=== PATIENT | female | born 1960 | race Caucasian/White ===

== ENCOUNTER → 2018-01-18 14:24 | Outpatient (REF) | payer MEDICARE, SELFPAY ==
[2018-01-18 20:30] LABS: Anion Gap 9.3 mmol/L (3-11); BUN 14 mg/dL (7-18); CO2 27.7 mmol/L (21.0-32.0); CREATININE 0.83 mg/dL (0.55-1.02); Chloride 100 mmol/L (98-107); Glucose 92 mg/dL (70-100); Magnesium 1.4 mg/dL (1.8-2.4); Potassium 3.2 mmol/L (3.5-5.1); Sodium 137 mmol/L (136-145)
== END ==
LOC: NCHCN 14:24
PROVIDERS: PCP Family Medicine; Visit Provider Physician Assistant Medical
DX: E83.42 Hypomagnesemia (principal); E87.6 Hypokalemia; I10 Essential (primary) hypertension
CPT/HCPCS: 80048; 83735

== ENCOUNTER 2018-04-02 00:23 | Outpatient (CLI) | payer MEDICARE, SELFPAY ==
[2018-04-02 10:53] LABS: ALT 29 U/L (12-78); AST 34 U/L (15-37); Albumin 3.4 g/dL (3.4-5.0); Alkaline Phosphatase 72 U/L (46-116); Anion Gap 12.4 mmol/L (3-11); BUN 9 mg/dL (7-18); Bilirubin, Total 0.5 mg/dL (0.2-1.0); CO2 22.6 mmol/L (21.0-32.0); CREATININE 0.63 mg/dL (0.55-1.02); Calcium 8.6 mg/dL (8.5-10.1); Chloride 98 mmol/L (98-107); Glucose 85 mg/dL (70-100); Potassium 3.9 mmol/L (3.5-5.1); Sodium 133 mmol/L (136-145); Total Protein 6.9 g/dL (6.4-8.2)
[2018-04-02 11:01] LABS: Magnesium 1.1 mg/dL (1.8-2.4)
[2018-04-02] MEDS: Omnipaque 350 MG/ML 100 ML BTL IJ (11:18)
--- NOTE | 2018-04-02 11:25 | DI.CT_ITS ---
SYMPTOMS/DIAGNOSIS: H/O NON SMALL CELL CANCER, PULMONARY NODULES OF UNCERTAIN SIGNIFICANCE, RESTAGING, C34.31 CT SCAN OF THE CHEST: CT scan of the chest was performed following the uneventful administration of intravenous contrast material. Comparison is 07/20/17. The thoracic aorta is of normal caliber. The heart size is within normal limits. No significant pericardial effusion is seen. No significant thoracic or mediastinal adenopathy. No hilar adenopathy is present. No pleural effusion or pneumothorax is identified. There has been no change in size of the pulmonary nodules in the right hemithorax. No new pulmonary nodules are seen. No new infiltrates are seen. The tracheobronchial tree is unremarkable. There is scarring seen in the right lung base which appears stable. The upper abdominal images show no acute abnormality. There are old healed right rib fractures. No suspicious lytic or sclerotic lesions are seen in the bones. IMPRESSION: Stable right pulmonary nodules. No significant change in appearance of the chest CT since 07/20/17.
== END 2018-04-02 00:43 ==
PROVIDERS: Physician Assistant Medical; PCP Family Medicine; Visit Provider Internal Medicine Hematology & Oncology
DX: E83.42 Hypomagnesemia (principal); E87.6 Hypokalemia; C34.31 Malignant neoplasm of lower lobe, right bronchus or lung; R91.1 Solitary pulmonary nodule
CPT/HCPCS: 36415; 80048; 80053; 71260; 82565; 83735; 85025; J3490

== ENCOUNTER 2018-04-05 11:15 | Outpatient (CLI) | payer MEDICARE, SELFPAY ==
[2018-04-05 11:34] LABS: Abs Immature Grans 0.01 k/cumm (0.0-0.09); Absolute Basophil Count 0.04 k/cumm (0.0-0.2); Absolute Eosinophil Count 0.16 k/cumm (0.0-0.7); Absolute Lymphocyte Count 1.84 k/cumm (1.2-3.4); Absolute Monocyte Count 0.41 k/cumm (0.11-0.7); Absolute Neutrophil Count 5.52 k/cumm (1.2-6.7); Basophils % 0.5; HCT 41.4 % (36.0-46.0); HGB 14.2 g/dL (12.0-15.5); Immature Grans % 0.1; Lymphocytes % 23.1; Mean Corp. HGB Concentration 34.3 g/dL (32.0-36.0); Mean Corpuscular Hemoglobin 31.2 pg (27.0-33.0); Mean Platelet Volume 10.2 fL (8.0-11.0); Monocytes % 5.1; Neutrophils % 69.2; Platelet Count 353 x1000/uL (130-400); RBC 4.55 m/cumm (4.00-5.20); RBC Distribution Width 13.4 % (11.7-14.6); White Blood Cell Count 7.98 k/cumm (4.4-10.8)
== END 2018-04-05 11:35 ==
PROVIDERS: PCP Family Medicine; Referring Provider Physician Assistant Medical; Visit Provider Internal Medicine Hematology & Oncology
DX: C34.31 Malignant neoplasm of lower lobe, right bronchus or lung (principal)
CPT/HCPCS: 36415; 85025

== ENCOUNTER 2018-07-06 13:39 | Outpatient (REF) | payer MEDICARE, SELFPAY ==
[2018-07-06 18:59] LABS: HCT 39.2 % (36.0-46.0); HGB 13.2 g/dL (12.0-15.5); Mean Corp. HGB Concentration 33.7 g/dL (32.0-36.0); Mean Corpuscular Hemoglobin 31.8 pg (27.0-33.0); Mean Corpuscular Volume 94.5 fL (80-95); Mean Platelet Volume 10.7 fL (8.0-11.0); Platelet Count 332 x1000/uL (130-400); RBC 4.15 m/cumm (4.00-5.20); RBC Distribution Width 13.2 % (11.7-14.6); White Blood Cell Count 8.68 k/cumm (4.4-10.8)
[2018-07-06 19:16] LABS: ALT 34 U/L (12-78); AST 27 U/L (15-37); Alkaline Phosphatase 83 U/L (46-116); Anion Gap 11.2 mmol/L (3-11); BUN 14 mg/dL (7-18); Bilirubin, Total 0.9 mg/dL (0.2-1.0); CO2 26.8 mmol/L (21.0-32.0); CREATININE 1.01 mg/dL (0.55-1.02); Calcium 10.2 mg/dL (8.5-10.1); Chloride 102 mmol/L (98-107); Glucose 91 mg/dL (70-100); Lipase 115 U/L (73-393); Potassium 3.8 mmol/L (3.5-5.1); Sodium 140 mmol/L (136-145); Total Protein 7.4 g/dL (6.4-8.2)
== END 2018-07-06 13:59 ==
LOC: NCHCN 13:39
PROVIDERS: PCP Family Medicine; Visit Provider Physician Assistant Medical
DX: R10.11 Right upper quadrant pain (principal)
CPT/HCPCS: 80053; 83690; 85027

== ENCOUNTER 2018-10-04 09:18 | Outpatient (CLI) | payer MEDICARE, OTHER, SELFPAY ==
[2018-10-04 12:49] LABS: Abs Immature Grans 0.01 k/cumm (0.0-0.09); Absolute Basophil Count 0.04 k/cumm (0.0-0.2); Absolute Eosinophil Count 0.17 k/cumm (0.0-0.7); Absolute Lymphocyte Count 1.41 k/cumm (1.2-3.4); Absolute Monocyte Count 0.29 k/cumm (0.11-0.7); Absolute Neutrophil Count 4.83 k/cumm (1.2-6.7); Basophils % 0.6; Eosinophils % 2.5; HCT 38.9 % (36.0-46.0); HGB 13.4 g/dL (12.0-15.5); Immature Grans % 0.1; Lymphocytes % 20.9; Mean Corp. HGB Concentration 34.4 g/dL (32.0-36.0); Mean Corpuscular Hemoglobin 32.1 pg (27.0-33.0); Mean Corpuscular Volume 93.3 fL (80-95); Monocytes % 4.3; Neutrophils % 71.6; Platelet Count 343 x1000/uL (130-400); RBC 4.17 m/cumm (4.00-5.20); RBC Distribution Width 12.8 % (11.7-14.6); White Blood Cell Count 6.75 k/cumm (4.4-10.8)
[2018-10-04 13:09] LABS: ALT 44 U/L (12-78); AST 38 U/L (15-37); Albumin 3.7 g/dL (3.4-5.0); Alkaline Phosphatase 72 U/L (46-116); Anion Gap 10.4 mmol/L (3-11); BUN 22 mg/dL (7-18); Bilirubin, Total 0.7 mg/dL (0.2-1.0); CO2 25.6 mmol/L (21.0-32.0); CREATININE 0.71 mg/dL (0.55-1.02); Calcium 9.1 mg/dL (8.5-10.1); Chloride 102 mmol/L (98-107); Glucose 98 mg/dL (70-100); Potassium 4.2 mmol/L (3.5-5.1); Sodium 138 mmol/L (136-145); Total Protein 7.1 g/dL (6.4-8.2)
--- NOTE | 2018-10-04 13:48 | DI.CT_ITS ---
SYMPTOMS/DIAGNOSIS: NON-SMALL CELL LUNG CANCER, C34.90, ? SIGNIFICANCE OF PULMONARY NODULES CHEST CT: CT examination of the chest was performed with a bolus infusion of 100 cc of Omnipaque 350. The patient reportedly has a history of non-small cell lung carcinoma with a right upper lobectomy. Images obtained through the upper abdomen show unremarkable appearance of visualized portions of the liver, spleen, adrenals, kidneys and pancreas. No significant mediastinal adenopathy seen. No supraclavicular or axillary adenopathy seen. Previously described multiple right intrapulmonary nodules are again noted and unchanged from the previous examination of 04/02/2018. No left- sided nodules seen. No pleural effusion seen. CONCLUSION: Stable appearance of multiple right intrapulmonary nodules, a right apical pleural-based nodule and right nodule associated with the interlobar fissure at a level just above the tony; each measure about 10 mm in diameter.
[2018-10-04] MEDS: Omnipaque 350 MG/ML 100 ML BTL IJ (14:02)
[2018-10-04] MEDS: Normal Saline Flush 10 ML SYR IVP (14:03)
== END 2018-10-04 09:38 ==
PROVIDERS: PCP Family Medicine; Visit Provider Nurse Practitioner Family
DX: C34.90 Malignant neoplasm of unspecified part of unspecified bronchus or lung (principal); R91.8 Other nonspecific abnormal finding of lung field
CPT/HCPCS: 80053; 71260; 85025; J3490

== ENCOUNTER 2018-10-18 02:12 | Outpatient (CLI) | payer MEDICARE, SELFPAY ==
--- NOTE | 2018-10-18 14:20 | DI.MAMMO_ITS ---
SYMPTOM/DIAGNOSIS: SCREENING MAMMOGRAMS: Mammograms were interpreted according to the usual protocol including computer analysis with CAD system, tomosynthesis and C view imaging. Comparison is made with exams from [id number]. The breasts are composed of scattered fibroglandular densities, breast density, Category B. No suspicious masses or suspicious microcalcifications are seen. There has been no significant change. IMPRESSION: Category 1, negative mammogram. Yearly screening mammography is recommended. [facility] ASSESSMENT OF FINDINGS: Negative. Category 1. Patient will receive a letter notifying them of these results. BI-RADS category B. There are scattered areas of fibroglandular density.
== END 2018-10-18 02:32 ==
PROVIDERS: PCP Family Medicine; Visit Provider Nurse Practitioner Adult Health
DX: Z12.31 Encounter for screening mammogram for malignant neoplasm of breast (principal)
CPT/HCPCS: 77063; 77067

== ENCOUNTER 2019-05-10 20:39 | Outpatient (REF) | payer MEDICARE, SELFPAY ==
[2019-05-10 19:41] LABS: HCT 44.4 % (36.0-46.0); HGB 14.6 g/dL (12.0-15.5); Mean Corp. HGB Concentration 32.9 g/dL (32.0-36.0); Mean Corpuscular Hemoglobin 31.9 pg (27.0-33.0); Mean Corpuscular Volume 96.9 fL (80-95); Mean Platelet Volume 10.4 fL (8.0-11.0); Platelet Count 398 x1000/uL (130-400); RBC 4.58 m/cumm (4.00-5.20); RBC Distribution Width 13.3 % (11.7-14.6); White Blood Cell Count 8.65 k/cumm (4.4-10.8)
[2019-05-10 19:42] LABS: Anion Gap 11.2 mmol/L (3-11); BUN 15 mg/dL (7-18); CO2 28.8 mmol/L (21.0-32.0); CREATININE 1.09 mg/dL (0.55-1.02); Chloride 104 mmol/L (98-107); Estimated GFR 51.38 (mL/min/1.73m2); Glucose 97 mg/dL (74-106); Potassium 4.4 mmol/L (3.5-5.1); Sodium 144 mmol/L (136-145)
== END 2019-05-10 20:59 ==
LOC: NCHCN 20:39
PROVIDERS: PCP Family Medicine; Visit Provider Nurse Practitioner Family
DX: I10 Essential (primary) hypertension (principal); J32.9 Chronic sinusitis, unspecified
CPT/HCPCS: 80048; 85027

== ENCOUNTER 2020-01-09 11:57 | Outpatient (REF) | payer MEDICARE, OTHER, SELFPAY ==
[2020-01-09 18:59] LABS: Abs Immature Grans 0.02 10^3/uL (0.0-0.06); Absolute Basophil Count 0.06 10^3/uL (0.0-0.2); Absolute Eosinophil Count 0.23 10^3/uL (0.0-0.7); Absolute Lymphocyte Count 1.63 10^3/uL (1.2-3.4); Absolute Monocyte Count 0.37 10^3/uL (0.1-0.8); Absolute Neutrophil Count 4.23 10^3/uL (1.2-6.7); Basophils % 0.9; Eosinophils % 3.5; HCT 41.6 % (36.0-46.0); Immature Grans % 0.3; Lymphocytes % 24.9; MCHC 33.7 % (32.0-36.0); MPV 10.1 fL (8.0-11.0); Monocytes % 5.7; Neutrophils % 64.7; Nucleated RBC 0 %; Platelet Count 350 10^3/uL (130-400); RBC 4.38 10^6/uL (3.93-5.22); RDW 12.4 % (11.7-14.6); RDW-SD 43.7 fL; WBC 6.54 10^3/uL (4.4-10.8)
[2020-01-09 19:23] LABS: ALT 41 U/L (14-59); AST 19 U/L (15-37); Albumin 3.8 g/dL (3.4-5.0); Alkaline Phosphatase 67 U/L (46-116); Anion Gap 9.8 mmol/L (3-11); BUN 12 mg/dL (7-18); Bilirubin, Total 0.7 mg/dL (0.2-1.0); CO2 27.2 mmol/L (21.0-32.0); CREATININE 0.89 mg/dL (0.55-1.02); Calcium 9.3 mg/dL (8.5-10.1); Calculated LDL 95 mg/dL (<100); Chloride 97 mmol/L (98-107); Cholesterol 203 mg/dL (<200); Glucose 95 mg/dL (74-106); HDL Cholesterol 83 mg/dL (40-60); Potassium 4.2 mmol/L (3.5-5.1); Sodium 134 mmol/L (136-145); TSH (W/Ref FT4) 1.18 uIU/mL (0.36-3.74); Total Protein 6.7 g/dL (6.4-8.2); Triglyceride 128 mg/dL (<150)
== END 2020-01-09 12:17 ==
LOC: NCHCN 11:57
PROVIDERS: PCP Family Medicine; Visit Provider Physician Assistant
DX: I10 Essential (primary) hypertension (principal); E78.5 Hyperlipidemia, unspecified; J44.9 Chronic obstructive pulmonary disease, unspecified; M16.12 Unilateral primary osteoarthritis, left hip; K21.9 Gastro-esophageal reflux disease without esophagitis; F17.200 Nicotine dependence, unspecified, uncomplicated
CPT/HCPCS: 80053; 80061; 84443; 85025

== ENCOUNTER 2020-01-19 00:53 | Outpatient (CLI) | payer MEDICARE, OTHER, SELFPAY ==
--- NOTE | 2020-01-19 | DI.CT_ITS ---
EXAM: CT CHEST W CLINICAL HISTORY: F/U RUL LUNG CA,C34.11,RESTAGING EXAM TECHNIQUE: Imaging Protocol: Axial computed tomography images with coronal and sagittal reformatted images were created and reviewed CONTRAST MATERIAL: Intravenous: Omnipaque 350 Contrast volume:100 cc COMPARISON: CT CT CHEST W from 10/04/2018 FINDINGS: The patient is again noted to be status post right upper lobectomy. There is some right sided volume loss with stable mediastinal shift toward the right. The heart size is normal. Surgical clips are noted near the right hilum. No adenopathy is seen. There are no pleural or pericardial effusions. There has been interval increase in size of previously noted right-sided pulmonary nodules. The larg est nodule is located at the level of the aortic arch near the fissure and now measures 1.6 cm in gre atest dimension. There is anteriorly right upper lobe lesion measuring 12.5 millimeters in greatest dimension. A part solid nodule at the right lung apex also appears to have increased in size. Areas of scarring are seen at the right lung base. Numerous small nodules are now visible in the left isacc g. The largest is in the upper lobe measuring 5 millimeters in diameter. The bones now show numerou s sclerotic lesions in the thoracic and visualized portions of the lumbar spine. There are old right rib fractures. Degenerative changes are again noted. The liver shows fatty infiltration. No masses are visible. The spleen, adrenals, pancreas, gallbladde r and kidneys are unremarkable. No ascites is seen in the upper abdomen. IMPRESSION: Interval increase in size of previously noted right-sided pulmonary nodules. Numerous tiny nodules a re now visible in the left lung. New sclerotic bony metastases. RADIATION DOSE DELIVERED: 1,025.07mGy.cm Total DLP DATA REPOSITORY: All CT scans at this facility are submitted to the National Radiology Data Registry (NRDR) Dose Index Registry (DIR) with the [employer] (ACR). RADIATION OPTIMIZATION: All CT scans at this facility use at least one of these dose optimization te chniques: automated exposure control; mA and/or kV adjustment per patient size (includes targeted exa ms where dose is matched to clinical indication); or iterative reconstruction.
[2020-01-19] MEDS: Omnipaque 350 MG/ML 100 ML BTL IJ (15:07)
[2020-01-19] MEDS: Normal Saline Flush 10 ML SYR IVP (15:56)
[2020-01-19] MEDS: Normal Saline - Diluent 50 ML VIAL IV (15:56)
== END 2020-01-19 01:13 ==
PROVIDERS: PCP Family Medicine; Visit Provider Internal Medicine Hematology & Oncology
DX: C34.11 Malignant neoplasm of upper lobe, right bronchus or lung (principal); R91.8 Other nonspecific abnormal finding of lung field; Z90.2 Acquired absence of lung [part of]
CPT/HCPCS: 71260; J3490

== ENCOUNTER 2020-02-13 03:31 | Outpatient (CLI) | payer MEDICARE, OTHER, SELFPAY ==
[2020-02-13 14:00] LABS: Abs Immature Grans 0.03 10^3/uL (0.0-0.06); Absolute Basophil Count 0.03 10^3/uL (0.0-0.2); Absolute Eosinophil Count 0.05 10^3/uL (0.0-0.7); Absolute Lymphocyte Count 1.04 10^3/uL (1.2-3.4); Absolute Monocyte Count 0.41 10^3/uL (0.1-0.8); Absolute Neutrophil Count 8.75 10^3/uL (1.2-6.7); Basophils % 0.3; Eosinophils % 0.5; HCT 38.5 % (36.0-46.0); HGB 13.8 g/dL (11.2-15.7); Immature Grans % 0.3; Lymphocytes % 10.1; MCH 33.1 pg (27.0-33.0); MCHC 35.8 % (32.0-36.0); MCV 92.3 fL (80-95); MPV 9.2 fL (8.0-11.0); Neutrophils % 84.8; Nucleated RBC 0 %; Platelet Count 341 10^3/uL (130-400); RBC 4.17 10^6/uL (3.93-5.22); RDW 12.6 % (11.7-14.6); RDW-SD 42.6 fL; WBC 10.31 10^3/uL (4.4-10.8)
[2020-02-13 14:45] LABS: ALT 37 U/L (14-59); AST 26 U/L (15-37); Albumin 4.1 g/dL (3.4-5.0); Alkaline Phosphatase 74 U/L (46-116); Anion Gap 12.4 mmol/L (3-11); BUN 12 mg/dL (7-18); Bilirubin, Total 1.1 mg/dL (0.2-1.0); CO2 24.6 mmol/L (21.0-32.0); CREATININE 0.93 mg/dL (0.55-1.02); Calcium 9.3 mg/dL (8.5-10.1); Chloride 96 mmol/L (98-107); Glucose 110 mg/dL (74-106); Potassium 3.3 mmol/L (3.5-5.1); Sodium 133 mmol/L (136-145); Total Protein 7.1 g/dL (6.4-8.2)
== END 2020-02-13 03:51 ==
PROVIDERS: PCP Physician Assistant; Visit Provider Internal Medicine Hematology & Oncology
DX: C34.11 Malignant neoplasm of upper lobe, right bronchus or lung (principal); R91.8 Other nonspecific abnormal finding of lung field
CPT/HCPCS: 36415; 80053; 85025

== ENCOUNTER 2020-03-30 02:56 | Outpatient (CLI) | payer MEDICARE, OTHER, SELFPAY ==
[2020-03-30 12:48] LABS: Abs Immature Grans 0.04 10^3/uL (0.0-0.06); Absolute Basophil Count 0.04 10^3/uL (0.0-0.2); Absolute Eosinophil Count 0.14 10^3/uL (0.0-0.7); Absolute Lymphocyte Count 1.15 10^3/uL (1.2-3.4); Absolute Monocyte Count 0.54 10^3/uL (0.1-0.8); Absolute Neutrophil Count 7.76 10^3/uL (1.2-6.7); Basophils % 0.4; Eosinophils % 1.4; HCT 41.8 % (36.0-46.0); HGB 14.4 g/dL (11.2-15.7); Immature Grans % 0.4; Lymphocytes % 11.9; MCH 33.2 pg (27.0-33.0); MCHC 34.4 % (32.0-36.0); MCV 96.3 fL (80-95); MPV 9.4 fL (8.0-11.0); Monocytes % 5.6; Neutrophils % 80.3; Nucleated RBC 0 %; Platelet Count 353 10^3/uL (130-400); RBC 4.34 10^6/uL (3.93-5.22); RDW 13.1 % (11.7-14.6); RDW-SD 47.1 fL; WBC 9.67 10^3/uL (4.4-10.8)
[2020-03-30 13:02] LABS: ALT 25 U/L (14-59); AST 20 U/L (15-37); Albumin 3.7 g/dL (3.4-5.0); Alkaline Phosphatase 79 U/L (46-116); Anion Gap 11.1 mmol/L (3-11); BUN 11 mg/dL (7-18); Bilirubin, Total 0.9 mg/dL (0.2-1.0); CO2 25.9 mmol/L (21.0-32.0); CREATININE 0.92 mg/dL (0.55-1.02); Calcium 9.3 mg/dL (8.5-10.1); Chloride 96 mmol/L (98-107); Glucose 96 mg/dL (74-106); Potassium 3.2 mmol/L (3.5-5.1); Sodium 133 mmol/L (136-145); Total Protein 7.3 g/dL (6.4-8.2)
== END 2020-03-30 03:16 ==
PROVIDERS: PCP Physician Assistant; Visit Provider Internal Medicine Hematology & Oncology
DX: C34.12 Malignant neoplasm of upper lobe, left bronchus or lung (principal); C34.31 Malignant neoplasm of lower lobe, right bronchus or lung
CPT/HCPCS: 36415; 80053; 85025

== ENCOUNTER 2020-04-12 16:44 | Outpatient (REF) | payer MEDICARE, OTHER, SELFPAY ==
[2020-04-12 19:18] LABS: Abs Immature Grans 0.06 10^3/uL (0.0-0.06); Absolute Basophil Count 0.07 10^3/uL (0.0-0.2); Absolute Eosinophil Count 0.07 10^3/uL (0.0-0.7); Absolute Lymphocyte Count 2.13 10^3/uL (1.2-3.4); Absolute Monocyte Count 0.67 10^3/uL (0.1-0.8); Basophils % 0.6; Eosinophils % 0.6; HCT 41.6 % (36.0-46.0); HGB 14.3 g/dL (11.2-15.7); Immature Grans % 0.5; Lymphocytes % 19.3; MCH 32.5 pg (27.0-33.0); MCHC 34.4 % (32.0-36.0); MCV 94.5 fL (80-95); MPV 9.5 fL (8.0-11.0); Monocytes % 6.1; Neutrophils % 72.9; Nucleated RBC 0 %; Platelet Count 404 10^3/uL (130-400); RDW 12.6 % (11.7-14.6); RDW-SD 44.2 fL; WBC 11.03 10^3/uL (4.4-10.8)
[2020-04-12 19:26] LABS: Absolute Neutrophil Count 8.04 10^3/uL (1.2-6.7)
[2020-04-12 19:37] LABS: ALT 35 U/L (14-59); AST 25 U/L (15-37); Albumin 4.4 g/dL (3.4-5.0); Alkaline Phosphatase 78 U/L (46-116); Anion Gap 13.7 mmol/L (3-11); BUN 11 mg/dL (7-18); Bilirubin, Total 0.9 mg/dL (0.2-1.0); CO2 22.3 mmol/L (21.0-32.0); CREATININE 0.89 mg/dL (0.55-1.02); Chloride 96 mmol/L (98-107); Glucose 88 mg/dL (74-106); Magnesium 1.4 mg/dL (1.8-2.4); Potassium 3.9 mmol/L (3.5-5.1); Sodium 132 mmol/L (136-145); Total Protein 7.6 g/dL (6.4-8.2)
== END 2020-04-12 17:04 ==
LOC: LBN 16:44
PROVIDERS: PCP Physician Assistant; Visit Provider Internal Medicine Hematology & Oncology
DX: C34.90 Malignant neoplasm of unspecified part of unspecified bronchus or lung (principal); C79.51 Secondary malignant neoplasm of bone
CPT/HCPCS: 80053; 83735; 85025

== ENCOUNTER 2020-04-20 13:12 | Outpatient (CLI) | payer MEDICARE, OTHER, SELFPAY ==
--- NOTE | 2020-04-20 15:45 | RT.EKG_ITS ---
APPROVED REPORT Exam: Resting ECG Patient Location: O HR:80 bpm ECG Measurements Heart Rate 80 AXIS MO 176 P 59 QRSd 102 QRS 41 QT 387 T 24 QTc 447 Conclusion Sinus rhythm...normal P axis, V-rate 60- [address]-T changes
== END 2020-04-20 13:32 ==
PROVIDERS: PCP Physician Assistant; Visit Provider Internal Medicine Hematology & Oncology
DX: C34.91 Malignant neoplasm of unspecified part of right bronchus or lung (principal); Z79.899 Other long term (current) drug therapy; Z13.6 Encounter for screening for cardiovascular disorders
CPT/HCPCS: 93005; 93010

== ENCOUNTER 2020-04-25 00:59 | Outpatient (CLI) | payer MEDICARE, OTHER, SELFPAY ==
--- NOTE | 2020-04-25 08:29 | DI.US_ITS ---
APPROVED REPORT EXAM: Comprehensive 2D, Doppler, and color-flow Echocardiogram Patient Location: Out-Patient Boot Lace Cutter Machine: Rosalba Prince RDCS (AE) Indications: Baseline prior to starting high risk medication, Lung Cancer Echo Enhancing Agent Comments: Patient refused use of Definity. Other Information Technically limited study due to lung disease, body habitus. Conclusion Technically limited study The left ventricle appears normal in size and wall thickness, grossly normal overall left ventricular systolic function. EF is 50 to 55%. Unable to assess segmental wall motion The right ventricle and right atrium are not well visualized Left atrial size appears normal Structurally normal mitral valve with trace regurgitation The aortic, tricuspid and pulmonic valves were not well visualized There is trace tricuspid regurgitation. Right ventricular systolic pressure could not be estimated Wall motion Left Ventricle The left ventricle is normal size. Overall left ventricular systolic function appears normal There is normal left ventricular wall thickness. Unable to assess segmental wall motion There is no ventricul ar septal defect visualized. LVEF is 50-55%. Right Ventricle Right ventricle is not well visualized. Right ventricular systolic function could not be assessed. Atria Left atrium size appears normal Right atrium is not well visualized. The interatrial septum is intact with no evidence for an atrial septal defect. Aortic Valve The aortic valve is not well visualized. Aortic valve is probably trileaflet. There is no aortic valv ular stenosis. No aortic regurgitation is present. Mitral Valve The mitral valve is normal in structure. No evidence of mitral valve stenosis. Trace mitral regurgita tion. Tricuspid Valve Tricuspid valve is not well visualized. There is no tricuspid valve stenosis. Trace tricuspid regurgi tation. Unable to assess PA pressure. Pulmonic Valve Pulmonic valve is not well visualized. There is no pulmonic valvular stenosis. There is no pulmonic v alvular regurgitation. Great Vessels The aortic root is normal in size. The ascending aorta is severely dilated. Aortic arch is normal in caliber. IVC is normal in size and collapses >50% with inspiration. Pericardium There is no pericardial effusion. 2D Dimensions IVSD d PLAX 0.88 cm F: 0.6-1.0 LV Vol A2C d MOD 111.4 mL LVPW d PLAX 0.91 cm F: 0.6 - 1.0 LV Vol A4C d MOD 97.0 mL LVID d PLAX 5.14 cm F: 3.8 - 5.2 LV EF A4C MOD 45.9 % LVDs 4.00 cm F: 2.2 - 3.5 LV EF A2C MOD 41.1 % Ao Root d 2.82 cm F: 2.7 - 3.3 LV EF Biplane MOD 41.0 % Ao Asc Diam d 4.00 cm F: 2.3 - 3.1 SV 44.62 mL LV EF Teichholz 44.0 % SV Index 21.22 mL/m2 LVEF (Reyes's) 41.03 % F: 54 - 74 LV Volume 80.22 mL F: 46 - 106 LV Volume Index 38.20 mL/m2 F: 29 - 61 LV Vol Biplane MOD 108.7 mL FS 21.90 % LV Diastology MV E' medial 0.059 (>0.07 m/s) E/A Ratio 0.8 LV E/e MED 10.30 (<14) MV E Vmax 0.61 (0.4-1.3 m/s) MV E' lateral 0.070 (>0.1 m/s) MV A Vmax 0.75 (0.4-1.3 m/s) LV E/e LAT 8.65 (<14) MV E/A Ratio 0.78 MV E/E' medial 10.33 MV E/E' lateral 8.65 Aortic Valve LVOT Area 2.78 cm2 AoV Area Vmax 2.21 cm2 LVOT Vmax 1.04 m/s AoV Area/ BSA (Vmax) 1.05 cm2/m2 LVOT Mean Ken. 0.64 m/s JOEL Mean Ken. 1.88 cm2 LVOT Peak Grad 4.3 mmHg JOEL Mean Ken. Index 0.89 cm2/m2 LVOT Mean Grad 2.0 mmHg LVOT VTI 0.190 m LVOT Diam s 1.85 cm AoV Vmax 1.31 m/s Velocity Ratio 0.79 AoV Mean Ken. 0.94 m/s AoV Peak Grad 6.8 mmHg LVOT SV 52.84 mL AoV Mean Grad 4.0 mmHg AoV VTI 0.242 m AoV Area VTI 2.18 cm2 AoV Area/ BSA (VTI) 1.04 cm/m2 Mitral Valve MV DT 235 (160-240 msec) MV PHT 68 msec MV Area PHT 3.23 cm2 MV VTI 0.261 m MV Area VTI 2.03 (4.0-6.0 cm2) Pulmonary Valve PV Vmax 0.89 (0.5-1.5 m/s) RVOT Peak Gr. 1.58 mmHg PV Peak Grad 3.2 mmHg RVOT Mean Gr. 0.80 mmHg PV Mean Grad 1.7 mmHg RVOT VTI 0.121 m PV VTI 0.200 m RVOT Vmax 0.63 m/s
== END 2020-04-25 01:19 ==
PROVIDERS: PCP Physician Assistant; Visit Provider Internal Medicine Hematology & Oncology
DX: Z79.899 Other long term (current) drug therapy (principal); C34.91 Malignant neoplasm of unspecified part of right bronchus or lung
CPT/HCPCS: 93306

== ENCOUNTER 2020-05-09 03:37 | Outpatient (CLI) | payer MEDICARE, OTHER, SELFPAY ==
[2020-05-09 13:12] LABS: Abs Immature Grans 0.02 10^3/uL (0.0-0.06); Absolute Basophil Count 0.05 10^3/uL (0.0-0.2); Absolute Eosinophil Count 0.23 10^3/uL (0.0-0.7); Absolute Lymphocyte Count 1.27 10^3/uL (1.2-3.4); Absolute Monocyte Count 0.34 10^3/uL (0.1-0.8); Absolute Neutrophil Count 6.16 10^3/uL (1.2-6.7); Basophils % 0.6; Eosinophils % 2.9; HCT 39.9 % (36.0-46.0); HGB 13.5 g/dL (11.2-15.7); Immature Grans % 0.2; Lymphocytes % 15.7; MCH 33.1 pg (27.0-33.0); MCHC 33.8 % (32.0-36.0); MCV 97.8 fL (80-95); MPV 9.5 fL (8.0-11.0); Monocytes % 4.2; Neutrophils % 76.4; Nucleated RBC 0 %; Platelet Count 297 10^3/uL (130-400); RBC 4.08 10^6/uL (3.93-5.22); RDW 12.1 % (11.7-14.6); RDW-SD 43.7 fL; WBC 8.07 10^3/uL (4.4-10.8)
[2020-05-09 13:29] LABS: ALT 32 U/L (14-59); AST 20 U/L (15-37); Albumin 3.9 g/dL (3.4-5.0); Alkaline Phosphatase 67 U/L (46-116); Anion Gap 8.7 mmol/L (3-11); BUN 16 mg/dL (7-18); Bilirubin, Total 0.5 mg/dL (0.2-1.0); CO2 25.3 mmol/L (21.0-32.0); Calcium 9.4 mg/dL (8.5-10.1); Chloride 100 mmol/L (98-107); Estimated GFR 50.67 (mL/min/1.73m2); Glucose 96 mg/dL (74-106); Magnesium 1.5 mg/dL (1.8-2.4); Potassium 3.7 mmol/L (3.5-5.1); Sodium 134 mmol/L (136-145); Total Protein 7.3 g/dL (6.4-8.2)
== END 2020-05-09 03:57 ==
PROVIDERS: PCP Physician Assistant; Visit Provider Internal Medicine Hematology & Oncology
DX: C34.11 Malignant neoplasm of upper lobe, right bronchus or lung (principal)
CPT/HCPCS: 36415; 80053; 83735; 85025

== ENCOUNTER 2020-06-06 04:26 | Outpatient (CLI) | payer MEDICARE, OTHER, SELFPAY ==
[2020-06-06 14:12] LABS: Abs Immature Grans 0.02 10^3/uL (0.0-0.06); Absolute Basophil Count 0.03 10^3/uL (0.0-0.2); Absolute Eosinophil Count 0.13 10^3/uL (0.0-0.7); Absolute Lymphocyte Count 1.54 10^3/uL (1.2-3.4); Absolute Monocyte Count 0.45 10^3/uL (0.1-0.8); Absolute Neutrophil Count 3.89 10^3/uL (1.2-6.7); Basophils % 0.5; Eosinophils % 2.1; HCT 36.8 % (36.0-46.0); HGB 12.3 g/dL (11.2-15.7); Immature Grans % 0.3; Lymphocytes % 25.4; MCH 32.3 pg (27.0-33.0); MCHC 33.4 % (32.0-36.0); MCV 96.6 fL (80-95); MPV 9.9 fL (8.0-11.0); Monocytes % 7.4; Neutrophils % 64.3; Nucleated RBC 0 %; Platelet Count 262 10^3/uL (130-400); RBC 3.81 10^6/uL (3.93-5.22); RDW 12.4 % (11.7-14.6); RDW-SD 44.4 fL; WBC 6.06 10^3/uL (4.4-10.8)
[2020-06-06 15:09] LABS: ALT 25 U/L (14-59); AST 19 U/L (15-37); Albumin 3.9 g/dL (3.4-5.0); Alkaline Phosphatase 60 U/L (46-116); Anion Gap 12.2 mmol/L (3-11); BUN 11 mg/dL (7-18); Bilirubin, Total 0.8 mg/dL (0.2-1.0); CO2 24.8 mmol/L (21.0-32.0); CREATININE 0.99 mg/dL (0.55-1.02); Calcium 8.9 mg/dL (8.5-10.1); Chloride 99 mmol/L (98-107); Estimated GFR 57.22 (mL/min/1.73m2); Glucose 89 mg/dL (74-106); Magnesium 1.3 mg/dL (1.8-2.4); Potassium 3.9 mmol/L (3.5-5.1); Sodium 136 mmol/L (136-145); Total Protein 6.6 g/dL (6.4-8.2)
== END 2020-06-06 04:46 ==
PROVIDERS: PCP Physician Assistant; Visit Provider Internal Medicine Hematology & Oncology
DX: C34.11 Malignant neoplasm of upper lobe, right bronchus or lung (principal); C34.31 Malignant neoplasm of lower lobe, right bronchus or lung; C79.51 Secondary malignant neoplasm of bone
CPT/HCPCS: 36415; 80053; 83735; 85025

== ENCOUNTER 2020-07-04 02:36 | Outpatient (CLI) | payer MEDICARE, OTHER, SELFPAY ==
--- NOTE | 2020-07-04 | DI.CT_ITS ---
EXAM: CT CHEST W CLINICAL HISTORY: LUNG CA METASTATIC TO BONE,C79.51,C34.90,ON ORAL THERAPY, RESTAGING EXAM TECHNIQUE: Imaging Protocol: Axial computed tomography images with coronal and sagittal reformatted images were created and reviewed CONTRAST MATERIAL: Intravenous: Omnipaque 350 Contrast volume:70 mL. COMPARISON: CT CT CHEST W from 01/19/2020 FINDINGS: Tracheobronchial tree: Patent where visualized. Mediastinum and Abida: No dominant adenopathy or fluid collection. Pulmonary parenchyma: Status post right upper lobectomy. The right upper lobe pulmonary nodule measu res 1.0 cm compared with 1.6 cm on the prior examination. The nodule associated with the major fissu re now measures 0.9 cm compared with 1.3 cm. The left upper lobe pulmonary nodule is no longer visua lized. There has been an interval decrease in size and number of the pulmonary nodules since 01/19/20. There is scarring seen in the right lung base. Pleura: No effusion or pneumothorax. Heart: The heart is not dilated. No coronary artery calcifications are seen. No significant pericardi al effusion. Aorta: Thoracic aorta non-dilated. Upper abdomen: Unremarkable. Lymph nodes: Within normal limits. Bones: There are old right rib fractures. There has been an interval increase in size and number of the sclerotic metastatic disease. Soft tissues: Unremarkable. IMPRESSION: 1. Interval decrease in size and number of the pulmonary metastatic disease. 2. Interval increase in size and number of the sclerotic osseous metastatic disease. RADIATION DOSE DELIVERED: 1,681.83mGy.cm Total DLP DATA REPOSITORY: All CT scans at this facility are submitted to the National Radiology Data Registry (NRDR) Dose Index Registry (DIR) with the [employer] (ACR). RADIATION OPTIMIZATION: All CT scans at this facility use at least one of these dose optimization te chniques: automated exposure control; mA and/or kV adjustment per patient size (includes targeted exa ms where dose is matched to clinical indication); or iterative reconstruction.
[2020-07-04] MEDS: Omnipaque 350 MG/ML 100 ML BTL 70 ML IJ (15:11)
== END 2020-07-04 02:37 | disposition home or self-care (01) ==
LOC: DI 02:37
PROVIDERS: PCP Physician Assistant; Visit Provider Internal Medicine Hematology & Oncology
DX: C79.51 Secondary malignant neoplasm of bone (principal); C34.91 Malignant neoplasm of unspecified part of right bronchus or lung
CPT/HCPCS: 71260; J3490

== ENCOUNTER 2020-07-10 02:40 | Outpatient (CLI) | payer MEDICARE, OTHER, SELFPAY ==
[2020-07-10 15:47] LABS: Abs Immature Grans 0.01 10^3/uL (0.0-0.06); Absolute Basophil Count 0.04 10^3/uL (0.0-0.2); Absolute Eosinophil Count 0.21 10^3/uL (0.0-0.7); Absolute Lymphocyte Count 1.57 10^3/uL (1.2-3.4); Absolute Monocyte Count 0.49 10^3/uL (0.1-0.8); Absolute Neutrophil Count 4.42 10^3/uL (1.2-6.7); Basophils % 0.6; Eosinophils % 3.1; HGB 13.3 g/dL (11.2-15.7); Immature Grans % 0.1; Lymphocytes % 23.3; MCH 32.7 pg (27.0-33.0); MCHC 34.1 % (32.0-36.0); MCV 95.8 fL (80-95); MPV 9.6 fL (8.0-11.0); Monocytes % 7.3; Neutrophils % 65.6; Nucleated RBC 0 %; Platelet Count 329 10^3/uL (130-400); RBC 4.07 10^6/uL (3.93-5.22); RDW 12.2 % (11.7-14.6); RDW-SD 42.8 fL; WBC 6.74 10^3/uL (4.4-10.8)
[2020-07-10 16:57] LABS: ALT 33 U/L (14-59); AST 22 U/L (15-37); Albumin 4.3 g/dL (3.4-5.0); Alkaline Phosphatase 70 U/L (46-116); Anion Gap 11.1 mmol/L (3-11); BUN 13 mg/dL (7-18); Bilirubin, Total 0.5 mg/dL (0.2-1.0); CO2 25.9 mmol/L (21.0-32.0); CREATININE 0.9 mg/dL (0.55-1.02); Calcium 9.3 mg/dL (8.5-10.1); Chloride 98 mmol/L (98-107); Glucose 89 mg/dL (74-106); Magnesium 1.6 mg/dL (1.8-2.4); Potassium 4.1 mmol/L (3.5-5.1); Sodium 135 mmol/L (136-145); Total Protein 7.4 g/dL (6.4-8.2)
== END 2020-07-10 02:41 | disposition home or self-care (01) ==
PROVIDERS: PCP Physician Assistant; Visit Provider Internal Medicine Hematology & Oncology
DX: C34.11 Malignant neoplasm of upper lobe, right bronchus or lung (principal); C34.31 Malignant neoplasm of lower lobe, right bronchus or lung; C79.51 Secondary malignant neoplasm of bone; E83.42 Hypomagnesemia
CPT/HCPCS: 36415; 80053; 83735; 85025

== ENCOUNTER 2020-10-15 02:22 | Outpatient (CLI) | payer MEDICARE, OTHER, SELFPAY ==
[2020-10-15 12:53] LABS: Abs Immature Grans 0.02 10^3/uL (0.0-0.06); Absolute Basophil Count 0.03 10^3/uL (0.0-0.2); Absolute Eosinophil Count 0.16 10^3/uL (0.0-0.7); Absolute Monocyte Count 0.38 10^3/uL (0.1-0.8); Absolute Neutrophil Count 5.19 10^3/uL (1.2-6.7); Basophils % 0.4; Eosinophils % 2.2; HCT 35.6 % (36.0-46.0); Immature Grans % 0.3; Lymphocytes % 19.5; MCH 31.5 pg (27.0-33.0); MCHC 33.7 % (32.0-36.0); MCV 93.4 fL (80-95); Monocytes % 5.3; Neutrophils % 72.3; Nucleated RBC 0 %; Platelet Count 249 10^3/uL (130-400); RBC 3.81 10^6/uL (3.93-5.22); RDW 12.3 % (11.7-14.6); RDW-SD 42.9 fL; WBC 7.18 10^3/uL (4.4-10.8)
[2020-10-15 13:05] LABS: ALT 19 U/L (14-59); AST 16 U/L (15-37); Albumin 4.1 g/dL (3.4-5.0); Alkaline Phosphatase 59 U/L (46-116); Anion Gap 11.3 mmol/L (3-11); BUN 9 mg/dL (7-18); Bilirubin, Total 0.7 mg/dL (0.2-1.0); CO2 24.7 mmol/L (21.0-32.0); CREATININE 1.1 mg/dL (0.55-1.02); Calcium 8.8 mg/dL (8.5-10.1); Chloride 94 mmol/L (98-107); Estimated GFR 50.67 (mL/min/1.73m2); Glucose 95 mg/dL (74-106); Magnesium 1.2 mg/dL (1.8-2.4); Potassium 3.3 mmol/L (3.5-5.1); Sodium 130 mmol/L (136-145); Total Protein 7.2 g/dL (6.4-8.2)
--- NOTE | 2020-10-15 14:05 | DI.CT_ITS ---
Exam(s) CT CHEST W EXAM: CT CHEST W CLINICAL HISTORY: LUNG CA METASTATIC TO BONE,C34.90,C79.51,ON ORAL THERAPY,RESTAGING EXAM. TECHNIQUE: Multi planar reconstructions were performed. CONTRAST MATERIAL: Omnipaque 350; 75 cc COMPARISON: CT CT CHEST W from 07/04/2020 FINDINGS: CHEST: LUNGS: Again noted is slightly decreased right hemithoracic volume related to prior lobectomy. Small nodular density in right upper lobe slightly further decreased in size. No other significant nodula r densities in the right lung field and no pleural effusion. Some scarring towards the right lung ba se is unchanged. In the opposite-left lung there are no significant new focal findings. No pleural effusion. No new findings in the trachea and mainstem bronchi. MEDIASTINUM: There is no hilar nor mediastinal adenopathy. Visualized thyroid unremarkable. CARDIAC: Heart size is normal. There is no pericardial effusion.Caliber of the thoracic aorta is wit hin normal limits. VISUALIZED UPPER ABDOMEN:There are no significant adrenal masses. OSSEOUS: Postsurgical changes right rib cage. Stable sclerotic metastatic lesions in the visualized spinal column again noted. Also in the lateral aspect of the right 4th rib, also unchanged. Also in the sternum, unchanged. IMPRESSION: 1. Single small nodular density in the right upper lung region appears of slightly further decreased in size. No additional nodules in either lung field. No pleural effusions. No new intrathoracic ad enopathy. 2. Multilevel sclerotic metastatic bone lesions are again noted in the thoracic vertebrae, unchanged. Also in the lateral aspect of right 4th rib, also unchanged. 3. RADIATION DOSE DELIVERED: 806.75mGy.cm Total DLP DATA REPOSITORY: All CT scans at this facility are submitted to the National Radiology Data Registry (NRDR) Dose Index Registry (DIR) with the [employer] (ACR). RADIATION OPTIMIZATION: All CT scans at this facility use at least one of these dose optimization te chniques: automated exposure control; mA and/or kV adjustment per patient size (includes targeted exa ms where dose is matched to clinical indication); or iterative reconstruction.
[2020-10-15] MEDS: Normal Saline - Diluent 50 ML VIAL IV (14:10)
[2020-10-15] MEDS: Omnipaque 350 MG/ML 100 ML BTL 70 ML IJ (14:13)
== END 2020-10-15 02:42 ==
PROVIDERS: PCP Physician Assistant; Visit Provider Internal Medicine Hematology & Oncology
DX: E83.42 Hypomagnesemia (principal); C34.31 Malignant neoplasm of lower lobe, right bronchus or lung; C79.51 Secondary malignant neoplasm of bone; R91.1 Solitary pulmonary nodule; Z90.2 Acquired absence of lung [part of]
CPT/HCPCS: 80053; 71260; 83735; 85025; J3490

== ENCOUNTER 2020-10-22 02:16 | Outpatient (CLI) | payer MEDICARE, OTHER, SELFPAY ==
[2020-10-22 12:44] LABS: Abs Immature Grans 0.01 10^3/uL (0.0-0.06); Absolute Basophil Count 0.03 10^3/uL (0.0-0.2); Absolute Eosinophil Count 0.21 10^3/uL (0.0-0.7); Absolute Monocyte Count 0.39 10^3/uL (0.1-0.8); Basophils % 0.6; Eosinophils % 4.1; HCT 34.3 % (36.0-46.0); HGB 11.8 g/dL (11.2-15.7); Immature Grans % 0.2; Lymphocytes % 27.2; MCH 31.8 pg (27.0-33.0); MCHC 34.4 % (32.0-36.0); MCV 92.5 fL (80-95); MPV 9.5 fL (8.0-11.0); Monocytes % 7.6; Neutrophils % 60.3; Nucleated RBC 0 %; Platelet Count 301 10^3/uL (130-400); RBC 3.71 10^6/uL (3.93-5.22); RDW 12.5 % (11.7-14.6); RDW-SD 42.8 fL; WBC 5.14 10^3/uL (4.4-10.8)
[2020-10-22 14:17] LABS: ALT 28 U/L (14-59); AST 26 U/L (15-37); Albumin 3.8 g/dL (3.4-5.0); Alkaline Phosphatase 55 U/L (46-116); Anion Gap 10.2 mmol/L (3-11); BUN 12 mg/dL (7-18); Bilirubin, Total 0.7 mg/dL (0.2-1.0); CO2 26.8 mmol/L (21.0-32.0); Calcium 9.1 mg/dL (8.5-10.1); Chloride 97 mmol/L (98-107); Estimated GFR 56.56 (mL/min/1.73m2); Glucose 89 mg/dL (74-106); Magnesium 1.4 mg/dL (1.8-2.4); Potassium 4.4 mmol/L (3.5-5.1); Sodium 134 mmol/L (136-145); Total Protein 6.5 g/dL (6.4-8.2)
== END 2020-10-22 02:17 | disposition home or self-care (01) ==
LOC: LBO 02:16
PROVIDERS: PCP Physician Assistant; Visit Provider Internal Medicine Hematology & Oncology
DX: E83.42 Hypomagnesemia (principal); C34.31 Malignant neoplasm of lower lobe, right bronchus or lung; C79.51 Secondary malignant neoplasm of bone
CPT/HCPCS: 36415; 80053; 83735; 85025

== ENCOUNTER 2020-12-05 02:47 | Outpatient (CLI) | payer MEDICARE, OTHER, SELFPAY ==
[2020-12-05 14:07] LABS: Abs Immature Grans 0.01 10^3/uL (0.0-0.06); Absolute Basophil Count 0.03 10^3/uL (0.0-0.2); Absolute Eosinophil Count 0.22 10^3/uL (0.0-0.7); Absolute Lymphocyte Count 1.42 10^3/uL (1.2-3.4); Absolute Monocyte Count 0.37 10^3/uL (0.1-0.8); Absolute Neutrophil Count 4.03 10^3/uL (1.2-6.7); Basophils % 0.5; Eosinophils % 3.6; HCT 34.5 % (36.0-46.0); HGB 11.9 g/dL (11.2-15.7); Immature Grans % 0.2; Lymphocytes % 23.4; MCH 31.6 pg (27.0-33.0); MCHC 34.5 % (32.0-36.0); MCV 91.5 fL (80-95); MPV 9.5 fL (8.0-11.0); Monocytes % 6.1; Neutrophils % 66.2; Nucleated RBC 0 %; Platelet Count 267 10^3/uL (130-400); RBC 3.77 10^6/uL (3.93-5.22); RDW 12.9 % (11.7-14.6); WBC 6.08 10^3/uL (4.4-10.8)
[2020-12-05 14:30] LABS: ALT 27 U/L (14-59); AST 18 U/L (15-37); Albumin 3.8 g/dL (3.4-5.0); Alkaline Phosphatase 58 U/L (46-116); Anion Gap 12.1 mmol/L (3-11); BUN 15 mg/dL (7-18); Bilirubin, Total 0.8 mg/dL (0.2-1.0); CO2 23.9 mmol/L (21.0-32.0); CREATININE 1.1 mg/dL (0.55-1.02); Calcium 8.9 mg/dL (8.5-10.1); Chloride 100 mmol/L (98-107); Estimated GFR 50.67 (mL/min/1.73m2); Glucose 89 mg/dL (74-106); Magnesium 1.5 mg/dL (1.8-2.4); Potassium 3.7 mmol/L (3.5-5.1); Sodium 136 mmol/L (136-145); Total Protein 6.8 g/dL (6.4-8.2)
== END 2020-12-05 02:48 | disposition home or self-care (01) ==
LOC: LBO 02:47
PROVIDERS: PCP Physician Assistant; Visit Provider Internal Medicine Hematology & Oncology
DX: C34.31 Malignant neoplasm of lower lobe, right bronchus or lung (principal); E83.42 Hypomagnesemia; C79.51 Secondary malignant neoplasm of bone
CPT/HCPCS: 36415; 80053; 83735; 85025

== ENCOUNTER 2021-01-29 01:44 | Outpatient (CLI) | payer MEDICARE, OTHER, SELFPAY ==
--- NOTE | 2021-01-29 | DI.CT_ITS ---
Exam(s) CT CHEST W EXAM: CT CHEST W CLINICAL HISTORY: METASTATIC LUNG CA,C34.90,C79.51,ON THERAPY, RESTAGING EXAM TECHNIQUE: Imaging Protocol: Axial computed tomography images with coronal and sagittal reformatted images were created and reviewed CONTRAST MATERIAL: Intravenous: Omnipaque 350 Contrast volume:70 mL. COMPARISON: CT CT CHEST W from 10/15/[address] CHEST W from 10/15/2020 FINDINGS: Tracheobronchial tree: Patent where visualized. Mediastinum and Abida: No dominant adenopathy or fluid collection. Pulmonary parenchyma: The right upper lobe nodule appears stable compared to 10/15/2020. No new pulmo nary nodules are present. No consolidations are present. No architectural distortion. Pleura: No effusion or pneumothorax. Heart: The heart is not dilated. No coronary artery calcifications are seen. No pericardial effusion. Aorta: Thoracic aorta non-dilated. Upper abdomen: Unremarkable. Lymph nodes: Within normal limits. Bones: There are old right rib fractures. Multifocal metastatic disease is present Soft tissues: Unremarkable. IMPRESSION: 1. Stable right upper lobe pulmonary nodule. No new pulmonary nodules. 2. Multifocal osseous metastatic disease. RADIATION DOSE DELIVERED: 833.29mGy.cm Total DLP DATA REPOSITORY: All CT scans at this facility are submitted to the National Radiology Data Registry (NRDR) Dose Index Registry (DIR) with the [employer] (ACR). RADIATION OPTIMIZATION: All CT scans at this facility use at least one of these dose optimization te chniques: automated exposure control; mA and/or kV adjustment per patient size (includes targeted exa ms where dose is matched to clinical indication); or iterative reconstruction.
[2021-01-29 14:12] LABS: Magnesium 1.3 mg/dL (1.8-2.4)
[2021-01-29 14:16] LABS: ALT 26 U/L (14-59); AST 19 U/L (15-37); Albumin 3.9 g/dL (3.4-5.0); Alkaline Phosphatase 63 U/L (46-116); BUN 8 mg/dL (7-18); Bilirubin, Total 0.5 mg/dL (0.2-1.0); CREATININE 1.1 mg/dL (0.55-1.02); Calcium 8.7 mg/dL (8.5-10.1); Chloride 93 mmol/L (98-107); Estimated GFR 50.67 (mL/min/1.73m2); Glucose 94 mg/dL (74-106); Sodium 128 mmol/L (136-145); Total Protein 6.8 g/dL (6.4-8.2)
[2021-01-29 14:46] LABS: Abs Immature Grans 0.02 10^3/uL (0.0-0.06); Absolute Basophil Count 0.04 10^3/uL (0.0-0.2); Absolute Eosinophil Count 0.19 10^3/uL (0.0-0.7); Absolute Lymphocyte Count 1.45 10^3/uL (1.2-3.4); Absolute Monocyte Count 0.39 10^3/uL (0.1-0.8); Absolute Neutrophil Count 4.27 10^3/uL (1.2-6.7); Basophils % 0.6; HCT 34.5 % (36.0-46.0); HGB 11.5 g/dL (11.2-15.7); Immature Grans % 0.3; Lymphocytes % 22.8; MCH 31.1 pg (27.0-33.0); MCHC 33.3 % (32.0-36.0); MCV 93.2 fL (80-95); MPV 9.9 fL (8.0-11.0); Monocytes % 6.1; Neutrophils % 67.2; Nucleated RBC 0 %; Platelet Count 312 10^3/uL (130-400); RDW-SD 44.6 fL; WBC 6.36 10^3/uL (4.4-10.8)
[2021-01-29] MEDS: Omnipaque 350 MG/ML 100 ML BTL 70 ML IJ (15:20)
== END 2021-01-29 02:04 ==
PROVIDERS: PCP Physician Assistant; Visit Provider Internal Medicine Hematology & Oncology
DX: C34.90 Malignant neoplasm of unspecified part of unspecified bronchus or lung (principal); C79.51 Secondary malignant neoplasm of bone; R91.1 Solitary pulmonary nodule
CPT/HCPCS: 80053; 71260; 83735; 85025; J3490

== ENCOUNTER 2021-04-22 03:43 | Outpatient (CLI) | payer MEDICARE, OTHER, SELFPAY ==
[2021-04-22 12:32] LABS: Abs Immature Grans 0.02 10^3/uL (0.0-0.06); Absolute Basophil Count 0.05 10^3/uL (0.0-0.2); Absolute Eosinophil Count 0.18 10^3/uL (0.0-0.7); Absolute Lymphocyte Count 1.69 10^3/uL (1.2-3.4); Absolute Monocyte Count 0.36 10^3/uL (0.1-0.8); Absolute Neutrophil Count 5.48 10^3/uL (1.2-6.7); Basophils % 0.6; Eosinophils % 2.3; HCT 40.7 % (36.0-46.0); HGB 13.3 g/dL (11.2-15.7); Immature Grans % 0.3; Lymphocytes % 21.7; MCH 31.3 pg (27.0-33.0); MCHC 32.7 % (32.0-36.0); MCV 95.8 fL (80-95); MPV 9.6 fL (8.0-11.0); Monocytes % 4.6; Neutrophils % 70.5; Nucleated RBC 0 %; Platelet Count 313 10^3/uL (130-400); RBC 4.25 10^6/uL (3.93-5.22); RDW 12.9 % (11.7-14.6); RDW-SD 45.4 fL; WBC 7.78 10^3/uL (4.4-10.8)
[2021-04-22 12:53] LABS: ALT 46 U/L (14-59); AST 32 U/L (15-37); Albumin 4.2 g/dL (3.4-5.0); Alkaline Phosphatase 65 U/L (46-116); BUN 16 mg/dL (7-18); Bilirubin, Total 0.8 mg/dL (0.2-1.0); CREATININE 1.1 mg/dL (0.55-1.02); Calcium 9.6 mg/dL (8.5-10.1); Chloride 103 mmol/L (98-107); Glucose 93 mg/dL (74-106); Potassium 3.5 mmol/L (3.5-5.1); Sodium 140 mmol/L (136-145); Total Protein 7.6 g/dL (6.4-8.2)
== END 2021-04-22 03:44 | disposition home or self-care (01) ==
LOC: LBO 03:43
PROVIDERS: PCP Physician Assistant; Visit Provider Internal Medicine Hematology & Oncology
DX: C34.90 Malignant neoplasm of unspecified part of unspecified bronchus or lung (principal); C79.51 Secondary malignant neoplasm of bone
CPT/HCPCS: 36415; 80053; 85025

== ENCOUNTER 2021-06-03 16:59 | Outpatient (REF) | payer OTHER, SELFPAY ==
[2021-06-05 09:02] LABS: COVID-19 RT-PCR UVMMC Result Negative (Negative)
== END 2021-06-03 17:00 | disposition home or self-care (01) ==
LOC: NCHCN 16:59
PROVIDERS: PCP Physician Assistant; Visit Provider Nurse Practitioner Family
DX: Z20.822 Contact with and (suspected) exposure to COVID-19 (principal)
CPT/HCPCS: U0003

== ENCOUNTER 2021-06-10 01:53 | Outpatient (CLI) | payer OTHER, SELFPAY ==
[2021-06-10 12:25] LABS: ALT 34 U/L (14-59); AST 26 U/L (15-37); Albumin 4.2 g/dL (3.4-5.0); Alkaline Phosphatase 70 U/L (46-116); Anion Gap 10.9 mmol/L (3-11); BUN 12 mg/dL (7-18); Bilirubin, Total 0.6 mg/dL (0.2-1.0); CO2 27.1 mmol/L (21.0-32.0); CREATININE 1.1 mg/dL (0.55-1.02); Calcium 9.3 mg/dL (8.5-10.1); Chloride 98 mmol/L (98-107); Glucose 100 mg/dL (74-106); Potassium 3.7 mmol/L (3.5-5.1); Sodium 136 mmol/L (136-145); Total Protein 7.6 g/dL (6.4-8.2)
[2021-06-10] MEDS: Omnipaque 350 MG/ML 100 ML BTL IV (12:41)
--- NOTE | 2021-06-10 13:00 | DI.CT_ITS ---
Exam(s) CT CHEST W EXAM: CT CHEST W CLINICAL HISTORY: LUNG CA, C34.90, METS TO BONE, C79.51, DRUG-INDUCED N/V, R11.2, T50.905A TECHNIQUE: Imaging Protocol: Axial computed tomography images with coronal and sagittal reformatted images were created and reviewed CONTRAST MATERIAL: Intravenous: Omnipaque 350 Contrast volume:70 ml. COMPARISON: CT CT CHEST W from 01/29/2021 FINDINGS: Tracheobronchial tree: No bronchiectasis or mucous plugging. Mediastinum and Abida: Surgical clips on the right. No dominant adenopathy or fluid collection. Pulmonary parenchyma: There are right-sided chest surgery with right-sided volume loss and mediastina l shift. Stable nodular area along the major fissure. Stable right upper lobe nodule versus scarrin g.. Stable mild scarring at the right costophrenic angle. Suture material right lower lobe posterio rly. No new nodules. No infiltrates. Pleura: No effusion or pneumothorax. Heart: The heart is not dilated. No coronary artery calcifications are seen. Aorta: Ascending aorta diameter 3.9 cm, stable.. Upper abdomen: Unremarkable. Lymph nodes: Within normal limits. Bones: Multiple old right rib fractures. Grossly stable scattered sclerotic foci in the spine consis tent with metastatic disease. Soft tissues: Unremarkable. IMPRESSION: Stable areas of right upper lobe scarring versus nodules. Postsurgical changes of the right chest. Stable sclerotic foci in the spine. No new abnormalities. RADIATION DOSE DELIVERED: 846.54mGy.cm Total DLP DATA REPOSITORY: All CT scans at this facility are submitted to the National Radiology Data Registry (NRDR) Dose Index Registry (DIR) with the [employer] ([employer]). RADIATION OPTIMIZATION: All CT scans at this facility use at least one of these dose optimization te chniques: automated exposure control; mA and/or kV adjustment per patient size (includes targeted exa ms where dose is matched to clinical indication); or iterative reconstruction.
[2021-06-11 09:43] LABS: Abs Immature Grans 0.03 10^3/uL (0.0-0.06); Absolute Basophil Count 0.05 10^3/uL (0.0-0.2); Absolute Eosinophil Count 0.19 10^3/uL (0.0-0.7); Absolute Lymphocyte Count 1.67 10^3/uL (1.2-3.4); Absolute Monocyte Count 0.49 10^3/uL (0.1-0.8); Absolute Neutrophil Count 5.85 10^3/uL (1.2-6.7); Basophils % 0.6; Eosinophils % 2.3; HCT 40.5 % (36.0-46.0); HGB 12.8 g/dL (11.2-15.7); Immature Grans % 0.4; Lymphocytes % 20.2; MCH 31.4 pg (27.0-33.0); MCHC 31.6 % (32.0-36.0); MCV 99.3 fL (80-95); MPV 10.7 fL (8.0-11.0); Monocytes % 5.9; Neutrophils % 70.6; Nucleated RBC 0 %; Platelet Count 317 10^3/uL (130-400); RBC 4.08 10^6/uL (3.93-5.22); RDW 13.6 % (11.7-14.6); RDW-SD 49.6 fL; WBC 8.28 10^3/uL (4.4-10.8)
== END 2021-06-10 02:13 ==
PROVIDERS: Internal Medicine Hematology & Oncology; PCP Physician Assistant; Visit Provider Nurse Practitioner Family
DX: C34.90 Malignant neoplasm of unspecified part of unspecified bronchus or lung (principal); C79.51 Secondary malignant neoplasm of bone; R11.2 Nausea with vomiting, unspecified
CPT/HCPCS: 80053; 71260; 85025; J3490

== ENCOUNTER 2021-07-15 14:21 | Emergency (ER) | payer OTHER, SELFPAY ==
[2021-07-15 14:24] VITALS: BP 147/91; PULSE 91; RESP 20; TEMP 36.6; O2SAT 98
--- NOTE | 2021-07-15 14:38 | ED.GENADUL_ITS ---
Discharge Plan Disposition Patient Disposition: HOME Condition: Improving Discharge Details Clinical Impression: Intercostal pain, Lung nodule Primary Care Provider: Juliana Cline ED Provider: Armond Griffin Home Meds and New Rx's Prescriptions: Continued sennosides [Senna Laxative] 8.6 mg tablet 8.6 mg PO BID PRN (Reason: constipation) Qty: 60 3RF loperamide [Imodium A-D] 2 mg capsule 2 mg PO QID PRN (Reason: loose stool) Qty: 60 3RF Rx Instructions: For chemo related diarrhea. gabapentin 400 mg capsule 400 mg PO BID 0RF hydrochlorothiazide 25 mg tablet 25 mg PO DAILY Qty: 1 0RF oxycodone 5 mg tablet 5 mg PO TID MDD 15 mg PRN (Reason: pain) Qty: 15 0RF Rx Instructions: for cancer related pain osimertinib 80 mg tablet 80 mg PO DAILY 0RF montelukast 10 mg tablet 10 mg PO DAILY 0RF magnesium L-lactate [Magtab] 84 mg tablet extended release 84 mg PO TID 0RF budesonide-formoterol [Symbicort] 160-4.5 mcg/actuation HFA aerosol inhaler 2 puff inhalation BID 0RF albuterol sulfate 2.5 mg /3 mL (0.083 %) solution for nebulization 2.5 mg inhalation Q6H 0RF potassium chloride [Klor-Con 10] 10 mEq tablet extended release 40 meq PO DAILY 0RF simvastatin 40 MG tablet 40 mg PO DAILY 0RF nitroglycerin [Nitrostat] 0.4 MG tablet, sublingual 0.4 mg Sublingual DIRECTED PRN0RF Label Comments: never uses albuterol sulfate 8.5 GM HFA aerosol inhaler 2 puff Inhalation Q4H PRN PRNQty: 1 0RF losartan-hydrochlorothiazide 1 EACH tablet 1 tab PO DAILY 0RF Label Comments: TAKE ONE TABLET BY MOUTH EVERY DAY dexlansoprazole [Dexilant] 60 MG capsule,biphase delayed releas 60 mg PO DAILY 0RF Label Comments: multivitamin [Multiple Vitamins] 1 TAB tablet 1 tab PO DAILY Qty: 180 0RF lorazepam 1 MG tablet 1 mg PO TID PRN0RF Discharge Instructions Instructions: Chest Wall Pain (ED) Additional Instructions: Please follow-up with your oncologist as scheduled, return to the emergency department for any worsening symptomatology Medical Decision Making 61-year-old female history of primary lung cancer with disease burden involving thoracic cage presents with left chest wall/rib discomfort in the setting of a large sneeze, patient felt a pop, point tenderness upon palpation under mammary fold left anterior lateral chest wall, no crepitus no deformity no ecchymosis, clear lung sounds speaking in full sentences no hypoxia no tachypnea no tachycardia, no peripheral edema. Patient is afebrile nontoxic. Concern for pathologic rib fractures in the setting of lung cancer versus less likely pneumothorax versus less likely hemothorax versus unlikely pneumonia versus unlikely PE or ACS. Screening x-ray, analgesia close reassessment, again patient is adamant that she takes oxycodone at home and has had Dilaudid multiple times during admissions without allergic reaction. Will control patient's pain likely will discharge home pending x-ray results. At this time/low suspicion exists for primary cardiac etiology but an EKG will not be ordered 17: 14 patient resting comfortably no acute distress feeling much better, no evidence of rib fracture or pneumothorax. Patient has known right lung nodule she is following with her oncologist on a monthly basis. Home care instructions and return HPI General Date/Time Provider Initiated Documentation: 07/15/21 14:35 . HPI Narrative: 61-year-old female history of primary lung cancer with metastatic disease to the thoracic cage presents with atraumatic left chest wall discomfort in the setting of a large sneeze. Denies trouble breathing denies nausea or vomiting denies history of thromboembolic phenomenon, despite her multiple allergies patient endorsesthat she does take oxycodone at home and has had Dilaudid without issues in the past Related Data Home Medications Medication Instructions Recorded Confirmed nitroglycerin 0.4 mg sublingual 0.4 mg SUBLINGUAL DIRECTED PRN 10/05/12 07/15/21 tablet (Nitrostat) simvastatin 40 mg tablet 40 mg PO DAILY 10/05/12 07/15/21 albuterol sulfate 90 mcg/actuation 2 puff INHALATION Q4H PRN PRN #1 09/21/14 07/15/21 aerosol inhaler hfa.aer.ad dexlansoprazole 60 mg 60 mg PO DAILY 03/07/16 07/15/21 capsule,biphase delayed release (Dexilant) losartan 100 1 tab PO DAILY 03/07/16 07/15/21 mg-hydrochlorothiazide 25 mg tablet multivitamin (Multiple Vitamins) 1 tab PO DAILY #180 tab 03/08/16 07/15/21 lorazepam 1 mg tablet 1 mg PO TID PRN 04/03/17 07/15/21 albuterol sulfate 2.5 mg INHALATION Q6H 04/19/20 07/15/21 budesonide-formoterol HFA 160 2 puff INHALATION BID 04/19/20 07/15/21 mcg-4.5 mcg/actuation aerosol inhaler (Symbicort) magnesium L-lactate 84 mg 84 mg PO TID 04/19/20 07/15/21 tablet,extended release (Magtab) montelukast 10 mg tablet 10 mg PO DAILY 04/19/20 07/15/21 osimertinib 80 mg tablet 80 mg PO DAILY 04/19/20 07/15/21 sennosides 8.6 mg tablet (Senna 8.6 mg PO BID PRN #60 tab 05/11/20 07/15/21 Laxative) loperamide 2 mg capsule (Imodium 2 mg PO QID PRN #60 cap 09/28/20 07/15/21 A-D) gabapentin 400 mg capsule 400 mg PO BID cap 11/09/20 07/15/21 hydrochlorothiazide 25 mg tablet 25 mg PO DAILY #1 tab 11/09/20 07/15/21 oxycodone 5 mg tablet 5 mg PO TID PRN #15 tab MDD 15 mg 01/11/21 07/15/21 potassium chloride 10 mEq 40 meq PO DAILY tab 01/11/21 07/15/21 tablet,extended release (Klor-Con) Previous Rx's Medication Instructions Recorded albuterol sulfate 90 mcg/actuation 2 puff INHALATION Q4H PRN PRN #1 09/21/14 aerosol inhaler hfa.aer.ad multivitamin (Multiple Vitamins) 1 tab PO DAILY #180 tab 03/08/16 sennosides 8.6 mg tablet (Senna 8.6 mg PO BID PRN #60 tab 05/11/20 Laxative) loperamide 2 mg capsule (Imodium 2 mg PO QID PRN #60 cap 09/28/20 A-D) hydrochlorothiazide 25 mg tablet 25 mg PO DAILY #1 tab 06/11/21 oxycodone 5 mg tablet 5 mg PO TID PRN #15 tab MDD 15 mg 01/11/21 Allergies Allergy/AdvReac Type Severity Reaction Status Date / Time hydromorphone Allergy Intermediate Verified 07/15/21 14:35 Sulfa (Sulfonamide Allergy Mild rash, Verified 07/15/21 14:35 Antibiotics) itching, nausea codeine Allergy Verified 07/15/21 14:35 hydrocodone Allergy Verified 07/15/21 14:35 oxycodone Allergy Itching Verified 07/15/21 14:35 fentanyl AdvReac Intermediate Verified 07/15/21 14:35 morphine AdvReac Intermediate Verified 07/15/21 14:35 diphenhydramine HCl AdvReac Mild palpitation Verified 07/15/21 14:35 [From Benadryl] s Penicillins AdvReac Mild palpitation Verified 07/15/21 14:35 s tramadol AdvReac Mild SOB/vomitin Verified 07/15/21 14:35 g dander Allergy Intermediate Uncoded 07/15/21 14:35 General Stated Complaint: Chest/Rib LISS: 3 Review of Systems Narrative: Review of Systems Constitutional: negative Eyes: negative ENT: negative Cardiovascular: negative Respiratory: negative Gastrointestinal: negative : negative Musculoskeletal: Chest wall pain Skin: negative Neurologic: negative Psych: negative PFSH All Active Problems (Updated 07/15/21 @ 17:16 by Armond Griffin MD) Intercostal pain (Acute) Lung nodule (Acute) Palliative care patient (Acute) DNI (do not intubate) (Acute) DNR (do not resuscitate) (Acute) POLST (Physician Orders for Life-Sustaining Treatment) (Acute) COLST completed 04/20/2020, DNR/DNI. 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 Surgical History History of appendectomy Social History Smoking/Tobacco Use Status: Former Tobacco Use Smoking risk assessment performed?: Yes Alcohol Intake: current Alcohol Intake frequency: a few times a week Drug use: Never Substance use type: does not use Do you feel safe at home: Yes Do you feel safe in your relationship?: Yes Exam Narrative Exam Narrative: Physical Examination General: alert, awake, cooperative, resting comfortably, no acute distress HEENT: normocephalic, atraumatic; PERRL, EOM intact, conjunctiva normal; no nasal discharge; moist mucous membranes, oral and pharyngeal mucosa normal, tolerating secretions Neck: supple, trachea midline; full ROM Chest: normal to inspection, no palpable deformity or crepitus, no ecchymosis, tender to palpation under left mammary fold along anterior lateral rib Respiratory: normal respiratory effort, speaking in full sentences, clear to auscultation, no wheezing, rales or rhonchi Cardiac: regular rate, regular rhythm, S1S2 intact, no murmurs rubs or gallops GI: abdomen soft, non-tender, non-distended; no palpable mass or hepatosplenomegaly Skin: no lesions, rashes or trauma appreciated Neuro: AAOx3, normal speech, moving all extremities Extremities: No peripheral edema warm well perfused Psych: Appropriate mood and affect Course Vital Signs Vital signs: Vital Signs Temperature 36.6 C 07/15/21 14:24 Pulse 91 H 07/15/21 14:24 Respiratory Rate 20 07/15/21 14:24 Blood Pressure 147/91 H 07/15/21 14:24 Pulse Oximetry 98 07/15/21 14:24 Temperature 36.6 C 07/15/21 14:24 Temperature Source Temporal Artery Scan 07/15/21 14:24 Pulse 91 H 07/15/21 14:24 Respiratory Rate 20 07/15/21 14:24 Respiratory Effort Non-Labored 07/15/21 14:29 Respiratory Depth Normal 07/15/21 14:28 Respiratory Pattern Normal 07/15/21 14:28 Blood Pressure 147/91 H 07/15/21 14:24 Blood Pressure Position Sitting 07/15/21 14:24 Pulse Oximetry 98 07/15/21 14:24 Oxygen Delivery Method Room Air 07/15/21 14:24 Oxygen Flow Rate 0 07/15/21 14:24 Pain Level 5 07/15/21 14:28 PAWSS Have you Been Recently Intoxicated or Drunk Within the Last 30 days?: Yes Have you Ever Experienced Previous Episodes of Alcohol Withdrawal?: No Have you ever Experienced Withdrawal Seizures?: No Have you ever Experienced Delirium Tremens(DT)s?: No Have you ever undergone Alcohol Rehabilitation Treatment (i.e, inpt ot outpatient treatment programs)?: No Have you ever Experienced Blackouts?: No Have you ever Combined Alcohol with other Downers within the last 90 days?: No Have you ever Combined Alcohol with any other Substance of Abuse during the last 90 days?: No Positive Blood Alcohol level on Presentation? [PCS.BAL]: No Evidence of Increased Autonomic Activity (i.e. HR>120, tremor, sweating, agitation, nausea)?: No Result: 1
[2021-07-15] MEDS: Ondansetron O.D.T. 4 MG TABEF PO (14:53)
[2021-07-15] MEDS: HYDROmorphone 2 MG/ML VIAL 0.5 MG SC (14:54)
--- NOTE | 2021-07-15 16:28 | DI.RAD_ITS ---
Exam(s) XR RIBS LT PA CHEST 3V EXAM: XR RIBS LT PA CHEST 3V CLINICAL HISTORY: lung and thoracic cage cancer, pain to left chest. TECHNIQUE: 2D digital imaging was performed. COMPARISON: CR CHEST 2 VIEWS PA,LAT from 03/28/2016 CR CHEST 2 VIEWS PA,LAT from 04/02/2017 CR CHEST 2 VIEWS PA,LAT from 11/27/[address] CHEST W from 01/29/2021 FINDINGS: There is decreased right hemithoracic volume related to prior right chest surgery and there is pleura l thickening in the right lung base again noted. Fifth right rib interspace is again noted be promin ent, related to prior surgery. Left lung is clear. Small nodular density in the right upper lobe is noted measuring 4-5 millimeters. More evident than on prior chest x-ray of April 2017. Left rib cage: No evidence of acute fracture. No lytic nor blastic osseous lesions evident in the le ft rib cage. No pleural effusion. No pneumothorax. IMPRESSION: No left rib fractures nor rib lesions. No left lung findings on plain film. 4-5 millimeter right lung nodule is more evident than on prior chest x-ray of 04/02/2017 DATA REPOSITORY: RADIATION DOSE DELIVERED:
== END 2021-07-15 17:39 | disposition home or self-care (01) ==
PROVIDERS: Emergency Provider Emergency Medicine; PCP Physician Assistant
DX: R07.82 Intercostal pain (principal); R91.1 Solitary pulmonary nodule; C34.91 Malignant neoplasm of unspecified part of right bronchus or lung; C41.3 Malignant neoplasm of ribs, sternum and clavicle
CPT/HCPCS: 71101; 96372; 99284; 99283

== ENCOUNTER 2021-08-01 04:30 | Outpatient (CLI) | payer OTHER, SELFPAY | END 2021-08-01 04:31 | disposition home or self-care (01) | LOC: LBO 04:30 | PROVIDERS: PCP Physician Assistant; Visit Provider Internal Medicine Hematology & Oncology ==

== ENCOUNTER 2021-08-02 16:30 | Outpatient (CLI) | payer OTHER, SELFPAY ==
[2021-08-02 13:50] LABS: Abs Immature Grans 0.02 10^3/uL (0.0-0.06); Absolute Basophil Count 0.03 10^3/uL (0.0-0.2); Absolute Eosinophil Count 0.13 10^3/uL (0.0-0.7); Absolute Lymphocyte Count 1.62 10^3/uL (1.2-3.4); Absolute Monocyte Count 0.42 10^3/uL (0.1-0.8); Absolute Neutrophil Count 5.33 10^3/uL (1.2-6.7); Basophils % 0.4; Eosinophils % 1.7; HCT 41.2 % (36.0-46.0); HGB 13.4 g/dL (11.2-15.7); Immature Grans % 0.3; Lymphocytes % 21.5; MCH 31.2 pg (27.0-33.0); MCHC 32.5 % (32.0-36.0); MCV 95.8 fL (80-95); MPV 10.5 fL (8.0-11.0); Monocytes % 5.6; Neutrophils % 70.5; Nucleated RBC 0 %; Platelet Count 297 10^3/uL (130-400); RDW-SD 46.2 fL; WBC 7.55 10^3/uL (4.4-10.8)
[2021-08-02 14:04] LABS: ALT 17 U/L (14-59); AST 16 U/L (15-37); Albumin 4.4 g/dL (3.4-5.0); Alkaline Phosphatase 72 U/L (46-116); Anion Gap 14.2 mmol/L (3-11); BUN 16 mg/dL (7-18); Bilirubin, Total 0.6 mg/dL (0.2-1.0); CO2 22.8 mmol/L (21.0-32.0); CREATININE 1.5 mg/dL (0.55-1.02); Calcium 9.9 mg/dL (8.5-10.1); Chloride 101 mmol/L (98-107); Glucose 106 mg/dL (74-106); Potassium 3.6 mmol/L (3.5-5.1); Sodium 138 mmol/L (136-145); Total Protein 8.1 g/dL (6.4-8.2)
== END 2021-08-02 16:31 | disposition home or self-care (01) ==
LOC: LBO 16:31
PROVIDERS: PCP Physician Assistant; Visit Provider Internal Medicine Hematology & Oncology
DX: C34.90 Malignant neoplasm of unspecified part of unspecified bronchus or lung (principal); C79.51 Secondary malignant neoplasm of bone
CPT/HCPCS: 36415; 80053; 85025

== ENCOUNTER → 2021-09-04 01:36 | Outpatient (CLI) | payer OTHER, SELFPAY ==
--- NOTE | 2021-09-04 | DI.CT_ITS ---
Exam(s) CT CHEST W EXAM: CT CHEST W CLINICAL HISTORY: NEW NODULE ON CXR, ? FX RIB PATHOLOGICAL, LUNG CA METS TO BONE. TECHNIQUE: Multi planar reconstructions were performed. CONTRAST MATERIAL: Omnipaque 350; 75 cc COMPARISON: CT CT CHEST W from 07/04/[address] CHEST W from 10/15/[address] CHEST W from 01/29/[address] CHEST W from 06/10/2021 CR XR RIBS LT PA CHEST 3V from 07/15/2021 FINDINGS: CHEST: LUNGS: Again noted is decreased right hemithoracic volume, related to prior thoracotomy. Small nodul ar density in the right upper lobe is unchanged from CT scans dating back to 07/04/2020 the same is t rue of the other previously described findings in the right lung. There are no new significant right focal findings and no pleural effusion. There are no new significant findings mainstem bronchus. In the opposite-left lung there is an unchanged 3 millimeter nodular density in the superior segment of the left lower lobe, unchanged from 07/04/2020. No new left lung findings. There are no pleural effusions on either side. No new findings in the trachea and mainstem bronchi. MEDIASTINUM: There is no hilar nor mediastinal adenopathy. CARDIAC: Heart size is normal. There is no pericardial effusion.Caliber of the thoracic aorta is wit hin normal limits. VISUALIZED UPPER ABDOMEN:There are no significant adrenal masses. Left adrenal gland is only partial ly included in the field of view. OSSEOUS: Post right thoracotomy rib changes.. There is a subacute non lytic appearing healing fractu re what appears to be the left 9th rib. This was not evident on the July 2020 scan. It is also new when compared to the CT scan of 06/10/2021.. IMPRESSION: 1. Again noted is evidence of previous right thoracotomy. Previously described right lung findings r emain stable. No new ominous right lung findings. Stable small 3 millimeter nodule in left lung als o noted. There are no pleural effusions on either side and there is no intrathoracic adenopathy 2. There is a subacute appearing healing fracture of what appears to be the left 9th rib lateral aspe ct, not previously present. 3. RADIATION DOSE DELIVERED: 794.4 mGy.cm Total DLP DATA REPOSITORY: All CT scans at this facility are submitted to the National Radiology Data Registry (NRDR) Dose Index Registry (DIR) with the [employer] (ACR). RADIATION OPTIMIZATION: All CT scans at this facility use at least one of these dose optimization te chniques: automated exposure control; mA and/or kV adjustment per patient size (includes targeted exa ms where dose is matched to clinical indication); or iterative reconstruction.
--- NOTE | 2021-09-04 | DI.MRI_ITS ---
Exam(s) MR BRAIN WO/W EXAM: MR BRAIN WO/W CLINICAL HISTORY: NEW ONSET MORALES/DIZZINESS, NSCLC PT, LUNG NODULE, METS TO BONE TECHNIQUE: Multiplanar multisequence MRI of the brain was performed. Both noninfused and contrast i nfused sequences were performed. IV Contrast injected was 20 cc Dotarem. COMPARISON: CT CT NECK W from 09/04/2021 FINDINGS: CEREBRAL PARENCHYMA: No evidence of intracranial hemorrhage, mass effect nor shift of midline structu re. No extraaxial fluid collections. Ventricles are not enlarged nor shifted. There is no significant focal signal abnormality in the cerebellar hemispheres nor within the sandee, m idbrain, and thalami. There is no abnormal signal abnormality in the periventricular white matter. There are no ring enhancing lesions in the brain. There is no abnormal meningeal enhancement. DWI: No areas of restricted diffusion to suggest acute ischemic event. SWI: No evidence of microhemorrhages. PITUITARY GLAND: No mass nor parasellar abnormality. No obvious abnormality in the cavernous sinuses. FLOW VOIDS: The expected flow void are noted. No evidence of obvious aneurysm nor obvious vascular ma lformation. PARANASAL SINUSES: The visualized paranasal sinuses appear unremarkable. ORBITS: No obvious abnormal findings. IMPRESSION: 1. No significant intracranial findings on this MRI scan of the brain. No evidence of metastatic les ions in the brain. No ring enhancing lesions. DATA REPOSITORY:
--- NOTE | 2021-09-04 | DI.CT_ITS ---
Exam(s) CT NECK W EXAM: CT NECK W CLINICAL HISTORY: LUNG CA METS TO BONE, C34.90, C79.51, VOICE HOARSENESS, R49.0. TECHNIQUE: Imaging Protocol: Axial CT angiography was performed with multi-slice acquisition and mu lti-planar and/or 3D reconstructions. CONTRAST MATERIAL: Intravenous: Omnipaque 350 Contrast volume:structured data in ml COMPARISON: CT CT CHEST W from 09/04/2021 FINDINGS: Nasopharynx: Unremarkable Oropharynx: Unremarkable. Retropharyngeal space: Unremarkable. Hypopharynx: Somewhat limited evaluation because the patient held breath during image acquisition. Vallecular lie and free edge of the epiglottis appear unremarkable and there is no obvious asymmetry at the level of the aryepiglottic folds. Vocal cords: Mild asymmetry, probably within normal limits. Subglottic airway unremarkable. Thyroid gland: Normal size. No obvious nodules. Salivary glands: No significant findings in the parotid and submandibular glands. Lymph nodes: No obvious lymphadenopathy either side of the neck nor in the supraclavicular regions. Vascular: Some calcified plaque is noted at the left carotid bifurcation proximal left ICA. Right ca rotid bifurcation and proximal right ICA unremarkable. Both vertebral arteries are patent in the for amen transversarium. Both vertebral arteries contribute to the formation of the basilar artery at th e skull base. Osseous: No significant findings IMPRESSION: 1. No evidence of abnormal mass or lymphadenopathy neck. 2. There is some calcified and noncalcified plaque at the left carotid bifurcation proximal left ICA. If clinically indicated this could be further study with Doppler imaging to determine if there is a hemodynamically significant stenosis at this level. RADIATION DOSE DELIVERED: Total DLP DATA REPOSITORY: All CT scans at this facility are submitted to the National Radiology Data Registry (NRDR) Dose Index Registry (DIR) with the [employer] (ACR). RADIATION OPTIMIZATION: All CT scans at this facility use at least one of these dose optimization te chniques: automated exposure control; mA and/or kV adjustment per patient size (includes targeted exa ms where dose is matched to clinical indication); or iterative reconstruction.
[2021-09-04 13:45] LABS: Abs Immature Grans 0.01 10^3/uL (0.0-0.06); Absolute Basophil Count 0.04 10^3/uL (0.0-0.2); Absolute Eosinophil Count 0.18 10^3/uL (0.0-0.7); Absolute Lymphocyte Count 1.92 10^3/uL (1.2-3.4); Absolute Monocyte Count 0.41 10^3/uL (0.1-0.8); Absolute Neutrophil Count 4.52 10^3/uL (1.2-6.7); Basophils % 0.6; Eosinophils % 2.5; HGB 12.2 g/dL (11.2-15.7); Immature Grans % 0.1; Lymphocytes % 27.1; MCH 30.7 pg (27.0-33.0); MPV 10.5 fL (8.0-11.0); Monocytes % 5.8; Neutrophils % 63.9; Nucleated RBC 0 %; Platelet Count 279 10^3/uL (130-400); RBC 3.98 10^6/uL (3.93-5.22); RDW-SD 44.2 fL; WBC 7.08 10^3/uL (4.4-10.8)
[2021-09-04 14:01] LABS: ALT 27 U/L (14-59); AST 21 U/L (15-37); Albumin 4.3 g/dL (3.4-5.0); Alkaline Phosphatase 66 U/L (46-116); Anion Gap 11.6 mmol/L (3-11); BUN 18 mg/dL (7-18); Bilirubin, Total 0.6 mg/dL (0.2-1.0); CO2 26.4 mmol/L (21.0-32.0); CREATININE 1.1 mg/dL (0.55-1.02); Calcium 9.7 mg/dL (8.5-10.1); Chloride 101 mmol/L (98-107); Glucose 99 mg/dL (74-106); Magnesium 1.6 mg/dL (1.8-2.4); Potassium 3.9 mmol/L (3.5-5.1); Sodium 139 mmol/L (136-145); Total Protein 7.7 g/dL (6.4-8.2)
[2021-09-04] MEDS: Gadoterate meglumine 20 ML VIAL IVP (14:17)
[2021-09-04] MEDS: Normal Saline Flush 10 ML SYR IVP (14:17)
[2021-09-04] MEDS: Omnipaque 350 MG/ML 100 ML BTL IV (15:06)
== END ==
PROVIDERS: Internal Medicine Hematology & Oncology; PCP Physician Assistant; Visit Provider Ophthalmology
DX: C34.11 Malignant neoplasm of upper lobe, right bronchus or lung (principal); C79.51 Secondary malignant neoplasm of bone; R49.0 Dysphonia; I65.22 Occlusion and stenosis of left carotid artery; R91.1 Solitary pulmonary nodule; S22.32XD Fracture of one rib, left side, subsequent encounter for fracture with routine healing; R51.9 Headache, unspecified; R42 Dizziness and giddiness; R11.2 Nausea with vomiting, unspecified; T50.905A Adverse effect of unspecified drugs, medicaments and biological substances, initial encounter; R91.8 Other nonspecific abnormal finding of lung field
CPT/HCPCS: 70491; 70553; 80053; 71260; 83735; 85025; J3490

== ENCOUNTER 2021-12-04 02:15 | Outpatient (CLI) | payer OTHER, SELFPAY ==
--- NOTE | 2021-12-04 12:15 | DI.US_ITS ---
Exam(s) US CAROTID EXAM: US CAROTID CLINICAL HISTORY: CAROTID STENOSIS, I66.29; CAROTID ATHEROSCLEROSIS, I70.8; MORALES, R51.9. TECHNIQUE: Ultrasound carotids performed using grayscale, color-flow, and spectral Doppler imaging. COMPARISON: No exams were available for comparison FINDINGS: CAROTID ARTERIES: Plaque: Mixed calcified and noncalcified plaque at the left common carotid bulb mild mainly noncalcif ied plaque at the right common carotid bulb. Velocity elevation: Systolic and diastolic velocity elevations in the distal left common carotid avery ry. No significant velocity elevation either internal carotid arteries. VERTEBRAL ARTERIES: Antegrade flow. Measurements: R Bulb: 56.4 cm/s PS / 19.2 cm/s ED R CCA: 64.6 cm/s PS / 17 cm/s ED R ECA: 84.3 cm/s PS / 18.6 cm/s ED R ICA Prox: 58 cm/s PS /21.9 cm/s ED R ICA Mid: 67.3 cm/s PS / 27.9 cm/s ED R ICA Distal: PS / ED R Vert: PS / ED R SVR: 0.65 R DVR: 1.27 L Bulb: 36.4 cm/s PS /8.5 cm/s ED L CCA: 130.2 cm/s PS / 41.2 cm/s ED L ECA: 82 cm/s PS /26.2 cm/s ED L ICA Prox:64.8 cm/s PS / 10.4 cm/s ED L ICA Mid: 118.2 cm/sPS / 21.2 cm/s ED L ICA Distal: 101.9 cm/s PS / 41.2 cm/s ED L Vert: PS / ED L SVR: 0.91 L DVR: 0.51 IMPRESSION: Next calcific and noncalcific plaque in the common carotid bulbs, left greater than right. No eviden ce for hemodynamically significant carotid stenosis. Criteria for Carotid Stenosis: Normal: ICA PSV <125 cm/s no plaque or intimal thickening is visible. <50% stenosis: ICA PSV <125 cm/s and plaque or intimal thickening is visible. 50-69% stenosis: ICA PSV is 125-250 cm/s and plaque is visible. >70% stenosis to near occlusion: ICA PSV >250 cm/s with visible plaque and luminal narrowing. DATA REPOSITORY:
== END 2021-12-04 02:35 ==
LOC: DI 02:15
PROVIDERS: PCP Physician Assistant; Visit Provider Physician Assistant
DX: I65.23 Occlusion and stenosis of bilateral carotid arteries (principal); R51.9 Headache, unspecified; I70.8 Atherosclerosis of other arteries
CPT/HCPCS: 93880

== ENCOUNTER → 2022-01-13 01:30 | Outpatient (CLI) | payer OTHER, SELFPAY ==
--- NOTE | 2022-01-13 14:15 | DI.CT_ITS ---
Exam(s) CT CHEST W EXAM: CT CHEST W CLINICAL HISTORY: STAGE IV LUNG CA, TARGETED THERAPY, RESTAGING, C34.90, C79.51. TECHNIQUE: Multi planar reconstructions were performed. CONTRAST MATERIAL: Omnipaque 350; 75 cc COMPARISON: CT CT CHEST W from 01/19/[address] NECK W from 09/04/[address] CHEST W from 09/04/2021 FINDINGS: CHEST: LUNGS: Again noted is decreased right hemithoracic volume related prior thoracotomy. Small nodular density in right upper lobe unchanged prior CT scan. No new right lung findings. The previously described 3 millimeter nodular density in the opposite-left lung (superior segment left lo wer lobe) is unchanged. No new left lung findings. No pleural effusions on either side. No new sig nificant findings in trachea and mainstem bronchi. MEDIASTINUM: There is no hilar nor mediastinal adenopathy. Visualized thyroid unremarkable. CARDIAC: Heart size is normal. There is no pericardial effusion.Caliber of the thoracic aorta is wit hin normal limits. VISUALIZED UPPER ABDOMEN:There are no significant adrenal masses. No focal hepatic lesions evident. No splenomegaly. OSSEOUS: Healed fracture of the right 6th rib, right 7th rib and right 8th rib are again noted.On the left side there is a healing-healed fracture of the lateral aspect of the 9th rib again noted. No n ew lytic osseous lesions. No new fractures identified. Sclerotic density in the posterior aspect of a midthoracic vertebral body is unchanged from December 2019 CT scan.. IMPRESSION: 1. Again noted is evidence of previous right thoracotomy. No pulmonary findings with stable appearan ce of the previously described findings. No pleural effusions. No intrathoracic adenopathy. 2. Healed left 9th rib fracture noted. 3. Also healed right rib fractures. No new lytic osseous lesions. RADIATION DOSE DELIVERED: 802.28mGy.cm Total DLP DATA REPOSITORY: All CT scans at this facility are submitted to the National Radiology Data Registry (NRDR) Dose Index Registry (DIR) with the [employer] (ACR). RADIATION OPTIMIZATION: All CT scans at this facility use at least one of these dose optimization te chniques: automated exposure control; mA and/or kV adjustment per patient size (includes targeted exa ms where dose is matched to clinical indication); or iterative reconstruction.
[2022-01-13 14:51] LABS: Abs Immature Grans 0.02 10^3/uL (0.0-0.06); Absolute Basophil Count 0.03 10^3/uL (0.0-0.2); Absolute Eosinophil Count 0.05 10^3/uL (0.0-0.7); Absolute Lymphocyte Count 1.06 10^3/uL (1.2-3.4); Absolute Monocyte Count 0.46 10^3/uL (0.1-0.8); Absolute Neutrophil Count 4.29 10^3/uL (1.2-6.7); Basophils % 0.5; Eosinophils % 0.8; HCT 35.1 % (36.0-46.0); HGB 12.8 g/dL (11.2-15.7); Immature Grans % 0.3; Lymphocytes % 17.9; MCH 31.7 pg (27.0-33.0); MCHC 36.5 % (32.0-36.0); MCV 87 fL (80-95); MPV 9.6 fL (8.0-11.0); Monocytes % 7.8; Neutrophils % 72.7; Platelet Count 333 10^3/uL (130-400); RBC 4.04 10^6/uL (3.93-5.22); RDW 12.9 % (11.7-14.6); RDW-SD 40.8 fL; WBC 5.91 10^3/uL (4.4-10.8)
[2022-01-13 16:28] LABS: ALT 27 U/L (14-59); AST 29 U/L (15-37); Albumin 3.9 g/dL (3.4-5.0); Alkaline Phosphatase 68 U/L (46-116); Anion Gap 12.1 mmol/L (3-11); BUN 10 mg/dL (7-18); Bilirubin, Total 0.8 mg/dL (0.2-1.0); CO2 23.9 mmol/L (21.0-32.0); CREATININE 0.9 mg/dL (0.55-1.02); Calcium 9.1 mg/dL (8.5-10.1); Chloride 87 mmol/L (98-107); Glucose 95 mg/dL (74-106); Potassium 3.4 mmol/L (3.5-5.1); Total Protein 7.3 g/dL (6.4-8.2)
[2022-01-13 16:38] LABS: Sodium 123 mmol/L (136-145)
[2022-01-13] MEDS: Omnipaque 350 MG/ML 100 ML BTL 70 ML IJ (16:49)
[2022-01-13] MEDS: Normal Saline Flush 10 ML SYR IVP (16:51)
== END ==
PROVIDERS: PCP Physician Assistant; Visit Provider Internal Medicine Hematology & Oncology
DX: C34.11 Malignant neoplasm of upper lobe, right bronchus or lung (principal); Z87.81 Personal history of (healed) traumatic fracture
CPT/HCPCS: 80053; 71260; 85025; J3490

== ENCOUNTER 2022-01-13 20:39 | Emergency (ER) | payer OTHER, SELFPAY ==
[2022-01-13] VITALS (22 sets, daily range): BP systolic 142–163; BP diastolic 82–96; PULSE 70–95; RESP 12–19; TEMP 36.7; O2SAT 97–100
[2022-01-13 21:55] LABS: Abs Immature Grans 0.03 10^3/uL (0.0-0.06); Absolute Basophil Count 0.03 10^3/uL (0.0-0.2); Absolute Eosinophil Count 0.11 10^3/uL (0.0-0.7); Absolute Lymphocyte Count 1.41 10^3/uL (1.2-3.4); Absolute Monocyte Count 0.64 10^3/uL (0.1-0.8); Absolute Neutrophil Count 3.53 10^3/uL (1.2-6.7); Basophils % 0.5; Eosinophils % 1.9; HCT 35.3 % (36.0-46.0); HGB 13.1 g/dL (11.2-15.7); Immature Grans % 0.5; Lymphocytes % 24.5; MCHC 37.1 % (32.0-36.0); MCV 86 fL (80-95); MPV 9.7 fL (8.0-11.0); Monocytes % 11.1; Neutrophils % 61.5; Platelet Count 323 10^3/uL (130-400); RDW-SD 40.8 fL; WBC 5.75 10^3/uL (4.4-10.8)
[2022-01-13] MEDS: Normal Saline 500 ML IV (22:03)
[2022-01-13 22:05] LABS: Bilirubin Negative (Negative); Blood Negative (Negative); Clarity Clear (Clear); Glucose Negative (Negative); Ketones Negative (Negative); Leukocyte Esterase Negative (Negative); Nitrite Negative (Negative); Urobilinogen 0.2 EU/dL (Up TO 0.2)
[2022-01-13 22:13] LABS: ALT 24 U/L (14-59); AST 25 U/L (15-37); Albumin 3.8 g/dL (3.4-5.0); Alkaline Phosphatase 67 U/L (46-116); Anion Gap 9.8 mmol/L (3-11); BUN 10 mg/dL (7-18); Bilirubin, Total 0.9 mg/dL (0.2-1.0); CO2 27.2 mmol/L (21.0-32.0); CREATININE 0.9 mg/dL (0.55-1.02); Chloride 88 mmol/L (98-107); Glucose 95 mg/dL (74-106); Magnesium 1.4 mg/dL (1.8-2.4); Potassium 3.3 mmol/L (3.5-5.1); Sodium 125 mmol/L (136-145)
--- NOTE | 2022-01-13 22:39 | ED.GENADUL_ITS ---
Discharge Plan Disposition Patient Disposition: HOME Condition: Improving Discharge Details Clinical Impression: Hyponatremia, Hypokalemia, Hypomagnesemia Primary Care Provider: Juliana Cline ED Provider: Roger Soliz Home Meds and New Rx's Prescriptions: Continued loperamide [Imodium A-D] 2 mg capsule 2 mg PO QID PRN (Reason: loose stool) Qty: 60 3RF Rx Instructions: For chemo related diarrhea. gabapentin 400 mg capsule 400 mg PO BID oxycodone 5 mg tablet 5 mg PO TID MDD 15 mg PRN (Reason: pain) Qty: 15 0RF Rx Instructions: for cancer related pain osimertinib 80 mg tablet 80 mg PO DAILY magnesium L-lactate [Magtab] 84 mg tablet extended release 84 mg PO TID budesonide-formoterol [Symbicort] 160-4.5 mcg/actuation HFA aerosol inhaler 2 puff inhalation BID albuterol sulfate 2.5 mg /3 mL (0.083 %) solution for nebulization 2.5 mg inhalation Q6H potassium chloride [Klor-Con 10] 10 mEq tablet extended release 40 meq PO DAILY sennosides [Senna Laxative] 8.6 mg tablet 8.6 mg PO BID PRN (Reason: constipation) Qty: 60 3RF simvastatin 40 MG tablet 40 mg PO DAILY nitroglycerin [Nitrostat] 0.4 MG tablet, sublingual 0.4 mg Sublingual DIRECTED PRN Label Comments: never uses albuterol sulfate 8.5 GM HFA aerosol inhaler 2 puff Inhalation Q4H PRN PRNQty: 1 0RF losartan-hydrochlorothiazide 1 EACH tablet 1 tab PO DAILY Label Comments: TAKE ONE TABLET BY MOUTH EVERY DAY dexlansoprazole [Dexilant] 60 MG capsule,biphase delayed releas 60 mg PO DAILY Label Comments: multivitamin [Multiple Vitamins] 1 TAB tablet 1 tab PO DAILY Qty: 180 0RF lorazepam 1 MG tablet 1 mg PO TID PRN Discontinued hydrochlorothiazide 25 mg tablet 25 mg PO DAILY Qty: 1 0RF Discharge Instructions Instructions: Hyponatremia (ED), Hypokalemia (ED), Hypomagnesemia (ED) Additional Instructions: At this time I do feel that your low electrolytes including sodium, magnesium, and potassium are secondary to the thiazide diuretic you were placed on 1 month ago. At this time I am recommending that you stop this medication for the next couple days, increase your sodium intake slightly, and eat proper nutrition. Follow-up with your primary care provider for reassessment of your labs and to discuss further blood pressure control that may be better for you. If you develop any new or significant worsening of symptoms return immediately to the emergency department as discussed Referrals: Juliana Cline [Primary Care Provider] - 2 days Discharge Data Discharge Date/Time-TO BE ENTERED AT DEPARTURE: 01/13/22 23:21 Medical Decision Making Patient presenting to the emergency department for chief complaint of abnormal labs. Patient was sent to the emergency department by her cancer center provider due to a low sodium. Patient states that she has had urinary frequency for the past month after her primary care provider placed her on hydrochlorothi azide to help with her blood pressure. Patient denies any symptoms and states that she feels normal with no other complaints. Physical exam is unremarkable for any worrisome complaints. We will plan on reassessing labs. Given the potential low sodium we will give patient a 500 mL bolus of normal saline pending result On repeat labs patient did show sodium of 125, potassium of 3.3, chloride of 88 and magnesium of 1.4. Labs are otherwise unremarkable, urine is also unremarkable. We will plan on repleting patient's potassium and magnesium with oral supplementation. Patient reassessed and continues to deny any symptoms. Given that patient sodium is 125 and has increased with her dietary intake this evening of pizza before coming to the emergency department and again is asymptomatic I do feel that she can be safely discharged with recommendation to hold thiazide diuretic for the next couple days, slightly increased sodium intake with normal balanced diet, and to follow-up with primary care provider in the next 2 days for lab recheck and discussion of different antihypertensive medication. Patient and significant other are in agreement with this plan and given that she has no other symptoms we will plan on discharge. After discussion of diagnosis and plan of care patient has no further needs, questions, or concerns and states clear understanding to return to the emergency department for any worsening symptoms. This documentation was generated using Simparelation system, please disregard any oddities of phrase or misspellings. HPI General Mode of arrival: ambulatory . Date/Time Provider Initiated Documentation: 01/13/22 20:42 . Limitations to Documentation: no limitations . Information obtained by: patient, RN/MD and RN notes reviewed . History of Present Illness 61 year old F presents to the emergency department with the chief complaint of Abdominal labs-low sodium , Quality is described as other (Denies all other symptoms), Patient started experiencing this unknown Patient notes no other symptoms.. Patient did receive the following treatments prior to arrival, none Related Data Home Medications Medication Instructions Recorded Confirmed nitroglycerin 0.4 mg sublingual 0.4 mg sublingual DIRECTED PRN 10/05/12 01/13/22 tablet (Nitrostat) simvastatin 40 mg tablet 40 mg PO DAILY 10/05/12 01/13/22 albuterol sulfate 90 mcg/actuation 2 puff inhalation Q4H PRN PRN ##1 09/21/14 01/13/22 aerosol inhaler dexlansoprazole 60 mg 60 mg PO DAILY 03/07/16 01/13/22 capsule,biphase delayed release (Dexilant) losartan 100 1 tab PO DAILY 03/07/16 01/13/22 mg-hydrochlorothiazide 25 mg tablet multivitamin (Multiple Vitamins 1 tab PO DAILY #180 tabs 03/08/16 01/13/22 tablet) lorazepam 1 mg tablet 1 mg PO TID PRN 04/03/17 01/13/22 albuterol sulfate 2.5 mg/3 mL 2.5 mg inhalation Q6H 04/19/20 01/13/22 (0.083 %) solution for nebulization budesonide-formoterol HFA 160 2 puff inhalation BID 04/19/20 01/13/22 mcg-4.5 mcg/actuation aerosol inhaler (Symbicort) magnesium L-lactate 84 mg 84 mg PO TID 04/19/20 01/13/22 tablet,extended release (Magtab) osimertinib 80 mg tablet 80 mg PO DAILY 04/19/20 01/13/22 loperamide 2 mg capsule (Imodium 2 mg PO QID PRN loose stool #60 09/28/20 01/13/22 A-D) caps gabapentin 400 mg capsule 400 mg PO BID 11/09/20 01/13/22 oxycodone 5 mg tablet 5 mg PO TID PRN pain #15 tabs 01/11/21 01/13/22 potassium chloride 10 mEq 40 meq PO DAILY 01/11/21 01/13/22 tablet,extended release (Klor-Con) sennosides 8.6 mg tablet (Senna 8.6 mg PO BID PRN constipation #60 09/02/21 01/13/22 Laxative) tabs Previous Rx's Medication Instructions Recorded albuterol sulfate 90 mcg/actuation 2 puff inhalation Q4H PRN PRN ##1 09/21/14 aerosol inhaler multivitamin (Multiple Vitamins 1 tab PO DAILY #180 tabs 03/08/16 tablet) loperamide 2 mg capsule (Imodium 2 mg PO QID PRN loose stool #60 09/28/20 A-D) caps oxycodone 5 mg tablet 5 mg PO TID PRN pain #15 tabs 01/11/21 sennosides 8.6 mg tablet (Senna 8.6 mg PO BID PRN constipation #60 09/02/21 Laxative) tabs Allergies Allergy/AdvReac Type Severity Reaction Status Date / Time hydromorphone Allergy Intermediate Verified 01/13/22 21:08 Sulfa (Sulfonamide Allergy Mild rash, Verified 01/13/22 21:08 Antibiotics) itching, nausea codeine Allergy Verified 01/13/22 21:08 hydrocodone Allergy Verified 01/13/22 21:08 oxycodone Allergy Itching Verified 01/13/22 21:08 fentanyl AdvReac Intermediate Verified 01/13/22 21:08 morphine AdvReac Intermediate Verified 01/13/22 21:08 diphenhydramine HCl AdvReac Mild palpitation Verified 01/13/22 21:08 [From Benadryl] s Penicillins AdvReac Mild palpitation Verified 01/13/22 21:08 s tramadol AdvReac Mild SOB/vomitin Verified 01/13/22 21:08 g dander Allergy Intermediate Uncoded 01/13/22 21:08 General Stated Complaint: GenMedical LISS: 3 Review of Systems Constitutional Constitutional: Denies fatigue, Denies frequent falls, Denies headache(s) and Denies malaise Eyes Eyes: Denies change in vision ENT Ears, Nose, Mouth, and Throat: Denies headache(s) Cardiovascular Cardiovascular: Denies chest pain, Denies syncope, Denies rapid heart rate and Denies irregular heart rhythm Respiratory Respiratory: Reports system reviewed and no additional complaints, except as documented Gastrointestinal Gastrointestinal: Denies abdominal pain, Denies diarrhea, Denies nausea and Denies vomiting Genitourinary Genitourinary: Reports other (Increased urination after starting thiazide diuretic) Musculoskeletal Musculoskeletal: Denies abnormal gait and Denies muscle cramps Neurologic Neurologic: Denies abnormal gait, Denies behavioral changes, Denies confusion, Denies syncope, Denies frequent falls, Denies headache(s) and Denies convulsions Psychiatric Psychiatric: Denies behavioral changes and Denies confusion Endocrine Endocrine: Denies fatigue PFSH All Active Problems (Updated 01/13/22 @ 23:10 by Roger Soliz NP) Hyponatremia (Acute) Hypokalemia (Acute) Hypomagnesemia (Acute) Palliative care patient (Acute) DNI (do not intubate) (Acute) DNR (do not resuscitate) (Acute) POLST (Physician Orders for Life-Sustaining Treatment) (Acute) COLST completed 04/20/2020, DNR/DNI. 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 History of depression Non-small cell cancer of right lung Surgical History History of appendectomy Social History Smoking/Tobacco Use Status: Current-Occasional Tobacco Type: cigarettes Smoking risk assessment performed?: Yes Alcohol Intake: current Alcohol Intake frequency: a few times a week Alcohol type: beer Drug use: Never Substance use type: does not use Do you feel safe at home: Yes Do you feel safe in your relationship?: Yes Exam Const General: cooperative, no acute distress and not ill appearing Orientation: alert, awake and oriented x3 Resp Effort & Inspection: normal respiratory effort, able to speak in complete sentences and no respiratory distress Auscultation: clear to auscultation bilaterally and diminished lung sounds bilaterally in the lower lung schmidt Cardio Rate: regular rate Rhythm: regular rhythm Skin General skin exam: no rashes or lesions noted Neuro General: patient alert, patient awake, patient oriented x3, moves all extremities and no focal motor deficits Sensory Exam: no sensory deficits noted Course Vital Signs Vital signs: Vital Signs Temperature 36.7 C 01/13/22 21:04 Pulse 71 01/13/22 21:04 Respiratory Rate 16 01/13/22 21:04 Blood Pressure 163/96 H 01/13/22 21:04 Pulse Oximetry 99 01/13/22 21:04 Temperature 36.7 C 01/13/22 21:04 Temperature Source Temporal Artery Scan 01/13/22 21:04 Pulse 70 01/13/22 22:01 Pulse 71 01/13/22 22:01 Respiratory Rate 16 01/13/22 22:01 Respiratory Effort 01/13/22 21:22 Respiratory Depth Normal 01/13/22 21:22 Blood Pressure 147/84 H 01/13/22 22:01 Blood Pressure Mean 99 01/13/22 22:01 Blood Pressure Position Sitting 01/13/22 21:04 Pulse Oximetry 98 01/13/22 22:01 Oxygen Delivery Method Room Air 01/13/22 21:04 Oxygen Flow Rate 0 01/13/22 21:04 Pain Level 7 01/13/22 21:04 Comment 01/13/22 21:04 Lab/Test Results Lab/Test Results: Laboratory Tests Range/Units 01/13/22 01/13/22 01/13/22 21:45 21:45 22:00 WBC (4.4-10.8) 10^3/uL 5.75 RBC (3.93-5.22) 10^6/uL 4.10 Hgb (11.2-15.7) g/dL 13.1 Hct (36.0-46.0) % 35.3 L MCV (80-95) fL 86 MCH (27.0-33.0) pg 32.0 MCHC (32.0-36.0) % 37.1 H RDW (11.7-14.6) % 13.0 Plt Count (130-400) 10^3/uL 323 MPV (8.0-11.0) fL 9.7 Immature Gran % 0.5 Neutrophils % 61.5 Lymphocytes % 24.5 Monocytes % 11.1 Eosinophils % 1.9 Basophils % 0.5 Nucleated RBC % (0.0-0.3) % 0.0 Absolute Neutrophils (1.2-6.7) 10^3/uL 3.53 Absolute Lymphocytes (1.2-3.4) 10^3/uL 1.41 Absolute Monocytes (0.1-0.8) 10^3/uL 0.64 Absolute Eosinophils (0.0-0.7) 10^3/uL 0.11 Absolute Basophils (0.0-0.2) 10^3/uL 0.03 Sodium (136-145) mmol/L 125 L Potassium (3.5-5.1) mmol/L 3.3 L Chloride (98-107) mmol/L 88 L Carbon Dioxide (21.0-32.0) mmol/L 27.2 Anion Gap (3-11) mmol/L 9.8 BUN (7-18) mg/dL 10 Creatinine (0.55-1.02) mg/dL 0.9 Estimated GFR/1.73 m2 (mL/min/1.73m2) >= 60.00 Glucose (74-106) mg/dL 95 Calcium (8.5-10.1) mg/dL 9.0 Magnesium (1.8-2.4) mg/dL 1.4 L Total Bilirubin (0.2-1.0) mg/dL 0.9 AST (15-37) U/L 25 ALT (14-59) U/L 24 Alkaline Phosphatase (46-116) U/L 67 Total Protein (6.4-8.2) g/dL 7.0 Albumin (3.4-5.0) g/dL 3.8 Urine Color (Yellow) Yellow Urine Clarity (Clear) Clear Urine pH (5-8) 7.0 Ur Specific [place] (1.005-1.025) 1.010 Urine Protein (Negative) mg/dL Negative Urine Ketones (Negative) mg/dL Negative Urine Blood (Negative) Negative Urine Nitrite (Negative) Negative Urine Bilirubin (Negative) Negative Urine Urobilinogen (Up TO 0.2) EU/dL 0.2 Ur Leukocyte Esterase (Negative) Negative Urine Glucose (Negative) mg/dL Negative
[2022-01-13] MEDS: Magnesium Oxide 400 MG TAB PO (22:52)
[2022-01-13] MEDS: POTASSIUM CHLORIDE 20 MEQ, POTASSIUM CHLORIDE 10 MEQ 30 MEQ PO (22:52)
== END 2022-01-13 23:21 | disposition home or self-care (01) ==
PROVIDERS: Emergency Provider Nurse Practitioner Family; PCP Physician Assistant
DX: E87.1 Hypo-osmolality and hyponatremia (principal); E87.6 Hypokalemia; E83.42 Hypomagnesemia; J44.9 Chronic obstructive pulmonary disease, unspecified; F17.210 Nicotine dependence, cigarettes, uncomplicated
CPT/HCPCS: 80053; 96360; 99284; 81003; 83735; 85025

== ENCOUNTER 2022-01-15 15:01 | Outpatient (REF) | payer OTHER, SELFPAY ==
[2022-01-15 21:16] LABS: Anion Gap 12.9 mmol/L (3-11); BUN 8 mg/dL (7-18); CO2 23.1 mmol/L (21.0-32.0); CREATININE 1.1 mg/dL (0.55-1.02); Calcium 9.3 mg/dL (8.5-10.1); Chloride 96 mmol/L (98-107); Glucose 101 mg/dL (74-106); Magnesium 1.4 mg/dL (1.8-2.4); Potassium 4.1 mmol/L (3.5-5.1); Sodium 132 mmol/L (136-145)
== END 2022-01-15 15:02 | disposition home or self-care (01) ==
LOC: NCHCN 15:01
PROVIDERS: PCP Physician Assistant; Visit Provider Physician Assistant
DX: E87.6 Hypokalemia (principal); E83.42 Hypomagnesemia
CPT/HCPCS: 80048; 83735

== ENCOUNTER 2022-01-21 17:12 | Outpatient (REF) | payer OTHER, SELFPAY ==
[2022-01-21 19:19] LABS: Anion Gap 7.2 mmol/L (3-11); BUN 10 mg/dL (7-18); CO2 26.8 mmol/L (21.0-32.0); CREATININE 1.1 mg/dL (0.55-1.02); Calcium 8.7 mg/dL (8.5-10.1); Chloride 97 mmol/L (98-107); Glucose 106 mg/dL (74-106); Sodium 131 mmol/L (136-145)
== END 2022-01-21 17:13 | disposition home or self-care (01) ==
LOC: LBN 17:12
PROVIDERS: PCP Physician Assistant; Visit Provider Internal Medicine Hematology & Oncology
DX: C34.11 Malignant neoplasm of upper lobe, right bronchus or lung (principal); C79.51 Secondary malignant neoplasm of bone; E87.1 Hypo-osmolality and hyponatremia
CPT/HCPCS: 80048

== ENCOUNTER 2022-02-17 15:33 | Outpatient (CLI) | payer OTHER, SELFPAY ==
[2022-02-17 16:34] LABS: ALT 26 U/L (14-59); AST 27 U/L (15-37); Albumin 4.1 g/dL (3.4-5.0); Alkaline Phosphatase 65 U/L (46-116); BUN 18 mg/dL (7-18); Bilirubin, Total 0.7 mg/dL (0.2-1.0); CREATININE 1.3 mg/dL (0.55-1.02); Calcium 9.6 mg/dL (8.5-10.1); Chloride 96 mmol/L (98-107); Estimated GFR 46.78 (mL/min/1.73m2); Glucose 89 mg/dL (74-106); Magnesium 1.3 mg/dL (1.8-2.4); Potassium 4.5 mmol/L (3.5-5.1); Sodium 133 mmol/L (136-145); Total Protein 7.7 g/dL (6.4-8.2)
== END 2022-02-17 15:34 | disposition home or self-care (01) ==
PROVIDERS: PCP Physician Assistant; Visit Provider Internal Medicine Hematology & Oncology
DX: C34.91 Malignant neoplasm of unspecified part of right bronchus or lung (principal); E87.1 Hypo-osmolality and hyponatremia
CPT/HCPCS: 36415; 80053; 83735

== ENCOUNTER 2022-05-30 00:30 | Outpatient (CLI) | payer OTHER, SELFPAY ==
--- NOTE | 2022-05-30 | DI.CT_ITS ---
Exam(s) CT CHEST W EXAM: CT CHEST W CLINICAL HISTORY: LUNG CA METASTATIC TO BONE,C34.90,C79.51,ON ORAL TKI, RESTAGING EXAM TECHNIQUE: Imaging Protocol: Axial computed tomography images with coronal and sagittal reformatted images were created and reviewed CONTRAST MATERIAL: Intravenous: Omnipaque 350 Contrast volume:structured data ml. COMPARISON: CR XR RIBS LT PA CHEST 3V from 07/15/[address] CHEST W from 01/13/2022 FINDINGS: There are postsurgical changes of the right chest with volume loss. There are surgical clips in the right paratracheal region. Stable area of scarring in the right lung apex. Suture material right amy ng base. There is no evidence of adenopathy. No evidence of infiltrate, pleural or pericardial eff usion. Old right rib fractures. Degenerative changes are noted in the spine. Visualized portions o f the upper abdomen unremarkable. IMPRESSION: Postsurgical changes in the right chest. Stable areas of scarring. No suspicious nodules or adenopa thy. RADIATION DOSE DELIVERED: 694.61mGy.cm Total DLP DATA REPOSITORY: All CT scans at this facility are submitted to the National Radiology Data Registry (NRDR) Dose Index Registry (DIR) with the [employer] ([employer]). RADIATION OPTIMIZATION: All CT scans at this facility use at least one of these dose optimization te chniques: automated exposure control; mA and/or kV adjustment per patient size (includes targeted exa ms where dose is matched to clinical indication); or iterative reconstruction.
[2022-05-30 12:24] LABS: Abs Immature Grans 0.01 10^3/uL (0.0-0.06); Absolute Basophil Count 0.05 10^3/uL (0.0-0.2); Absolute Eosinophil Count 0.41 10^3/uL (0.0-0.7); Absolute Monocyte Count 0.46 10^3/uL (0.1-0.8); Absolute Neutrophil Count 3.65 10^3/uL (1.2-6.7); Basophils % 0.8; Eosinophils % 6.7; HCT 34.8 % (36.0-46.0); HGB 11.7 g/dL (11.2-15.7); Immature Grans % 0.2; Lymphocytes % 24.7; MCH 31.9 pg (27.0-33.0); MCHC 33.6 % (32.0-36.0); MCV 95 fL (80-95); MPV 9.7 fL (8.0-11.0); Monocytes % 7.6; Platelet Count 285 10^3/uL (130-400); RBC 3.67 10^6/uL (3.93-5.22); RDW 13.1 % (11.7-14.6); RDW-SD 45.8 fL; WBC 6.08 10^3/uL (4.4-10.8)
[2022-05-30 12:43] LABS: ALT 27 U/L (14-59); AST 26 U/L (15-37); Albumin 4.1 g/dL (3.4-5.0); Alkaline Phosphatase 67 U/L (46-116); Anion Gap 8.3 mmol/L (3-11); BUN 27 mg/dL (7-18); Bilirubin, Total 0.5 mg/dL (0.2-1.0); CO2 26.7 mmol/L (21.0-32.0); CREATININE 1.6 mg/dL (0.55-1.02); Calcium 9.4 mg/dL (8.5-10.1); Chloride 101 mmol/L (98-107); Estimated GFR 36.24 (mL/min/1.73m2); Glucose 98 mg/dL (74-106); Magnesium 1.6 mg/dL (1.8-2.4); Sodium 136 mmol/L (136-145); Total Protein 7.5 g/dL (6.4-8.2)
[2022-05-30] MEDS: Omnipaque 350 MG/ML 100 ML BTL IJ (13:16)
[2022-05-30] MEDS: Normal Saline - Diluent 50 ML VIAL IJ (13:17)
== END 2022-05-30 00:50 ==
PROVIDERS: PCP Physician Assistant; Visit Provider Internal Medicine Hematology & Oncology
DX: C34.11 Malignant neoplasm of upper lobe, right bronchus or lung (principal); C79.51 Secondary malignant neoplasm of bone; Z98.890 Other specified postprocedural states; Z79.899 Other long term (current) drug therapy; E83.42 Hypomagnesemia
CPT/HCPCS: 80053; 71260; 83735; 85025; J3490

== ENCOUNTER 2022-06-09 09:53 | Emergency (ER) | payer OTHER, SELFPAY ==
[2022-06-09] VITALS (12 sets, daily range): BP systolic 139–152; BP diastolic 89–101; PULSE 71–89; RESP 18; TEMP 36.7; O2SAT 97–100
--- NOTE | 2022-06-09 10:23 | W.ED.GENAD ---
Discharge Plan Disposition Patient Disposition: Home Condition: Stable Discharge Details Clinical Impression: Diarrhea, Abdominal pain Primary Care Provider: Juliana Cline ED Provider: Jasmin Jennings Home Meds and New Rx's Prescriptions: Continued gabapentin 400 mg capsule 400 mg PO BID sennosides [Senna Laxative] 8.6 mg tablet 8.6 mg PO BID PRN (Reason: constipation) Qty: 60 3RF osimertinib 80 mg tablet 80 mg PO DAILY magnesium L-lactate [Magtab] 84 mg tablet extended release 84 mg PO TID budesonide-formoterol [Symbicort] 160-4.5 mcg/actuation HFA aerosol inhaler 2 puff inhalation BID albuterol sulfate 2.5 mg /3 mL (0.083 %) solution for nebulization 2.5 mg inhalation Q6H potassium chloride [Klor-Con 10] 10 mEq tablet extended release 40 meq PO DAILY simvastatin 40 MG tablet 40 mg PO DAILY nitroglycerin [Nitrostat] 0.4 MG tablet, sublingual 0.4 mg Sublingual DIRECTED PRN Label Comments: never uses albuterol sulfate 8.5 GM HFA aerosol inhaler 2 puff Inhalation Q4H PRN PRNQty: 1 0RF losartan-hydrochlorothiazide 1 EACH tablet 1 tab PO DAILY Label Comments: TAKE ONE TABLET BY MOUTH EVERY DAY multivitamin [Multiple Vitamins] 1 TAB tablet 1 tab PO DAILY Qty: 180 0RF lorazepam 1 MG tablet 1 mg PO TID PRN No Action loperamide [Imodium A-D] 2 mg capsule 2 mg PO QID PRN (Reason: loose stool) Qty: 60 3RF Rx Instructions: For chemo related diarrhea. ondansetron 4 mg tablet,disintegrating 4 mg PO Q6H PRN (Reason: nausea and vomiting) Qty: 60 3RF oxycodone 5 mg tablet 2.5 - 5 mg PO QHS MDD 10 mg PRN (Reason: pain) Qty: 30 0RF Rx Instructions: for cancer related pain Discharge Instructions Instructions: Acute Diarrhea (ED), Abdominal Pain (ED) Additional Instructions: Your labs and imaging are reassuring here today. Please encourage hydration. You may continue with your previously prescribed pain management regimen. I would like for you to bring in a stool sample as soon as possible for further testing. Please return this to the lab at your earliest convenience. If you develop fever/chills, inability stay hydrated or the new/worsening symptom please seek care urgently once again. Please also reach out to your primary care as well as palliative care to discuss the continued diarrhea. Please schedule follow-up appointment within the next week for reevaluation. Referrals: Juliana Cline [Primary Care Provider] - Discharge Data Discharge Date/Time-TO BE ENTERED AT DEPARTURE: 06/09/22 15:45 Medical Decision Making Patient is a pleasant 62-year-old female, accompanied by her , with past medical history pertinent for lung cancer with metastasis to the spine and sternum, anxiety, COPD, depression, presenting today with chief complaint of abdominal pain, nausea and diarrhea. She reports that she initially became ill about 3 and half weeks ago but describes it initially as a flulike illness with cough, congestion and chills. The symptoms have all subsided towards the tail end of that she began having some diarrhea. States that she is been having watery diarrhea every hour since that time. States that she has had some nausea and diminished appetite but no vomiting. Past surgical history is pertinent for adenoidectomy. She is currently taking oral chemotherapy. States that she has had intermittent pain but that she feels like this is more gas pain. States that the pain in her abdomen is firm and fairly diffuse but maximal in the right upper quadrant. She does not correlate this with intake of food. Last ate yesterday. Has not had any fevers. Has not had any recent antibiotics. No known sick contacts. Has not had similar episodes in the past. Denies any change in urinary habits. Patient is baseline wheelchair-bound which she associates with severe hip pain limiting her mobility. On exam, patient appears nontoxic. She is hemodynamically stable. Lungs are clear, normal cardiac exam. Abdomen is soft with no rebound or guarding. However, she does have pain elicited with palpation of the right upper quadrant with a positive Tomlin's. The posterior oropharynx does appear slightly jaundiced to me although I do not note scleral icterus. Patient does state that she has a long history of alcohol abuse although she has not had any alcohol in a few days, did cut back in recent years. Differential quite broad at this time. While she does have pain with palpation of the RUQ, sh eis not having classical sxs of gallbladder pathology with her history today. Paritciaulrly given her cancer history, plan to obtain imaing, labs. Will hydrate the patient. While ronnie ehas not had any recent abx, concerned c.diff and will obtain stool sample. Labs reviewed. No leukocytosis. Stable H&H. Createine slightly bumped at 1.2, she has been elevated in the past. FINDINGS: Exam somewhat limited by patient body habitus. LIVER: Mildly enlarged.? Mild fatty infiltration.? No focal liver lesions are seen.. GALLBLADDER: No evidence of cholelithiasis. No evidence of wall thickening. No pericholecystic fluid identified. TOMLIN'S SIGN: Negative. BILIARY SYSTEM: No intrahepatic or extrahepatic biliary ductal dilation. KIDNEYS: Kidneys are symmetric in size. No evidence of renal calculi. No evidence of hydronephrosis. No renal mass or cyst identified. PANCREAS: Normal where visualized. SPLEEN: Not enlarged. ABDOMINAL AORTA AND IVC: Visualized portions normal caliber. ASCITES: None seen. IMPRESSION: No evidence of gallstones or acute cholecystitis.? Mild the enlarged liver with mild fatty infiltration Discussed CT scan with radiologist. Aside from significantly degenerated hip, no acute pathology in the abdomen. It is this hip degeneration that prompted the patient to be in a wheelchair at baseline. Discussed with patient and . After fluids, ronnie eis feeling signficantly better. She has not had any bowel movements since being here. Would like to go home with . Will bring stool sample in as soon as possible. Will continue to hydrate orally. Able to do so here. She is a palliative care patient and will call to discuss with them further as well. Strict return precautions given. All of her questions and concerns were addressed, she is in agreement with this plan. HPI General Date/Time Provider Initiated Documentation: 06/09/22 10:22. Limitations to Documentation: no limitations. Information obtained by: patient, RN notes reviewed and old records reviewed. History of Present Illness 62 year old F presents to the emergency department with the chief complaint of abdominal pain, diarrhea, general malaise, described as severe, with intensity rated at 8. Quality is described as aching, and is localized to the abdomen. Patient reports no radiation. Patient started experiencing this week(s) (began as flu like symptoms, diarrhea began more recently) and it has been constant (loose BM Q1hr). No relieving factors improve symptom(s), No exacerbating factors reported . Patient notes loss of appetite, malaise and nausea/vomiting; denies chest pain, cough, diaphoresis, fever/chills, rash and shortness of breath. Patient did receive the following treatments prior to arrival, none Related Data Home Medications Medication Instructions Recorded Confirmed nitroglycerin 0.4 mg sublingual 0.4 mg sublingual DIRECTED PRN 10/05/12 06/09/22 tablet (Nitrostat) simvastatin 40 mg tablet 40 mg PO DAILY 10/05/12 06/09/22 albuterol sulfate 90 mcg/actuation 2 puff inhalation Q4H PRN PRN ##1 09/21/14 06/09/22 aerosol inhaler losartan 100 1 tab PO DAILY 03/07/16 06/09/22 mg-hydrochlorothiazide 25 mg tablet multivitamin (Multiple Vitamins 1 tab PO DAILY #180 tabs 03/08/16 06/09/22 tablet) lorazepam 1 mg tablet 1 mg PO TID PRN 04/03/17 06/09/22 albuterol sulfate 2.5 mg/3 mL 2.5 mg inhalation Q6H 04/19/20 06/09/22 (0.083 %) solution for nebulization budesonide-formoterol HFA 160 2 puff inhalation BID 04/19/20 06/09/22 mcg-4.5 mcg/actuation aerosol inhaler (Symbicort) magnesium L-lactate 84 mg 84 mg PO TID 04/19/20 06/09/22 tablet,extended release (Magtab) osimertinib 80 mg tablet 80 mg PO DAILY 04/19/20 06/09/22 gabapentin 400 mg capsule 400 mg PO BID 11/09/20 06/09/22 potassium chloride 10 mEq 40 meq PO DAILY 01/11/21 06/09/22 tablet,extended release (Klor-Con) sennosides 8.6 mg tablet (Senna 8.6 mg PO BID PRN constipation #60 05/09/22 06/09/22 Laxative) tabs loperamide 2 mg capsule (Imodium 2 mg PO QID PRN loose stool #60 06/12/22 A-D) caps ondansetron 4 mg disintegrating 4 mg PO Q6H PRN nausea and 06/12/22 tablet vomiting #60 tabs oxycodone 5 mg tablet 2.5 - 5 mg PO QHS PRN pain #30 tabs 06/12/22 Previous Rx's Medication Instructions Recorded albuterol sulfate 90 mcg/actuation 2 puff inhalation Q4H PRN PRN ##1 09/21/14 aerosol inhaler multivitamin (Multiple Vitamins 1 tab PO DAILY #180 tabs 03/08/16 tablet) sennosides 8.6 mg tablet (Senna 8.6 mg PO BID PRN constipation #60 05/09/22 Laxative) tabs loperamide 2 mg capsule (Imodium 2 mg PO QID PRN loose stool #60 06/12/22 A-D) caps ondansetron 4 mg disintegrating 4 mg PO Q6H PRN nausea and 06/12/22 tablet vomiting #60 tabs oxycodone 5 mg tablet 2.5 - 5 mg PO QHS PRN pain #30 tabs 06/12/22 Allergies Allergy/AdvReac Type Severity Reaction Status Date / Time fentanyl Allergy Intermediate SOB Verified 06/09/22 11:16 hydromorphone Allergy Intermediate Verified 06/09/22 11:10 Sulfa (Sulfonamide Allergy Mild rash, Verified 06/09/22 10:08 Antibiotics) itching, nausea codeine Allergy Verified 06/09/22 10:08 hydrocodone Allergy Verified 06/09/22 10:08 morphine AdvReac Intermediate Body Verified 06/09/22 11:16 burning diphenhydramine HCl AdvReac Mild palpitation Verified 06/09/22 10:08 [From Benadryl] s Penicillins AdvReac Mild palpitation Verified 06/09/22 10:08 s tramadol AdvReac Mild SOB/vomitin Verified 06/09/22 10:08 g dander Allergy Intermediate Uncoded 06/09/22 10:08 General Stated Complaint: Nausea/Vomit/Diar LISS: 3 Review of Systems Constitutional Constitutional: Reports as per HPI, Denies chills, Denies fever(s) and Denies headache(s) ENT Ears, Nose, Mouth, and Throat: Denies headache(s) Cardiovascular Cardiovascular: Reports as per HPI, Denies chest pain and Denies dyspnea Respiratory Respiratory: Reports as per HPI, Denies cough and Denies dyspnea Gastrointestinal Gastrointestinal: Reports as per HPI Integumentary/Breasts Skin/Breast: Reports as per HPI and Denies rash Neurologic Neurologic: Reports as per HPI and Denies headache(s) PFSH All Active Problems (Updated 06/09/22 @ 15:19 by KENISHA Lake) Diarrhea (Acute) Abdominal pain (Acute) Palliative care patient (Acute) DNI (do not intubate) (Acute) DNR (do not resuscitate) (Acute) POLST (Physician Orders for Life-Sustaining Treatment) (Acute) COLST completed 04/20/2020, DNR/DNI. 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 History of depression Non-small cell cancer of right lung Surgical History History of appendectomy Social History Smoking/Tobacco Use Status: Former Tobacco Use Smoking risk assessment performed?: Yes Alcohol Intake: current Alcohol Intake frequency: a few times a week Alcohol type: beer Drug use: Never Substance use type: does not use Do you feel safe at home: Yes Do you feel safe in your relationship?: Yes Exam Const General: cooperative, healthy appearing, comfortable, no acute distress and well developed Nutritional Appearance: average body habitus and well nourished Orientation: alert and awake [facility] Head: normal to inspection Mouth: moist mucous membranes Resp Effort & Inspection: normal respiratory effort, able to speak in complete sentences and no respiratory distress Auscultation: clear to auscultation bilaterally, no rales, no rhonchi and no wheezes Cardio Rate: regular rate Rhythm: regular rhythm Heart Sounds: S1 normal and S2 normal GI Inspection: normal to inspection Palpation: soft, no hepatosplenomegaly, no guarding, no hepatomegaly, no masses, no pulsatile masses, tender in the RUQ and Tomlin's sign positive; not at McBurney's point and with no rebound tenderness and No ascites Percussion: normal to percussion Auscultation: normal bowel sounds Back/Spine/Pelvis Back: no CVA tenderness Skin General skin exam: no rashes or lesions noted Trauma: no lacerations or abrasions Neuro General: patient alert and patient awake Cognition: normal cognition Speech: speech normal Gait: normal gait Psych Appearance: grossly normal and well kempt Mental Status: mental status grossly normal Speech and Movement: speech and movement normal Course Vital Signs Vital signs: Vital Signs Temperature 36.7 C 06/09/22 10:04 Pulse 89 06/09/22 10:04 Respiratory Rate 18 06/09/22 10:04 Blood Pressure 152/101 H 06/09/22 10:04 Pulse Oximetry 100 06/09/22 10:04 Temperature 36.7 C 06/09/22 10:04 Temperature Source Temporal Artery Scan 06/09/22 10:04 Pulse 89 06/09/22 10:04 Respiratory Rate 18 06/09/22 10:04 Respiratory Effort 06/09/22 10:06 Blood Pressure 152/101 H 06/09/22 10:04 Blood Pressure Position Sitting 06/09/22 10:04 Pulse Oximetry 100 06/09/22 10:04 Oxygen Delivery Method Room Air 06/09/22 10:04 Oxygen Flow Rate 0 06/09/22 10:04 Pain Level 8 06/09/22 10:04 PAWSS Have you Been Recently Intoxicated or Drunk Within the Last 30 days?: No Have you Ever Experienced Previous Episodes of Alcohol Withdrawal?: No Have you ever Experienced Withdrawal Seizures?: No Have you ever Experienced Delirium Tremens(DT)s?: No Have you ever undergone Alcohol Rehabilitation Treatment (i.e, inpt ot outpatient treatment programs)?: No Have you ever Experienced Blackouts?: No Have you ever Combined Alcohol with other Downers within the last 90 days?: No Have you ever Combined Alcohol with any other Substance of Abuse during the last 90 days?: No Result: 0
--- NOTE | 2022-06-09 10:30 | RT.EKG_ITS ---
APPROVED REPORT Exam: Resting ECG Reason for Exam: CP Patient Location: E HR:67 bpm ECG Measurements Heart Rate 67 AXIS IN [id number] P [id number] QRSd 108 QRS 42 QT 404 T 60 QTc 427 Conclusion Junctional rhythm...absent P waves, slow V-rate Anteroseptal infarct, age indeterminate...Q >35mS, T neg, V1-V2. Junctional. Normal axis. No STEMI. I have reviewed and interpreted ECG and agree with software generated interpretation.
--- NOTE | 2022-06-09 10:30 | DI.US_ITS ---
Exam(s) US ABDOMEN EXAM: US ABDOMEN CLINICAL HISTORY: diffuse pain, maximal RUQ, +Tomlin TECHNIQUE: Ultrasound abdomen performed using standard protocol. COMPARISON: CT CT CHEST W from 01/13/[address] CHEST W from 05/30/2022 FINDINGS: Exam somewhat limited by patient body habitus. LIVER: Mildly enlarged. Mild fatty infiltration. No focal liver lesions are seen.. GALLBLADDER: No evidence of cholelithiasis. No evidence of wall thickening. No pericholecystic fluid identified. TOMLIN'S SIGN: Negative. BILIARY SYSTEM: No intrahepatic or extrahepatic biliary ductal dilation. KIDNEYS: Kidneys are symmetric in size. No evidence of renal calculi. No evidence of hydronephrosis. No renal mass or cyst identified. PANCREAS: Normal where visualized. SPLEEN: Not enlarged. ABDOMINAL AORTA AND IVC: Visualized portions normal caliber. ASCITES: None seen. IMPRESSION: No evidence of gallstones or acute cholecystitis. Mild the enlarged liver with mild fatty infiltrati on. DATA REPOSITORY:
[2022-06-09] MEDS: Lactated Ringers 1,000 ML 1000 ML IV (10:55)
[2022-06-09] MEDS: HYDROmorphone 2 MG/ML SYR 1 MG IVP (11:01)
[2022-06-09 11:03] LABS: Abs Immature Grans 0.01 10^3/uL (0.0-0.06); Absolute Basophil Count 0.04 10^3/uL (0.0-0.2); Absolute Eosinophil Count 0.36 10^3/uL (0.0-0.7); Absolute Monocyte Count 0.38 10^3/uL (0.1-0.8); Absolute Neutrophil Count 4.01 10^3/uL (1.2-6.7); Basophils % 0.6; Eosinophils % 5.6; HCT 38.2 % (36.0-46.0); HGB 12.3 g/dL (11.2-15.7); Immature Grans % 0.2; MCH 30.8 pg (27.0-33.0); MCHC 32.2 % (32.0-36.0); MCV 96 fL (80-95); MPV 10.2 fL (8.0-11.0); Monocytes % 5.9; Neutrophils % 62.7; Platelet Count 290 10^3/uL (130-400); RDW 12.9 % (11.7-14.6); RDW-SD 45.6 fL
[2022-06-09 11:23] LABS: ALT 21 U/L (14-59); AST 20 U/L (15-37); Albumin 4.3 g/dL (3.4-5.0); Alkaline Phosphatase 65 U/L (46-116); BUN 13 mg/dL (7-18); Bilirubin, Total 0.6 mg/dL (0.2-1.0); CREATININE 1.2 mg/dL (0.55-1.02); Calcium 9.7 mg/dL (8.5-10.1); Chloride 101 mmol/L (98-107); Estimated GFR 51.18 (mL/min/1.73m2); Glucose 96 mg/dL (74-106); Magnesium 1.8 mg/dL (1.8-2.4); Potassium 3.6 mmol/L (3.5-5.1); Sodium 138 mmol/L (136-145); Total Protein 7.7 g/dL (6.4-8.2); Troponin I < 50 ng/L (<or=60)
[2022-06-09 12:28] LABS: Bilirubin Negative (Negative); Blood Negative (Negative); Clarity Clear (Clear); Glucose Negative (Negative); Ketones 15 mg/dL (Negative); Leukocyte Esterase Negative (Negative); Nitrite Negative (Negative); Specific Gravity 1.025 (1.005-1.025); Urobilinogen 0.2 EU/dL (Up TO 0.2); pH 6.5 (5-8)
[2022-06-09] MEDS: LORazepam 2 MG/ML VIAL 1 MG IVP (13:55)
[2022-06-09] MEDS: Normal Saline - Diluent 50 ML VIAL IV (14:06)
[2022-06-09] MEDS: Omnipaque 350 MG/ML 500 ML BTL-Imaging package 100 ML IJ (14:08)
--- NOTE | 2022-06-09 14:23 | DI.CT_ITS ---
Exam(s) CT ABDOMEN PELVIS W EXAM: CT ABDOMEN PELVIS W CLINICAL HISTORY: diffuse pain, max RUQ, hx lung ca with mets. TECHNIQUE: Imaging Protocol: Axial computed tomography images with coronal and sagittal reformatted images were created and reviewed CONTRAST MATERIAL: Intravenous: Omnipaque 350 Contrast volume:100 ml Oral: no COMPARISON: CT CH/UPPER ABD WITH CONTRAST from 01/06/2017 FINDINGS: ABDOMEN: Lung Bases: Normal where visualized. Liver: Normal density. No measurable mass. Gallbladder and biliary tract: No radiodense calculus or dilation. Pancreas: Normal density, no abnormal calcifications or inflammatory process. Spleen: Normal. Kidneys: Normal size, contour and axis. No radiodense stones or obstructive uropathy. No masses seen. Adrenal glands: No masses seen. Abdominal Aorta: Abdominal portion non-dilated. Stomach and small bowel: Stomach unremarkable. Diverticulum of the transverse duodenum. No small leonela wel dilatation or wall thickening. PELVIS: Bladder: Nearly empty.. No calculi.No focal mass. Bowel: Normal quantity of stool. No wall thickening. No inflammatory changes. Appendix normal. Peritoneal cavity: No ascites, collection or mesenteric inflammatory response. Bones: Severe degenerative changes of the left hip with severe joint space narrowing, prominent spur periarticular spurring and subchondral cyst formation. The surrounding joint effusion as well as loo se bodies seen at the inferior aspect of the joint. Degenerative changes are present in the lumbar s pine. There are also a few scattered small sclerotic lesions in the lumbar vertebral bodies. This c ould represent metastatic disease. No destructive lesions seen. Reproductive organs: Within normal limits. Lymph nodes: Unremarkable. Impression: No acute abnormality. Findings discussed with Jasmin Jennings, emergency department provider. RADIATION DOSE DELIVERED: 1,347.68mGy.cm Total DLP DATA REPOSITORY: All CT scans at this facility are submitted to the National Radiology Data Registry (NRDR) Dose Index Registry (DIR) with the [employer] ([employer]). RADIATION OPTIMIZATION: All CT scans at this facility use at least one of these dose optimization te chniques: automated exposure control; mA and/or kV adjustment per patient size (includes targeted exa ms where dose is matched to clinical indication); or iterative reconstruction.
--- NOTE | 2022-06-12 13:36 | NUR.NOTE ---
Nursing Note: Accessed pt chart for results of stool tests. Printed tests results for provider to call patient. [phone]
== END 2022-06-09 15:45 | disposition home or self-care (01) ==
PROVIDERS: Emergency Provider Physician Assistant; PCP Physician Assistant
DX: R19.7 Diarrhea, unspecified (principal); R10.11 Right upper quadrant pain; R11.0 Nausea; J44.9 Chronic obstructive pulmonary disease, unspecified; C79.51 Secondary malignant neoplasm of bone; C34.90 Malignant neoplasm of unspecified part of unspecified bronchus or lung; R17 Unspecified jaundice; Z79.51 Long term (current) use of inhaled steroids; Z92.21 Personal history of antineoplastic chemotherapy
CPT/HCPCS: 36415; 36416; 80053; 82962; 87493; 87505; 93005; 96361; 96374; 96375; 99285; 74177; 76700; 81003; 83630; 83735; 84484; 85025; 93010; 99284; J1170; J2060

== ENCOUNTER 2022-06-10 15:34 | Outpatient (REF) | payer OTHER, SELFPAY ==
[2022-06-10 11:37] LABS: C Diff PCR Negative (Negative)
== END 2022-06-10 15:35 | disposition home or self-care (01) ==
LOC: LBN 15:34
PROVIDERS: PCP Physician Assistant; Visit Provider Physician Assistant
DX: R19.7 Diarrhea, unspecified (principal)
CPT/HCPCS: 87493; 87505; 83630

== ENCOUNTER 2022-06-11 09:26 | Outpatient (REF) | payer OTHER, SELFPAY ==
[2022-06-11 22:31] LABS: Campylobacter PCR Negative (Negative); Salmonella PCR Negative (Negative); Shiga Toxin PCR Negative (Negative); Shigella/Enteroinvasive Ecoli Negative (Negative)
== END 2022-06-11 09:27 | disposition home or self-care (01) ==
LOC: LBN 09:26
PROVIDERS: PCP Physician Assistant; Visit Provider Physician Assistant
DX: R19.7 Diarrhea, unspecified (principal)
CPT/HCPCS: 87505

== ENCOUNTER 2022-06-18 10:13 | Outpatient (REF) | payer OTHER, SELFPAY ==
[2022-06-19 11:40] LABS: Campylobacter PCR Negative (Negative); Salmonella PCR Negative (Negative); Shiga Toxin PCR Negative (Negative); Shigella/Enteroinvasive Ecoli Negative (Negative)
== END 2022-06-18 10:14 | disposition home or self-care (01) ==
LOC: NCHCN 10:13
PROVIDERS: PCP Physician Assistant; Visit Provider Physician Assistant
DX: R19.7 Diarrhea, unspecified (principal)
CPT/HCPCS: 87505; 87177

== ENCOUNTER 2022-07-02 11:45 | Outpatient (REF) | payer OTHER, SELFPAY ==
--- NOTE | 2022-07-02 10:45 | PAPFT_PTH ---
PATIENT: Melodie Aguillon LOC: [facility]#:[id number] AGE/SX: 62/F ROOM: RE07/02/[address]: Juliana Cline : 1960 BED: DIS: 07/02/2022 SPEC #: [id number] RECD: 07/03/22 13:09 STATUS: RAMON DE ANDA #: [id number] LESLY: 07/02/22 10:[address]: Juliana Cline DEPT: [facility] Cytology RECD BY: Floridalma Finney Tissues: 1 - CX/ENDOCX FOR PAP SMEARS Procedures: PAP THIN PREP/UVM Screening HPV DNA PROBE Comments: [id number] (CHLAMYDIA/GC)
[2022-07-02 21:50] LABS: Anion Gap 9.3 mmol/L (3-11); BUN 12 mg/dL (7-18); CO2 26.7 mmol/L (21.0-32.0); CREATININE 1.6 mg/dL (0.55-1.02); Calcium 9.9 mg/dL (8.5-10.1); Chloride 102 mmol/L (98-107); Estimated GFR 36.24 (mL/min/1.73m2); Glucose 94 mg/dL (74-106); Magnesium 1.8 mg/dL (1.8-2.4); Potassium 3.8 mmol/L (3.5-5.1); Sodium 138 mmol/L (136-145)
[2022-07-04 14:33] LABS: Chlamydia Result Negative (Negative); GC Result Negative (Negative)
== END 2022-07-02 11:46 | disposition home or self-care (01) ==
LOC: NCHCN 11:45
PROVIDERS: PCP Physician Assistant; Visit Provider Physician Assistant
DX: Z12.4 Encounter for screening for malignant neoplasm of cervix (principal); Z11.51 Encounter for screening for human papillomavirus (HPV); R19.7 Diarrhea, unspecified; E87.1 Hypo-osmolality and hyponatremia; E83.42 Hypomagnesemia; N89.8 Other specified noninflammatory disorders of vagina
CPT/HCPCS: 80048; 87491; 87591; 88142; 83735; 87480; 87510; 87624; 87660

== ENCOUNTER 2022-08-01 17:32 | Outpatient (REF) | payer OTHER, SELFPAY ==
[2022-08-01 19:05] LABS: Anion Gap 7.6 mmol/L (3-11); BUN 14 mg/dL (7-18); CO2 27.4 mmol/L (21.0-32.0); CREATININE 1.2 mg/dL (0.55-1.02); Calcium 8.9 mg/dL (8.5-10.1); Chloride 99 mmol/L (98-107); Estimated GFR 51.18 (mL/min/1.73m2); Glucose 85 mg/dL (74-106); Magnesium 1.5 mg/dL (1.8-2.4); Potassium 4.3 mmol/L (3.5-5.1); Sodium 134 mmol/L (136-145)
== END 2022-08-01 17:33 | disposition home or self-care (01) ==
LOC: NCHCN 17:32
PROVIDERS: PCP Physician Assistant; Visit Provider Physician Assistant
DX: I10 Essential (primary) hypertension (principal); E83.42 Hypomagnesemia
CPT/HCPCS: 80048; 83735

== ENCOUNTER 2022-08-27 01:56 | Outpatient (CLI) | payer OTHER, SELFPAY ==
[2022-08-27 12:32] LABS: Abs Immature Grans 0.02 10^3/uL (0.0-0.06); Absolute Basophil Count 0.04 10^3/uL (0.0-0.2); Absolute Eosinophil Count 0.49 10^3/uL (0.0-0.7); Absolute Lymphocyte Count 1.72 10^3/uL (1.2-3.4); Absolute Monocyte Count 0.49 10^3/uL (0.1-0.8); Absolute Neutrophil Count 3.81 10^3/uL (1.2-6.7); Basophils % 0.6; Eosinophils % 7.5; HCT 37.2 % (36.0-46.0); HGB 12.3 g/dL (11.2-15.7); Immature Grans % 0.3; Lymphocytes % 26.2; MCH 30.6 pg (27.0-33.0); MCHC 33.1 % (32.0-36.0); MCV 93 fL (80-95); Monocytes % 7.5; Neutrophils % 57.9; Platelet Count 285 10^3/uL (130-400); RBC 4.02 10^6/uL (3.93-5.22); RDW 13.8 % (11.7-14.6); RDW-SD 46.7 fL; WBC 6.57 10^3/uL (4.4-10.8)
[2022-08-27 12:47] LABS: ALT 25 U/L (14-59); AST 21 U/L (15-37); Albumin 4.2 g/dL (3.4-5.0); Alkaline Phosphatase 67 U/L (46-116); Anion Gap 8.4 mmol/L (3-11); BUN 16 mg/dL (7-18); Bilirubin, Total 0.5 mg/dL (0.2-1.0); CO2 30.6 mmol/L (21.0-32.0); CREATININE 1.2 mg/dL (0.55-1.02); Calcium 9.6 mg/dL (8.5-10.1); Chloride 98 mmol/L (98-107); Estimated GFR 51.18 (mL/min/1.73m2); Glucose 98 mg/dL (74-106); Magnesium 1.6 mg/dL (1.8-2.4); Potassium 3.7 mmol/L (3.5-5.1); Sodium 137 mmol/L (136-145); Total Protein 7.7 g/dL (6.4-8.2)
== END 2022-08-27 01:57 | disposition home or self-care (01) ==
PROVIDERS: Internal Medicine; PCP Physician Assistant; Visit Provider Internal Medicine Hematology & Oncology
DX: C34.90 Malignant neoplasm of unspecified part of unspecified bronchus or lung (principal); C79.51 Secondary malignant neoplasm of bone
CPT/HCPCS: 36415; 80053; 83735; 85025

== ENCOUNTER 2022-09-19 12:34 | Emergency (ER) | payer OTHER, SELFPAY ==
--- NOTE | 2022-09-19 12:30 | RT.EKG_ITS ---
APPROVED REPORT Exam: Resting ECG Reason for Exam: Dyspnea Patient Location: E HR:76 bpm ECG Measurements Heart Rate 76 AXIS VT [id number] P [id number] QRSd 108 QRS 16 QT 392 T 37 QTc 440 Conclusion Accelerated junctional rhythm...absent P waves, accele'd V-rate
[2022-09-19 12:38] VITALS: BP 147/107; PULSE 78; RESP 18; TEMP 36.8; O2SAT 99
--- NOTE | 2022-09-19 13:00 | DI.CT_ITS ---
Exam(s) CT HEAD WO EXAM: CT HEAD WO CLINICAL HISTORY: RECENT HEAD PRESSURE, LUNG CA WITH METS. TECHNIQUE: Imaging Protocol: Axial computed tomography images with coronal and sagittal reformatted images were created and reviewed COMPARISON: CT HEAD WITHOUT CONTRAST from 03/28/2016 FINDINGS: There are no skull fractures. There is no fluid in the visualized paranasal sinuses. There is no evidence of intracranial hemorrhage, mass effect, or shift of midline structures. There are no extra-axial fluid collections. The ventricles are not enlarged or shifted and there is no blo od within the ventricular system nor within the basal cisterns. IMPRESSION: No acute intracranial findings on this noninfused CT scan of the brain. No significant change compar ed to prior CT scan of March 2016. Given the past medical history here if clinically indicated follow-up contrast infused MRI can be per formed. RADIATION DOSE DELIVERED: 791.03mGy.cm Total DLP DATA REPOSITORY: All CT scans at this facility are submitted to the National Radiology Data Registry (NRDR) Dose Index Registry (DIR) with the [employer] (ACR). RADIATION OPTIMIZATION: All CT scans at this facility use at least one of these dose optimization te chniques: automated exposure control; mA and/or kV adjustment per patient size (includes targeted exa ms where dose is matched to clinical indication); or iterative reconstruction.
[2022-09-19 13:15] LABS: Abs Immature Grans 0.02 10^3/uL (0.0-0.06); Absolute Basophil Count 0.04 10^3/uL (0.0-0.2); Absolute Lymphocyte Count 2.09 10^3/uL (1.2-3.4); Basophils % 0.7; Eosinophils % 4.9; HCT 35.1 % (36.0-46.0); HGB 11.7 g/dL (11.2-15.7); Immature Grans % 0.3; MCH 30.5 pg (27.0-33.0); MCHC 33.3 % (32.0-36.0); MCV 92 fL (80-95); MPV 10.2 fL (8.0-11.0); Monocytes % 8.1; Platelet Count 293 10^3/uL (130-400); RBC 3.83 10^6/uL (3.93-5.22); RDW 13.5 % (11.7-14.6); RDW-SD 45.7 fL; WBC 6.15 10^3/uL (4.4-10.8)
[2022-09-19 13:40] LABS: ALT 26 U/L (14-59); AST 18 U/L (15-37); Albumin 3.9 g/dL (3.4-5.0); Alkaline Phosphatase 65 U/L (46-116); Anion Gap 5.9 mmol/L (3-11); BUN 22 mg/dL (7-18); Bilirubin, Total 0.4 mg/dL (0.2-1.0); CO2 30.1 mmol/L (21.0-32.0); CREATININE 1.2 mg/dL (0.55-1.02); Calcium 9.4 mg/dL (8.5-10.1); Chloride 101 mmol/L (98-107); Estimated GFR 51.18 (mL/min/1.73m2); Glucose 90 mg/dL (74-106); Potassium 3.6 mmol/L (3.5-5.1); Sodium 137 mmol/L (136-145); TSH (W/Ref FT4) 1.44 uIU/mL (0.36-3.74); Total Protein 7.3 g/dL (6.4-8.2)
--- NOTE | 2022-09-19 13:53 | ED.GENADUL_ITS ---
Discharge Plan Disposition Patient Disposition: Home Condition: Stable Discharge Details Clinical Impression: Shortness of breath, Medication adverse effect, Accelerated junctional rhythm Primary Care Provider: Juliana Cline ED Provider: Hai Mason Home Meds and New Rx's Prescriptions: Continued lidocain-me.gnlrnba-airo-xorjy [1st Medx-Patch With Lidocaine] topical Rx Instructions: for hip and or spine aspirin [Adult Aspirin Regimen] 81 mg tablet,delayed release (DR/EC) 81 mg PO DAILY ondansetron 4 mg tablet,disintegrating 4 mg PO Q6H PRN (Reason: nausea and vomiting) Qty: 60 3RF dexlansoprazole 60 mg capsule,biphase delayed releas 60 mg PO DAILY gabapentin 400 mg capsule 400 mg PO BID sennosides [Senna Laxative] 8.6 mg tablet 8.6 mg PO BID PRN (Reason: constipation) Qty: 60 3RF osimertinib 80 mg tablet 80 mg PO DAILY magnesium L-lactate [Magtab] 84 mg tablet extended release 84 mg PO TID budesonide-formoterol [Symbicort] 160-4.5 mcg/actuation HFA aerosol inhaler 2 puff inhalation BID albuterol sulfate 2.5 mg /3 mL (0.083 %) solution for nebulization 2.5 mg inhalation Q6H potassium chloride [Klor-Con 10] 10 mEq tablet extended release 40 meq PO DAILY loperamide [Imodium A-D] 2 mg capsule 2 mg PO QID PRN (Reason: loose stool) Qty: 60 3RF Rx Instructions: For chemo related diarrhea. simvastatin 40 MG tablet 40 mg PO DAILY nitroglycerin [Nitrostat] 0.4 MG tablet, sublingual 0.4 mg Sublingual DIRECTED PRN Patient Comments: never uses albuterol sulfate 8.5 GM HFA aerosol inhaler 2 puff Inhalation Q4H PRN PRNQty: 1 0RF losartan-hydrochlorothiazide 1 EACH tablet 1 tab PO DAILY Patient Comments: TAKE ONE TABLET BY MOUTH EVERY DAY multivitamin [Multiple Vitamins] 1 TAB tablet 1 tab PO DAILY Qty: 180 0RF lorazepam 1 MG tablet 1 mg PO TID PRN Discontinued bupropion HCl [Wellbutrin SR] 100 mg tablet sustained-release 12 hr 100 mg PO DAILY Qty: 30 3RF Patient Comments: not taking Rx Instructions: palliative care patient prochlorperazine maleate 5 mg tablet 5 mg PO QID PRN (Reason: nausea and vomiting) Qty: 30 3RF Patient Comments: not taking Rx Instructions: palliative care patient No Action hydromorphone 2 mg tablet 2 mg PO TID MDD 3 tabs PRN (Reason: pain) Qty: 20 0RF Rx Instructions: For cancer related pain palliative care patient. Discharge Instructions Instructions: Hydromorphone (By mouth) Additional Instructions: I suspect your symptoms today were related to your Dilaudid dose. I recommend decreasing her Dilaudid dose to 0.5 mg 3 times a day as needed for severe pain. Please contact your primary care physician to arrange follow-up. Return to the ER immediately for any worsening or new concerning symptoms. 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 This is a new prescription for the patient and she is worried that this was a side effect. Patient took lorazepam and symptoms dramatically improved. I suspect this was a medication reaction with component of anxiety. Patient feeling much better now. She is hemodynamically stable. Patient has complained of recent head pressure although she has no pressure or pain at this time. I obtained CT of the head to assess for large mass given metastatic disease. CT of the head was interpreted by radiology as negative. Labs reviewed and no significant electrolyte abnormalities. Screening EKG was performed and reviewed and interpreted by me: Accelerated junctional rhythm of 76 bpm. Patient was in junctional rhythm 4 months ago on review of prior EKG. I will have her follow-up with PCP. Patient was reassessed and continues remained stable with no symptoms. I instructed her to reduce Dilaudid dose to 0.5 mg and monitor closely. I in structed her she should not be taking opioids and benzodiazepines at the same time. Usual customary discharge instructions were reviewed with the patient. HPI General Mode of arrival: EMS . Date/Time Provider Initiated Documentation: 09/19/22 12:48 . Limitations to Documentation: no limitations . Information obtained by: patient . HPI Narrative: 62-year-old female with past medical history of lung cancer with metastasis to the spine and sternum, anxiety, COPD, depression, here with chief complaint of medication reaction. Patient notes shortly after taking her Dilaudid 2 mg oral dose today she felt flushed, hot and had shortness of breath. She became quite anxious and symptoms worsened. Patient notes she then took lorazepam and symptoms significantly improved. Patient denies chest pain at this time. No shortness of breath. She does note recent pressure in her head but has no headache at this time. She does have sore throat today. No difficulty swallowing. Related Data Home Medications Medication Instructions Recorded Confirmed nitroglycerin 0.4 mg sublingual 0.4 mg sublingual DIRECTED PRN 10/05/12 09/19/22 tablet (Nitrostat) simvastatin 40 mg tablet 40 mg PO DAILY 10/05/12 09/19/22 albuterol sulfate 90 mcg/actuation 2 puff inhalation Q4H PRN PRN ##1 09/21/14 09/19/22 aerosol inhaler losartan 100 1 tab PO DAILY 03/07/16 09/19/22 mg-hydrochlorothiazide 25 mg tablet multivitamin (Multiple Vitamins 1 tab PO DAILY #180 tabs 03/08/16 09/19/22 tablet) lorazepam 1 mg tablet 1 mg PO TID PRN 04/03/17 09/19/22 albuterol sulfate 2.5 mg/3 mL 2.5 mg inhalation Q6H 04/19/20 09/19/22 (0.083 %) solution for nebulization budesonide-formoterol HFA 160 2 puff inhalation BID 04/19/20 09/19/22 mcg-4.5 mcg/actuation aerosol inhaler (Symbicort) magnesium L-lactate 84 mg 84 mg PO TID 04/19/20 09/19/22 tablet,extended release (Magtab) osimertinib 80 mg tablet 80 mg PO DAILY 04/19/20 09/19/22 gabapentin 400 mg capsule 400 mg PO BID 11/09/20 09/19/22 potassium chloride 10 mEq 40 meq PO DAILY 01/11/21 09/19/22 tablet,extended release (Klor-Con) sennosides 8.6 mg tablet (Senna 8.6 mg PO BID PRN constipation #60 05/09/22 09/19/22 Laxative) tabs loperamide 2 mg capsule (Imodium 2 mg PO QID PRN loose stool #60 06/12/22 09/19/22 A-D) caps aspirin 81 mg tablet,delayed 81 mg PO DAILY 07/11/22 09/19/22 release (Adult Aspirin Regimen) lidocain-me.oibtkxs-dhex-bxmzx topical 07/11/22 09/12/22 [1st Medx-Patch With Lidocaine] ondansetron 4 mg disintegrating 4 mg PO Q6H PRN nausea and 07/11/22 09/19/22 tablet vomiting #60 tabs dexlansoprazole 60 mg 60 mg PO DAILY 09/12/22 09/19/22 capsule,biphase delayed release hydromorphone 2 mg tablet 2 mg PO TID PRN pain #20 tabs 09/12/22 09/19/22 Previous Rx's Medication Instructions Recorded albuterol sulfate 90 mcg/actuation 2 puff inhalation Q4H PRN PRN ##1 09/21/14 aerosol inhaler multivitamin (Multiple Vitamins 1 tab PO DAILY #180 tabs 03/08/16 tablet) sennosides 8.6 mg tablet (Senna 8.6 mg PO BID PRN constipation #60 05/09/22 Laxative) tabs loperamide 2 mg capsule (Imodium 2 mg PO QID PRN loose stool #60 06/12/22 A-D) caps ondansetron 4 mg disintegrating 4 mg PO Q6H PRN nausea and 07/11/22 tablet vomiting #60 tabs hydromorphone 2 mg tablet 2 mg PO TID PRN pain #20 tabs 09/12/22 Allergies Allergy/AdvReac Type Severity Reaction Status Date / Time fentanyl Allergy Intermediate SOB Verified 09/19/22 13:55 Sulfa (Sulfonamide Allergy Mild rash, Verified 09/19/22 13:55 Antibiotics) itching, nausea codeine Allergy Verified 09/19/22 13:55 hydrocodone Allergy Verified 09/19/22 13:55 morphine AdvReac Intermediate Body Verified 09/19/22 13:55 burning diphenhydramine HCl AdvReac Mild palpitation Verified 09/19/22 13:55 [From Benadryl] s Penicillins AdvReac Mild palpitation Verified 09/19/22 13:55 s tramadol AdvReac Mild SOB/vomitin Verified 09/19/22 13:55 g dander Allergy Intermediate Uncoded 09/19/22 13:55 General Stated Complaint: RespSymp LISS: 3 Review of Systems All systems reviewed & are unremarkable except as noted in HPI and below Constitutional Constitutional: Reports as per HPI and Denies fever(s) Cardiovascular Cardiovascular: Denies chest pain Musculoskeletal Musculoskeletal: Reports arthralgias (left) PFSH All Active Problems (Updated 09/19/22 @ 14:14 by Hai Mason MD) Shortness of breath (Acute) Medication adverse effect (Acute) Accelerated junctional rhythm (Acute) DJD (degenerative joint disease) (Chronic) Palliative care patient (Acute) DNI (do not intubate) (Acute) DNR (do not resuscitate) (Acute) POLST (Physician Orders for Life-Sustaining Treatment) (Acute) COLST completed 04/20/2020, DNR/DNI. 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 History of depression Non-small cell cancer of right lung Surgical History History of appendectomy Social History Smoking/Tobacco Use Status: Former Tobacco Use Smoking risk assessment performed?: Yes Alcohol Intake: current Alcohol Intake frequency: a few times a week Alcohol type: beer Drug use: Never Substance use type: does not use Do you feel safe at home: Yes Do you feel safe in your relationship?: Yes Exam Const General: cooperative and no acute distress HENMT Mouth: moist mucous membranes Eyes Conjunctivae: normal conjunctivae Sclera: normal sclerae Pupils: pupils not ERRL (rt 3mm, lt 4mm) Neck Neck: trachea midline and supple Resp Effort & Inspection: not labored Auscultation: clear to auscultation bilaterally, no rales, no rhonchi and no wheezes Cardio Rate: regular rate and not tachycardic Rhythm: regular rhythm Heart Sounds: no gallops, no murmurs and no rubs GI Palpation: soft, not firm, no guarding, no masses, not rigid and nontender Skin General skin exam: no rashes or lesions noted Neuro General: patient alert, patient awake and tone normal Cranial Nerves: accommodation normal and EOM intact bilaterally Speech: speech normal Motor: strength 5/5 throughout Sensory Exam: no sensory deficits noted Extrem General: no calf tenderness and no edema Psych Appearance: grossly normal Mental Status: mental status grossly normal Course Vital Signs Vital signs: Vital Signs Temperature 36.8 C 09/19/22 12:38 Pulse 78 09/19/22 12:38 Respiratory Rate 18 09/19/22 12:38 Blood Pressure 147/107 H 09/19/22 12:38 Pulse Oximetry 99 09/19/22 12:38 Temperature 36.8 C 09/19/22 12:38 Pulse 78 09/19/22 12:38 Respiratory Rate 18 09/19/22 12:38 Respiratory Effort Normal, Non-Labored 09/19/22 12:37 Blood Pressure 147/107 H 09/19/22 12:38 Pulse Oximetry 99 09/19/22 12:38 Oxygen Delivery Method Room Air 09/19/22 12:38 Oxygen Flow Rate 0 09/19/22 12:38 Lab/Test Results Lab/Test Results: Laboratory Tests Range/Units 09/19/22 09/19/22 12:50 12:50 WBC (4.4-10.8) 10^3/uL 6.15 RBC (3.93-5.22) 10^6/uL 3.83 L Hgb (11.2-15.7) g/dL 11.7 Hct (36.0-46.0) % 35.1 L MCV (80-95) fL 92 MCH (27.0-33.0) pg 30.5 MCHC (32.0-36.0) % 33.3 RDW (11.7-14.6) % 13.5 Plt Count (130-400) 10^3/uL 293 MPV (8.0-11.0) fL 10.2 Immature Gran % 0.3 Neutrophils % 52.0 Lymphocytes % 34.0 Monocytes % 8.1 Eosinophils % 4.9 Basophils % 0.7 Nucleated RBC % (0.0-0.3) % 0.0 Absolute Neutrophils (1.2-6.7) 10^3/uL 3.20 Absolute Lymphocytes (1.2-3.4) 10^3/uL 2.09 Absolute Monocytes (0.1-0.8) 10^3/uL 0.50 Absolute Eosinophils (0.0-0.7) 10^3/uL 0.30 Absolute Basophils (0.0-0.2) 10^3/uL 0.04 Sodium (136-145) mmol/L 137 Potassium (3.5-5.1) mmol/L 3.6 Chloride (98-107) mmol/L 101 Carbon Dioxide (21.0-32.0) mmol/L 30.1 Anion Gap (3-11) mmol/L 5.9 BUN (7-18) mg/dL 22 H Creatinine (0.55-1.02) mg/dL 1.2 H Est GFR (CKD-EPI 2020) (mL/min/1.73m2) 51.18 Glucose (74-106) mg/dL 90 Calcium (8.5-10.1) mg/dL 9.4 Total Bilirubin (0.2-1.0) mg/dL 0.4 AST (15-37) U/L 18 ALT (14-59) U/L 26 Alkaline Phosphatase (46-116) U/L 65 Total Protein (6.4-8.2) g/dL 7.3 Albumin (3.4-5.0) g/dL 3.9 TSH (0.36-3.74) uIU/mL 1.44
[2022-09-19 14:14] VITALS: BP 124/87; PULSE 76; RESP 20; O2SAT 98
== END 2022-09-19 16:43 | disposition home or self-care (01) ==
LOC: ER 16:43
PROVIDERS: Emergency Provider Student in an Organized Health Care Education/Training Program; PCP Physician Assistant
DX: R06.02 Shortness of breath (principal); T40.2X5A Adverse effect of other opioids, initial encounter; I49.2 Junctional premature depolarization; J44.9 Chronic obstructive pulmonary disease, unspecified; Z79.51 Long term (current) use of inhaled steroids; Z79.82 Long term (current) use of aspirin
CPT/HCPCS: 36415; 80053; 93005; 99284; 70450; 84443; 85025; 93010; 99283

== ENCOUNTER 2022-10-01 01:55 | Outpatient (CLI) | payer OTHER, SELFPAY ==
--- NOTE | 2022-10-01 | DI.CT_ITS ---
Exam(s) CT CHEST W EXAM: CT CHEST W CLINICAL HISTORY: METASTATIC RT LUNG CA, C34.91,ASSESS TREATMENT RESPONSE TECHNIQUE: Imaging Protocol: Axial computed tomography images with coronal and sagittal reformatted images were created and reviewed CONTRAST MATERIAL: Intravenous: Omnipaque 350Contrast volume:70 mL. COMPARISON: CT CT CHEST W from 05/30/[address] ABDOMEN PELVIS W from 06/09/2022 FINDINGS: Tracheobronchial tree: Patent where visualized. Pulmonary parenchyma: The patient is status post right lobectomy. There is scarring seen in the righ t lung apex. This is unchanged. No focal consolidating infiltrates are pulmonary masses are seen. Mediastinum and Abida: No dominant adenopathy or fluid collection. The esophagus is unremarkable. Thyroid gland: Unremarkable. Pleura: No effusion or pneumothorax. Heart: The heart is not dilated. No coronary artery calcifications are seen. No pericardial effusion. Aorta: Thoracic aorta non-dilated. Pulmonary arteries: The peripheral pulmonary arteries are not appropriately up pacified for evaluatio n of embolic disease. No large central pulmonary embolism is seen. Upper abdomen: Unremarkable. Lymph nodes: Within normal limits. Bones: Within normal limits for the patient's age. Old right rib fractures are present. The sclerot ic foci seen in the lower thoracic and upper lumbar spine is unchanged. Tubes, Catheters, and Lines: Soft tissues: Unremarkable. IMPRESSION: Stable appearance of the chest since 05/30/2022. RADIATION DOSE DELIVERED: 815.35mGy.cm Total DLP DATA REPOSITORY: All CT scans at this facility are submitted to the National Radiology Data Registry (NRDR) Dose Index Registry (DIR) with the [employer] ([employer]). RADIATION OPTIMIZATION: All CT scans at this facility use at least one of these dose optimization te chniques: automated exposure control; mA and/or kV adjustment per patient size (includes targeted exa ms where dose is matched to clinical indication); or iterative reconstruction.
[2022-10-01 14:27] LABS: Abs Immature Grans 0.01 10^3/uL (0.0-0.06); Absolute Basophil Count 0.04 10^3/uL (0.0-0.2); Absolute Eosinophil Count 0.26 10^3/uL (0.0-0.7); Absolute Lymphocyte Count 2.13 10^3/uL (1.2-3.4); Absolute Monocyte Count 0.57 10^3/uL (0.1-0.8); Absolute Neutrophil Count 4.54 10^3/uL (1.2-6.7); Basophils % 0.5; Eosinophils % 3.4; HCT 34.8 % (36.0-46.0); HGB 11.6 g/dL (11.2-15.7); Immature Grans % 0.1; Lymphocytes % 28.2; MCH 30.4 pg (27.0-33.0); MCHC 33.3 % (32.0-36.0); MCV 91 fL (80-95); MPV 9.9 fL (8.0-11.0); Monocytes % 7.5; Neutrophils % 60.3; Platelet Count 274 10^3/uL (130-400); RBC 3.82 10^6/uL (3.93-5.22); RDW 13.2 % (11.7-14.6); RDW-SD 44.2 fL; WBC 7.55 10^3/uL (4.4-10.8)
[2022-10-01 14:50] LABS: ALT 22 U/L (14-59); AST 17 U/L (15-37); Albumin 4.1 g/dL (3.4-5.0); Alkaline Phosphatase 74 U/L (46-116); Anion Gap 6.6 mmol/L (3-11); BUN 23 mg/dL (7-18); Bilirubin, Total 0.5 mg/dL (0.2-1.0); CO2 30.4 mmol/L (21.0-32.0); CREATININE 1.6 mg/dL (0.55-1.02); Calcium 9.4 mg/dL (8.5-10.1); Chloride 99 mmol/L (98-107); Estimated GFR 36.24 (mL/min/1.73m2); Glucose 99 mg/dL (74-106); Magnesium 1.7 mg/dL (1.8-2.4); Potassium 3.8 mmol/L (3.5-5.1); Sodium 136 mmol/L (136-145); Total Protein 7.5 g/dL (6.4-8.2)
[2022-10-01] MEDS: Omnipaque 350 MG/ML 100 ML BTL IJ (15:20)
[2022-10-01] MEDS: Normal Saline Flush 10 ML SYR IVP (15:20)
[2022-10-01] MEDS: Normal Saline - Diluent 50 ML VIAL IJ (15:22)
== END 2022-10-01 02:15 ==
PROVIDERS: PCP Physician Assistant; Visit Provider Nurse Practitioner Family
DX: C34.91 Malignant neoplasm of unspecified part of right bronchus or lung (principal)
CPT/HCPCS: 36415; 80053; 71260; 83735; 85025; J3490

== ENCOUNTER 2022-10-02 14:55 | Outpatient (REF) | payer OTHER, SELFPAY | END 2022-10-02 14:56 | disposition home or self-care (01) | LOC: NCHCN 14:55 | PROVIDERS: PCP Physician Assistant; Visit Provider Nurse Practitioner Family | DX: J02.9 Acute pharyngitis, unspecified (principal) | CPT/HCPCS: 87070 ==

== ENCOUNTER 2022-10-17 14:45 | Outpatient (CLI) | payer OTHER, SELFPAY ==
[2022-10-17 12:32] LABS: Anion Gap 11.2 mmol/L (3-11); BUN 11 mg/dL (7-18); CO2 25.8 mmol/L (21.0-32.0); Calcium 9.3 mg/dL (8.5-10.1); Chloride 98 mmol/L (98-107); Glucose 100 mg/dL (74-106); Potassium 3.4 mmol/L (3.5-5.1); Sodium 135 mmol/L (136-145)
== END 2022-10-17 14:46 | disposition home or self-care (01) ==
LOC: LBO 14:45
PROVIDERS: PCP Physician Assistant; Visit Provider Internal Medicine Hematology & Oncology
DX: C34.91 Malignant neoplasm of unspecified part of right bronchus or lung (principal); R79.89 Other specified abnormal findings of blood chemistry
CPT/HCPCS: 36415; 80048

== ENCOUNTER 2022-10-30 15:25 | Outpatient (REF) | payer OTHER, SELFPAY ==
[2022-10-30 19:24] LABS: Anion Gap 11.2 mmol/L (3-11); BUN 8 mg/dL (7-18); CO2 26.8 mmol/L (21.0-32.0); CREATININE 1.1 mg/dL (0.55-1.02); Calcium 9.7 mg/dL (8.5-10.1); Chloride 86 mmol/L (98-107); Estimated GFR 56.81 (mL/min/1.73m2); Glucose 97 mg/dL (74-106); NT-proBNP 225 pg/mL (<300); Potassium 3.6 mmol/L (3.5-5.1); Troponin I < 50 ng/L (<or=60)
[2022-10-30 19:47] LABS: Sodium 124 mmol/L (136-145)
== END 2022-10-30 15:26 | disposition home or self-care (01) ==
LOC: NCHCN 15:25
PROVIDERS: PCP Physician Assistant; Visit Provider Physician Assistant
DX: R06.02 Shortness of breath (principal)
CPT/HCPCS: 80048; 83880; 84484

== ENCOUNTER 2022-10-31 09:25 | Inpatient (IN) | payer OTHER, SELFPAY ==
[2022-10-31] VITALS (38 sets, daily range): BP systolic 108–148; BP diastolic 69–95; PULSE 64–93; RESP 11–25; TEMP 36.3–36.7; O2SAT 96–99
--- NOTE | 2022-10-31 09:15 | RT.EKG_ITS ---
APPROVED REPORT Exam: Resting ECG Reason for Exam: chest pain Patient Location: E HR:79 bpm ECG Measurements Heart Rate 79 AXIS OR 158 P 48 QRSd 112 QRS 16 QT 403 T 37 QTc 462 Conclusion Sinus rhythm...normal P axis, V-rate 60- 99 Nonspecific T abnormalities, anterior leads...T <-0.10mV, V2-V4
[2022-10-31 10:34] LABS: Abs Immature Grans 0.01 10^3/uL (0.0-0.06); Absolute Basophil Count 0.04 10^3/uL (0.0-0.2); Absolute Eosinophil Count 0.15 10^3/uL (0.0-0.7); Absolute Lymphocyte Count 1.46 10^3/uL (1.2-3.4); Absolute Monocyte Count 0.47 10^3/uL (0.1-0.8); Basophils % 0.6; Eosinophils % 2.3; HCT 32.2 % (36.0-46.0); HGB 11.7 g/dL (11.2-15.7); Immature Grans % 0.2; MCH 30.5 pg (27.0-33.0); MCHC 36.3 % (32.0-36.0); MCV 84 fL (80-95); MPV 9.3 fL (8.0-11.0); Monocytes % 7.1; Neutrophils % 67.8; Platelet Count 305 10^3/uL (130-400); RBC 3.83 10^6/uL (3.93-5.22); RDW-SD 36.6 fL; WBC 6.63 10^3/uL (4.4-10.8)
[2022-10-31 11:15] LABS: D-Dimer 426 ng/mlFEU (<500)
[2022-10-31 11:29] LABS: ALT 20 U/L (14-59); AST 24 U/L (15-37); Albumin 3.9 g/dL (3.4-5.0); Alkaline Phosphatase 62 U/L (46-116); Anion Gap 8.9 mmol/L (3-11); BUN 5 mg/dL (7-18); Bilirubin, Total 0.8 mg/dL (0.2-1.0); CO2 25.1 mmol/L (21.0-32.0); CREATININE 0.9 mg/dL (0.55-1.02); Chloride 86 mmol/L (98-107); Estimated GFR 72.28 (mL/min/1.73m2); Glucose 94 mg/dL (74-106); NT-proBNP 169 pg/mL (<300); Potassium 3.5 mmol/L (3.5-5.1); Total Protein 6.9 g/dL (6.4-8.2); Troponin I < 50 ng/L (<or=60)
[2022-10-31 11:31] LABS: Calcium 8.9 mg/dL (8.5-10.1); Sodium 120 mmol/L (136-145)
--- NOTE | 2022-10-31 11:40 | W.ED.GENAD ---
Discharge Plan Disposition Patient Disposition: Admit to [facility] Condition: Serious Discharge Details Clinical Impression: Acute hyponatremia, Hypomagnesemia Primary Care Provider: Juliana Cline ED Provider: Hai Mason Home Meds and New Rx's Prescriptions: No Action lidocain-me.uioqbvt-wzco-wpxmx [1st Medx-Patch With Lidocaine] topical Rx Instructions: for hip and or spine aspirin [Adult Aspirin Regimen] 81 mg tablet,delayed release (DR/EC) 81 mg PO 2XD ondansetron 4 mg tablet,disintegrating 4 mg PO Q6H PRN (Reason: nausea and vomiting) Qty: 60 3RF dexlansoprazole 60 mg capsule,biphase delayed releas 60 mg PO DAILY oxycodone 5 mg capsule 5 mg PO BID PRN (Reason: pain) gabapentin 400 mg capsule 400 mg PO BID sennosides [Senna Laxative] 8.6 mg tablet 8.6 mg PO BID PRN (Reason: constipation) Qty: 60 3RF osimertinib 80 mg tablet 80 mg PO DAILY magnesium L-lactate [Magtab] 84 mg tablet extended release 84 mg PO TID budesonide-formoterol [Symbicort] 160-4.5 mcg/actuation HFA aerosol inhaler 2 puff inhalation BID albuterol sulfate 2.5 mg /3 mL (0.083 %) solution for nebulization 2.5 mg inhalation Q6H potassium chloride [Klor-Con 10] 10 mEq tablet extended release 40 meq PO DAILY loperamide [Imodium A-D] 2 mg capsule 2 mg PO QID PRN (Reason: loose stool) Qty: 60 3RF Rx Instructions: For chemo related diarrhea. simvastatin 40 MG tablet 40 mg PO DAILY nitroglycerin [Nitrostat] 0.4 MG tablet, sublingual 0.4 mg Sublingual DIRECTED PRN Patient Comments: never uses albuterol sulfate 8.5 GM HFA aerosol inhaler 2 puff Inhalation Q4H PRN PRNQty: 1 0RF losartan-hydrochlorothiazide 1 EACH tablet 1 tab PO DAILY Patient Comments: TAKE ONE TABLET BY MOUTH EVERY DAY multivitamin [Multiple Vitamins] 1 TAB tablet 1 tab PO DAILY Qty: 180 0RF lorazepam 1 MG tablet 1 mg PO TID PRN Medical Decision Making 1145 -- 62-year-old female with history of COPD, non-small cell lung cancer with recurrence and dulce maria mets and hypertension, hypercholesterolemia, anxiety, presents today with chest pain and shortness of breath over the past 1 month, persistent this morning with associated nausea and dizziness. EKG was reviewed and interpreted by me: Please see report, sinus rhythm 79 bpm, normal axis, nondiagnostic. Considered ACS. Initial troponin negative. Labs reviewed and significant hyponatremia as well as hypomagnesemia noted. I will give magnesium 2 g IV. 1452 --CT of the chest PE protocol was interpreted by radiology: No PE, no acute findings. Additional labs reviewed: delta troponin negative. Plan to admit for significant electrolyte abnormalities. -- I spoke with Dr. Santos, discussed ED presentation course, she request MRI of the brain be ordered. She requests normal saline 500mL bolus. She will admit the patient. HPI General Mode of arrival: ambulatory. Date/Time Provider Initiated Documentation: 10/31/22 09:26. Limitations to Documentation: no limitations. Information obtained by: patient. HPI Narrative: 62-year-old female with multiple medical problems including history of non-small cell lung cancer right lung with metastasis no, anxiety, COPD, here with chief complaint of chest discomfort. Patient reports chest pressure that has been intermittent over the past month. She has associated shortness of breath. Today she has had persistent chest discomfort regardless pressure in her left chest. Patient with dizziness and nausea today. Patient was recently told by PCP that she has pulmonary edema. Related Data Home Medications Medication Instructions Recorded Confirmed nitroglycerin 0.4 mg sublingual 0.4 mg sublingual DIRECTED PRN 10/05/12 10/31/22 tablet (Nitrostat) simvastatin 40 mg tablet 40 mg PO DAILY 10/05/12 10/31/22 albuterol sulfate 90 mcg/actuation 2 puff inhalation Q4H PRN PRN ##1 09/21/14 10/24/22 aerosol inhaler losartan 100 1 tab PO DAILY 03/07/16 10/24/22 mg-hydrochlorothiazide 25 mg tablet multivitamin (Multiple Vitamins 1 tab PO DAILY #180 tabs 03/08/16 10/31/22 tablet) lorazepam 1 mg tablet 1 mg PO TID PRN 04/03/17 10/31/22 albuterol sulfate 2.5 mg/3 mL 2.5 mg inhalation Q6H 04/19/20 10/24/22 (0.083 %) solution for nebulization budesonide-formoterol HFA 160 2 puff inhalation BID 04/19/20 10/31/22 mcg-4.5 mcg/actuation aerosol inhaler (Symbicort) magnesium L-lactate 84 mg 84 mg PO TID 04/19/20 10/31/22 tablet,extended release (Magtab) osimertinib 80 mg tablet 80 mg PO DAILY 04/19/20 10/31/22 gabapentin 400 mg capsule 400 mg PO BID 11/09/20 10/31/22 potassium chloride 10 mEq 40 meq PO DAILY 01/11/21 10/31/22 tablet,extended release (Klor-Con) sennosides 8.6 mg tablet (Senna 8.6 mg PO BID PRN constipation #60 05/09/22 10/31/22 Laxative) tabs loperamide 2 mg capsule (Imodium 2 mg PO QID PRN loose stool #60 06/12/22 10/31/22 A-D) caps aspirin 81 mg tablet,delayed 81 mg PO 2XD 07/11/22 10/31/22 release (Adult Aspirin Regimen) lidocain-me.oxdzgep-aypq-oeqip topical 07/11/22 10/24/22 [1st Medx-Patch With Lidocaine] ondansetron 4 mg disintegrating 4 mg PO Q6H PRN nausea and 07/11/22 10/24/22 tablet vomiting #60 tabs dexlansoprazole 60 mg 60 mg PO DAILY 09/12/22 10/31/22 capsule,biphase delayed release oxycodone 5 mg capsule 5 mg PO BID PRN pain 10/24/22 10/31/22 Previous Rx's Medication Instructions Recorded albuterol sulfate 90 mcg/actuation 2 puff inhalation Q4H PRN PRN ##1 09/21/14 aerosol inhaler multivitamin (Multiple Vitamins 1 tab PO DAILY #180 tabs 03/08/16 tablet) sennosides 8.6 mg tablet (Senna 8.6 mg PO BID PRN constipation #60 05/09/22 Laxative) tabs loperamide 2 mg capsule (Imodium 2 mg PO QID PRN loose stool #60 06/12/22 A-D) caps ondansetron 4 mg disintegrating 4 mg PO Q6H PRN nausea and 07/11/22 tablet vomiting #60 tabs Allergies Allergy/AdvReac Type Severity Reaction Status Date / Time fentanyl Allergy Intermediate SOB Verified 10/31/22 09:39 Sulfa (Sulfonamide Allergy Mild rash, Verified 10/31/22 09:39 Antibiotics) itching, nausea codeine Allergy Verified 10/31/22 09:39 hydrocodone Allergy Verified 10/31/22 09:39 morphine AdvReac Intermediate Body Verified 10/31/22 09:39 burning diphenhydramine HCl AdvReac Mild palpitation Verified 10/31/22 09:39 [From Benadryl] s Penicillins AdvReac Mild palpitation Verified 10/31/22 09:39 s tramadol AdvReac Mild SOB/vomitin Verified 10/31/22 09:39 g dander Allergy Intermediate Uncoded 10/31/22 09:39 General Stated Complaint: Chest Pain LISS: 3 Review of Systems All systems reviewed & are unremarkable except as noted in HPI and below Constitutional Constitutional: Denies fever(s) Cardiovascular Cardiovascular: Reports as per HPI Respiratory Respiratory: Reports as per HPI PFSH All Active Problems (Updated 10/31/22 @ 14:56 by Hai Mason MD) Acute hyponatremia (Acute) Hypomagnesemia (Acute) DJD (degenerative joint disease) (Chronic) Palliative care patient (Acute) DNI (do not intubate) (Acute) DNR (do not resuscitate) (Acute) POLST (Physician Orders for Life-Sustaining Treatment) (Acute) COLST completed 04/20/2020, DNR/DNI. 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 History of depression Non-small cell cancer of right lung Surgical History History of appendectomy Social History Smoking/Tobacco Use Status: Former Tobacco Use Smoking risk assessment performed?: Yes Alcohol Intake: current Alcohol Intake frequency: a few times a week Alcohol type: beer Drug use: Never Substance use type: does not use Do you feel safe at home: Yes Do you feel safe in your relationship?: Yes Exam Const General: cooperative and no acute distress HENMT Mouth: moist mucous membranes Eyes Conjunctivae: normal conjunctivae Sclera: normal sclerae Neck Neck: trachea midline and supple Resp Auscultation: clear to auscultation bilaterally, no rales, no rhonchi and no wheezes Cardio Rate: regular rate and not tachycardic Rhythm: regular rhythm GI Palpation: soft, not firm, no guarding, no masses, not rigid and nontender Skin General skin exam: no rashes or lesions noted Neuro General: patient alert, patient awake and tone normal Extrem General: no calf tenderness and no edema Psych Appearance: grossly normal Mental Status: mental status grossly normal Speech and Movement: speech and movement normal Course Vital Signs Vital signs: Vital Signs Temperature 36.3 C L 10/31/22 09:28 Pulse 87 10/31/22 09:28 Respiratory Rate 18 10/31/22 09:28 Blood Pressure 148/95 H 10/31/22 09:28 Pulse Oximetry 98 10/31/22 09:28 Temperature 36.3 C L 10/31/22 09:28 Temperature Source Temporal Artery Scan 10/31/22 09:28 Pulse 87 10/31/22 09:28 Respiratory Rate 18 10/31/22 09:28 Respiratory Effort Normal, Non-Labored 10/31/22 09:29 Blood Pressure 148/95 H 10/31/22 09:28 Pulse Oximetry 98 10/31/22 09:28 Oxygen Delivery Method Room Air 10/31/22 09:28 Oxygen Flow Rate 0 10/31/22 09:28 Lab/Test Results Lab/Test Results: Laboratory Tests Range/Units 10/31/22 10/31/22 10/31/22 10:25 10:25 10:25 WBC (4.4-10.8) 10^3/uL 6.63 RBC (3.93-5.22) 10^6/uL 3.83 L Hgb (11.2-15.7) g/dL 11.7 Hct (36.0-46.0) % 32.2 L MCV (80-95) fL 84 MCH (27.0-33.0) pg 30.5 MCHC (32.0-36.0) % 36.3 H RDW (11.7-14.6) % 12.0 Plt Count (130-400) 10^3/uL 305 MPV (8.0-11.0) fL 9.3 Immature Gran % 0.2 Neutrophils % 67.8 Lymphocytes % 22.0 Monocytes % 7.1 Eosinophils % 2.3 Basophils % 0.6 Nucleated RBC % (0.0-0.3) % 0.0 Absolute Neutrophils (1.2-6.7) 10^3/uL 4.50 Absolute Lymphocytes (1.2-3.4) 10^3/uL 1.46 Absolute Monocytes (0.1-0.8) 10^3/uL 0.47 Absolute Eosinophils (0.0-0.7) 10^3/uL 0.15 Absolute Basophils (0.0-0.2) 10^3/uL 0.04 D-Dimer (<500) ng/mlFEU Sodium Cancelled Potassium Cancelled Chloride Cancelled Carbon Dioxide Cancelled Anion Gap Cancelled BUN Cancelled Creatinine Cancelled Est GFR (CKD-EPI 2020) Cancelled Glucose Cancelled Calcium Cancelled Magnesium Cancelled Total Bilirubin Cancelled AST Cancelled ALT Cancelled Alkaline Phosphatase Cancelled Troponin I Cancelled NT-Pro-B Natriuret Pep Cancelled Total Protein Cancelled Albumin Cancelled Range/Units 10/31/22 10/31/22 10:25 11:00 WBC (4.4-10.8) 10^3/uL RBC (3.93-5.22) 10^6/uL Hgb (11.2-15.7) g/dL Hct (36.0-46.0) % MCV (80-95) fL MCH (27.0-33.0) pg MCHC (32.0-36.0) % RDW (11.7-14.6) % Plt Count (130-400) 10^3/uL MPV (8.0-11.0) fL Immature Gran % Neutrophils % Lymphocytes % Monocytes % Eosinophils % Basophils % Nucleated RBC % (0.0-0.3) % Absolute Neutrophils (1.2-6.7) 10^3/uL Absolute Lymphocytes (1.2-3.4) 10^3/uL Absolute Monocytes (0.1-0.8) 10^3/uL Absolute Eosinophils (0.0-0.7) 10^3/uL Absolute Basophils (0.0-0.2) 10^3/uL D-Dimer (<500) ng/mlFEU 426 Sodium 120 L* Potassium 3.5 Chloride 86 L Carbon Dioxide 25.1 Anion Gap 8.9 BUN 5 L Creatinine 0.9 Est GFR (CKD-EPI 2020) 72.28 Glucose 94 Calcium 8.9 Magnesium 1.0 L Total Bilirubin 0.8 AST 24 ALT 20 Alkaline Phosphatase 62 Troponin I < 50 NT-Pro-B Natriuret Pep 169 Total Protein 6.9 Albumin 3.9 PAWSS Have you Been Recently Intoxicated or Drunk Within the Last 30 days?: Yes Have you Ever Experienced Previous Episodes of Alcohol Withdrawal?: No Have you ever Experienced Withdrawal Seizures?: No Have you ever Experienced Delirium Tremens(DT)s?: No Have you ever undergone Alcohol Rehabilitation Treatment (i.e, inpt ot outpatient treatment programs)?: No Have you ever Experienced Blackouts?: No Have you ever Combined Alcohol with other Downers within the last 90 days?: No Have you ever Combined Alcohol with any other Substance of Abuse during the last 90 days?: No Positive Blood Alcohol level on Presentation? [PCS.BAL]: No Evidence of Increased Autonomic Activity (i.e. HR>120, tremor, sweating, agitation, nausea)?: No Result: 1
--- NOTE | 2022-10-31 12:42 | NUR.NOTE ---
Nursing Note: Pt was in DI and preparing to have a CTA. RN had to hold traction on the IV so that it would flush. Succesfully flushed 4 (10mL) saline flushes with no infiltration present or discomfort stated by the patient. As contrast was going in patient started crying out in pain and her hand cramped up. Pt became claustrophobic. RN immediately alerted the extractions technologist and the contrast was stopped. RN brought pt back to room for another line placement and to [facility] RN RB is placing another line with the ultrasound.
[2022-10-31] MEDS: Normal Saline Flush 10 ML SYR IVP ×3 (13:50→15:26)
[2022-10-31] MEDS: Normal Saline - Diluent 50 ML VIAL IJ ×2 (13:51→14:13)
[2022-10-31] MEDS: Omnipaque 350 MG/ML 100 ML BTL IJ ×2 (13:51→14:13)
[2022-10-31 13:52] LABS: Troponin I < 50 ng/L (<or=60)
--- NOTE | 2022-10-31 14:16 | DI.CT_ITS ---
Exam(s) CT CHEST PE CTA EXAM: CT CHEST PE CTA CLINICAL HISTORY: chest pain left, lung cancer. TECHNIQUE: Imaging Protocol: Axial CT angiography was performed with multi-slice acquisition and mu lti-planar reconstructions as well as axial, coronal and sagittal MIP reconstructions. CONTRAST MATERIAL: Intravenous: Omnipaque 350 Contrast volume:80 mL COMPARISON: 01 Oct 2022 FINDINGS: Pulmonary Arteries: No evidence of filling defect to suggest pulmonary emboli. Tracheobronchial tree: Patent where visualized. Mediastinum and Abida: No dominant adenopathy or fluid collection. Pulmonary parenchyma: Status post right lobectomy. Right apical scarring. No consolidation or domin ant measurable mass. Pleura: No effusion or pneumothorax. Heart: The heart is not dilated. No coronary artery calcifications are seen. Aorta: Thoracic aorta non-dilated. No aneurysm. No dissection. Upper abdomen: Unremarkable. Bones: Old right rib fractures. Stable sclerotic foci in the lower thoracic spine. Tubes, Catheters, and Lines: None IMPRESSION: No evidence of pulmonary embolism. Stable postsurgical changes of the right chest. Findings called to Dr. Hai Mason of the emergency department. RADIATION DOSE DELIVERED: 360.24 mGy.cm Total DLP DATA REPOSITORY: All CT scans at this facility are submitted to the National Radiology Data Registry (NRDR) Dose Index Registry (DIR) with the [employer] ([employer]). RADIATION OPTIMIZATION: All CT scans at this facility use at least one of these dose optimization te chniques: automated exposure control; mA and/or kV adjustment per patient size (includes targeted exa ms where dose is matched to clinical indication); or iterative reconstruction.
[2022-10-31] MEDS: MAGNESIUM SULFATE 2 GM/50 ML BAG IVPB ×2 (14:44→17:50)
--- NOTE | 2022-10-31 15:01 | DI.MRI_ITS ---
Exam(s) MR BRAIN WO/W EXAM: MR BRAIN WO/W CLINICAL HISTORY: dizzy, lung ca with mets. TECHNIQUE: Multiplanar multisequence MRI of the brain was performed. CONTRAST MATERIAL: IV Contrast: 20 ML of Dotarem contrast administered. COMPARISON: MR MR BRAIN WO/W from 09/04/[address] HEAD WO from 09/19/2022 FINDINGS: VENTRICLES AND EXTRA AXIAL SPACES: Normal in size and morphology for the patient's age. HEMORRHAGE: None. CEREBRAL PARENCHYMA: Mild atrophy. There are a few scattered tiny high signal foci in the white nicki er likely reflecting mild microvascular changes. No focus of restricted diffusion to suggest acute i nfarct. No space-occupying lesion identified. MIDLINE SHIFT: None. BRAINSTEM/CEREBELLUM: Normal. CALVARIUM: Normal. ENHANCEMENT: No suspicious enhancement identified. VISUALIZED PARANASAL SINUSES/MASTOIDS: Clear. OTHER FINDINGS: None. IMPRESSION: Unremarkable MRI of the brain. DATA REPOSITORY:
[2022-10-31] MEDS: Gadoterate meglumine 20 ML SYRINGE IVP (15:27)
[2022-10-31 16:53] LABS: Lab Add On Test DONE
[2022-10-31] MEDS: Acetaminophen 325 MG TAB 650 MG PO (17:19)
[2022-10-31 17:29] LABS: TSH (W/Ref FT4) 0.99 uIU/mL (0.36-3.74)
[2022-10-31 17:58] LABS: BUN 5 mg/dL (7-18); CREATININE 0.9 mg/dL (0.55-1.02); Calcium 9.1 mg/dL (8.5-10.1); Chloride 88 mmol/L (98-107); Estimated GFR 72.28 (mL/min/1.73m2); Glucose 94 mg/dL (74-106); Potassium 3.5 mmol/L (3.5-5.1)
[2022-10-31 18:01] LABS: Sodium 123 mmol/L (136-145)
[2022-10-31] MEDS: Normal Saline 1,000 ML 150 ML IV ×2 (18:41→20:37)
--- NOTE | 2022-10-31 22:06 | W.PM.HP.N ---
Date of service: 10/31/22 Time of Service: 22:06 Assessment and Plan Assessment and plan (1) Acute hyponatremia: Start date: 10/31/22 Status: Acute Assessment and plan: Patient appears to have symptomatic hyponatremia with sodium down to 120 respond to IV normal saline and up to 123 with ongoing normal saline at 150 cc an hour. Patient appears to be tolerating fluids well. Follow-up lab every 6 hours and adjust infusion as needed. Patient is a DNR/DNI. (2) Hypomagnesemia: Start date: 10/31/22 Status: Acute Assessment and plan: Severe with IV repletion and patient chronically on oral magnesium. Follow-up lab every 6 months and replete IV as needed. Patient already has oral potassium as well and potassium level was about 3.5. She was chronically on hydrochlorothiazide and coverage with losartan for hypertension. (3) Non-small cell cancer of right lung: Assessment and plan: Status post right lobectomy with patient stated that she has had metastases. With her symptoms of seeing spots and dizziness MRI was performed which was negative. Chest imaging also revealed no large tumors but status post right lobectomy. She is on chemotherapy with dialysis some nausea and diarrhea. She is on symptomatic treatment. (4) COPD with asthma: Assessment and plan: Continue inhaler therapy. (5) Atypical chest pain: Start date: 10/31/22 Status: Acute Assessment and plan: Patient is a vague historian and troponins were negative x2 with no further trending and less symptomatic. She is a DNR/DNI. She does carry nitroglycerin sublingual use and she stated that she does have a bundle branch block by history with recent EKG in the office because of her shortness of breath. She does see Dr. Arceo. (6) Hypertension: Status: Chronic Assessment and plan: Patient will be placed on losartan twice daily 25 mg and hold hydrochlorothiazide with her electrolyte abnormality. History of Present Illness History of Present Illness Chief Complaint: Resting chest pain with dizziness and seeing yellow spots Narrative: This is a 62-year-old female patient with a history of right lung cancer status post lobectomy on chemotherapy chronically for the past 2-1/2 years with daily pill causing some diarrhea at times and patient always having some shortness of breath. She awakened with chest pain and was seeing yellow spots as well as feeling slightly dizzy with her usual shortness of breath. She also has had problems with peripheral edema in the past and is obese being on hydrochlorothiazide for what she thinks is a high sodium but does have a history of being on losartan and coverage with hydrochlorothiazide for increased blood pressure. Because her symptoms she was seen in the ED and labs revealed severe hypomagnesemia with patient chronically on magnesium as well as hyponatremia which respond to IV fluids. The patient is on normal saline at 150 cc an hour and tolerating this well. Her last echocardiogram did show preserved left ventricular ejection fraction. She claims that she does have problems with heart failure and edema. She is a vague historian. Other symptoms with this morning's onset of chest discomfort included some nausea with vomiting which she seems to have a chronic problem with on Zofran as well as loose stools which also is a problem chronically on her chemotherapy. The patient was admitted for IV fluids and monitoring with labs. Her troponin was negative x2 in the ED and her magnesium was 1.0 with magnesium given IV and follow-up magnesium ordered. Her BNP was essentially normal. She is a DNR/DNI. Review of Systems Narrative: 13 point review of systems otherwise unrevealing or stable. PFSH All Active Problems (Updated 10/31/22 @ 22:13 by Ramy Grullon) Hypertension (Chronic) Atypical chest pain (Acute) Acute hyponatremia (Acute) Hypomagnesemia (Acute) DJD (degenerative joint disease) (Chronic) Palliative care patient (Acute) DNI (do not intubate) (Acute) DNR (do not resuscitate) (Acute) POLST (Physician Orders for Life-Sustaining Treatment) (Acute) COLST completed 04/20/2020, DNR/DNI. 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 History of depression Non-small cell cancer of right lung Surgical History History of appendectomy Social History Smoking/Tobacco Use Status: Former Tobacco Use Smoking risk assessment performed?: Yes Alcohol Intake: current Alcohol Intake frequency: a few times a week Alcohol type: beer Drug use: Never Substance use type: does not use Do you feel safe at home: Yes Do you feel safe in your relationship?: Yes Meds Allergies and Home Medications Allergies Allergy/AdvReac Type Severity Reaction Status Date / Time fentanyl Allergy Intermediate SOB Verified 10/31/22 09:39 Sulfa (Sulfonamide Allergy Mild rash, Verified 10/31/22 09:39 Antibiotics) itching, nausea codeine Allergy Verified 10/31/22 09:39 hydrocodone Allergy Verified 10/31/22 09:39 morphine AdvReac Intermediate Body Verified 10/31/22 09:39 burning diphenhydramine HCl AdvReac Mild palpitation Verified 10/31/22 09:39 [From Benadryl] s Penicillins AdvReac Mild palpitation Verified 10/31/22 09:39 s tramadol AdvReac Mild SOB/vomitin Verified 10/31/22 09:39 g dander Allergy Intermediate Uncoded 10/31/22 09:39 Home Medications Medication Instructions Recorded Confirmed Type nitroglycerin 0.4 mg sublingual 0.4 mg sublingual DIRECTED PRN 10/05/12 10/31/22 History tablet (Nitrostat) simvastatin 40 mg tablet 40 mg PO DAILY 10/05/12 10/31/22 History albuterol sulfate 90 mcg/actuation 2 puff inhalation Q4H PRN PRN ##1 09/21/14 10/24/22 Rx aerosol inhaler losartan 100 1 tab PO DAILY 03/07/16 10/24/22 History mg-hydrochlorothiazide 25 mg tablet multivitamin (Multiple Vitamins 1 tab PO DAILY #180 tabs 03/08/16 10/31/22 Rx tablet) lorazepam 1 mg tablet 1 mg PO TID PRN 04/03/17 10/31/22 History albuterol sulfate 2.5 mg/3 mL 2.5 mg inhalation Q6H 04/19/20 10/24/22 History (0.083 %) solution for nebulization budesonide-formoterol HFA 160 2 puff inhalation BID 04/19/20 10/31/22 History mcg-4.5 mcg/actuation aerosol inhaler (Symbicort) magnesium L-lactate 84 mg 84 mg PO TID 04/19/20 10/31/22 History tablet,extended release (Magtab) osimertinib 80 mg tablet 80 mg PO DAILY 04/19/20 10/31/22 History gabapentin 400 mg capsule 400 mg PO BID 11/09/20 10/31/22 History potassium chloride 10 mEq 40 meq PO DAILY 01/11/21 10/31/22 History tablet,extended release (Klor-Con) sennosides 8.6 mg tablet (Senna 8.6 mg PO BID PRN constipation #60 05/09/22 10/31/22 Rx Laxative) tabs loperamide 2 mg capsule (Imodium 2 mg PO QID PRN loose stool #60 06/12/22 10/31/22 Rx A-D) caps aspirin 81 mg tablet,delayed 81 mg PO 2XD 07/11/22 10/31/22 History release (Adult Aspirin Regimen) lidocain-me.zgioito-lnzw-cjcor topical 07/11/22 10/24/22 History [1st Medx-Patch With Lidocaine] ondansetron 4 mg disintegrating 4 mg PO Q6H PRN nausea and 07/11/22 10/24/22 Rx tablet vomiting #60 tabs dexlansoprazole 60 mg 60 mg PO DAILY 09/12/22 10/31/22 History capsule,biphase delayed release oxycodone 5 mg capsule 5 mg PO BID PRN pain 10/24/22 10/31/22 History Exam Narrative Exam Narrative: General: Patient appears older than stated age, flattened affect with rumination over somatic complaints and has stated a vague historian. She is alert and oriented at least to person and place. She is in no acute distress. HEENT: Normocephalic, eyes with pupils equal and react to light symmetrically, extraocular movement tact and sclera anicteric. Oropharynx with dry mucosa. Neck: Supple without JVD. Back: Stooped posture without CVA tenderness. Lungs: Decreased aeration over the right with no focalizing rales or rhonchi and fair aeration over the rest lung schmidt. No increased expiratory phase or expiratory wheeze. Bronchovesicular breath sounds diffusely. Breast: Exam deferred. Heart: Regular rate and rhythm with no appreciable murmur or gallop. Distant heart sounds. Abdomen: Obese contour, soft and nontender to palpation with no palpable hepatosplenomegaly. Bowel sounds positive in all quadrants. Genitalia/rectal: Exam deferred. Extremities: Nonpitting edema both lower extremities without clubbing or cyanosis. Fair capillary refill. Skin: Pale, warm and dry. Neuro: Cranial nerves II through XII gross intact, no focalized motor deficits. No tremor. Psych: Flat affect with depressed mood and slightly pressured speech with patient repeating herself and having many somatic complaints. No abnormal thought processes. Remote and recent memory appear to be grossly intact. Results Imaging Imaging Studies: CT CHEST PE CTA EXAM: ? CT CHEST PE CTA CLINICAL HISTORY: ? chest pain left, lung cancer. TECHNIQUE:? Imaging Protocol:? Axial CT angiography was performed with multi-slice acquisition and multi-planar reconstructions as well as axial, coronal and sagittal MIP reconstructions. CONTRAST MATERIAL:? Intravenous: Omnipaque 350 Contrast volume:80 mL COMPARISON:? 01 Oct 2022 FINDINGS: Pulmonary Arteries: No evidence of filling defect to suggest pulmonary emboli. Tracheobronchial tree: Patent where visualized. Mediastinum and Abida: No dominant adenopathy or fluid collection. Pulmonary parenchyma: Status post right lobectomy.? Right apical scarring.? No consolidation or dominant measurable mass. Pleura: No effusion or pneumothorax. Heart: The heart is not dilated. No coronary artery calcifications are seen. Aorta: Thoracic aorta non-dilated.? No aneurysm.? No dissection.? Upper abdomen:? Unremarkable. Bones: Old right rib fractures.? Stable sclerotic foci in the lower thoracic? spine. Tubes, Catheters, and Lines: None IMPRESSION: No evidence of pulmonary embolism. ? Stable postsurgical changes of the right chest. EXAM: ? MR BRAIN WO/W CLINICAL HISTORY: ? dizzy, lung ca with mets.? TECHNIQUE:? Multiplanar multisequence MRI of the brain was performed. CONTRAST MATERIAL:? IV Contrast: 20 ML of Dotarem contrast administered. COMPARISON:? MR MR BRAIN WO/W from 09/04/[address] HEAD WO from 09/19/2022 FINDINGS: VENTRICLES AND EXTRA AXIAL SPACES: Normal in size and morphology for the patient's age. HEMORRHAGE: None. CEREBRAL PARENCHYMA: Mild atrophy.? There are a few scattered tiny high signal foci in the white matter likely reflecting mild microvascular changes.? No focus of restricted diffusion to suggest acute infarct. No space-occupying lesion identified. MIDLINE SHIFT: None. BRAINSTEM/CEREBELLUM: Normal. CALVARIUM: Normal. ENHANCEMENT: No suspicious enhancement identified. VISUALIZED PARANASAL SINUSES/MASTOIDS: Clear. OTHER FINDINGS: None. IMPRESSION: Unremarkable MRI of the brai Labs 10/31/22 10:25 10/31/22 17:44 Labs: Laboratory Results - last 24 hr 10/31/22 10/31/22 10/31/22 10:25 10:25 10:25 WBC 6.63 RBC 3.83 L Hgb 11.7 Hct 32.2 L MCV 84 MCH 30.5 MCHC 36.3 H RDW 12.0 Plt Count 305 MPV 9.3 Immature Gran % 0.2 Neutrophils % 67.8 Lymphocytes % 22.0 Monocytes % 7.1 Eosinophils % 2.3 Basophils % 0.6 Nucleated RBC % 0.0 Absolute Neutrophils 4.50 Absolute Lymphocytes 1.46 Absolute Monocytes 0.47 Absolute Eosinophils 0.15 Absolute Basophils 0.04 D-Dimer Sodium Cancelled Potassium Cancelled Chloride Cancelled Carbon Dioxide Cancelled Anion Gap Cancelled BUN Cancelled Creatinine Cancelled Est GFR (CKD-EPI 2020) Cancelled Glucose Cancelled Calcium Cancelled Magnesium Cancelled Total Bilirubin Cancelled AST Cancelled ALT Cancelled Alkaline Phosphatase Cancelled Troponin I Cancelled NT-Pro-B Natriuret Pep Cancelled Total Protein Cancelled Albumin Cancelled TSH Add-On Test Request 10/31/22 10/31/22 10/31/22 10:25 11:00 11:00 WBC RBC Hgb Hct MCV MCH MCHC RDW Plt Count MPV Immature Gran % Neutrophils % Lymphocytes % Monocytes % Eosinophils % Basophils % Nucleated RBC % Absolute Neutrophils Absolute Lymphocytes Absolute Monocytes Absolute Eosinophils Absolute Basophils D-Dimer 426 Sodium 120 L* Potassium 3.5 Chloride 86 L Carbon Dioxide 25.1 Anion Gap 8.9 BUN 5 L Creatinine 0.9 Est GFR (CKD-EPI 2020) 72.28 Glucose 94 Calcium 8.9 Magnesium 1.0 L Total Bilirubin 0.8 AST 24 ALT 20 Alkaline Phosphatase 62 Troponin I < 50 NT-Pro-B Natriuret Pep 169 Total Protein 6.9 Albumin 3.9 TSH Add-On Test Request DONE 10/31/22 10/31/22 10/31/22 11:00 13:29 17:44 WBC RBC Hgb Hct MCV MCH MCHC RDW Plt Count MPV Immature Gran % Neutrophils % Lymphocytes % Monocytes % Eosinophils % Basophils % Nucleated RBC % Absolute Neutrophils Absolute Lymphocytes Absolute Monocytes Absolute Eosinophils Absolute Basophils D-Dimer Sodium 123 L* Potassium 3.5 Chloride 88 L Carbon Dioxide 26.0 Anion Gap 9.0 BUN 5 L Creatinine 0.9 Est GFR (CKD-EPI 2020) 72.28 Glucose 94 Calcium 9.1 Magnesium Total Bilirubin AST ALT Alkaline Phosphatase Troponin I < 50 NT-Pro-B Natriuret Pep Total Protein Albumin TSH 0.99 Add-On Test Request Last Vital Signs Temp 36.7 C 10/31/22 20:46 Pulse 93 H 10/31/22 20:46 Resp 18 10/31/22 20:46 BP 131/90 10/31/22 20:46 Pulse Ox 98 10/31/22 20:46 PAWSS Have you Been Recently Intoxicated or Drunk Within the Last 30 days?: Yes Have you Ever Experienced Previous Episodes of Alcohol Withdrawal?: No Have you ever Experienced Withdrawal Seizures?: No Have you ever Experienced Delirium Tremens(DT)s?: No Have you ever undergone Alcohol Rehabilitation Treatment (i.e, inpt ot outpatient treatment programs)?: No Have you ever Experienced Blackouts?: No Have you ever Combined Alcohol with other Downers within the last 90 days?: No Have you ever Combined Alcohol with any other Substance of Abuse during the last 90 days?: No Positive Blood Alcohol level on Presentation? [PCS.BAL]: No Evidence of Increased Autonomic Activity (i.e. HR>120, tremor, sweating, agitation, nausea)?: No Result: 1 Time Spent Time spent with Patient: >75 minutes Time was spent: preparing to see the patient(eg.review tests), obtaining and/or reviewing separately otained hiistory, ordering medications,tests, procedures, referring, communicating with other health career and technology education teacher, indepentently interpreting results and care coordination
[2022-10-31] MEDS: Aspirin E.C. 81 MG TABEC PO (23:10)
[2022-10-31] MEDS: oxyCODONE 5 MG TAB PO (23:10)
[2022-10-31] MEDS: Losartan 25 MG TAB PO (23:11)
[2022-10-31] MEDS: LORazepam 1 MG TAB PO (23:30)
[2022-10-31] MEDS: Albuterol 2.5 MG/3 ML INH SOLN VIAL IH (23:30)
[2022-10-31 23:40] LABS: Anion Gap 7.8 mmol/L (3-11); BUN 6 mg/dL (7-18); CO2 24.2 mmol/L (21.0-32.0); CREATININE 0.9 mg/dL (0.55-1.02); Chloride 93 mmol/L (98-107); Estimated GFR 72.28 (mL/min/1.73m2); Glucose 98 mg/dL (74-106); Potassium 3.3 mmol/L (3.5-5.1); Sodium 125 mmol/L (136-145)
[2022-11-01] VITALS: RESP 1
[2022-11-01 03:05] VITALS: BP 93/59; PULSE 64; RESP 18; TEMP 36.9; O2SAT 97
[2022-11-01 05:45] VITALS: BP 126/82; PULSE 86; RESP 18; TEMP 36.5; O2SAT 98
[2022-11-01 05:56] VITALS: BP 109/75; PULSE 80; RESP 18
[2022-11-01] MEDS: LORazepam 1 MG TAB PO (06:11)
[2022-11-01 07:04] VITALS: PULSE 74
[2022-11-01 07:46] LABS: Abs Immature Grans 0.01 10^3/uL (0.0-0.06); Absolute Basophil Count 0.04 10^3/uL (0.0-0.2); Absolute Lymphocyte Count 1.19 10^3/uL (1.2-3.4); Absolute Neutrophil Count 3.78 10^3/uL (1.2-6.7); Basophils % 0.7; Eosinophils % 1.8; HGB 10.7 g/dL (11.2-15.7); Immature Grans % 0.2; Lymphocytes % 21.2; MCH 30.3 pg (27.0-33.0); MCHC 34.5 % (32.0-36.0); MCV 88 fL (80-95); MPV 9.9 fL (8.0-11.0); Monocytes % 8.9; Neutrophils % 67.2; Platelet Count 283 10^3/uL (130-400); RBC 3.53 10^6/uL (3.93-5.22); RDW 12.8 % (11.7-14.6); RDW-SD 41.1 fL; WBC 5.62 10^3/uL (4.4-10.8)
[2022-11-01 08:00] LABS: Anion Gap 7.8 mmol/L (3-11); BUN 6 mg/dL (7-18); CO2 26.2 mmol/L (21.0-32.0); Calcium 8.8 mg/dL (8.5-10.1); Chloride 96 mmol/L (98-107); Glucose 92 mg/dL (74-106); Magnesium 1.8 mg/dL (1.8-2.4); Potassium 3.3 mmol/L (3.5-5.1); Sodium 130 mmol/L (136-145)
[2022-11-01] MEDS: Budesonide/Formoterol 160/4.5 6 GM 60 PUFF INH IH (08:53)
[2022-11-01] MEDS: Aspirin E.C. 81 MG TABEC PO (09:02)
[2022-11-01] MEDS: Dexlansoprazole 30 MG CAP 60 MG PO (09:02)
[2022-11-01] MEDS: Potassium Chloride 10 MEQ TABCR 20 MEQ PO (09:02)
[2022-11-01] MEDS: Multivitamin TAB 1 TAB PO (09:02)
[2022-11-01] MEDS: Acetaminophen 325 MG TAB PO (09:09)
[2022-11-01] MEDS: oxyCODONE 5 MG TAB PO (09:09)
--- NOTE | 2022-11-01 10:20 | PHACLINREV_ITS ---
Pharmacy Admission Review - Admission Clinical Review (Last Reviewed 10/31/22 @ 22:06 by Ramy Grullon) Atypical chest pain (Acute) Acute hyponatremia (Acute) Hypomagnesemia (Acute) fentanyl Allergy (Intermediate, Verified 10/31/22 09:39) SOB Sulfa (Sulfonamide Antibiotics) Allergy (Mild, Verified 10/31/22 09:39) rash, itching, nausea codeine Allergy (Verified 10/31/22 09:39) hydrocodone Allergy (Verified 10/31/22 09:39) morphine Adverse Reaction (Intermediate, Verified 10/31/22 09:39) Body burning diphenhydramine HCl [From Benadryl] Adverse Reaction (Mild, Verified 10/31/22 09:39) palpitations Penicillins Adverse Reaction (Mild, Verified 10/31/22 09:39) palpitations tramadol Adverse Reaction (Mild, Verified 10/31/22 09:39) SOB/vomiting dander Allergy (Intermediate, Uncoded 10/31/22 09:39) Resuscitation Status DNR/DNI Height 5 ft 5 in Weight 107.411 kg - Renal Dosing Renal Dosing: BUN 6 mg/dL (7-18) L 11/01/22 07:37 Creatinine 1.0 mg/dL (0.55-1.02) 11/01/22 07:37 Medications needing adjustments: Reviewed (CrCl~71ml/min) - Anticoagulation Anticoagulation: Hgb 10.7 g/dL (11.2-15.7) L 11/01/22 07:37 Hct 31.0 % (36.0-46.0) L 11/01/22 07:37 Plt Count 283 10^3/uL (130-400) 11/01/22 07:37 Creatinine 1.0 mg/dL (0.55-1.02) 11/01/22 07:37 No DVT Prophylaxis ordered, will ask MD DVT Prophylaxis: Reviewed (Will inquire w/, none ordered at this time, ambulates independently) - Opiate Usage Evaluate Pain Scale/Pains Meds: Reviewed (Oxy IR for pain 7/10) Scheduled Bowel Reg ordered if on Opiates?: No (prn only) - Relevant Labs Sodium 130 mmol/L (136-145) L 11/01/22 07:37 Potassium 3.3 mmol/L (3.5-5.1) L 11/01/22 07:37 Chloride 96 mmol/L (98-107) L 11/01/22 07:37 Magnesium 1.8 mg/dL (1.8-2.4) 11/01/22 07:37 Electrolytes, C-Reactive P, ESR: Reviewed (Symptomatic Hyponatremia, rec'd 4gram IV Magnesium, NS @150ml/hr, oral Potassium ordered) - DM Control DM Control: Glucose 92 mg/dL (74-106) 11/01/22 07:37 DM Control: N/A - Cardiac Review Cardiac Review: Troponin I < 50 ng/L (<or=60) 10/31/22 13:29 NT-Pro-B Natriuret Pep 169 pg/mL (<300) 10/31/22 11:00 BP, HR, EF%: Reviewed (BP soft 109/75) - Qtc Review QTc: Reviewed (QTC 462) - IV to PO Switch IV Medications: N/A - Home Meds Home Med List reviewed: Intervened (Patient's own oral Chemo med Tagrisso 80mg daily, M/S coordinator aware, will ask patient/family) Relevent Home Meds Not ordered & why?: Losartan/HCTZ not ordered....miriam HCTZ w ith electrolyte imbalance, soft BP. Adjusted statin to most recent external med history (Atorvastatin instead of Simvastatin)
[2022-11-01] MEDS: Magnesium Chloride 64 MG TABCR 128 MG PO (10:24)
--- NOTE | 2022-11-01 10:33 | INITIAL_ITS ---
Date of service: 11/01/22 Time of Service: 10:33 Care Management Initial Assmt Initial Assessment REASON FOR HOSPITALIZATION:: symptomatic hyponatremia, hypomagnesemia PREVIOUS FUNCTIONAL STATUS/SOCIAL/FAMILY SUPPORTS:: Melodie lives in [place] with her , Rigo, who is very supportive. She has two adult daughters, one who lives locally and one who lives in [place]. She also has two cats, which she loves. She is wheel chair dependent, stands and pivots to her commode/chair/bed. She is mostly independent, and receives support from her when needed. CURRENT FUNCTIONAL STATUS:: Melodie was lying in bed when CM met with her. She stated that she is feeling much better today, and is looking forward to returning home. She stated that she would like to attend her daughter's birthday constitution party tomorrow, which is very important to her. CM discussed this with the provider, who stated that her labs look much better today, and she may be able to discharge later this afternoon after her infusions. CM will continue to follow. ADVANCE DIRECTIVES:: [facility] on file. , Rigo listed as [facility]. Has patient been provided with info about the portal/API?: Yes Did the patient sign up for the portal?: No CODE STATUS:: DNR/DNI INSURANCE COVERAGE / FINANCIAL ISSUES:: [employer] CURRENT HOME/COMMUNITY SERVICES/EQUIPMENT:: wheelchair, commode PRIMARY CARE PHYSICIAN:: Juliana Cline POTENTIAL DISCHARGE NEEDS:: Follow up appointments PATIENT/FAMILY EDUCATION NEEDS:: Review discharge instructions and limitations, discussion of self care needs including ask me three. ANTICIPATED BARRIERS TO DISCHARGE:: None TRANSPORTATION:: Via private vehicle by spouse. PLAN:: Anticipate Melodie will return home once medically cleared. Her will drive her home via private vehicle when ready. She will follow up with her PCP and discharge plan of care. CM will continue to follow. PFSH All Active Problems (Updated 10/31/22 @ 22:13 by Ramy Grullon) Hypertension (Chronic) Atypical chest pain (Acute) Acute hyponatremia (Acute) Hypomagnesemia (Acute) DJD (degenerative joint disease) (Chronic) Palliative care patient (Acute) DNI (do not intubate) (Acute) DNR (do not resuscitate) (Acute) POLST (Physician Orders for Life-Sustaining Treatment) (Acute) COLST completed 04/20/2020, DNR/DNI. 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
--- NOTE | 2022-11-01 11:19 | DSE_ITS ---
Date of service: 11/01/22 Time of Service: 11:20 DS: Diagnosis Discharge Diagnosis (1) Acute hyponatremia: Status: Acute (2) Hypomagnesemia: Status: Acute (3) Non-small cell cancer of right lung: (4) COPD with asthma: (5) Atypical chest pain: Status: Acute (6) Hypertension: Status: Chronic Discharge Plan Disposition Patient Disposition: Home Condition: Stable Discharge Details Reason For Visit: Symptomatic Hyponatremia, Hypomagnesemia Admit Date/Time: 10/31/22 15:03 Admit Provider: Yumiko Santos Attending Provider: Yumiko Santos Primary Care Provider: Juliana Cline Hospital Course Hospital Course: This is a 62-year-old female patient with a history of right lung cancer status post lobectomy on chemotherapy chronically for the past 2-1/2 years with daily pill causing some diarrhea at times and patient always having some shortness of breath.? She awakened with chest pain and was seeing yellow spots as well as feeling slightly dizzy with her usual shortness of breath.? She also has had problems with peripheral edema in the past and is obese being on hydrochlorothiazide for what she thinks is a high sodium but does have a history of being on losartan and coverage with hydrochlorothiazide for increased blood pressure.? Because her symptoms she was seen in the ED and labs revealed severe hypomagnesemia with patient chronically on magnesium as well as hyponatremia which respond to IV fluids.? Her last echocardiogram did show preserved left ventricular ejection fraction.? The patient was admitted for IV fluids and monitoring with labs. Her troponin was negative x2 in the ED and her magnesium was 1.0 with magnesium given IV and follow-up magnesium ordered.? Her BNP was essentially normal. She reponded to repleting of electrolytes and feels much improved. She is to be discharge to home with medication adjustments including changing Magnesium and holding hctz. she will follow up outpatient with pcp for further monitoring and medication adjustment. discussed with Praneeth Home Meds and New Rx's Prescriptions: New Mag 64 64 mg tablet,delayed release (DR/EC) 128 mg PO BID Qty: 120 0RF Continued lidocain-me.unnatyc-jbym-fgwdj [1st Medx-Patch With Lidocaine] topical Rx Instructions: for hip and or spine aspirin [Adult Aspirin Regimen] 81 mg tablet,delayed release (DR/EC) 81 mg PO 2XD ondansetron 4 mg tablet,disintegrating 4 mg PO Q6H PRN (Reason: nausea and vomiting) Qty: 60 3RF dexlansoprazole 60 mg capsule,biphase delayed releas 60 mg PO DAILY oxycodone 5 mg capsule 5 mg PO BID PRN (Reason: pain) gabapentin 400 mg capsule 400 mg PO BID sennosides [Senna Laxative] 8.6 mg tablet 8.6 mg PO BID PRN (Reason: constipation) Qty: 60 3RF osimertinib 80 mg tablet 80 mg PO DAILY budesonide-formoterol [Symbicort] 160-4.5 mcg/actuation HFA aerosol inhaler 2 puff inhalation BID albuterol sulfate 2.5 mg /3 mL (0.083 %) solution for nebulization 2.5 mg inhalation Q6H potassium chloride [Klor-Con 10] 10 mEq tablet extended release 20 meq PO BID loperamide [Imodium A-D] 2 mg capsule 2 mg PO QID PRN (Reason: loose stool) Qty: 60 3RF Rx Instructions: For chemo related diarrhea. nitroglycerin [Nitrostat] 0.4 MG tablet, sublingual 0.4 mg Sublingual DIRECTED PRN Patient Comments: never uses albuterol sulfate 8.5 GM HFA aerosol inhaler 2 puff Inhalation Q4H PRN PRNQty: 1 0RF multivitamin [Multiple Vitamins] 1 TAB tablet 1 tab PO DAILY Qty: 180 0RF atorvastatin 40 mg Tablet 40 mg PO QPM lorazepam 1 MG tablet 1 mg PO TID PRN Held losartan-hydrochlorothiazide 1 EACH tablet 1 tab PO DAILY Hold Instructions: defer to outpatient Patient Comments: TAKE ONE TABLET BY MOUTH EVERY DAY Discontinued magnesium L-lactate [Magtab] 84 mg tablet extended release 84 mg PO TID Discharge Instructions Instructions: Hyponatremia (DC), Hypomagnesemia (DC) Stand Alone Forms: Nursing Discharge Form Referrals: Juliana Cline [Primary Care Provider] - (Call Thursday to make an Appointent for Hospital Discharge) Richy Walsh MD [ [facility] STAFF PHYSICIAN] - (Call Thursday to make an Appointent for Hospital Discharge) Activity:: Activity as Tolerated Equipment/Supplies:: No Equipment Needed Diet:: As Tolerated Discharge Orders Discharge Orders: Discharge Order (Routine); Ordered 11/01/22 Ordered By: Page Smith Discharge Data Discharge Date/Time-TO BE ENTERED AT DEPARTURE: 11/01/22 14:26 DS: Summary Time Spent with Patient providing and/or coordinating discharge services: Less than 30 minutes Status at Discharge Functional status at discharge: independent ambulation Overall status at discharge: patient is back to baseline Mental Status: mental status grossly normal Speech and Movement: speech and movement normal Mood: congruent mood Affect: normal affect Exam Const General: cooperative and no acute distress HENMT Mouth: moist mucous membranes Eyes Conjunctivae: normal conjunctivae Sclera: normal sclerae Neck Neck: trachea midline and supple Resp Effort & Inspection: not labored Auscultation: clear to auscultation bilaterally, no rales, no rhonchi and no wheezes Cardio Rate: regular rate Rhythm: regular rhythm Heart Sounds: no murmurs GI Palpation: soft and nontender Skin General skin exam: no rashes or lesions noted Neuro General: patient alert and patient awake Cranial Nerves: EOM intact bilaterally Speech: speech normal Motor: strength 5/5 throughout Extrem General: no calf tenderness and no edema Psych Appearance: grossly normal Mental Status: mental status grossly normal Speech and Movement: speech and movement normal Mood: congruent mood Affect: normal affect DS: Data Vitals/I&O Vitals and I&O: Vital Signs Temperature 36.5 C 11/01/22 05:45 Temperature Source Oral 11/01/22 05:45 Pulse 80 11/01/22 05:56 Pulse 80 10/31/22 15:00 Respiratory Rate 18 11/01/22 05:56 Respiratory Effort Normal 10/31/22 20:46 Respiratory Depth Normal 10/31/22 20:46 Respiratory Pattern Normal 10/31/22 20:46 Blood Pressure 109/75 11/01/22 05:56 Blood Pressure Mean 94 10/31/22 14:01 Pulse Oximetry 98 11/01/22 05:45 Oxygen Delivery Method Room Air 11/01/22 05:56 Oxygen Flow Rate 0 11/01/22 05:56 Pain Level 7 11/01/22 09:09 Comment sitting on side of bed 11/01/22 05:56 Intake & Output 10/31/22 10/31/22 11/01/22 11:59 23:59 11:59 Intake Total 10 400 390 / 400 Output Total 400 / 400 Balance 10 400 390 / 400 -400 / -400 Weight 107.955 kg 105.233 kg 107.411 kg Intake: IV 390 / 400 Output: Urine 400 / 400 Other: Urine Color Yellow Urine Appearance Clear Urine Odor Normal Data Completed and Pending Labs on day of discharge: Labs from last 24 hours 11/01/22 11/01/22 10/31/22 07:37 07:37 23:30 WBC 5.62 RBC 3.53 L Hgb 10.7 L Hct 31.0 L MCV 88 D MCH 30.3 MCHC 34.5 RDW 12.8 Plt Count 283 MPV 9.9 Immature Gran % 0.2 Neutrophils % 67.2 Lymphocytes % 21.2 Monocytes % 8.9 Eosinophils % 1.8 Basophils % 0.7 Nucleated RBC % 0.0 Absolute Neutrophils 3.78 Absolute Lymphocytes 1.19 L Absolute Monocytes 0.50 Absolute Eosinophils 0.10 Absolute Basophils 0.04 Sodium 130 L 125 L Potassium 3.3 L 3.3 L Chloride 96 L 93 L Carbon Dioxide 26.2 24.2 Anion Gap 7.8 7.8 BUN 6 L 6 L Creatinine 1.0 0.9 Est GFR (CKD-EPI 2020) 63.70 72.28 Glucose 92 98 Calcium 8.8 9.0 Magnesium 1.8 2.0 Total Bilirubin AST ALT Alkaline Phosphatase Troponin I NT-Pro-B Natriuret Pep Total Protein Albumin TSH Add-On Test Request 10/31/22 10/31/22 10/31/22 17:44 13:29 11:00 WBC RBC Hgb Hct MCV MCH MCHC RDW Plt Count MPV Immature Gran % Neutrophils % Lymphocytes % Monocytes % Eosinophils % Basophils % Nucleated RBC % Absolute Neutrophils Absolute Lymphocytes Absolute Monocytes Absolute Eosinophils Absolute Basophils Sodium 123 L* Potassium 3.5 Chloride 88 L Carbon Dioxide 26.0 Anion Gap 9.0 BUN 5 L Creatinine 0.9 Est GFR (CKD-EPI 2020) 72.28 Glucose 94 Calcium 9.1 Magnesium Total Bilirubin AST ALT Alkaline Phosphatase Troponin I < 50 NT-Pro-B Natriuret Pep Total Protein Albumin TSH 0.99 Add-On Test Request 10/31/22 10/31/22 11:00 11:00 WBC RBC Hgb Hct MCV MCH MCHC RDW Plt Count MPV Immature Gran % Neutrophils % Lymphocytes % Monocytes % Eosinophils % Basophils % Nucleated RBC % Absolute Neutrophils Absolute Lymphocytes Absolute Monocytes Absolute Eosinophils Absolute Basophils Sodium 120 L* Potassium 3.5 Chloride 86 L Carbon Dioxide 25.1 Anion Gap 8.9 BUN 5 L Creatinine 0.9 Est GFR (CKD-EPI 2020) 72.28 Glucose 94 Calcium 8.9 Magnesium 1.0 L Total Bilirubin 0.8 AST 24 ALT 20 Alkaline Phosphatase 62 Troponin I < 50 NT-Pro-B Natriuret Pep 169 Total Protein 6.9 Albumin 3.9 TSH Add-On Test Request DONE PFSH All Active Problems (Updated 10/31/22 @ 22:13 by Ramy Grullon) Hypertension (Chronic) Atypical chest pain (Acute) Acute hyponatremia (Acute) Hypomagnesemia (Acute) DJD (degenerative joint disease) (Chronic) Palliative care patient (Acute) DNI (do not intubate) (Acute) DNR (do not resuscitate) (Acute) POLST (Physician Orders for Life-Sustaining Treatment) (Acute) COLST completed 04/20/2020, DNR/DNI. 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 History of depression Non-small cell cancer of right lung Surgical History History of appendectomy Social History Smoking/Tobacco Use Status: Former Tobacco Use Smoking risk assessment performed?: Yes Alcohol Intake: current Alcohol Intake frequency: a few times a week Alcohol type: beer Drug use: Never Substance use type: does not use Do you feel safe at home: Yes Do you feel safe in your relationship?: Yes Time Spent with Patient Time Spent with Patient: <45 minutes Time was spent: preparing to see the patient(eg.review tests), obtaining and/or reviewing separately otained hiistory, ordering medications,tests, procedures, indepentently interpreting results and counseling the patient
[2022-11-01] MEDS: MAGNESIUM SULFATE 2 GM/50 ML BAG IVPB (11:51)
[2022-11-01 14:05] VITALS: PULSE 73
--- NOTE | 2022-11-01 15:28 | PDOC.CMDIS ---
Date of service: 11/01/22 Time of Service: 15:28 LACE Index Scoring Tool Questions: Length of Stay (in days): 1 Was the patient admitted via the E.D.?: Yes Comorbidities: Chronic Pulmonary Disease and Any Tumor E.D. Visits: 2 Answers: Total Score: 11 Risk of Readmission: High Risk Care Management Discharge Plan Reason for Hospitalization: symptomatic hyponatremia, hypomagnesemia Discharge Plan: Melodie returned home today with no new services. Her drove her home via private vehicle. She will follow up with her PCP and discharge plan of care. She is happy to be able to return home in time for her daughter's birthday. Patient/Family Education Needs: Review discharge instructions and limitations, discussion of self care needs including ask me three
== END 2022-11-01 14:26 | disposition home or self-care (01) | DRG 641 ==
LOC: ER 16:13 → MS 20:13
PROVIDERS: Family Medicine; Admitting Provider Internal Medicine; Emergency Provider Student in an Organized Health Care Education/Training Program; PCP Physician Assistant; Visit Provider Internal Medicine
DX: E87.1 Hypo-osmolality and hyponatremia (principal); C34.91 Malignant neoplasm of unspecified part of right bronchus or lung; E83.42 Hypomagnesemia; J44.9 Chronic obstructive pulmonary disease, unspecified; I10 Essential (primary) hypertension; R07.89 Other chest pain; Z66 Do not resuscitate; Z90.2 Acquired absence of lung [part of]; Z79.899 Other long term (current) drug therapy; R06.02 Shortness of breath; E66.9 Obesity, unspecified; Z68.39 Body mass index [BMI] 39.0-39.9, adult; R42 Dizziness and giddiness; Z87.891 Personal history of nicotine dependence
CPT/HCPCS: 36415; 70553; 71275; 80048; 80053; 93005; 94640; 96365; 99285; 83735; 83880; 84443; 84484; 85025; 85379; 93010; 94664; 99223; 99238; J3490; J7613

== ENCOUNTER 2022-11-06 01:15 | Outpatient (CLI) | payer OTHER, SELFPAY ==
--- NOTE | 2022-11-06 | DI.NM_ITS ---
APPROVED REPORT Exam: Pharmacologic Patient Location: Out-Patient Room/Bed: Stress Nurse: Josee Maradiaga RN Ordering Provider:GERSON PARKER, Contact Number: [phone] BMI: 39.60 Baseline Rhythm: Sinus Rhythm Comment: Flat P waves Indications: Chest pressure, SOB, LBBB Medical History Medical History: HTN, atypical chest pain, hyponatremia, hypomagnesemia, DJD, anxiety, COPD, depressi on, SOB, R lung CA, s/p lobectomy, on chemotherapy, pulmonary edema Cardiac Medications: Albuterol sulfate, ASA, atorvastatin, budesonide, dexlansoprazole, gabaoentin, l orazepam, losartan-HCTZ, magnesium, nitro, osimertinib, oxycodone, potassium chloride, sennosides Allergies: Fentanyl, sulfa, codeine, hydrocodone, morphine, diphenhydramine, penicillins, tramadol, d taj Cardiac Risk Factors: Family Hx, HTN, HLD, COPDm Former smoker, obesity Previous Cardiac Procedures: None Pretest Chest Pain Characteristics: None Exercise History: Sedentary Physical Disabilities: Wheelchair bound Lung Sounds: Clear to auscultation Heart Sounds: Regular Stress Test Details Test: Pharmacologic stress testing performed using 0.4 mg of regadenoson per 5 mL given IV over 10 s econds. Reason for pharmacologic stress test: physical limitation. Nuclear Acquisition: Rest Tc-99m/Stress Tc-99m 1 day Rest Isotope: Tc-99m Sestamibi. Dose: 10.5 Date: 11/06/2022 Injection Time: 1215 Stress Isotope: Tc-99m Sestamibi. Dose: 31.6 Date: 11/06/2022 Injection Time: 1350 HR Resting HR Supine: 78 bpm Max Heart Rate (APMHR): 158.839585 bpm Target HR (85% APMHR): 134.016348 bpm Max HR Achieved: 110 bpm % of APMHR: 69.62 Recovery HR: 90 bpm BP Resting BP Supine: 148/96 mmHg Max BP: 158/100 mmHg Recovery BP: 158/96 mmHg ECG Resting ECG: Sinus Rhythm Ectopy: None Comment: Flat P wave Stress ECG: Sinus Tachycardia ST Change: Nondiagnostic low heart rate Arrhythmia: None Recovery ECG: Sinus Rhythm Recovery ST Change: Nondiagnostic low heart rate Recovery Arrhythmia: None Clinical Stress Symptoms: None Rate Pressure Product: [id number] Stress ECG Conclusion 1. The resting electrocardiogram was within normal limits, very low amplitude P waves 2. Patient underwent testing using pharmacologic stress with regadenoson 3. Peak heart rate achieved was 70% of predicted for age 4. The electrocardiographic portion of the test was nondiagnostic 5. See MPI report Stress Test Summary STAGE HR BP SpO2 Symptoms NOTES Supine 78 148/96 98 1 min post Lexiscan injection 82 130/98 98 3 min post Lexiscan injection 93 150/100 98 6 min post Lexiscan injection 90 158/96 No symptoms reported by patient. MPI Conclusion Myocardial perfusion suggests mild anteroapical ischemia. There is no infarction EF is 49%. Wall motion looks normal Radiologist Interpretation Radiologist Interpretation by: Jose Elias Walsh MD Interpretation Date/Time: 11/06/2022 16:36:51
[2022-11-06 12:36] LABS: Anion Gap 8.9 mmol/L (3-11); BUN 17 mg/dL (7-18); CO2 30.1 mmol/L (21.0-32.0); CREATININE 1.3 mg/dL (0.55-1.02); Calcium 9.3 mg/dL (8.5-10.1); Chloride 99 mmol/L (98-107); Estimated GFR 46.49 (mL/min/1.73m2); Glucose 111 mg/dL (74-106); Potassium 3.6 mmol/L (3.5-5.1); Sodium 138 mmol/L (136-145)
[2022-11-06] MEDS: Regadenoson 0.4 MG/5 ML SYR IVP (14:08)
== END 2022-11-06 01:35 ==
LOC: DI 01:16
PROVIDERS: PCP Physician Assistant; Visit Provider Physician Assistant
DX: R07.89 Other chest pain (principal)
CPT/HCPCS: 78452; 80048; 93016; 93018; 93017; J2785

== ENCOUNTER 2022-12-01 08:34 | Outpatient (CLI) | payer OTHER, SELFPAY ==
--- NOTE | 2022-12-01 08:30 | RT.EKG_ITS ---
APPROVED REPORT Exam: Resting ECG Reason for Exam: chest pain Patient Location: O HR:87 bpm ECG Measurements Heart Rate 87 AXIS WA 158 P 45 QRSd 105 QRS 5 QT 375 T 37 QTc 451 Conclusion Sinus rhythm...normal P axis, V-rate 50- 99 Baseline wander in lead(s) V1 Normal Electrocardiogram
== END 2022-12-01 08:35 | disposition home or self-care (01) ==
LOC: DI.CARD 08:35
PROVIDERS: PCP Physician Assistant; Visit Provider Internal Medicine Cardiovascular Disease
DX: R07.89 Other chest pain (principal)
CPT/HCPCS: 93010

== ENCOUNTER → 2022-12-01 13:17 | Outpatient (BNVA) | payer OTHER, SELFPAY | PROVIDERS: PCP Physician Assistant; Referring Provider Physician Assistant; Visit Provider Internal Medicine Cardiovascular Disease | DX: R94.39 Abnormal result of other cardiovascular function study (principal); I10 Essential (primary) hypertension; R07.89 Other chest pain | CPT/HCPCS: 93005; 99203; 99214 ==

== ENCOUNTER 2022-12-03 02:41 | Outpatient (CLI) | payer OTHER, SELFPAY ==
[2022-12-03 12:50] LABS: Abs Immature Grans 0.01 10^3/uL (0.0-0.06); Absolute Basophil Count 0.05 10^3/uL (0.0-0.2); Absolute Eosinophil Count 0.17 10^3/uL (0.0-0.7); Absolute Lymphocyte Count 2.24 10^3/uL (1.2-3.4); Absolute Monocyte Count 0.63 10^3/uL (0.1-0.8); Absolute Neutrophil Count 5.01 10^3/uL (1.2-6.7); Basophils % 0.6; Eosinophils % 2.1; HCT 33.7 % (36.0-46.0); HGB 11.7 g/dL (11.2-15.7); Immature Grans % 0.1; Lymphocytes % 27.6; MCHC 34.7 % (32.0-36.0); MCV 89 fL (80-95); MPV 9.9 fL (8.0-11.0); Monocytes % 7.8; Neutrophils % 61.8; Platelet Count 280 10^3/uL (130-400); RBC 3.77 10^6/uL (3.93-5.22); RDW 14.1 % (11.7-14.6); RDW-SD 46.3 fL; WBC 8.11 10^3/uL (4.4-10.8)
[2022-12-03 13:12] LABS: ALT 23 U/L (14-59); AST 22 U/L (15-37); Albumin 4.2 g/dL (3.4-5.0); Alkaline Phosphatase 67 U/L (46-116); Anion Gap 13.7 mmol/L (3-11); BUN 21 mg/dL (7-18); Bilirubin, Total 0.8 mg/dL (0.2-1.0); CO2 23.3 mmol/L (21.0-32.0); CREATININE 1.9 mg/dL (0.55-1.02); Calcium 9.3 mg/dL (8.5-10.1); Chloride 102 mmol/L (98-107); Estimated GFR 29.49 (mL/min/1.73m2); Glucose 108 mg/dL (74-106); Potassium 3.5 mmol/L (3.5-5.1); Sodium 139 mmol/L (136-145); Total Protein 7.7 g/dL (6.4-8.2)
== END 2022-12-03 02:42 | disposition home or self-care (01) ==
LOC: LBO 02:41
PROVIDERS: PCP Physician Assistant; Visit Provider Internal Medicine Hematology & Oncology
DX: C34.91 Malignant neoplasm of unspecified part of right bronchus or lung (principal)
CPT/HCPCS: 36415; 80053; 85025

== ENCOUNTER 2022-12-11 19:44 | Outpatient (REF) | payer OTHER, SELFPAY ==
[2022-12-11 19:54] LABS: Abs Immature Grans 0.01 10^3/uL (0.0-0.06); Absolute Basophil Count 0.04 10^3/uL (0.0-0.2); Absolute Eosinophil Count 0.28 10^3/uL (0.0-0.7); Absolute Lymphocyte Count 1.19 10^3/uL (1.2-3.4); Absolute Monocyte Count 0.52 10^3/uL (0.1-0.8); Absolute Neutrophil Count 4.66 10^3/uL (1.2-6.7); Basophils % 0.6; Eosinophils % 4.2; HCT 32.2 % (36.0-46.0); HGB 11.1 g/dL (11.2-15.7); Immature Grans % 0.1; Lymphocytes % 17.8; MCH 30.9 pg (27.0-33.0); MCHC 34.5 % (32.0-36.0); MCV 90 fL (80-95); MPV 11.3 fL (8.0-11.0); Monocytes % 7.8; Neutrophils % 69.5; Platelet Count 272 10^3/uL (130-400); RBC 3.59 10^6/uL (3.93-5.22); RDW 13.7 % (11.7-14.6); RDW-SD 45.5 fL
[2022-12-11 20:05] LABS: ALT 20 U/L (14-59); AST 27 U/L (15-37); Albumin 3.8 g/dL (3.4-5.0); Alkaline Phosphatase 73 U/L (46-116); Anion Gap 10.5 mmol/L (3-11); BUN 13 mg/dL (7-18); Bilirubin, Total 1.2 mg/dL (0.2-1.0); CO2 26.5 mmol/L (21.0-32.0); Calcium 9.3 mg/dL (8.5-10.1); Chloride 95 mmol/L (98-107); Glucose 90 mg/dL (74-106); Sodium 132 mmol/L (136-145); Total Protein 7.1 g/dL (6.4-8.2)
== END 2022-12-11 19:45 | disposition home or self-care (01) ==
LOC: NCHCN 19:44
PROVIDERS: PCP Physician Assistant; Visit Provider Physician Assistant
DX: I10 Essential (primary) hypertension (principal); E87.1 Hypo-osmolality and hyponatremia
CPT/HCPCS: 80053; 85025

== ENCOUNTER → 2023-01-07 02:01 | Outpatient (CLI) | payer OTHER, SELFPAY ==
--- NOTE | 2023-01-07 13:50 | DI.US_ITS ---
Exam(s) US RENAL EXAM: US RENAL CLINICAL HISTORY: RT FLANK PAIN, R10.9. TECHNIQUE: Gonzalez scale, color and spectral Doppler were used. COMPARISON: CT CT ABDOMEN PELVIS W from 06/09/2022 FINDINGS: Renal size in cm: Right: 9.8 x 4.9 x 4.7 left: 10.4 x 3.9 x 4.5 Echogenicity: Normal Hydronephrosis: Mild right hydronephrosis. Cyst or mass: No Nephrolithiasis: No convincing stones No perinephric collection. Bladder:Normal Prevoid vol: 162 cc Postvoid vol: 6 cc IMPRESSION: Mild right hydronephrosis. No convincing renal calculi. CT could be performed for further evaluatio n. DATA REPOSITORY:
== END ==
PROVIDERS: PCP Physician Assistant; Visit Provider Physician Assistant
DX: N13.30 Unspecified hydronephrosis
CPT/HCPCS: 76770

== ENCOUNTER → 2023-01-13 01:34 | Outpatient (CLI) | payer OTHER, SELFPAY ==
[2023-01-13 09:57] LABS: Abs Immature Grans 0.02 10^3/uL (0.0-0.06); Absolute Basophil Count 0.05 10^3/uL (0.0-0.2); Absolute Eosinophil Count 0.25 10^3/uL (0.0-0.7); Absolute Lymphocyte Count 1.97 10^3/uL (1.2-3.4); Absolute Monocyte Count 0.49 10^3/uL (0.1-0.8); Absolute Neutrophil Count 3.93 10^3/uL (1.2-6.7); Basophils % 0.7; Eosinophils % 3.7; HCT 34.5 % (36.0-46.0); HGB 11.7 g/dL (11.2-15.7); Immature Grans % 0.3; Lymphocytes % 29.4; MCH 30.5 pg (27.0-33.0); MCHC 33.9 % (32.0-36.0); MCV 90 fL (80-95); MPV 9.9 fL (8.0-11.0); Monocytes % 7.3; Neutrophils % 58.6; Platelet Count 271 10^3/uL (130-400); RBC 3.83 10^6/uL (3.93-5.22); RDW 14.4 % (11.7-14.6); RDW-SD 47.3 fL; WBC 6.71 10^3/uL (4.4-10.8)
[2023-01-13 10:11] LABS: ALT 20 U/L (14-59); AST 19 U/L (15-37); Albumin 3.9 g/dL (3.4-5.0); Alkaline Phosphatase 74 U/L (46-116); Anion Gap 9.9 mmol/L (3-11); BUN 11 mg/dL (7-18); Bilirubin, Total 0.7 mg/dL (0.2-1.0); CO2 29.1 mmol/L (21.0-32.0); CREATININE 1.4 mg/dL (0.55-1.02); Calcium 9.2 mg/dL (8.5-10.1); Chloride 101 mmol/L (98-107); Estimated GFR 42.54 (mL/min/1.73m2); Glucose 100 mg/dL (74-106); Potassium 3.7 mmol/L (3.5-5.1); Sodium 140 mmol/L (136-145); Total Protein 7.2 g/dL (6.4-8.2)
[2023-01-13] MEDS: Normal Saline - Diluent 50 ML VIAL IJ (10:59)
[2023-01-13] MEDS: Omnipaque 350 MG/ML 500 ML BTL-Imaging package 70 ML IJ (10:59)
--- NOTE | 2023-01-13 11:15 | DI.CT_ITS ---
Exam(s) CT CHEST W EXAM: CT CHEST W CLINICAL HISTORY: PRIMARY LUNG CA, METS FROM LUNG TO OTHER SITE, RT, C34.91 TECHNIQUE: Imaging Protocol: Axial computed tomography images with coronal and sagittal reformatted images were created and reviewed CONTRAST MATERIAL: Intravenous: Omnipaque 350 Contrast volume:70 ml. COMPARISON: CT CT CHEST W from 10/01/[address] CHEST PE CTA from 10/31/2022 FINDINGS: Pulmonary parenchyma: Status post right lobectomy. Right apical scarring. Tracheobronchial tree: No bronchiectasis or mucous plugging. Mediastinum and Abida: No dominant adenopathy or fluid collection. Pleura: No effusion or pneumothorax. Heart: The heart is not dilated. Mild coronary artery calcifications are seen. No pericardial effus ion. Aorta: Thoracic aorta non-dilated. No visible atherosclerotic changes. Pulmonary arteries: No central pulmonary emboli. Upper abdomen: Unremarkable. Bones: Degenerative changes in the spine. Old right rib fractures. A few small sclerotic foci a re again noted in the lower thoracic, upper lumbar spine. Soft tissues: Unremarkable. IMPRESSION: Postsurgical changes the right chest. Stable scattered sclerotic foci in the thoracic and upper lumb ar spine. No acute abnormality. RADIATION DOSE DELIVERED: 810.33mGy.cm Total DLP DATA REPOSITORY: All CT scans at this facility are submitted to the National Radiology Data Registry (NRDR) Dose Index Registry (DIR) with the [employer] (ACR). RADIATION OPTIMIZATION: All CT scans at this facility use at least one of these dose optimization te chniques: automated exposure control; mA and/or kV adjustment per patient size (includes targeted exa ms where dose is matched to clinical indication); or iterative reconstruction.
== END ==
PROVIDERS: PCP Physician Assistant; Visit Provider Nurse Practitioner Family
DX: Z90.2 Acquired absence of lung [part of]; C34.91 Malignant neoplasm of unspecified part of right bronchus or lung; M89.8X8 Other specified disorders of bone, other site; Z98.890 Other specified postprocedural states
CPT/HCPCS: 80053; 71260; 85025

== ENCOUNTER → 2023-03-06 00:23 | Outpatient (CLI) | payer OTHER, SELFPAY ==
--- NOTE | 2023-03-06 13:25 | DI.CT_ITS ---
Exam(s) CT RENAL COLIC WO EXAM: CT RENAL COLIC WO CLINICAL HISTORY: RT HYDRONEPHROSIS N13.30 RT FLANK PAIN R10.9. TECHNIQUE: Imaging Protocol: Axial computed tomography images with coronal and sagittal reformatted images were created and reviewed. CONTRAST MATERIAL: Noncontrast COMPARISON: CT CH/UPPER ABD WITH CONTRAST from 01/06/2017 CT,NM,TMT NM MPI REST STRESS GRP from 11/06/2022 FINDINGS: ABDOMEN: Lung Bases: Normal where visualized. Liver: Normal attenuation. No measurable mass. Gallbladder and biliary tract: No radiodense calculus or dilation. Pancreas: Normal density, no calcifications or inflammatory process. Spleen: Normal. Kidneys: Normal size, contour and axis. No radiodense stones or obstructive uropathy. No masses seen. Adrenal glands: No masses seen. Abdominal Aorta: Abdominal portion non-dilated. Soft tissues: Fatty containing umbilical hernia. PELVIS: Bladder: Empty. Not well evaluated. Bowel: No obstruction or bowel wall thickening. Diverticulum of the transverse duodenum. Normal qu antity of stool. appendix not visualized. Stomach and small bowel unremarkable. Reproductive: Unremarkable. Peritoneal cavity: No ascites, collection or mesenteric inflammatory response. Bones: Severe degenerative changes lower lumbar spine. Degenerative scoliosis. Left hip shows sever e degenerative changes with obliteration of the joint space superiorly with a [id number] appearance . Prominent periarticular spurring with some deformity of the acetabulum and femoral head. Large viry int space loose bodies as well as large joint effusion. IMPRESSION: No evidence of hydronephrosis or renal calculi. Severe degenerative changes of the left hip with large left hip joint effusion. RADIATION DOSE DELIVERED: 1,221.16mGy.cm Total DLP DATA REPOSITORY: All CT scans at this facility are submitted to the National Radiology Data Registry (NRDR) Dose Index Registry (DIR) with the [employer] (ACR). RADIATION OPTIMIZATION: All CT scans at this facility use at least one of these dose optimization te chniques: automated exposure control; mA and/or kV adjustment per patient size (includes targeted exa ms where dose is matched to clinical indication); or iterative reconstruction.
== END ==
PROVIDERS: PCP Physician Assistant; Visit Provider Physician Assistant
DX: M16.12 Unilateral primary osteoarthritis, left hip (principal); M25.452 Effusion, left hip; N13.30 Unspecified hydronephrosis
CPT/HCPCS: 74176

== ENCOUNTER 2023-03-11 02:11 | Outpatient (CLI) | payer OTHER, SELFPAY ==
[2023-03-11 13:02] LABS: Abs Immature Grans 0.01 10^3/uL (0.0-0.06); Absolute Basophil Count 0.06 10^3/uL (0.0-0.2); Absolute Eosinophil Count 0.21 10^3/uL (0.0-0.7); Absolute Lymphocyte Count 1.65 10^3/uL (1.2-3.4); Absolute Monocyte Count 0.36 10^3/uL (0.1-0.8); Absolute Neutrophil Count 4.17 10^3/uL (1.2-6.7); Basophils % 0.9; Eosinophils % 3.3; HCT 37.7 % (36.0-46.0); HGB 12.4 g/dL (11.2-15.7); Immature Grans % 0.2; Lymphocytes % 25.5; MCH 30.6 pg (27.0-33.0); MCHC 32.9 % (32.0-36.0); MCV 93 fL (80-95); MPV 10.2 fL (8.0-11.0); Monocytes % 5.6; Neutrophils % 64.5; Platelet Count 275 10^3/uL (130-400); RBC 4.05 10^6/uL (3.93-5.22); RDW 13.9 % (11.7-14.6); RDW-SD 47.3 fL; WBC 6.46 10^3/uL (4.4-10.8)
[2023-03-11 13:28] LABS: ALT 23 U/L (14-59); AST 21 U/L (15-37); Albumin 4.2 g/dL (3.4-5.0); Alkaline Phosphatase 72 U/L (46-116); Anion Gap 9.7 mmol/L (3-11); BUN 19 mg/dL (7-18); Bilirubin, Total 0.5 mg/dL (0.2-1.0); CO2 27.3 mmol/L (21.0-32.0); CREATININE 1.4 mg/dL (0.55-1.02); Chloride 104 mmol/L (98-107); Estimated GFR 42.27 (mL/min/1.73m2); Glucose 104 mg/dL (74-106); Potassium 3.6 mmol/L (3.5-5.1); Sodium 141 mmol/L (136-145); Total Protein 7.9 g/dL (6.4-8.2)
== END 2023-03-11 02:12 | disposition home or self-care (01) ==
LOC: LBO 02:12
PROVIDERS: PCP Physician Assistant; Visit Provider Internal Medicine Hematology & Oncology
DX: C34.91 Malignant neoplasm of unspecified part of right bronchus or lung (principal); R79.89 Other specified abnormal findings of blood chemistry
CPT/HCPCS: 36415; 80053; 85025

== ENCOUNTER → 2023-04-06 00:25 | Outpatient (CLI) | payer OTHER, SELFPAY ==
--- NOTE | 2023-04-06 | DI.MAMMO_ITS ---
Exam(s) MAMMO DIAGNOSTIC BI EXAM: MAMMO DIAGNOSTIC BI CLINICAL HISTORY: DIAGNOSTIC, BREAST PAIN, N64.4, H/O LUNG CA, C34.90, C79.51. TECHNIQUE: Craniocaudal and mediolateral oblique Full Field Digital Mammography views of the bilater al breast with Computer Aided Diagnosis followed by Tomosynthesis. COMPARISON: Comparison is made with prior examinations. FINDINGS: Mammography/Tomosynthesis: Masses/Architectural Distortion: None seen. Microcalcifictions: No suspicious pleomorphic-type are seen. Skin Thickening/Nipple Retraction: None. IMPRESSION: 1. No evidence of malignancy is noted. 2. Unless there is more urgent need, follow-up screening mammography is recommended, as per [place] [employer] guidelines. 3. The findings were discussed with the patient on the date of the examination. BI-RADS Category 1 - Negative Breast Density - Category B - Scattered areas of fibroglandular density Breast density Category C or D implies that the patient has dense breast tissue. Dense breast tissue can make it harder to find cancer on a mammogram. Dense breast tissue is also associated with an incr eased risk of breast cancer. This information about the result of the mammogram report was provided to the patient to raise their awareness. Use this report when you speak with the patient about their risks for breast cancer, which includes their family history. At that time, you may recommend additional screening tests (Ultrasoun d or MRI) as these tests may add significant information. A negative radiographic report should not delay biopsy if a dominant or clinically suspicious mass is present. Up to ten percent of cancers are not identified on mammography. A negative report may reinforce clinical impression. Adenosis and dense breasts may obscure an underlying neoplasm. False positive reports average 6 to 10%. Patient will receive a letter notifying them of these results.
[2023-04-06] MEDS: Omnipaque 350 MG/ML 100 ML BTL 70 ML IJ (14:13)
[2023-04-06] MEDS: Normal Saline - Diluent 50 ML VIAL IJ (14:13)
[2023-04-06] MEDS: Normal Saline Flush 10 ML SYR IVP (14:14)
--- NOTE | 2023-04-06 14:35 | DI.CT_ITS ---
Exam(s) CT CHEST W EXAM: CT CHEST W CLINICAL HISTORY: LUNG CA METS TO BONE, C34.90, C79.51, ASSESS TREATMENT RESPONSE TECHNIQUE: Imaging Protocol: Axial computed tomography images with coronal and sagittal reformatted images were created and reviewed CONTRAST MATERIAL: Intravenous: Omnipaque 350Contrast volume:70 mL. COMPARISON: CT CT CHEST W from 01/13/2023 FINDINGS: Tracheobronchial tree: Patent where visualized. Pulmonary parenchyma: No consolidation or dominant measurable mass. Stable parenchymal scarring. Mediastinum and Abida: Unchanged rightward shift of the mediastinum secondary to right lobectomy. The esophagus is unremarkable. Thyroid gland: Unremarkable. Pleura: No effusion or pneumothorax. Heart: The heart is not dilated. No coronary artery calcifications are seen. No pericardial effusion. Aorta: Thoracic aorta non-dilated. Mild atherosclerosis. Pulmonary arteries: The contrast was not timed for maximum pulmonary artery enhancement. No large ce ntral pulmonary embolus is seen. Upper abdomen: Unremarkable. Lymph nodes: Within normal limits. Bones: Within normal limits for the patient's age. Old healed rib fracture deformities. Stable scle rotic foci in the bones. Soft tissues: Unremarkable. IMPRESSION: No change in appearance of the CT scan of the chest since 01/13/2023. RADIATION DOSE DELIVERED: Total DLP DATA REPOSITORY: All CT scans at this facility are submitted to the National Radiology Data Registry (NRDR) Dose Index Registry (DIR) with the [employer] (ACR). RADIATION OPTIMIZATION: All CT scans at this facility use at least one of these dose optimization te chniques: automated exposure control; mA and/or kV adjustment per patient size (includes targeted exa ms where dose is matched to clinical indication); or iterative reconstruction.
== END ==
PROVIDERS: PCP Physician Assistant; Visit Provider Nurse Practitioner Family
DX: N64.4 Mastodynia (principal); C34.90 Malignant neoplasm of unspecified part of unspecified bronchus or lung; C79.51 Secondary malignant neoplasm of bone
CPT/HCPCS: 77062; 77066; 71260; G0279; J3490

== ENCOUNTER 2023-05-06 02:58 | Outpatient (CLI) | payer OTHER, SELFPAY ==
[2023-05-06 12:05] LABS: Abs Immature Grans 0.01 10^3/uL (0.0-0.06); Absolute Basophil Count 0.05 10^3/uL (0.0-0.2); Absolute Monocyte Count 0.52 10^3/uL (0.1-0.8); Absolute Neutrophil Count 5.25 10^3/uL (1.2-6.7); Basophils % 0.6; Eosinophils % 3.6; HCT 36.3 % (36.0-46.0); HGB 12.1 g/dL (11.2-15.7); Immature Grans % 0.1; Lymphocytes % 25.5; MCH 30.4 pg (27.0-33.0); MCHC 33.3 % (32.0-36.0); MCV 91 fL (80-95); MPV 10.3 fL (8.0-11.0); Monocytes % 6.3; Neutrophils % 63.9; Platelet Count 267 10^3/uL (130-400); RBC 3.98 10^6/uL (3.93-5.22); RDW 14.2 % (11.7-14.6); RDW-SD 47.8 fL; WBC 8.23 10^3/uL (4.4-10.8)
[2023-05-06 12:20] LABS: ALT 30 U/L (14-59); AST 26 U/L (15-37); Albumin 4.3 g/dL (3.4-5.0); Alkaline Phosphatase 72 U/L (46-116); Anion Gap 9.5 mmol/L (3-11); BUN 23 mg/dL (7-18); CO2 28.5 mmol/L (21.0-32.0); CREATININE 1.6 mg/dL (0.55-1.02); Chloride 100 mmol/L (98-107); Estimated GFR 36.01 (mL/min/1.73m2); Glucose 105 mg/dL (74-106); Potassium 3.5 mmol/L (3.5-5.1); Sodium 138 mmol/L (136-145)
== END 2023-05-06 02:59 | disposition home or self-care (01) ==
PROVIDERS: PCP Physician Assistant; Visit Provider Nurse Practitioner Family
DX: C34.91 Malignant neoplasm of unspecified part of right bronchus or lung (principal); C79.51 Secondary malignant neoplasm of bone
CPT/HCPCS: 36415; 80053; 85025

== ENCOUNTER 2023-06-19 11:09 | Outpatient (CLI) | payer OTHER, SELFPAY ==
[2023-06-19 10:08] LABS: Abs Immature Grans 0.02 10^3/uL (0.0-0.06); Absolute Basophil Count 0.08 10^3/uL (0.0-0.2); Absolute Eosinophil Count 0.32 10^3/uL (0.0-0.7); Absolute Monocyte Count 0.57 10^3/uL (0.1-0.8); Absolute Neutrophil Count 6.62 10^3/uL (1.2-6.7); Basophils % 0.9; Eosinophils % 3.4; HCT 34.8 % (36.0-46.0); HGB 11.3 g/dL (11.2-15.7); Immature Grans % 0.2; Lymphocytes % 18.3; MCH 30.5 pg (27.0-33.0); MCHC 32.5 % (32.0-36.0); MCV 94 fL (80-95); MPV 10.4 fL (8.0-11.0); Monocytes % 6.1; Neutrophils % 71.1; Platelet Count 306 10^3/uL (130-400); RBC 3.71 10^6/uL (3.93-5.22); RDW 14.1 % (11.7-14.6); RDW-SD 48.5 fL; WBC 9.31 10^3/uL (4.4-10.8)
[2023-06-19 10:25] LABS: ALT 21 U/L (14-59); AST 17 U/L (15-37); Albumin 3.8 g/dL (3.4-5.0); Alkaline Phosphatase 65 U/L (46-116); Anion Gap 7.6 mmol/L (3-11); BUN 24 mg/dL (7-18); Bilirubin, Total 0.6 mg/dL (0.2-1.0); CO2 30.4 mmol/L (21.0-32.0); CREATININE 1.5 mg/dL (0.55-1.02); Calcium 9.5 mg/dL (8.5-10.1); Chloride 100 mmol/L (98-107); Estimated GFR 38.91 (mL/min/1.73m2); Glucose 96 mg/dL (74-106); Potassium 3.8 mmol/L (3.5-5.1); Sodium 138 mmol/L (136-145); Total Protein 7.3 g/dL (6.4-8.2)
== END 2023-06-19 11:10 | disposition home or self-care (01) ==
LOC: LBO 11:10
PROVIDERS: PCP Physician Assistant; Visit Provider Nurse Practitioner Family
DX: C34.91 Malignant neoplasm of unspecified part of right bronchus or lung (principal)
CPT/HCPCS: 36415; 80053; 85025

== ENCOUNTER → 2023-07-21 04:07 | Outpatient (CLI) | payer OTHER, SELFPAY ==
--- NOTE | 2023-07-21 | DI.CT_ITS ---
Exam(s) CT CHEST W EXAM: CT CHEST W CLINICAL HISTORY: METASTATIC LUNG CA,ON THERAPY,RESTAGING EXAM,C34.90. TECHNIQUE: Multi planar reconstructions were performed. CONTRAST MATERIAL: Omnipaque 350; 75 cc COMPARISON: CT CT CHEST W from 10/01/[address] CHEST W from 01/13/[address] CHEST W from 04/06/2023 FINDINGS: CHEST: LUNGS: Decreased right hemithoracic volume related to prior surgery again noted with compensatory ove r inflation of the opposite-left lung extending across the midline again noted, unchanged. There are no new right lung findings. A small nodular density in the right upper lobe remains unchang ed from at least September [address]22 CT scan and is presumed to be scarring. Some mild scarring in the right isacc g base is also unchanged. No pleural effusions on either side. There are no new focal findings in the opposite-left lung. No new findings in the trachea and mainstem bronchi. MEDIASTINUM: There is no hilar nor mediastinal adenopathy. Partially visualized thyroid unremarkable. CARDIAC: Heart size is normal. There is no pericardial effusion.Caliber of the thoracic aorta is wit hin normal limits. VISUALIZED UPPER ABDOMEN:There are no significant adrenal masses. OSSEOUS: No significant osseous lesions.Healed right postsurgical rib fractures again noted. No new f ractures evident.. IMPRESSION: 1. Continued stable appearance of the postsurgical right hemithorax without significant change compar ed to the prior CT scans dating back to September 2022. 2. No new findings in either lung field and no pleural effusions nor intrathoracic adenopathy. RADIATION DOSE DELIVERED: 825.56mGy.cm Total DLP DATA REPOSITORY: All CT scans at this facility are submitted to the National Radiology Data Registry (NRDR) Dose Index Registry (DIR) with the [employer] ([employer]). RADIATION OPTIMIZATION: All CT scans at this facility use at least one of these dose optimization te chniques: automated exposure control; mA and/or kV adjustment per patient size (includes targeted exa ms where dose is matched to clinical indication); or iterative reconstruction.
[2023-07-21 13:16] LABS: Abs Immature Grans 0.02 10^3/uL (0.0-0.06); Absolute Basophil Count 0.04 10^3/uL (0.0-0.2); Absolute Eosinophil Count 0.19 10^3/uL (0.0-0.7); Absolute Lymphocyte Count 1.23 10^3/uL (1.2-3.4); Absolute Neutrophil Count 5.05 10^3/uL (1.2-6.7); Basophils % 0.6; Eosinophils % 2.7; HCT 33.7 % (36.0-46.0); HGB 11.4 g/dL (11.2-15.7); Immature Grans % 0.3; Lymphocytes % 17.5; MCH 30.7 pg (27.0-33.0); MCHC 33.8 % (32.0-36.0); MCV 91 fL (80-95); MPV 9.5 fL (8.0-11.0); Monocytes % 7.1; Neutrophils % 71.8; Platelet Count 272 10^3/uL (130-400); RBC 3.71 10^6/uL (3.93-5.22); RDW 13.2 % (11.7-14.6); RDW-SD 43.7 fL; WBC 7.03 10^3/uL (4.4-10.8)
[2023-07-21 13:35] LABS: ALT 28 U/L (14-59); AST 18 U/L (15-37); Albumin 3.9 g/dL (3.4-5.0); Alkaline Phosphatase 67 U/L (46-116); Anion Gap 9.7 mmol/L (3-11); BUN 18 mg/dL (7-18); Bilirubin, Total 0.6 mg/dL (0.2-1.0); CO2 28.3 mmol/L (21.0-32.0); CREATININE 1.4 mg/dL (0.55-1.02); Calcium 9.8 mg/dL (8.5-10.1); Chloride 101 mmol/L (98-107); Estimated GFR 42.27 (mL/min/1.73m2); Glucose 99 mg/dL (74-106); Potassium 3.8 mmol/L (3.5-5.1); Sodium 139 mmol/L (136-145); Total Protein 7.5 g/dL (6.4-8.2)
[2023-07-21] MEDS: Normal Saline - Diluent 50 ML VIAL IJ (13:51)
[2023-07-21] MEDS: Omnipaque 350 MG/ML 100 ML BTL IJ (13:52)
== END ==
PROVIDERS: PCP Physician Assistant; Visit Provider Internal Medicine Hematology & Oncology
DX: C34.91 Malignant neoplasm of unspecified part of right bronchus or lung (principal)
CPT/HCPCS: 80053; 71260; 85025; J3490

== ENCOUNTER 2023-09-08 14:58 | Emergency (ER) | payer OTHER, SELFPAY ==
[2023-09-08 15:03] VITALS: BP 99/66; PULSE 86; RESP 16; TEMP 36.9; O2SAT 93
--- NOTE | 2023-09-08 15:15 | DI.RAD_ITS ---
Exam(s) XR CHEST 2V PA LATERAL EXAM: XR CHEST 2V PA LATERAL CLINICAL HISTORY: flu, copd, cough. TECHNIQUE: 2D digital imaging was performed. COMPARISON: CT CT RENAL COLIC WO from 03/06/[address] CHEST W from 04/06/[address] CHEST W from 07/21/2023 FINDINGS: 2 views: Heart size is upper normal, unchanged. Mediastinum unchanged. Decreased right hemithoracic volume from prior lobectomy unchanged. Pleural thickening in the right lung base is unchanged. Right rib postop changes again noted. No new infiltrates nor new pleural effusions. Opposite-left lung is clear. IMPRESSION: Right hemithoracic postsurgical findings as above which are chronic and unchanged from prior CT scans listed above. No new pulmonary findings. DATA REPOSITORY: RADIATION DOSE DELIVERED:
--- NOTE | 2023-09-08 15:24 | ED.GENADUL_ITS ---
Discharge Plan Disposition Patient Disposition: Home Condition: Improving Discharge Details Chief Complaint: GenMedical Clinical Impression: Viral illness Primary Care Provider: Mikal Hollins ED Provider: Armond Griffin Home Meds and New Rx's Prescriptions: No Action lidocain-me.nknqrpm-vegf-pmzxg [1st Medx-Patch With Lidocaine] topical Rx Instructions: for hip and or spine aspirin [Adult Aspirin Regimen] 81 mg tablet,delayed release (DR/EC) 81 mg PO 2XD dexlansoprazole 60 mg capsule,biphase delayed releas 60 mg PO DAILY oxycodone 5 mg tablet 2.5 - 5 mg PO BID MDD 2 tabs PRN (Reason: pain) Qty: 60 0RF Rx Instructions: for cancer related pain palliative care patient gabapentin 400 mg capsule 400 mg PO BID sennosides [Senna Laxative] 8.6 mg tablet 8.6 mg PO BID PRN (Reason: constipation) Qty: 60 3RF torsemide 20 mg tablet 20 mg PO DAILY losartan 100 mg tablet 100 mg PO DAILY osimertinib 80 mg tablet 80 mg PO DAILY budesonide-formoterol [Symbicort] 160-4.5 mcg/actuation HFA aerosol inhaler 2 puff inhalation BID albuterol sulfate 2.5 mg /3 mL (0.083 %) solution for nebulization 2.5 mg inhalation Q6H potassium chloride [Klor-Con 10] 10 mEq tablet extended release 20 meq PO BID loperamide [Imodium A-D] 2 mg capsule 2 mg PO QID PRN (Reason: loose stool) Qty: 60 3RF Rx Instructions: For chemo related diarrhea. simvastatin 40 mg tablet 40 mg PO DAILY Tagrisso 80 mg tablet 80 mg PO DAILY nitroglycerin [Nitrostat] 0.4 MG tablet, sublingual 0.4 mg Sublingual DIRECTED PRN Patient Comments: never uses albuterol sulfate 8.5 GM HFA aerosol inhaler 2 puff Inhalation Q4H PRN PRNQty: 1 0RF multivitamin [Multiple Vitamins] 1 TAB tablet 1 tab PO DAILY Qty: 180 0RF Mag 64 64 mg tablet,delayed release (DR/EC) 128 mg PO BID Qty: 120 0RF lorazepam 1 MG tablet 1 mg PO TID PRN Discharge Instructions Instructions: Viral Syndrome (ED) HPI General Date/Time Provider Initiated Documentation: 09/08/23 15:00 . HPI Narrative: 63-year-old female history of COPD, recently tested positive for flu a presents with cough nausea headache diarrhea lightheadedness and fever at home. also with influenza. Noted low oxygen at nighttime as low as the high 80s on pulse ox. No history of supplemental oxygen use. Related Data Home Medications Medication Instructions Recorded Confirmed nitroglycerin 0.4 mg sublingual 0.4 mg sublingual DIRECTED PRN 10/05/12 08/14/23 tablet (Nitrostat) albuterol sulfate 90 mcg/actuation 2 puff inhalation Q4H PRN PRN ##1 09/21/14 08/14/23 aerosol inhaler multivitamin (Multiple Vitamins 1 tab PO DAILY #180 tabs 03/08/16 08/14/23 tablet) lorazepam 1 mg tablet 1 mg PO TID PRN 04/03/17 08/14/23 albuterol sulfate 2.5 mg/3 mL 2.5 mg inhalation Q6H 04/19/20 08/14/23 (0.083 %) solution for nebulization budesonide-formoterol HFA 160 2 puff inhalation BID 04/19/20 08/14/23 mcg-4.5 mcg/actuation aerosol inhaler (Symbicort) osimertinib 80 mg tablet 80 mg PO DAILY 04/19/20 08/14/23 gabapentin 400 mg capsule 400 mg PO BID 11/09/20 08/14/23 potassium chloride 10 mEq 20 meq PO BID 01/11/21 08/14/23 tablet,extended release (Klor-Con) sennosides 8.6 mg tablet (Senna 8.6 mg PO BID PRN constipation #60 05/09/22 08/14/23 Laxative) tabs loperamide 2 mg capsule (Imodium 2 mg PO QID PRN loose stool #60 06/12/22 08/14/23 A-D) caps aspirin 81 mg tablet,delayed 81 mg PO 2XD 07/11/22 08/14/23 release (Adult Aspirin Regimen) lidocain-me.bvipufu-kjjr-mfvdt topical 07/11/22 08/14/23 [1st Medx-Patch With Lidocaine] dexlansoprazole 60 mg 60 mg PO DAILY 04/14/23 03/15/24 capsule,biphase delayed release magnesium chloride 64 mg 128 mg (2 x 64 mg) PO BID #120 tabs 11/01/22 08/14/23 (magnesium chloride) tablet,delayed release (Mag 64) losartan 100 mg tablet 100 mg PO DAILY 12/01/22 08/14/23 torsemide 20 mg tablet 20 mg PO DAILY 12/01/22 08/14/23 oxycodone 5 mg tablet 2.5 - 5 mg (0.5 - 1 x 5 mg) PO BID 05/15/23 08/14/23 PRN pain #60 tabs osimertinib 80 mg tablet (Tagrisso) 80 mg PO DAILY 07/01/23 08/14/23 simvastatin 40 mg tablet 40 mg PO DAILY 07/01/23 08/14/23 Previous Rx's Medication Instructions Recorded albuterol sulfate 90 mcg/actuation 2 puff inhalation Q4H PRN PRN ##1 09/21/14 aerosol inhaler multivitamin (Multiple Vitamins 1 tab PO DAILY #180 tabs 03/08/16 tablet) sennosides 8.6 mg tablet (Senna 8.6 mg PO BID PRN constipation #60 05/09/22 Laxative) tabs loperamide 2 mg capsule (Imodium 2 mg PO QID PRN loose stool #60 06/12/22 A-D) caps magnesium chloride 64 mg 128 mg (2 x 64 mg) PO BID #120 tabs 11/01/22 (magnesium chloride) tablet,delayed release (Mag 64) oxycodone 5 mg tablet 2.5 - 5 mg (0.5 - 1 x 5 mg) PO BID 05/15/23 PRN pain #60 tabs Allergies Allergy/AdvReac Type Severity Reaction Status Date / Time fentanyl Allergy Intermediate SOB Verified 05/15/23 11:20 Sulfa (Sulfonamide Allergy Mild rash, Verified 05/15/23 11:20 Antibiotics) itching, nausea atorvastatin Allergy Verified 05/15/23 11:20 codeine Allergy Verified 05/15/23 11:20 hydrocodone Allergy Verified 05/15/23 11:20 morphine AdvReac Intermediate Body Verified 05/15/23 11:20 burning diphenhydramine HCl AdvReac Mild palpitation Verified 05/15/23 11:20 [From Benadryl] s Penicillins AdvReac Mild palpitation Verified 05/15/23 11:20 s tramadol AdvReac Mild SOB/vomitin Verified 05/15/23 11:20 g ondansetron AdvReac Verified 05/15/23 11:20 dander Allergy Intermediate Uncoded 05/15/23 11:20 General Stated Complaint: GenMedical LISS: 3 Review of Systems Narrative: Review of Systems Constitutional: Fatigue, fever Eyes: negative ENT: negative Cardiovascular: negative Respiratory: Cough Gastrointestinal: Nausea diarrhea : negative Musculoskeletal: negative Skin: negative Neurologic: negative Psych: negative Exam Narrative Exam Narrative: Physical Examination General: alert, awake, cooperative, resting comfortably, no acute distress HEENT: normocephalic, atraumatic; PERRL, EOM intact, conjunctiva normal; no nasal discharge; moist mucous membranes, oral and pharyngeal mucosa normal, tolerating secretions Neck: supple, trachea midline; full ROM Chest: normal to inspection Respiratory: normal respiratory effort, speaking in full sentences, clear to auscultation, no wheezing, rales or rhonchi Cardiac: regular rate, regular rhythm, S1S2 intact, no murmurs rubs or gallops GI: abdomen soft, non-tender, non-distended; no palpable mass or hepatosplenomegaly Skin: no lesions, rashes or trauma appreciated Neuro: AAOx3, normal speech, moving all extremities Psych: Appropriate mood and affect Course Vital Signs Vital signs: Vital Signs Temperature 36.9 C 09/08/23 15:03 Pulse 86 09/08/23 15:03 Respiratory Rate 16 09/08/23 15:03 Blood Pressure 99/66 L 09/08/23 15:03 Pulse Oximetry 93 09/08/23 15:03 Temperature 36.9 C 09/08/23 15:03 Temperature Source Oral 09/08/23 15:03 Pulse 86 09/08/23 15:03 Respiratory Rate 16 09/08/23 15:03 Blood Pressure 99/66 L 09/08/23 15:03 Blood Pressure Position Sitting 09/08/23 15:03 Pulse Oximetry 93 09/08/23 15:03 Oxygen Delivery Method Room Air 09/08/23 15:03 Oxygen Flow Rate 0 09/08/23 15:03 Medical Decision Making 63-year-old female history of COPD, recently diagnosed with influenza A, presents with fatigue cough nausea diarrhea noted hypoxia to the high 80s on room air at home last night. Normoxic here speaking full sentences lungs clear, no tachycardia nontoxic, alert and interactive. Likely symptomatic influenza most also consider superimposed pneumonia. Trial of dexamethasone. Will continue with p.o. hydration at home. 17: 01 x-ray clear negative for flu on obruy-lo-fqzw swab, symptomatically improved after steroid. Home care instructions and return precautions given. Quality:SDOH Health Related Social Needs: No Data to Display PFSH All Active Problems (Updated 09/08/23 @ 17:02 by Armond Griffin MD) Viral illness (Acute) Hypertension (Chronic) Atypical chest pain (Acute) Acute hyponatremia (Acute) Hypomagnesemia (Acute) DJD (degenerative joint disease) (Chronic) Palliative care patient (Acute) DNI (do not intubate) (Acute) DNR (do not resuscitate) (Acute) POLST (Physician Orders for Life-Sustaining Treatment) (Acute) COLST completed 04/20/2020, DNR/DNI. Cancer related pain (Acute) Medical History Alcoholism HLD (hyperlipidemia) Suicide attempt Renal insufficiency GERD (gastroesophageal reflux disease) Tobacco abuse Carotid atherosclerosis Chest pressure LBBB (left bundle branch block) Pedal edema Abnormal nuclear stress test Anxiety Ankle fracture COPD with asthma History of depression Degenerative joint disease (DJD) of lumbar spine Non-small cell cancer of right lung Surgical History History of appendectomy Social History Smoking/Tobacco Use Status: Former Tobacco Use Smoking risk assessment performed?: Yes Alcohol Intake: current Alcohol Intake frequency: a few times a week Alcohol type: beer Drug use: Never Substance use type: does not use Do you feel safe at home: Yes Do you feel safe in your relationship?: Yes
[2023-09-08] MEDS: Dexamethasone 10 MG/ML VIAL PO (15:30)
[2023-09-08 15:31] VITALS: RESP 16
== END 2023-09-08 17:07 | disposition home or self-care (01) ==
PROVIDERS: Emergency Provider Emergency Medicine; PCP Physician Assistant
DX: B34.9 Viral infection, unspecified (principal); I10 Essential (primary) hypertension; E78.5 Hyperlipidemia, unspecified; J44.9 Chronic obstructive pulmonary disease, unspecified; Z79.82 Long term (current) use of aspirin; Z87.891 Personal history of nicotine dependence
CPT/HCPCS: 87426; 99284; 71046; J1100

== ENCOUNTER 2023-09-12 13:25 | Inpatient (IN) | payer OTHER, SELFPAY ==
[2023-09-12] VITALS (83 sets, daily range): BP systolic 129–183; BP diastolic 75–124; PULSE 74–133; RESP 5–27; TEMP 36.3–36.7; O2SAT 88–100
--- NOTE | 2023-09-12 13:30 | DI.RAD_ITS ---
Exam(s) XR PORTABLE CHEST AP EXAM: XR PORTABLE CHEST AP CLINICAL HISTORY: SOB, Productive cough TECHNIQUE: 2D digital imaging was performed of the chest. One image was obtained. An AP view was ob tained. COMPARISON: CR XR CHEST 2V PA LATERAL from 09/08/2023 FINDINGS: MEDIASTINUM: There is stable shift of the mediastinum to the right secondary to the patient's right l obectomy. HEART: Upper limits of normal to mildly enlarged. PULMONARY VASCULATURE: Normal. LUNGS: No focal infiltrates. There is again seen scarring in the right lung base. Postsurgical mendes ges are seen in the right hilum. PLEURAL SPACE: No pleural effusion or pneumothorax. BONE:Within normal limits for the patient's age. Old healed right rib fractures. OTHER FINDINGS:Normal. IMPRESSION: No acute pulmonary findings. DATA REPOSITORY: RADIATION DOSE DELIVERED:
--- NOTE | 2023-09-12 13:43 | W.ED.GENAD ---
Discharge Plan Discharge Details Chief Complaint: RespSymp Primary Care Provider: Mikal Hollins ED Provider: Yuliya Anderson Home Meds and New Rx's Prescriptions: No Action lidocain-me.nasmjvn-wjmc-ebtrc [1st Medx-Patch With Lidocaine] 1 applic topical DAILY Rx Instructions: for hip and or spine aspirin [Adult Aspirin Regimen] 81 mg tablet,delayed release (DR/EC) 81 mg PO 2XD dexlansoprazole 60 mg capsule,biphase delayed releas 60 mg PO DAILY oxycodone 5 mg tablet 2.5 - 5 mg PO BID MDD 2 tabs PRN (Reason: pain) Qty: 60 0RF Rx Instructions: for cancer related pain palliative care patient gabapentin 400 mg capsule 400 mg PO BID sennosides [Senna Laxative] 8.6 mg tablet 8.6 mg PO BID PRN (Reason: constipation) Qty: 60 3RF torsemide 20 mg tablet 20 mg PO DAILY losartan 100 mg tablet 100 mg PO DAILY osimertinib 80 mg tablet 80 mg PO DAILY budesonide-formoterol [Symbicort] 160-4.5 mcg/actuation HFA aerosol inhaler 2 puff inhalation BID albuterol sulfate 2.5 mg /3 mL (0.083 %) solution for nebulization 2.5 mg inhalation Q6H potassium chloride [Klor-Con 10] 10 mEq tablet extended release 20 meq PO BID loperamide [Imodium A-D] 2 mg capsule 2 mg PO QID PRN (Reason: loose stool) Qty: 60 3RF Rx Instructions: For chemo related diarrhea. simvastatin 40 mg tablet 40 mg PO DAILY Tagrisso 80 mg tablet 80 mg PO DAILY nitroglycerin [Nitrostat] 0.4 MG tablet, sublingual 0.4 mg Sublingual DIRECTED PRN Patient Comments: never uses albuterol sulfate 8.5 GM HFA aerosol inhaler 2 puff Inhalation Q4H PRN PRNQty: 1 0RF multivitamin [Multiple Vitamins] 1 TAB tablet 1 tab PO DAILY Qty: 180 0RF Mag 64 64 mg tablet,delayed release (DR/EC) 128 mg PO BID Qty: 120 0RF lorazepam 1 MG tablet 1 mg PO TID PRN HPI General Mode of arrival: EMS. Date/Time Provider Initiated Documentation: 09/12/23 13:32. Limitations to Documentation: no limitations. Information obtained by: patient, EMS, RN notes reviewed and old records reviewed. HPI Narrative: 63 year old female presents to the ED with cc of SOB, productive cough which began last Thursday, seen here 4 days ago and dx with Flu. Past medical history includes stage IV cancer, had chemo treatment yesterday, did use her albuterol inhaler prior to arrival. Other history includes alcoholism hyperlipidemia renal insufficiency, GERD, tobacco abuse, COPD with asthma, non-small cell cancer of the right lung. Surgical history includes appendectomy. Patient is satting 97% on room air on arrival does have some expiratory wheezes noted. Related Data Home Medications Medication Instructions Recorded Confirmed nitroglycerin 0.4 mg sublingual 0.4 mg sublingual DIRECTED PRN 10/05/12 09/12/23 tablet (Nitrostat) albuterol sulfate 90 mcg/actuation 2 puff inhalation Q4H PRN PRN ##1 09/21/14 09/12/23 aerosol inhaler multivitamin (Multiple Vitamins 1 tab PO DAILY #180 tabs 03/08/16 09/12/23 tablet) lorazepam 1 mg tablet 1 mg PO TID PRN 04/03/17 09/12/23 albuterol sulfate 2.5 mg/3 mL 2.5 mg inhalation Q6H 04/19/20 09/12/23 (0.083 %) solution for nebulization budesonide-formoterol HFA 160 2 puff inhalation BID 04/19/20 09/12/23 mcg-4.5 mcg/actuation aerosol inhaler (Symbicort) osimertinib 80 mg tablet 80 mg PO DAILY 04/19/20 09/12/23 gabapentin 400 mg capsule 400 mg PO BID 11/09/20 09/12/23 potassium chloride 10 mEq 20 meq PO BID 01/11/21 09/12/23 tablet,extended release (Klor-Con) sennosides 8.6 mg tablet (Senna 8.6 mg PO BID PRN constipation #60 05/09/22 09/12/23 Laxative) tabs loperamide 2 mg capsule (Imodium 2 mg PO QID PRN loose stool #60 06/12/22 09/12/23 A-D) caps aspirin 81 mg tablet,delayed 81 mg PO 2XD 07/11/22 09/12/23 release (Adult Aspirin Regimen) lidocain-me.pyqhniq-oywv-ycbnb 1 applic topical DAILY 07/11/22 09/12/23 dexlansoprazole 60 mg 60 mg PO DAILY 09/12/22 09/12/23 capsule,biphase delayed release magnesium chloride 64 mg 128 mg (2 x 64 mg) PO BID #120 tabs 11/01/22 09/12/23 (magnesium chloride) tablet,delayed release (Mag 64) losartan 100 mg tablet 100 mg PO DAILY 12/01/22 09/12/23 torsemide 20 mg tablet 20 mg PO DAILY 12/01/22 09/12/23 oxycodone 5 mg tablet 2.5 - 5 mg (0.5 - 1 x 5 mg) PO BID 05/15/23 09/12/23 PRN pain #60 tabs osimertinib 80 mg tablet (Tagrisso) 80 mg PO DAILY 07/01/23 09/12/23 simvastatin 40 mg tablet 40 mg PO DAILY 07/01/23 09/12/23 Previous Rx's Medication Instructions Recorded albuterol sulfate 90 mcg/actuation 2 puff inhalation Q4H PRN PRN ##1 09/21/14 aerosol inhaler multivitamin (Multiple Vitamins 1 tab PO DAILY #180 tabs 03/08/16 tablet) sennosides 8.6 mg tablet (Senna 8.6 mg PO BID PRN constipation #60 05/09/22 Laxative) tabs loperamide 2 mg capsule (Imodium 2 mg PO QID PRN loose stool #60 06/12/22 A-D) caps magnesium chloride 64 mg 128 mg (2 x 64 mg) PO BID #120 tabs 11/01/22 (magnesium chloride) tablet,delayed release (Mag 64) oxycodone 5 mg tablet 2.5 - 5 mg (0.5 - 1 x 5 mg) PO BID 05/15/23 PRN pain #60 tabs Allergies Allergy/AdvReac Type Severity Reaction Status Date / Time hydrocodone Allergy Severe Anaphylaxis Verified 09/12/23 13:35 atorvastatin Allergy Intermediate Other (See Verified 09/12/23 13:35 Comment) fentanyl Allergy Intermediate SOB Verified 09/12/23 13:35 Sulfa (Sulfonamide Allergy Mild rash, Verified 09/12/23 13:35 Antibiotics) itching, nausea codeine Allergy Unknown Other (See Verified 09/12/23 13:35 Comment) morphine AdvReac Intermediate Body Verified 09/12/23 13:35 burning ondansetron AdvReac Intermediate Other (See Verified 09/12/23 13:35 Comment) diphenhydramine HCl AdvReac Mild palpitation Verified 09/12/23 13:35 [From Benadryl] s Penicillins AdvReac Mild palpitation Verified 09/12/23 13:35 s tramadol AdvReac Mild SOB/vomitin Verified 09/12/23 13:35 g dander Allergy Intermediate Other (See Uncoded 09/12/23 13:35 Comment) General Stated Complaint: RespSymp LISS: 3 Review of Systems All systems reviewed & are unremarkable except as noted in HPI and below Cardiovascular Cardiovascular: Reports dyspnea Respiratory Respiratory: Reports cough, Reports dyspnea and Reports wheezing Allergic/Immunologic Allergic/Immunologic: Reports wheezing Exam Narrative Exam Narrative: Constitutional: Alert and oriented x3. Appears stated age. Obese body habitus. Head: Normocephalic, no trauma. Eyes: Pupils PERRL, Red reflex noted, EOM's intact. Eyelids symmetrical without lesions, discharge, or swelling. ENT: Bilateral TM's WNL, External ear normal to inspection, no mastoid TTP, swelling, or erythema, Nasal turbinates WNL, no nasal discharge. Normal dentition, Posterior pharynx WNL, no exudate. Chest: RRR, Normal S1, S2, distal pulses intact. Resp: Scattered expiratory wheezes throughout, diminished in the bases. Abdomen: Soft, non-distended, Normoactive bowel sounds all 4 quads. Musculoskeletal: Normal gait, Skin: No suspicious rashes or lesions. Capillary refill less than 2 sec. Neurologic: Cranial nerves II-XII intact. Alert and oriented x 3. Motor: No deficits noted. Sensory: Intact bilaterally all 4 extremities. Hematologic/Lymphatic: No ecchymosis, no lymphadenopathy. Course Vital Signs Vital signs: Vital Signs Temperature 36.7 C 09/12/23 13:26 Pulse 80 09/12/23 13:26 Respiratory Rate 12 09/12/23 13:26 Blood Pressure 158/107 H 09/12/23 13:26 Pulse Oximetry 97 09/12/23 13:26 Temperature 36.7 C 09/12/23 13:33 Pulse 80 09/12/23 13:33 Respiratory Rate 12 09/12/23 13:33 Respiratory Effort Normal, Non-Labored 09/12/23 13:31 Blood Pressure 158/107 H 09/12/23 13:33 Blood Pressure Position Supine 09/12/23 13:33 Pulse Oximetry 97 09/12/23 13:33 Oxygen Delivery Method Room Air 09/12/23 13:33 Oxygen Flow Rate 0 09/12/23 13:33 Pain Level 0 09/12/23 13:33 Medical Decision Making 63 year old female presents to the ED with cc of SOB, productive cough which began last Thursday, seen here 4 days ago and dx with Flu. Past medical history includes stage IV cancer, had chemo treatment yesterday, did use her albuterol inhaler prior to arrival. Other history includes alcoholism hyperlipidemia renal insufficiency, GERD, tobacco abuse, COPD with asthma, non-small cell cancer of the right lung. Surgical history includes appendectomy. Patient is satting 97% on room air on arrival does have some expiratory wheezes noted. X-ray ordered, CBC CMP VBG DuoNeb and 125 Solu-Medrol. Patient slightly tachycardic, c/o nausea, zofran ordered 500 ml NS bolus ordered. Influenza A positive, informed by staff antisubmarine officer that patient has also been c/o diarrhea. Care is to be handed off to oncoming provider KENISHA Blake pending reeval and disposition. This text was generated using [employer] dictation system, please disregard any oddities of phrase or misspellings. Imaging Data Radiologic Study: Imaging: CT Scan Radiologist's impression: Imaging protocol: Portable radiologic exam of the chest. Views: 1 view. COMPARISON: 1. CR XR CHEST 2V PA LATERAL 09/08/2023 3:[address] CHEST W 07/21/2023 1:[address] CHEST W 04/06/2023 2:15 PM FINDINGS: Lungs: The patient is status post right lobectomy. There is surgical clips noted at the level of the right side of the mediastinum. The heart and pericardium are shifted to the right secondary to the volume loss. These findings were present on the earlier studies as well. Pleural spaces: Unremarkable. No pleural effusion. No pneumothorax. Heart/Mediastinum: Unremarkable. No cardiomegaly. Bones/joints: Unremarkable. IMPRESSION: No acute findings. No significant change when compared to earlier studies. Thank you for allowing us to participate in the care of your patient. Dictated and Authenticated by: Fletcher Briggs MD 09/12/2023 3:08 PM Eastern Time ([place] & [place]) Lab Data Lab results reviewed: Yes I reviewed the patient's lab results. Labs: Laboratory Tests Range/Units 09/12/23 09/12/23 09/12/23 13:40 13:44 13:48 WBC (4.4-10.8) 10^3/uL 7.62 RBC (3.93-5.22) 10^6/uL 4.18 Hgb (11.2-15.7) g/dL 12.5 Hct (36.0-46.0) % 38.3 MCV (80-95) fL 92 MCH (27.0-33.0) pg 29.9 MCHC (32.0-36.0) % 32.6 RDW (11.7-14.6) % 13.3 Plt Count (130-400) 10^3/uL 216 MPV (8.0-11.0) fL 11.0 Immature Gran % 0.3 Neutrophils % 62.7 Lymphocytes % 26.9 Monocytes % 9.3 Eosinophils % 0.5 Basophils % 0.3 Nucleated RBC % (0.0-0.3) % 0.0 Absolute Neutrophils (1.2-6.7) 10^3/uL 4.78 Absolute Lymphocytes (1.2-3.4) 10^3/uL 2.05 Absolute Monocytes (0.1-0.8) 10^3/uL 0.71 Absolute Eosinophils (0.0-0.7) 10^3/uL 0.04 Absolute Basophils (0.0-0.2) 10^3/uL 0.02 VBG pH (7.31-7.41) 7.43 H VBG pCO2 (41-51) mmHg 42 VBG pO2 mmHg 26 VBG HCO3 (23-28) mmol/L 28 VBG Total CO2 (24-29) mmol/L 26 VBG O2 Saturation % 50 VBG Base Excess (-2-3) mmol/L 4 H Sodium (136-145) mmol/L 139 Potassium (3.5-5.1) mmol/L 4.2 Chloride (98-107) mmol/L 102 Carbon Dioxide (21.0-32.0) mmol/L 27.7 Anion Gap (3-11) mmol/L 9.3 BUN (7-18) mg/dL 11 Creatinine (0.55-1.02) mg/dL 1.2 H Est GFR (CKD-EPI 2020) (mL/min/1.73m2) 50.86 Glucose (74-106) mg/dL 93 Calcium (8.5-10.1) mg/dL 9.3 Total Bilirubin (0.2-1.0) mg/dL 0.4 AST (15-37) U/L 22 ALT (14-59) U/L 26 Alkaline Phosphatase (46-116) U/L 66 Total Protein (6.4-8.2) g/dL 7.6 Albumin (3.4-5.0) g/dL 3.6 COVID-19 Source Nasopharynx SARS-CoV-2 (PCR) (Negative) Negative Influenza Type A (PCR) (Negative) Positive A Influenza Type B (PCR) (Negative) Negative RSV (PCR) (Negative) Negative Quality:SDOH Health Related Social Needs: No Data to Display PFSH All Active Problems Viral illness (Acute) Hypertension (Chronic) Atypical chest pain (Acute) Acute hyponatremia (Acute) Hypomagnesemia (Acute) DJD (degenerative joint disease) (Chronic) Palliative care patient (Acute) DNI (do not intubate) (Acute) DNR (do not resuscitate) (Acute) POLST (Physician Orders for Life-Sustaining Treatment) (Acute) COLST completed 04/20/2020, DNR/DNI. Cancer related pain (Acute) Medical History Alcoholism HLD (hyperlipidemia) Suicide attempt Renal insufficiency GERD (gastroesophageal reflux disease) Tobacco abuse Carotid atherosclerosis Chest pressure LBBB (left bundle branch block) Pedal edema Abnormal nuclear stress test Anxiety Ankle fracture COPD with asthma History of depression Degenerative joint disease (DJD) of lumbar spine Non-small cell cancer of right lung Surgical History History of appendectomy Social History Smoking/Tobacco Use Status: Former Tobacco Use Smoking risk assessment performed?: Yes Alcohol Intake: current Alcohol Intake frequency: a few times a week Alcohol type: wine Drug use: Never Substance use type: does not use Do you feel safe at home: Yes Do you feel safe in your relationship?: Yes Sign Out Sign Out Data: Sign Out Comment: Pending Re-eval. Dx with Influenza A, here with SOB, nausea and diarrhea. Last updated by Yuliya Anderson NP at 09/12/23 15:33 PAWSS Have you Been Recently Intoxicated or Drunk Within the Last 30 days?: Yes Have you Ever Experienced Previous Episodes of Alcohol Withdrawal?: No Have you ever Experienced Withdrawal Seizures?: No Have you ever Experienced Delirium Tremens(DT)s?: No Have you ever undergone Alcohol Rehabilitation Treatment (i.e, inpt ot outpatient treatment programs)?: Yes Have you ever Experienced Blackouts?: No Have you ever Combined Alcohol with other Downers within the last 90 days?: No Have you ever Combined Alcohol with any other Substance of Abuse during the last 90 days?: No Positive Blood Alcohol level on Presentation? [PCS.BAL]: No Evidence of Increased Autonomic Activity (i.e. HR>120, tremor, sweating, agitation, nausea)?: No Result: 2
[2023-09-12 13:52] LABS: BE (Venous) 4 mmol/L (-2-3); HCO3 (Venous) 28 mmol/L (23-28); O2 Sat (Venous) 50 %; TCO2 (Venous) 26 mmol/L (24-29); pCO2 (Venous) 42 mmHg (41-51); pH (Venous) 7.43 (7.31-7.41); pO2 (Venous) 26 mmHg
[2023-09-12 13:54] LABS: Abs Immature Grans 0.02 10^3/uL (0.0-0.06); Absolute Basophil Count 0.02 10^3/uL (0.0-0.2); Absolute Eosinophil Count 0.04 10^3/uL (0.0-0.7); Absolute Lymphocyte Count 2.05 10^3/uL (1.2-3.4); Absolute Monocyte Count 0.71 10^3/uL (0.1-0.8); Absolute Neutrophil Count 4.78 10^3/uL (1.2-6.7); Basophils % 0.3; Eosinophils % 0.5; HCT 38.3 % (36.0-46.0); HGB 12.5 g/dL (11.2-15.7); Immature Grans % 0.3; Lymphocytes % 26.9; MCH 29.9 pg (27.0-33.0); MCHC 32.6 % (32.0-36.0); MCV 92 fL (80-95); Monocytes % 9.3; Neutrophils % 62.7; Platelet Count 216 10^3/uL (130-400); RBC 4.18 10^6/uL (3.93-5.22); RDW 13.3 % (11.7-14.6); RDW-SD 45.5 fL; WBC 7.62 10^3/uL (4.4-10.8)
[2023-09-12] MEDS: Albuterol/Ipratropium 3 ML UPD VIAL UPD (14:02)
[2023-09-12] MEDS: methylPREDNISolone SUCC 125 MG VIAL IVP (14:03)
[2023-09-12 14:13] LABS: ALT 26 U/L (14-59); AST 22 U/L (15-37); Albumin 3.6 g/dL (3.4-5.0); Alkaline Phosphatase 66 U/L (46-116); Anion Gap 9.3 mmol/L (3-11); BUN 11 mg/dL (7-18); Bilirubin, Total 0.4 mg/dL (0.2-1.0); CO2 27.7 mmol/L (21.0-32.0); CREATININE 1.2 mg/dL (0.55-1.02); Calcium 9.3 mg/dL (8.5-10.1); Chloride 102 mmol/L (98-107); Estimated GFR 50.86 (mL/min/1.73m2); Glucose 93 mg/dL (74-106); Potassium 4.2 mmol/L (3.5-5.1); Sodium 139 mmol/L (136-145); Total Protein 7.6 g/dL (6.4-8.2)
[2023-09-12 14:32] LABS: COVID-19 PCR Negative (Negative); Influenza A PCR Positive (Negative); Influenza B PCR Negative (Negative); RSV PCR Negative (Negative)
[2023-09-12 14:33] LABS: Source Nasopharynx
--- NOTE | 2023-09-12 15:09 | DI.VRAD_ITS ---
PROCEDURE INFORMATION: Exam: Portable XR Chest Exam date and time: 09/12/2023 2:24 PM Age: 63 years old Clinical indication: Shortness of breath; Prior surgery; Surgery date: 6+ months; Surgery type: Lobectomy TECHNIQUE: Imaging protocol: Portable radiologic exam of the chest. Views: 1 view. COMPARISON: 1. CR XR CHEST 2V PA LATERAL 09/08/2023 3:[address] CHEST W 07/21/2023 1:[address] CHEST W 04/06/2023 2:15 PM FINDINGS: Lungs: The patient is status post right lobectomy. There is surgical clips noted at the level of the right side of the mediastinum. The heart and pericardium are shifted to the right secondary to the volume loss. These findings were present on the earlier studies as well. Pleural spaces: Unremarkable. No pleural effusion. No pneumothorax. Heart/Mediastinum: Unremarkable. No cardiomegaly. Bones/joints: Unremarkable. IMPRESSION: No acute findings. No significant change when compared to earlier studies. Dictated and Authenticated by: Fletcher Briggs MD. Ordering:DEBORAH Dwyer MD
[2023-09-12] MEDS: Normal Saline 500 ML IV (15:25)
[2023-09-12] MEDS: Ondansetron 4 MG/2 ML VIAL IVP (15:27)
[2023-09-12] MEDS: ACETAMINOPHEN 1,000 MG/100 ML BTL 400 MG IVPB (15:57)
[2023-09-12] MEDS: Prochlorperazine 10 MG/2 ML VIAL 5 MG IVP (15:57)
[2023-09-12 16:09] LABS: Magnesium 2.1 mg/dL (1.8-2.4)
[2023-09-12 16:11] LABS: Lactate 1.8 mmol/L (0.6-1.4)
[2023-09-12 16:25] LABS: ETHANOL BLOOD < 3.0 mg/dL (<10)
[2023-09-12 16:53] LABS: Procalcitonin < 0.1 ng/mL
[2023-09-12] MEDS: Lactated Ringers 1,000 ML 1000 ML IV (17:11)
[2023-09-12 17:29] LABS: Bilirubin Negative (Negative); Blood Negative (Negative); Clarity Clear (Clear); Glucose Negative (Negative); Ketones 15 mg/dL (Negative); Leukocyte Esterase Negative (Negative); Nitrite Negative (Negative); Specific Gravity 1.015 (1.005-1.025); Urobilinogen 0.2 mg/dL (Up to 0.2)
[2023-09-12 17:31] LABS: Lab Add On Test DONE
[2023-09-12 17:35] LABS: Bacteria Rare HPF (Negative); C & S Indicated? No; Casts 0-2 Hyaline LPF (Negative); Crystals Negative HPF (Negative); Epithelial Cells Rare HPF (Negative); Mucus Negative (Negative); RBC Negative HPF (0-2)
[2023-09-12 17:49] LABS: NT-proBNP 701 pg/mL (<300)
--- NOTE | 2023-09-12 18:00 | DI.CT_ITS ---
Exam(s) CT CHEST PE CTA EXAM: CT CHEST PE CTA CLINICAL HISTORY: chest pain shortness. TECHNIQUE: Imaging Protocol: Axial CT angiography was performed with multi-slice acquisition and mu lti-planar and/or 3D reconstructions. CONTRAST MATERIAL: Intravenous: Omnipaque 350 contrast volume:100 mL COMPARISON: CT CT CHEST W from 10/01/[address] CHEST PE CTA from 10/31/[address] CHEST W from 01/13/[address] CHEST W from 04/06/[address] CHEST W from 07/21/2023 FINDINGS: Mild patient motion artifact. Tracheobronchial tree: Patent where visualized. Pulmonary parenchyma: There are stable areas of scarring in the right lung. The patient is status po st right lobectomy. There are few small ground-glass opacities in the right lower lobe.. The left l ezekiel is clear. Pulmonary Arteries: No evidence of filling defect to suggest pulmonary emboli. Mediastinum and Abida: No dominant adenopathy or fluid collection. The esophagus is unremarkable. Visualized thyroid gland: Unremarkable. Pleura: No effusion or pneumothorax. Heart: The heart is not dilated. No coronary artery calcifications are seen. No pericardial effusion. Aorta: Thoracic aorta non-dilated. No evidence of dissection. Upper abdomen: Unremarkable. Soft tissues: Unremarkable. Bones: Within normal limits for the patient's age.Old healed right rib fractures. IMPRESSION: 1. No evidence of pulmonary embolism, thoracic aortic dissection or aneurysm. 2. A few small ground-glass opacities in the right lower lobe which may represent pneumonitis or atel ectasis. Small airways disease should be considered. 3. Postsurgical changes in the right hemithorax. RADIATION DOSE DELIVERED: 576.05mGy.cm Total DLP DATA REPOSITORY: All CT scans at this facility are submitted to the National Radiology Data Registry (NRDR) Dose Index Registry (DIR) with the [employer] (ACR). RADIATION OPTIMIZATION: All CT scans at this facility use at least one of these dose optimization te chniques: automated exposure control; mA and/or kV adjustment per patient size (includes targeted exa ms where dose is matched to clinical indication); or iterative reconstruction.
[2023-09-12 18:22] LABS: C Diff PCR Negative (Negative)
[2023-09-12] MEDS: LORazepam 2 MG/ML VIAL 1 MG IVP (18:26)
[2023-09-12] MEDS: Normal Saline - Diluent 50 ML VIAL IJ (19:03)
[2023-09-12] MEDS: Omnipaque 350 MG/ML 100 ML BTL IJ (19:04)
[2023-09-12] MEDS: Lactated Ringers 1,000 ML 500 ML IV (19:24)
--- NOTE | 2023-09-12 20:15 | DI.VRAD_ITS ---
PROCEDURE INFORMATION: Exam: CTA Chest With Contrast Exam date and time: 09/12/2023 7:07 PM Age: 63 years old Clinical indication: Other: Chest pain TECHNIQUE: Imaging protocol: Computed tomographic angiography of the chest with contrast. Exam focused on the arteries. 3D rendering (Not supervised by radiologist): MIP and/or 3D reconstructed images were created by the technologist. Contrast material: OMNIPAQUE; Contrast volume: 100 ml; Contrast route: INTRAVENOUS (IV); COMPARISON: CT CHEST PE CTA 10/31/2022 12:23 PM FINDINGS: Pulmonary arteries: Normal. No pulmonary emboli. Aorta: Unremarkable. No aortic aneurysm. No aortic dissection. Lungs: Minimal ground-glass changes right lower lobe appear new since prior study. Pleural spaces: Unremarkable. No pneumothorax. No pleural effusion. Heart: Unremarkable. No cardiomegaly. No pericardial effusion. Mediastinal space: Mild mediastinal shift to the right is unchanged from previous study. Lymph nodes: Unremarkable. No enlarged lymph nodes. Bones/joints: Old right rib fractures again seen. Soft tissues: Unremarkable. IMPRESSION: 1. No evidence for pulmonary embolus. 2. Minimal ground-glass changes noted right lower lobe, possible early infection. Dictated and Authenticated by: Casandra Davis MD. Ordering:BRANDEE Hedrick MD
--- NOTE | 2023-09-12 20:46 | W.PM.HP.N ---
Date of service: 09/12/23 Time of Service: 20:46 Assessment and Plan Assessment and plan (1) Acute hypoxic respiratory failure: Status: Acute Assessment and plan: multifactoral. continue oxygen to maintain sats, wean as able will add tamiflu for influenza continue ceftriaxone and doxycycline day 1/5 continue steroid burst pulmonary toileting with TCDB, I/S and acapella (2) Influenza A: Status: Acute Assessment and plan: initiate tamiflu in setting of hypoxic respiratory failure requiring hospitalization despite being out of the window (3) Non-small cell cancer of right lung: Assessment and plan: Status post right lobectomy (4) COPD with asthma: Assessment and plan: with exacerbation in setting of influenza and suspected bacterial pneumonia continue scheduled updrafts, home inhalers and steroids (5) Hypertension: Status: Chronic Assessment and plan: continue home meds and monitor discussed with DR Echeverria History of Present Illness History of Present Illness Chief Complaint: shortness of breath PFSH All Active Problems (Updated 09/12/23 @ 20:48 by Page Smith NP) Acute hypoxic respiratory failure (Acute) Influenza A (Acute) Viral illness (Acute) Hypertension (Chronic) Atypical chest pain (Acute) Acute hyponatremia (Acute) Hypomagnesemia (Acute) DJD (degenerative joint disease) (Chronic) Palliative care patient (Acute) DNI (do not intubate) (Acute) DNR (do not resuscitate) (Acute) POLST (Physician Orders for Life-Sustaining Treatment) (Acute) COLST completed 04/20/2020, DNR/DNI. Cancer related pain (Acute) Medical History Alcoholism HLD (hyperlipidemia) Suicide attempt Renal insufficiency GERD (gastroesophageal reflux disease) Tobacco abuse Carotid atherosclerosis Chest pressure LBBB (left bundle branch block) Pedal edema Abnormal nuclear stress test Anxiety Ankle fracture COPD with asthma History of depression Degenerative joint disease (DJD) of lumbar spine Non-small cell cancer of right lung Surgical History History of appendectomy Social History Smoking/Tobacco Use Status: Former Tobacco Use Smoking risk assessment performed?: Yes Alcohol Intake: current Alcohol Intake frequency: a few times a week Alcohol type: wine Drug use: Never Substance use type: does not use Housing: apartment Do you feel safe at home: Yes Do you feel safe in your relationship?: Yes Meds Allergies and Home Medications Allergies Allergy/AdvReac Type Severity Reaction Status Date / Time hydrocodone Allergy Severe Anaphylaxis Verified 09/12/23 13:35 atorvastatin Allergy Intermediate Other (See Verified 09/12/23 13:35 Comment) fentanyl Allergy Intermediate SOB Verified 09/12/23 13:35 Sulfa (Sulfonamide Allergy Mild rash, Verified 09/12/23 13:35 Antibiotics) itching, nausea codeine Allergy Unknown Other (See Verified 09/12/23 13:35 Comment) morphine AdvReac Intermediate Body Verified 09/12/23 13:35 burning ondansetron AdvReac Intermediate Other (See Verified 09/12/23 13:35 Comment) diphenhydramine HCl AdvReac Mild palpitation Verified 09/12/23 13:35 [From Benadryl] s Penicillins AdvReac Mild palpitation Verified 09/12/23 13:35 s tramadol AdvReac Mild SOB/vomitin Verified 09/12/23 13:35 g dander Allergy Intermediate Other (See Uncoded 09/12/23 13:35 Comment) Home Medications Medication Instructions Recorded Confirmed Type nitroglycerin 0.4 mg sublingual 0.4 mg sublingual DIRECTED PRN 10/05/12 09/12/23 History tablet (Nitrostat) albuterol sulfate 90 mcg/actuation 2 puff inhalation Q4H PRN PRN ##1 09/21/14 09/12/23 Rx aerosol inhaler multivitamin (Multiple Vitamins 1 tab PO DAILY #180 tabs 03/08/16 09/12/23 Rx tablet) lorazepam 1 mg tablet 1 mg PO TID PRN 04/03/17 09/12/23 History albuterol sulfate 2.5 mg/3 mL 2.5 mg inhalation Q6H 04/19/20 09/12/23 History (0.083 %) solution for nebulization budesonide-formoterol HFA 160 2 puff inhalation BID 04/19/20 09/12/23 History mcg-4.5 mcg/actuation aerosol inhaler (Symbicort) gabapentin 400 mg capsule 400 mg PO BID 11/09/20 09/12/23 History potassium chloride 10 mEq 20 meq PO BID 01/11/21 09/12/23 History tablet,extended release (Klor-Con) sennosides 8.6 mg tablet (Senna 8.6 mg PO BID PRN constipation #60 05/09/22 09/12/23 Rx Laxative) tabs loperamide 2 mg capsule (Imodium 2 mg PO QID PRN loose stool #60 06/12/22 09/12/23 Rx A-D) caps aspirin 81 mg tablet,delayed 81 mg PO 2XD 07/11/22 09/12/23 History release (Adult Aspirin Regimen) lidocain-me.npqkvun-srbq-qmgqf 1 applic topical DAILY 07/11/22 09/12/23 History dexlansoprazole 60 mg 60 mg PO DAILY 09/12/22 09/12/23 History capsule,biphase delayed release losartan 100 mg tablet 100 mg PO DAILY 12/01/22 09/12/23 History torsemide 20 mg tablet 20 mg PO DAILY 12/01/22 09/12/23 History oxycodone 5 mg tablet 2.5 - 5 mg (0.5 - 1 x 5 mg) PO BID 05/15/23 09/12/23 Rx PRN pain #60 tabs osimertinib 80 mg tablet (Tagrisso) 80 mg PO DAILY 07/01/23 09/12/23 History simvastatin 40 mg tablet 40 mg PO DAILY 07/01/23 09/12/23 History magnesium L-lactate 84 mg 84 mg PO QID 09/13/23 09/13/23 History tablet,extended release (Magtab) Exam Const General: cooperative, comfortable and no acute distress Nutritional Appearance: obese Orientation: alert, awake and oriented x3 [facility] Head: normal to inspection, normocephalic and atraumatic Face and sinus: normal facial exam Mouth: oral mucosae normal Neck Neck: normal visual inspection and full ROM Chest Chest: normal inspection of the chest Resp Effort & Inspection: normal respiratory effort (no oxygen requirements) and able to speak in complete sentences GI Inspection: large pannus Palpation: soft, not firm, no guarding and no masses Auscultation: hyperactive bowel sounds Skin General skin exam: no rashes or lesions noted Neuro General: patient alert, patient awake and patient oriented x3 Cognition: normal cognition Speech: speech normal Gait: normal gait Extrem General: normal to inspection and full ROM Results Labs 09/13/23 06:25 09/13/23 06:25 Labs: Laboratory Results - last 24 hr 09/12/23 09/12/23 09/12/23 13:40 13:44 13:48 WBC 7.62 RBC 4.18 Hgb 12.5 Hct 38.3 MCV 92 MCH 29.9 MCHC 32.6 RDW 13.3 Plt Count 216 MPV 11.0 Immature Gran % 0.3 Neutrophils % 62.7 Lymphocytes % 26.9 Monocytes % 9.3 Eosinophils % 0.5 Basophils % 0.3 Nucleated RBC % 0.0 Absolute Neutrophils 4.78 Absolute Lymphocytes 2.05 Absolute Monocytes 0.71 Absolute Eosinophils 0.04 Absolute Basophils 0.02 D-Dimer VBG pH 7.43 H VBG pCO2 42 VBG pO2 26 VBG HCO3 28 VBG Total CO2 26 VBG O2 Saturation 50 VBG Base Excess 4 H VBG Lactate Sodium 139 Potassium 4.2 Chloride 102 Carbon Dioxide 27.7 Anion Gap 9.3 BUN 11 Creatinine 1.2 H Est GFR (CKD-EPI 2020) 50.86 Glucose 93 Calcium 9.3 Magnesium 2.1 Total Bilirubin 0.4 AST 22 ALT 26 Alkaline Phosphatase 66 NT-Pro-B Natriuret Pep 701 H Total Protein 7.6 Albumin 3.6 Procalcitonin Urine Color Urine Clarity Urine pH Ur Specific [place] Urine Protein Urine Ketones Urine Blood Urine Nitrite Urine Bilirubin Urine Urobilinogen Ur Leukocyte Esterase Urine RBC Urine WBC Ur Epithelial Cells Urine Crystals Urine Bacteria Urine Casts Urine Mucus Ur Culture Indicated? Urine Glucose Stl C.difficile Tox PCR Ethyl Alcohol < 3.0 COVID-19 Source Nasopharynx SARS-CoV-2 (PCR) Negative Influenza Type A (PCR) Positive A Influenza Type B (PCR) Negative RSV (PCR) Negative Add-On Test Request DONE 09/12/23 09/12/23 09/12/23 16:08 16:56 17:13 WBC RBC Hgb Hct MCV MCH MCHC RDW Plt Count MPV Immature Gran % Neutrophils % Lymphocytes % Monocytes % Eosinophils % Basophils % Nucleated RBC % Absolute Neutrophils Absolute Lymphocytes Absolute Monocytes Absolute Eosinophils Absolute Basophils D-Dimer Cancelled VBG pH VBG pCO2 VBG pO2 VBG HCO3 VBG Total CO2 VBG O2 Saturation VBG Base Excess VBG Lactate 1.8 H Sodium Potassium Chloride Carbon Dioxide Anion Gap BUN Creatinine Est GFR (CKD-EPI 2020) Glucose Calcium Magnesium Total Bilirubin AST ALT Alkaline Phosphatase NT-Pro-B Natriuret Pep Total Protein Albumin Procalcitonin < 0.1 Urine Color Dark Yellow Urine Clarity Clear Urine pH 7.0 Ur Specific [place] 1.015 Urine Protein 30 H Urine Ketones 15 H Urine Blood Negative Urine Nitrite Negative Urine Bilirubin Negative Urine Urobilinogen 0.2 Ur Leukocyte Esterase Negative Urine RBC Negative Urine WBC 3-5 Ur Epithelial Cells Rare Urine Crystals Negative Urine Bacteria Rare Urine Casts 0-2 Hyaline Urine Mucus Negative Ur Culture Indicated? No Urine Glucose Negative Stl C.difficile Tox PCR Ethyl Alcohol COVID-19 Source SARS-CoV-2 (PCR) Influenza Type A (PCR) Influenza Type B (PCR) RSV (PCR) Add-On Test Request 09/12/23 17:30 WBC RBC Hgb Hct MCV MCH MCHC RDW Plt Count MPV Immature Gran % Neutrophils % Lymphocytes % Monocytes % Eosinophils % Basophils % Nucleated RBC % Absolute Neutrophils Absolute Lymphocytes Absolute Monocytes Absolute Eosinophils Absolute Basophils D-Dimer VBG pH VBG pCO2 VBG pO2 VBG HCO3 VBG Total CO2 VBG O2 Saturation VBG Base Excess VBG Lactate Sodium Potassium Chloride Carbon Dioxide Anion Gap BUN Creatinine Est GFR (CKD-EPI 2020) Glucose Calcium Magnesium Total Bilirubin AST ALT Alkaline Phosphatase NT-Pro-B Natriuret Pep Total Protein Albumin Procalcitonin Urine Color Urine Clarity Urine pH Ur Specific [place] Urine Protein Urine Ketones Urine Blood Urine Nitrite Urine Bilirubin Urine Urobilinogen Ur Leukocyte Esterase Urine RBC Urine WBC Ur Epithelial Cells Urine Crystals Urine Bacteria Urine Casts Urine Mucus Ur Culture Indicated? Urine Glucose Stl C.difficile Tox PCR Negative Ethyl Alcohol COVID-19 Source SARS-CoV-2 (PCR) Influenza Type A (PCR) Influenza Type B (PCR) RSV (PCR) Add-On Test Request Last Vital Signs Temp 36.7 C 09/12/23 13:33 Pulse 117 H 09/12/23 19:46 Resp 21 09/12/23 19:50 BP 167/109 H 09/12/23 19:46 Pulse Ox 90 L 09/12/23 19:50 PAWSS Have you Been Recently Intoxicated or Drunk Within the Last 30 days?: Yes Have you Ever Experienced Previous Episodes of Alcohol Withdrawal?: No Have you ever Experienced Withdrawal Seizures?: No Have you ever Experienced Delirium Tremens(DT)s?: No Have you ever undergone Alcohol Rehabilitation Treatment (i.e, inpt ot outpatient treatment programs)?: Yes Have you ever Experienced Blackouts?: No Have you ever Combined Alcohol with other Downers within the last 90 days?: No Have you ever Combined Alcohol with any other Substance of Abuse during the last 90 days?: No Positive Blood Alcohol level on Presentation? [PCS.BAL]: No Evidence of Increased Autonomic Activity (i.e. HR>120, tremor, sweating, agitation, nausea)?: No Result: 2 Time Spent Time spent with Patient: 40-54 minutes Time was spent: preparing to see the patient(eg.review tests), obtaining and/or reviewing separately otained hiistory, ordering medications,tests, procedures, indepentently interpreting results and counseling the patient
[2023-09-12] MEDS: Normal Saline Flush 10 ML SYR IVP (21:05)
[2023-09-12] MEDS: cefTRIAXone 2 GM/50 ML BAG IVPB (21:05)
[2023-09-12] MEDS: DOXYCYCLINE 100 MG in Normal Saline 100 ML IVPB (21:31)
[2023-09-12] MEDS: guaiFENesin 600 MG TABCR PO (23:05)
[2023-09-12] MEDS: Oseltamivir 75 MG CAP PO (23:05)
[2023-09-13] VITALS (7 sets, daily range): BP systolic 126–144; BP diastolic 95–99; PULSE 80–115; RESP 2–18; TEMP 36.4–36.6; O2SAT 92–95
--- NOTE | 2023-09-13 | DI.RAD_ITS ---
Exam(s) XR ABDOMEN FLAT UPRIGHT EXAM: 2D digital imaging was performed. CLINICAL HISTORY: diarrhea, nausea, ? obstipation. COMPARISON: CT CT RENAL COLIC WO from 03/06/2023 CR,XR XR PORTABLE CHEST AP from 09/12/2023 TECHNIQUE: Supine and upright views of the abdomen was performed. Three images were obtained. FINDINGS: LUNG BASES: Stable scarring in the right costophrenic angle. The patient has had a prior right lobec ojse. BOWEL GAS PATTERN: Nondistended. There is a small amount of stool in the right colon. FREE AIR: None. CALCIFICATIONS: No radiopaque calcifications. OSSEOUS STRUCTURES: There are marked degenerative changes seen in the lower lumbar spine. Advanced d egenerative changes are seen in the left hip. OTHER FINDINGS: None. IMPRESSION: No evidence of bowel obstruction or constipation. DATA REPOSITORY: RADIATION DOSE DELIVERED:
[2023-09-13 07:11] LABS: Abs Immature Grans 0.01 10^3/uL (0.0-0.06); Absolute Monocyte Count 0.09 10^3/uL (0.1-0.8); Absolute Neutrophil Count 3.56 10^3/uL (1.2-6.7); HCT 36.5 % (36.0-46.0); HGB 12.2 g/dL (11.2-15.7); Immature Grans % 0.2; Lymphocytes % 16.1; MCH 30.3 pg (27.0-33.0); MCHC 33.4 % (32.0-36.0); MCV 91 fL (80-95); MPV 11.1 fL (8.0-11.0); Monocytes % 2.1; Neutrophils % 81.6; Platelet Count 246 10^3/uL (130-400); RBC 4.03 10^6/uL (3.93-5.22); RDW 13.2 % (11.7-14.6); RDW-SD 44.1 fL; WBC 4.36 10^3/uL (4.4-10.8)
[2023-09-13 07:19] LABS: Anion Gap 11.4 mmol/L (3-11); BUN 8 mg/dL (7-18); CO2 24.6 mmol/L (21.0-32.0); Calcium 9.2 mg/dL (8.5-10.1); Chloride 103 mmol/L (98-107); Glucose 137 mg/dL (74-106); Potassium 4.1 mmol/L (3.5-5.1); Sodium 139 mmol/L (136-145)
[2023-09-13] MEDS: Albuterol/Ipratropium 3 ML UPD VIAL UPD (07:48)
[2023-09-13] MEDS: Normal Saline Flush 10 ML SYR IVP ×4 (08:34→20:00)
[2023-09-13] MEDS: cefTRIAXone 1 GM/50 ML BAG IVPB (08:34)
[2023-09-13] MEDS: Normal Saline 500 ML 25 ML IV (08:35)
--- NOTE | 2023-09-13 08:35 | W.PM.PROGNOT ---
Date of Service Date of service: 09/13/23 Time of Service: 08:35 Assessment and Plan Assessment and plan (1) Nausea vomiting and diarrhea: Status: Acute Assessment and plan: maybe secondary to viral illness but also chemo meds. other differentials obstipation, cdiff ruled out fecal bacterial pathogens pending will add compazine prn flat and upright abdomen (2) Acute hypoxic respiratory failure: Status: Acute Assessment and plan: multifactoral. continue oxygen to maintain sats will add tamiflu for influenza continue ceftriaxone and doxycycline day 2/5 continue steroid burst pulmonary toileting with TCDB, I/S and acapella (3) Influenza A: Status: Acute Assessment and plan: initiate tamiflu in setting of hypoxic respiratory failure requiring hospitalization despite being out of the window (4) Non-small cell cancer of right lung: Assessment and plan: Status post right lobectomy (5) COPD with asthma: Assessment and plan: with exacerbation in setting of influenza and suspected bacterial pneumonia continue scheduled updrafts, home inhalers and steroids (6) Hypertension: Status: Chronic Assessment and plan: continue home meds and monitor discussed with DR Echeverria Subjective Subjective Patient reports: nausea and afebrile; denies tolerating liquids well, tolerating a regular diet or shortness of breath (has been weaned off oxygen) Interval history since last seen: having loose stools, none overnight but persistent nausea. not taking good PO Exam Const General: cooperative, comfortable and no acute distress Nutritional Appearance: obese Orientation: alert, awake and oriented x3 HEN[facility] Head: normal to inspection, normocephalic and atraumatic Face and sinus: normal facial exam Mouth: oral mucosae normal Neck Neck: normal visual inspection and full ROM Chest Chest: normal inspection of the chest Resp Effort & Inspection: normal respiratory effort (no oxygen requirements) and able to speak in complete sentences GI Inspection: large pannus Palpation: soft, not firm, no guarding and no masses Auscultation: hyperactive bowel sounds Skin General skin exam: no rashes or lesions noted Neuro General: patient alert, patient awake and patient oriented x3 Cognition: normal cognition Speech: speech normal Gait: normal gait Extrem General: normal to inspection and full ROM Objective Last Vital Signs Temp 36.3 C L 09/12/23 22:09 Pulse 86 09/13/23 07:48 Resp 18 09/13/23 04:00 BP 148/94 H 09/12/23 22:09 Pulse Ox 95 09/13/23 07:48 Laboratory Results - last 24 hr 09/12/23 09/12/23 09/12/23 13:40 13:44 13:48 WBC 7.62 RBC 4.18 Hgb 12.5 Hct 38.3 MCV 92 MCH 29.9 MCHC 32.6 RDW 13.3 Plt Count 216 MPV 11.0 Immature Gran % 0.3 Neutrophils % 62.7 Lymphocytes % 26.9 Monocytes % 9.3 Eosinophils % 0.5 Basophils % 0.3 Nucleated RBC % 0.0 Absolute Neutrophils 4.78 Absolute Lymphocytes 2.05 Absolute Monocytes 0.71 Absolute Eosinophils 0.04 Absolute Basophils 0.02 D-Dimer VBG pH 7.43 H VBG pCO2 42 VBG pO2 26 VBG HCO3 28 VBG Total CO2 26 VBG O2 Saturation 50 VBG Base Excess 4 H VBG Lactate Sodium 139 Potassium 4.2 Chloride 102 Carbon Dioxide 27.7 Anion Gap 9.3 BUN 11 Creatinine 1.2 H Est GFR (CKD-EPI 2020) 50.86 Glucose 93 Calcium 9.3 Magnesium 2.1 Total Bilirubin 0.4 AST 22 ALT 26 Alkaline Phosphatase 66 NT-Pro-B Natriuret Pep 701 H Total Protein 7.6 Albumin 3.6 Procalcitonin Urine Color Urine Clarity Urine pH Ur Specific [place] Urine Protein Urine Ketones Urine Blood Urine Nitrite Urine Bilirubin Urine Urobilinogen Ur Leukocyte Esterase Urine RBC Urine WBC Ur Epithelial Cells Urine Crystals Urine Bacteria Urine Casts Urine Mucus Ur Culture Indicated? Urine Glucose Stl C.difficile Tox PCR Ethyl Alcohol < 3.0 COVID-19 Source Nasopharynx SARS-CoV-2 (PCR) Negative Influenza Type A (PCR) Positive A Influenza Type B (PCR) Negative RSV (PCR) Negative Add-On Test Request DONE 09/12/23 09/12/23 09/12/23 16:08 16:56 17:13 WBC RBC Hgb Hct MCV MCH MCHC RDW Plt Count MPV Immature Gran % Neutrophils % Lymphocytes % Monocytes % Eosinophils % Basophils % Nucleated RBC % Absolute Neutrophils Absolute Lymphocytes Absolute Monocytes Absolute Eosinophils Absolute Basophils D-Dimer Cancelled VBG pH VBG pCO2 VBG pO2 VBG HCO3 VBG Total CO2 VBG O2 Saturation VBG Base Excess VBG Lactate 1.8 H Sodium Potassium Chloride Carbon Dioxide Anion Gap BUN Creatinine Est GFR (CKD-EPI 2020) Glucose Calcium Magnesium Total Bilirubin AST ALT Alkaline Phosphatase NT-Pro-B Natriuret Pep Total Protein Albumin Procalcitonin < 0.1 Urine Color Dark Yellow Urine Clarity Clear Urine pH 7.0 Ur Specific [place] 1.015 Urine Protein 30 H Urine Ketones 15 H Urine Blood Negative Urine Nitrite Negative Urine Bilirubin Negative Urine Urobilinogen 0.2 Ur Leukocyte Esterase Negative Urine RBC Negative Urine WBC 3-5 Ur Epithelial Cells Rare Urine Crystals Negative Urine Bacteria Rare Urine Casts 0-2 Hyaline Urine Mucus Negative Ur Culture Indicated? No Urine Glucose Negative Stl C.difficile Tox PCR Ethyl Alcohol COVID-19 Source SARS-CoV-2 (PCR) Influenza Type A (PCR) Influenza Type B (PCR) RSV (PCR) Add-On Test Request 09/12/23 09/13/23 17:30 06:25 WBC 4.36 L RBC 4.03 Hgb 12.2 Hct 36.5 MCV 91 MCH 30.3 MCHC 33.4 RDW 13.2 Plt Count 246 MPV 11.1 H Immature Gran % 0.2 Neutrophils % 81.6 Lymphocytes % 16.1 Monocytes % 2.1 Eosinophils % 0.0 Basophils % 0.0 Nucleated RBC % 0.0 Absolute Neutrophils 3.56 Absolute Lymphocytes 0.70 L Absolute Monocytes 0.09 L Absolute Eosinophils 0.00 Absolute Basophils 0.00 D-Dimer VBG pH VBG pCO2 VBG pO2 VBG HCO3 VBG Total CO2 VBG O2 Saturation VBG Base Excess VBG Lactate Sodium 139 Potassium 4.1 Chloride 103 Carbon Dioxide 24.6 Anion Gap 11.4 H BUN 8 Creatinine 1.0 Est GFR (CKD-EPI 2020) 63.30 Glucose 137 H Calcium 9.2 Magnesium Total Bilirubin AST ALT Alkaline Phosphatase NT-Pro-B Natriuret Pep Total Protein Albumin Procalcitonin Urine Color Urine Clarity Urine pH Ur Specific [place] Urine Protein Urine Ketones Urine Blood Urine Nitrite Urine Bilirubin Urine Urobilinogen Ur Leukocyte Esterase Urine RBC Urine WBC Ur Epithelial Cells Urine Crystals Urine Bacteria Urine Casts Urine Mucus Ur Culture Indicated? Urine Glucose Stl C.difficile Tox PCR Negative Ethyl Alcohol COVID-19 Source SARS-CoV-2 (PCR) Influenza Type A (PCR) Influenza Type B (PCR) RSV (PCR) Add-On Test Request PAWSS Have you Been Recently Intoxicated or Drunk Within the Last 30 days?: Yes Have you Ever Experienced Previous Episodes of Alcohol Withdrawal?: No Have you ever Experienced Withdrawal Seizures?: No Have you ever Experienced Delirium Tremens(DT)s?: No Have you ever undergone Alcohol Rehabilitation Treatment (i.e, inpt ot outpatient treatment programs)?: No Have you ever Experienced Blackouts?: Yes Have you ever Combined Alcohol with other Downers within the last 90 days?: Yes Have you ever Combined Alcohol with any other Substance of Abuse during the last 90 days?: No Positive Blood Alcohol level on Presentation? [PCS.BAL]: Yes Evidence of Increased Autonomic Activity (i.e. HR>120, tremor, sweating, agitation, nausea)?: No Result: 3 Time Spent with Patient Time Spent with Patient: 25-34 minutes Time was spent: preparing to see the patient(eg.review tests), obtaining and/or reviewing separately otained hiistory, ordering medications,tests, procedures, indepentently interpreting results, counseling the patient and care coordination
[2023-09-13] MEDS: Prochlorperazine 10 MG/2 ML VIAL IVP (08:41)
--- NOTE | 2023-09-13 10:15 | PDOC.CMIN ---
Date of service: 09/13/23 Time of Service: 10:17 Care Management Initial Assmt Initial Assessment REASON FOR HOSPITALIZATION:: Acute hypoxic respiratory failure PREVIOUS FUNCTIONAL STATUS/SOCIAL/FAMILY SUPPORTS:: Melodie lives in [place] with her , Rigo, who is very supportive. She has two adult daughters, one who lives locally and one who lives in [place]. She also has two cats, which she loves. She is wheel chair dependent, stands and pivots to her commode/chair/bed. She is mostly independent, and receives support from her when needed. CURRENT FUNCTIONAL STATUS:: Melodie was lying in bed when CM met with her. She stated that she is feeling better today, then when she arrived. CM discussed services in the community, and Melodie stated that she has a lot of support from her , but that he was recently hospitalized, and has [place] [facility] and feels that she may need more support at that time. Melodie reported that when her was in the hospital previously, her daughter stayed with her to help care for her. CM inquired if she may be available to stay with her again, when her is away, and she stated that she thinks that she can make that plan. CM stated that HH services would be limited, therefore she would want to line up family support for that time. CM will continue to follow. ADVANCE DIRECTIVES:: [facility] on file; Rigo listed as [facility] Has patient been provided with info about the portal/API?: Yes Did the patient sign up for the portal?: No CODE STATUS:: DNR/DNI INSURANCE COVERAGE / FINANCIAL ISSUES:: [employer] CURRENT HOME/COMMUNITY SERVICES/EQUIPMENT:: wheelchair, commode. Palliative care. PRIMARY CARE PHYSICIAN:: Mikal Hollins POTENTIAL DISCHARGE NEEDS:: Evaluations for further needs, follow up appointments. PATIENT/FAMILY EDUCATION NEEDS:: Review discharge instructions and limitations, discussion of self care needs including ask me three. ANTICIPATED BARRIERS TO DISCHARGE:: None identified. TRANSPORTATION:: Via private vehicle by family. PLAN:: Anticipate Melodie will return home once medically cleared. Her will drive her home via private vehicle when ready. She will follow up with her PCP and discharge plan of care. CM will continue to follow. PFSH All Active Problems (Updated 09/13/23 @ 11:31 by Page Smith NP) Nausea vomiting and diarrhea (Acute) Acute hypoxic respiratory failure (Acute) Influenza A (Acute) Viral illness (Acute) Hypertension (Chronic) Atypical chest pain (Acute) Acute hyponatremia (Acute) Hypomagnesemia (Acute) DJD (degenerative joint disease) (Chronic) Palliative care patient (Acute) DNI (do not intubate) (Acute) DNR (do not resuscitate) (Acute) POLST (Physician Orders for Life-Sustaining Treatment) (Acute) COLST completed 04/20/2020, DNR/DNI. Cancer related pain (Acute) Medical History Alcoholism HLD (hyperlipidemia) Suicide attempt Renal insufficiency GERD (gastroesophageal reflux disease) Tobacco abuse Carotid atherosclerosis Chest pressure LBBB (left bundle branch block) Pedal edema Abnormal nuclear stress test Anxiety Ankle fracture COPD with asthma History of depression Degenerative joint disease (DJD) of lumbar spine Non-small cell cancer of right lung Surgical History History of appendectomy Social History Smoking/Tobacco Use Status: Former Tobacco Use Smoking risk assessment performed?: Yes Alcohol Intake: current Alcohol Intake frequency: a few times a week Alcohol type: wine Drug use: Never Substance use type: does not use Housing: apartment Do you feel safe at home: Yes Do you feel safe in your relationship?: Yes SDOH(Care Management) Screening Will the Patient Participate in the Screening?: Yes Do you worry about having a steady place to live?: no In the past 12 months, have you had to go without electric, gas, oil or water in your home?: no Have you or anyone in your house had to go without enough food to eat?: no Has lack of transportation kept you from medical appointments or from doing things needed for daily living?: no Has anyone in your support network made you feel unsafe for any reason?: no
[2023-09-13] MEDS: Torsemide 20 MG TAB PO (10:17)
[2023-09-13] MEDS: Potassium Chloride 20 MEQ TABCR PO ×2 (10:17→19:49)
[2023-09-13] MEDS: Doxycycline Hyclate 100 MG CAP PO ×2 (10:17→19:49)
[2023-09-13] MEDS: Gabapentin 400 MG CAP PO ×2 (10:17→19:48)
[2023-09-13] MEDS: Pantoprazole 40 MG TABCR PO (10:17)
[2023-09-13] MEDS: Multivitamin TAB 1 TAB PO (10:17)
[2023-09-13] MEDS: guaiFENesin 600 MG TABCR PO ×2 (10:17→19:49)
[2023-09-13] MEDS: Aspirin E.C. 81 MG TABEC PO ×2 (10:17→19:48)
[2023-09-13] MEDS: predniSONE 20 MG TAB 40 MG PO (10:17)
[2023-09-13] MEDS: Losartan 50 MG TAB 100 MG PO (10:17)
[2023-09-13] MEDS: Magnesium Chloride 64 MG TABCR 128 MG PO ×2 (10:17→19:48)
[2023-09-13] MEDS: Oseltamivir 75 MG CAP PO ×2 (10:17→19:49)
[2023-09-13] MEDS: Enoxaparin 40 MG/0.4 ML SYR SC (10:20)
--- NOTE | 2023-09-13 11:50 | PHA.REVIEW2 ---
Pharmacy Admission Review Admission Clinical Review Admission Pharmacy Review: Nausea vomiting and diarrhea (Acute) Acute hypoxic respiratory failure (Acute) Influenza A (Acute) hydrocodone Allergy (Severe, Verified 09/12/23 13:35) Anaphylaxis atorvastatin Allergy (Intermediate, Verified 09/12/23 13:35) Other (See Comment) fentanyl Allergy (Intermediate, Verified 09/12/23 13:35) SOB Sulfa (Sulfonamide Antibiotics) Allergy (Mild, Verified 09/12/23 13:35) rash, itching, nausea codeine Allergy (Unknown, Verified 09/12/23 13:35) Other (See Comment) morphine Adverse Reaction (Intermediate, Verified 09/12/23 13:35) Body burning ondansetron Adverse Reaction (Intermediate, Verified 09/12/23 13:35) Other (See Comment) diphenhydramine HCl [From Benadryl] Adverse Reaction (Mild, Verified 09/12/23 13:35) palpitations Penicillins Adverse Reaction (Mild, Verified 09/12/23 13:35) palpitations tramadol Adverse Reaction (Mild, Verified 09/12/23 13:35) SOB/vomiting dander Allergy (Intermediate, Uncoded 09/12/23 13:35) Other (See Comment) Resuscitation Status DNR/DNI Height 5 ft 5 in Weight 104.78 kg Pharmacy Admission Review Renal Dosing Renal Dosing: BUN 8 mg/dL (7-18) 09/13/23 06:25 Creatinine 1.0 mg/dL (0.55-1.02) 09/13/23 06:25 Medications needing adjustments: Reviewed (CrCl 69.19 mL/min) Anticoagulation Anticoagulation: Hgb 12.2 g/dL (11.2-15.7) 09/13/23 06:25 Hct 36.5 % (36.0-46.0) 09/13/23 06:25 Plt Count 246 10^3/uL (130-400) 09/13/23 06:25 Creatinine 1.0 mg/dL (0.55-1.02) 09/13/23 06:25 DVT Prophylaxis: Reviewed Medications: Enoxaparin (40mg daily) Opiate Usage Evaluate Pain Scale/Pains Meds: Reviewed (PRN oxycodone) Scheduled Bowel Reg ordered if on Opiates?: No Relevant Labs Relevant Labs: Sodium 139 mmol/L (136-145) 09/13/23 06:25 Potassium 4.1 mmol/L (3.5-5.1) 09/13/23 06:25 Chloride 103 mmol/L (98-107) 09/13/23 06:25 Magnesium 2.1 mg/dL (1.8-2.4) 09/12/23 13:40 Electrolytes, C-Reactive P, ESR: Reviewed (glucose 137) Cardiac Review Cardiac Review: NT-Pro-B Natriuret Pep 701 pg/mL (<300) H 09/12/23 13:48 BP, HR, EF%: Reviewed (BP 144/95 and HR 115) QTc Review QTc: Reviewed (451 from 12/01/22 - most recent EKG on file) IV to PO Switch IV Medications: Reviewed (ceftriaxone and prochlorperazine) Home Meds Home Med List reviewed: Reviewed Relevent Home Meds Not ordered & why?: Dexlansoprazole (has order for pantoprazole), nitroglycerin (PRN) and senna (PRN) Current Meds Current Medication Order Review: Reviewed Comments: Tamiflu day 1 Pharmacy Antibiotic Review Relevant Labs: Relevant Labs 09/12/23 16:08 Procalcitonin < 0.1 Pharmacy Antibiotic Activity: C/S review and Reviewed, no change Comments: Patient is on ceftriaxone and PO doxycycline, day 1. Blood cultures pending. WBC decreased from 7.62 to 4.36.
--- NOTE | 2023-09-13 12:26 | DI.VRAD_ITS ---
PROCEDURE INFORMATION: Exam: XR Abdomen Exam date and time: 09/13/2023 11:54 AM Age: 63 years old Clinical indication: Other: Diarrhea, nausea, ? constipation TECHNIQUE: Imaging protocol: Radiologic exam of the abdomen. Views: 2 Views. Upright and supine views. COMPARISON: CT ABDOMEN PELVIS W 06/09/2022 2:03 PM FINDINGS: Gastrointestinal tract: Normal. No bowel dilation. Intraperitoneal space: Normal. No free air. Bones/joints: Redemonstrated severe degenerative changes of the left hip with superior hip joint space narrowing subchondral cysts and collapse of the humeral head. There are loose bodies within the joint. The right hip is unremarkable. Moderate degenerative changes of the inferior lumbar spine. IMPRESSION: 1. No signs of bowel obstruction or constipation. 2. Severe left hip arthrosis. Dictated and Authenticated by: Ray Ken MD. Ordering:JULIET Abel MD
--- NOTE | 2023-09-13 15:25 | IN_ITS ---
PT Notes Visit Reasons: hypoxic respiratory failure Physical Therapy Inpatient Initial Evaluation Date: 09/13/2023 Referring Doctor: Page Smith NP PT Orders: PT CONSULT: Eval/Treat Precautions: Fall. Standard. WBAT on B LE, stand pivot only. Patient Profile/Admitting Diagnosis: Date injury is a 63-year-old female on palliative care who presented to the ED on 09/12/2023 due to nausea, vomiting, productive cough, and shortness of breath with recent diagnosis of influenza A. Patient is admitted for management of acute hypoxic respiratory failure, influenza A, non-small cell cancer of right lung, COPD with asthma, and hypertension. PMHX: All Active Problems (Updated 09/12/23 @ 20:48 by Page Smith NP) Acute hypoxic respiratory failure (Acute) Influenza A (Acute) Viral illness (Acute) Hypertension (Chronic) Atypical chest pain (Acute) Acute hyponatremia (Acute) Hypomagnesemia (Acute) DJD (degenerative joint disease) (Chronic) Palliative care patient (Acute) DNI (do not intubate) (Acute) DNR (do not resuscitate) (Acute) POLST (Physician Orders for Life-Sustaining Treatment) (Acute) COLST completed 04/20/2020, DNR/DNI. Cancer related pain (Acute) Medical History Alcoholism HLD (hyperlipidemia) Suicide attempt Renal insufficiency GERD (gastroesophageal reflux disease) Tobacco abuse Carotid atherosclerosis Chest pressure LBBB (left bundle branch block) Pedal edema Abnormal nuclear stress test Anxiety Ankle fracture COPD with asthma History of depression Degenerative joint disease (DJD) of lumbar spine Non-small cell cancer of right lung Surgical History History of appendectomy Social History/Home Situation: Patient lives with in a handicap accessible home. Patient is modified independent with all stand pivot transfers bleeding with better right LE while holding onto armrests. Able to stand up by the sink for about 1 minute to complete dishwashing activities. Able to prepare meals. Mostly chair-bound at home. Equipment Owned/DME: Regular wheelchair, tub bench, grab bars Subjective: Melodie feels a lot better compared to when she came in yesterday. States at that she has been able to independently stand pivot transfer from 1 surface to another at home without assistance (after set-up). Adds that she has fallen twice in the past year with no injuries and fractures. Knows her limitations as far as her mobility is concerned. Hoping that she can have her hip replaced soon so she could be more mobile. Objective: General Observation: Resting in bed. IV through R UE. TEDS to B legs. Mental Status: Alert and oriented as to person, place, time, and purpose. Able to pay attention, focus, and respond appropriately. Pain: 4-5/10 in the R hip with movement Vital Signs: Closely monitored by nursing staff ROM: Right Upper Extremity: Shoulder Flexion WFL. Shoulder abduction WFL. Elbow flexion WFL. Wrist flexion WFL. Functional opening and closing of hand WFL. Left Upper Extremity: Shoulder Flexion WFL. Shoulder abduction WFL. Elbow flexion WFL. Wrist flexion WFL. Functional opening and closing of hand WFL. Right Lower Extremity: Hip flexion WFL. Hip abduction WFL. Knee flexion WFL. Ankle dorsiflexion WFL. Ankle plantarflexion WFL. Left Lower Extremity: Hip flexion only allows about 30 degrees before onset of pain and catching sensation at the hip. Hip abduction WFL with pain at end of range. Knee flexion allows about 45 degrees only before onset of pain in the R hip.. Ankle dorsiflexion WFL. Ankle plantarflexion WFL. Strength: Right Upper Extremity: Shoulder flexors 4/5. Shoulder abductors 4/5. Elbow flexors 455. Elbow extensors 5/5. Finished Cloth Examiner strong. Left Upper Extremity: Shoulder flexors 4/5. Shoulder abductors 4/5. Elbow flexors 455. Elbow extensors 5/5. Finished Cloth Examiner strong. Right Lower Extremity: Hip flexors 4/5. Hip abductors 4/5. Knee flexors 5/5. Knee extensors /5. Ankle dorsiflexors 4/5. Ankle plantarflexors 4/5. Left Lower Extremity: Hip flexors 2-/5. Hip abductors 3+/5. Knee flexors 2-/5. Knee extensors 3/5. Ankle dorsiflexors 3/5. Ankle plantarflexors 3/5. Bed Mobility/Transfers: Supine to sit modified independent with use of B hands for support Sit to supine with modified independent with use of B hands for support Sit to stand with supervision and use of B hands for support Stand to sit with supervision and use of B hands for support Bed to bedside commode supervision and use of B hands for stand pivot transfer leading with the R LE Bedside commode to bed supervision and use of B hands for stand pivot transfer leading with the R LE Bed to reclining chair supervision and use of B hands for stand pivot transfer leading with the R LE Reclining chair to bed supervision and use of B hands for stand pivot transfer leading with the R LE Gait: Unable. Stand pivot transfers only. Balance: Static Sitting: Normal Dynamic Sitting: Normal Static Standing: Fair Dynamic Standing: Unable to Special Tests: Mobility Limitations Standardized Measure [facility] AM-PAC 6 clicks Basic Mobility Inpatient Short Form: Raw Score: 17 CMS Score: 51% deficit THERA EX: Instructed patient with safe and correct performance of bed level exercises to maintain flexibility and increased regulation to BLE joints: Gluteal sets x 10 with 5 sh Quads sets x 10 with 5sh Heels slides x 10 Informed Consent/Education: Patient was instructed in purpose of PT consult and plan of care. Agreeable to proceed with established PT POC to achieve personal goals. Assessment: Patient will be seen once a day for strengthening exercises to B UE and progressive strengthening exercises to R LE/R ankle as well as ROM exercises to L hip and knee inpreparation to prevent mobility decline and to prepre for a po tential total hip arthroplasty when cleared by PCP. Patient presents with clinical signs and symptoms consistent with current/admitting diagnoses that have resulted to mobility limitations, gait instability, generalized weakness, and overall ADL decline as demonstrated by the following impairment level findings: 1. Decreased strength to B UE/LE major muscle groups 2. Impaired standing balance 3. Impaired activity tolerance 4. Limitation of joint range of motion in in L hip and knee Impairments are contributing to the following functional limitations: 1. Decline in bed mobility skills 2. Decline in transfer skills 3. Increased completion time for mobility ADL performance 4. Increased risk for falls Patient is assessed as a 43743 moderate complexity based on the following: History: 63-year-old female with past medical history as indicated above Examination: Demonstrable impairment in strength, balance, and mobility level with underlying impairments and functional limitations as exhibited above as well as deficit score of 51% utilizing the [facility] Mobility Inpatient Short Form Presentation: Evolving Decision Makin moderate complexity Goals: Goals X1 week 1. Sit-Stand independent 2. Stand-Sit independent with use of B UE for support 3. Bed-Chair independent with use of B UE for support 4. Independent with home exercise program 5. Good static and dynamic standing balance/tolerance Plan of Care/Treatment Plan: 1x/day, 7 days/week x 1 week. Plan of care has been reviewed with the RENTAL SALES AGENT providing the service under Physical Therapy direction. Initiate Physical Therapy intervention for pain management as needed, strengthening, bed mobility, transfers, gait, stairs, balance training, and use of assistive device. DISCHARGE RECOMMENDATIONS: [] Home with no services [] [X] Home with services. Patient will benefit from home health PT services in order to progress mobility level using least restrictive assistive ambulatory d evice, assess home safety, identify additional equipment needs, and establish a functional maintenance program that will increase ability of patient to remain at home. [] Home with outpatient PT [] [] SNF for continued rehabilitation [] [] [facility] [] [] SNF versus LTC based on ability to participate and progress [] TREATMENT CODE/TIME: 20292 times x 25 minutes for 1 unit (15:25-15:50). Thank you for the opportunity to participate in the care of this patient. Frieda Lyons PT, DPT, CLT [facility] [place], [place]
--- NOTE | 2023-09-13 16:56 | NUR.NOTE ---
Nursing Note: makes needs known, denies pain, stand pivot transfers to BSC and chair for meals. poor appetite, nausea for most of shift. PRN Compazine given x1 this shift. IVABX per MD order, tolerating well. productive hacking cough, expectorating thick and tenacious green sputum. ABD XR done this shift.
[2023-09-13 19:35] LABS: Campylobacter PCR Negative (Negative); Salmonella PCR Negative (Negative); Shiga Toxin PCR Negative (Negative); Shigella/Enteroinvasive Ecoli Negative (Negative)
[2023-09-13] MEDS: Budesonide/Formoterol 160/4.5 6 GM 60 PUFF INH IH (19:49)
[2023-09-13] MEDS: Simvastatin 20 MG TAB 40 MG PO (19:49)
[2023-09-14 06:59] LABS: Abs Immature Grans 0.03 10^3/uL (0.0-0.06); Absolute Basophil Count 0.01 10^3/uL (0.0-0.2); Absolute Lymphocyte Count 1.63 10^3/uL (1.2-3.4); Absolute Neutrophil Count 7.56 10^3/uL (1.2-6.7); Basophils % 0.1; HCT 35.8 % (36.0-46.0); HGB 11.9 g/dL (11.2-15.7); Immature Grans % 0.3; Lymphocytes % 16.4; MCHC 33.2 % (32.0-36.0); MCV 90 fL (80-95); MPV 10.6 fL (8.0-11.0); Neutrophils % 76.2; Platelet Count 305 10^3/uL (130-400); RBC 3.97 10^6/uL (3.93-5.22); RDW 13.2 % (11.7-14.6); RDW-SD 43.8 fL; WBC 9.93 10^3/uL (4.4-10.8)
[2023-09-14 07:15] LABS: Anion Gap 11.3 mmol/L (3-11); BUN 19 mg/dL (7-18); CO2 25.7 mmol/L (21.0-32.0); CREATININE 1.4 mg/dL (0.55-1.02); Calcium 9.3 mg/dL (8.5-10.1); Chloride 105 mmol/L (98-107); Estimated GFR 42.27 (mL/min/1.73m2); Glucose 93 mg/dL (74-106); Potassium 3.9 mmol/L (3.5-5.1); Sodium 142 mmol/L (136-145)
[2023-09-14 07:32] VITALS: BP 130/95; PULSE 74; RESP 18; TEMP 37.5; O2SAT 93
[2023-09-14] MEDS: Budesonide/Formoterol 160/4.5 6 GM 60 PUFF INH IH (07:53)
--- NOTE | 2023-09-14 09:11 | PDOC.CMPRO ---
Date of service: 09/14/23 Time of Service: 09:12 Care Management Progress Note Progress Note Text Progress Note Text: S/O: A: 63 year old female admitted to [facility] on 09/12/23 with Hypoxic Respiratory Failure P: Discharge home with New [facility] PT once medically cleared. Her will drive her home via private vehicle when ready. She will follow up with her PCP and discharge plan of care. CM will continue to follow. SDOH(Care Management) Screening Will the Patient Participate in the Screening?: Yes Do you worry about having a steady place to live?: no In the past 12 months, have you had to go without electric, gas, oil or water in your home?: no Have you or anyone in your house had to go without enough food to eat?: no Has lack of transportation kept you from medical appointments or from doing things needed for daily living?: no Has anyone in your support network made you feel unsafe for any reason?: no
[2023-09-14] MEDS: cefTRIAXone 1 GM/50 ML BAG IVPB (09:16)
[2023-09-14] MEDS: Normal Saline Flush 10 ML SYR IVP (09:16)
[2023-09-14] MEDS: Enoxaparin 40 MG/0.4 ML SYR SC (09:16)
[2023-09-14] MEDS: predniSONE 20 MG TAB 40 MG PO (09:17)
[2023-09-14] MEDS: guaiFENesin 600 MG TABCR PO (09:17)
[2023-09-14] MEDS: Multivitamin TAB 1 TAB PO (09:17)
[2023-09-14] MEDS: Pantoprazole 40 MG TABCR PO (09:17)
[2023-09-14] MEDS: Potassium Chloride 20 MEQ TABCR PO (09:17)
[2023-09-14] MEDS: Torsemide 20 MG TAB PO (09:17)
[2023-09-14] MEDS: Oseltamivir 75 MG CAP PO (09:17)
[2023-09-14] MEDS: Doxycycline Hyclate 100 MG CAP PO (09:17)
[2023-09-14] MEDS: Gabapentin 400 MG CAP PO (09:17)
[2023-09-14] MEDS: Losartan 50 MG TAB 100 MG PO (09:17)
[2023-09-14] MEDS: Magnesium Chloride 64 MG TABCR 128 MG PO (09:17)
[2023-09-14] MEDS: Aspirin E.C. 81 MG TABEC PO (09:17)
--- NOTE | 2023-09-14 12:02 | PT.INTREAT ---
PT Notes Visit Reasons: Hypoxic Respiratory Failure Date: 09/14/2023 PRECAUTIONS: Fall. Standard. WBAT on B LE, stand pivot only. droplet precaution SUBJECTIVE: Pt in recliner when approached for therapy this morning, pt agreed to participating with therapy OBJECTIVE: ? PAIN: yes, right hip VITALS: monitored by nursing Therapeutic Activities 17368: Direct one-on-one instruction in dynamic activities to improve functional performance. ?? BED MOBILITY/TRANSFERS? Rolling L/R: not performed Supine-sit: ? not performed ? Sit-supine: ? ?not performed ? Sit-stand: ?SBA? Stand-sit: ??SBA ? Bed-Chair:? Stand pivot SBA? Chair-bed: Stand pivot SBA Provided skilled cues and instruction on performance and technique throughout. ? Therapeutic Exercises 15339: Direct one-on-one instruction in therapeutic exercises to develop strength, endurance, range of motion and flexibility. Exercises Sit to stand [id number] Seated hip flexion [id number] Seated LAQ [id number] Seated SAQ [id number] Seated ankle circles/alphabet/pumping [id number] each Standing multidirectional weight shifting Provided skilled instruction in proper exercise performance Provided skilled manual cues to facilitate proper muscle recruitment and/or form: ASSESSMENT:?Able to tolerate activity well, did not report pain escalation during activity PLAN: Continue with balance training, global strengthening and general conditioning for improved safety, mobility and activity tolerance until pt is ready for DC. TREATMENT CODE/TIME: 16068x0, 92322d2, 25mins (11:30-11:55am)
--- NOTE | 2023-09-14 13:26 | W.PM.DS.N ---
Date of service: 09/14/23 Time of Service: 13:26 DS: Diagnosis Discharge Diagnosis (1) Nausea vomiting and diarrhea: Status: Acute (2) Acute hypoxic respiratory failure: Status: Acute (3) Influenza A: Status: Acute (4) Non-small cell cancer of right lung: Status: Inactive (5) COPD with asthma: Status: Inactive (6) Hypertension: Status: Chronic Discharge Plan Disposition Patient Disposition: Home W/Home Health Services Condition: Stable Discharge Details Reason For Visit: Hypoxic Respiratory Failure Admit Date/Time: 09/12/23 20:44 Admit Provider: Sanjiv Echeverria Attending Provider: Sanjiv Echeverria Primary Care Provider: Mikal Hollins Hospital Course Hospital Course: this is a 63-year-old female patient complex past medical history presents to the emergency department for evaluation of cough shortness of breath nausea vomiting and diarrhea. Her workup in the emergency department did show influenza. She was given IV fluids antiemetic and admitted to the hospitalist services for further management. Imaging also concerning for a pneumonia so she was started on ceftriaxone and doxycycline. She was weaned off oxygen. Her symptoms improved and she was able to tolerate a regular diet. Hemodynamically she has been stable and is looking forward to being discharged to home. She should continue treatment outpatient with cefpodoxime and doxycycline to treat her pneumonia in addition to completing her course of Tamiflu for her influenza. She was advised to push fluids to stay well-hydrated drinking 6 to 8 glasses of water daily she should follow-up with her primary care provider outpatient return sooner for new or worsening symptoms she will have resumption of home health services including nursing with the addition of PT and OT discharge has been discussed with Dr. Young [place] Meds and New Rx's Prescriptions: New doxycycline hyclate 100 mg Capsule 100 mg PO BID Qty: 6 0RF prednisone 20 mg Tablet 40 mg PO DAILY Qty: 8 0RF oseltamivir 75 mg Capsule 75 mg PO BID Qty: 6 0RF guaifenesin [Mucus Relief ER] 600 mg Tablet Extended Release 12hr 600 mg PO BID Qty: 10 0RF cefpodoxime 200 mg tablet 200 mg PO BID Qty: 7 0RF Rx Instructions: must administer with a meal/food Continued lidocain-me.hnsadtk-fxdz-lkjps [1st Medx-Patch With Lidocaine] 1 applic topical DAILY Rx Instructions: for hip and or spine aspirin [Adult Aspirin Regimen] 81 mg tablet,delayed release (DR/EC) 81 mg PO 2XD dexlansoprazole 60 mg capsule,biphase delayed releas 60 mg PO DAILY oxycodone 5 mg tablet 2.5 - 5 mg PO BID MDD 2 tabs PRN (Reason: pain) Qty: 60 0RF Rx Instructions: for cancer related pain palliative care patient gabapentin 400 mg capsule 400 mg PO BID sennosides [Senna Laxative] 8.6 mg tablet 8.6 mg PO BID PRN (Reason: constipation) Qty: 60 3RF torsemide 20 mg tablet 20 mg PO DAILY losartan 100 mg tablet 100 mg PO DAILY budesonide-formoterol [Symbicort] 160-4.5 mcg/actuation HFA aerosol inhaler 2 puff inhalation BID albuterol sulfate 2.5 mg /3 mL (0.083 %) solution for nebulization 2.5 mg inhalation Q6H potassium chloride [Klor-Con 10] 10 mEq tablet extended release 20 meq PO BID loperamide [Imodium A-D] 2 mg capsule 2 mg PO QID PRN (Reason: loose stool) Qty: 60 3RF Rx Instructions: For chemo related diarrhea. simvastatin 40 mg tablet 40 mg PO DAILY Tagrisso 80 mg tablet 80 mg PO DAILY nitroglycerin [Nitrostat] 0.4 MG tablet, sublingual 0.4 mg Sublingual DIRECTED PRN Patient Comments: never uses albuterol sulfate 8.5 GM HFA aerosol inhaler 2 puff Inhalation Q4H PRN PRNQty: 1 0RF multivitamin [Multiple Vitamins] 1 TAB tablet 1 tab PO DAILY Qty: 180 0RF magnesium L-lactate [Magtab] 84 mg tablet extended release 84 mg PO QID Patient Comments: TAKE 1 TABLET BY MOUTH FOUR TIMES DAILY lorazepam 1 MG tablet 1 mg PO TID PRN Discharge Instructions Instructions: Influenza (DC), Community Acquired Pneumonia (DC) Additional Instructions: take all medications as directed drink at least 6-8 glasses of water daily to stay well hydrated. Stand Alone Forms: Nursing Discharge Form Referrals: Mikal Hollins [Primary Care Provider] - 09/21/23 10:40 am Activity:: Activity as Tolerated Equipment/Supplies:: No Equipment Needed Diet:: As Tolerated Discharge Orders Discharge Orders: Discharge Order (Routine); Ordered 09/14/23 Ordered By: Page Smith Discharge Data Discharge Date/Time-TO BE ENTERED AT DEPARTURE: 09/14/23 14:42 DS: Summary Time Spent with Patient providing and/or coordinating discharge services: Greater than 30 minutes Status at Discharge Functional status at discharge: independent ambulation Overall status at discharge: patient is progressing back to baseline Mental Status: mental status grossly normal Speech and Movement: speech and movement normal Mood: congruent mood Affect: normal affect Quality:SDOH Health Related Social Needs: No Data to Display Exam Const General: cooperative, comfortable and no acute distress Nutritional Appearance: obese Orientation: alert, awake and oriented x3 HENMT Head: normal to inspection, normocephalic and atraumatic Face and sinus: normal facial exam Mouth: oral mucosae normal Neck Neck: normal visual inspection and full ROM Chest Chest: normal inspection of the chest Resp Effort & Inspection: normal respiratory effort (no oxygen requirements) and able to speak in complete sentences GI Inspection: large pannus Palpation: soft, not firm, no guarding and no masses Skin General skin exam: no rashes or lesions noted Neuro General: patient alert, patient awake and patient oriented x3 Cognition: normal cognition Speech: speech normal Gait: normal gait Extrem General: normal to inspection and full ROM Psych Mental Status: mental status grossly normal Speech and Movement: speech and movement normal Mood: congruent mood Affect: normal affect DS: Data Vitals/I&O Vitals and I&O: Vital Signs Temperature 37.5 C 09/14/23 07:32 Temperature Source Tympanic 09/14/23 07:32 Pulse 74 09/14/23 07:32 Pulse Rhythm Regular 09/14/23 10:59 Pulse 119 H 09/12/23 21:31 Respiratory Rate 18 09/14/23 07:32 Respiratory Effort Normal, Non-Labored 09/14/23 10:59 Respiratory Depth Normal 09/14/23 10:59 Respiratory Pattern Normal 09/14/23 10:59 Blood Pressure 130/95 H 09/14/23 07:32 Blood Pressure Mean 127 09/12/23 21:31 Blood Pressure Position Supine 09/12/23 13:33 Pulse Oximetry 93 09/14/23 07:32 Oxygen Delivery Method Room Air 09/14/23 10:53 Oxygen Flow Rate 0 09/14/23 10:53 Pain Level 0 09/14/23 07:32 Comment Nurse notified. 09/14/23 07:32 Intake & Output 09/13/23 09/14/23 09/14/23 23:59 11:59 23:59 Intake Total 300 / 809.583 610 / 610 Output Total 1400 / 2500 Balance -1100 / -1690.417 610 / 610 Intake: IV Oral 300 / 700 600 / 600 Output: Urine 1400 / 2500 Other: Urine Color Pale Urine Appearance Clear Urine Odor None Voiding Methods Bedside Commode Data Completed and Pending Labs on day of discharge: Labs from last 24 hours 09/14/23 09/12/23 06:42 17:30 WBC 9.93 RBC 3.97 Hgb 11.9 Hct 35.8 L MCV 90 MCH 30.0 MCHC 33.2 RDW 13.2 Plt Count 305 MPV 10.6 Immature Gran % 0.3 Neutrophils % 76.2 Lymphocytes % 16.4 Monocytes % 7.0 Eosinophils % 0.0 Basophils % 0.1 Nucleated RBC % 0.0 Absolute Neutrophils 7.56 H Absolute Lymphocytes 1.63 Absolute Monocytes 0.70 Absolute Eosinophils 0.00 Absolute Basophils 0.01 Sodium 142 Potassium 3.9 Chloride 105 Carbon Dioxide 25.7 Anion Gap 11.3 H BUN 19 H Creatinine 1.4 H Est GFR (CKD-EPI 2020) 42.27 Glucose 93 Calcium 9.3 Stool Campylobacter PCR Negative Stool Salmonella PCR Negative Stool Shigella PCR Negative Shiga Toxin (PCR) Negative Preliminary micro results at discharge 09/12/23 20:54 Blood Culture - Preliminary Blood NO GROWTH 24 HOURS 09/12/23 20:30 Blood Culture - Preliminary Blood NO GROWTH 24 HOURS PFSH All Active Problems (Updated 09/15/23 @ 00:08 by DAVID BECK) Nausea vomiting and diarrhea (Acute) Acute hypoxic respiratory failure (Acute) Influenza A (Acute) Viral illness (Acute) Hypertension (Chronic) Atypical chest pain (Acute) Acute hyponatremia (Acute) Hypomagnesemia (Acute) DJD (degenerative joint disease) (Chronic) Palliative care patient (Acute) DNI (do not intubate) (Acute) DNR (do not resuscitate) (Acute) POLST (Physician Orders for Life-Sustaining Treatment) (Acute) COLST completed 04/20/2020, DNR/DNI. Cancer related pain (Acute) Medical History Alcoholism HLD (hyperlipidemia) Suicide attempt Renal insufficiency GERD (gastroesophageal reflux disease) Tobacco abuse Carotid atherosclerosis Chest pressure LBBB (left bundle branch block) Pedal edema Abnormal nuclear stress test Anxiety Ankle fracture COPD with asthma History of depression Degenerative joint disease (DJD) of lumbar spine Non-small cell cancer of right lung Surgical History History of appendectomy Social History Smoking/Tobacco Use Status: Former Tobacco Use Smoking risk assessment performed?: Yes Alcohol Intake: current Alcohol Intake frequency: a few times a week Alcohol type: wine Drug use: Never Substance use type: does not use Housing: apartment Do you feel safe at home: Yes Do you feel safe in your relationship?: Yes Time Spent with Patient Time Spent with Patient: 45-69 minutes Time was spent: preparing to see the patient(eg.review tests), obtaining and/or reviewing separately otained hiistory, ordering medications,tests, procedures, indepentently interpreting results and counseling the patient
--- NOTE | 2023-09-14 13:35 | PDOC.HHF2F_ITS ---
Home Health Referral Home Health Orders Clinical synopsis of why skilled professionals are needed: deconditioning following a hospitalization for respiratory illness. Medical diagnosis necessitation home health referral: influenza, pneumonia Physical Therapist: Check all that apply Increase strength & endurance for safe mobility at home: Ordered To design/establish home maintenance program: Ordered Fall reduction therapy program for patient with history of frequent falls: Ordered Home safety evaluation and teaching/gait training including stair management (if applicable): Ordered Better Breathing Program: Ordered Home Bound Status Describe why leaving home would require a considerable and taxing effort: Requires frequent rest periods and Confusion Encounter Date and Reason: I certify that a FTF encounter for this patient was performed on September 14, 2023 and that such encounter was related to the primary reason the patient requires home health services. The encounter was conducted in the following manner: * By me as the certifying physician, ADOBE DEVELOPER, PA or * By an inpatient physician, ADOBE DEVELOPER or PA during an inpatient stay who communicated findings to me, Certification And Authentication I certify that I composed the above information based on my clinical judgment relating to this patient's medical condition and, if applicable, clinical findings communicated to me by the NPP or inpatient physician who performed the FTF encounter. Name of Provider that will be monitoring home health services: Mikal Hollins
--- NOTE | 2023-09-14 14:45 | PDOC.CMDIS ---
Date of service: 09/14/23 Time of Service: 14:46 LACE Index Scoring Tool Questions: Length of Stay (in days): 2 Was the patient admitted via the E.D.?: Yes Comorbidities: Metastatic Solid Tumor (Lung Cancer) E.D. Visits: 2 Answers: Total Score: 12 Risk of Readmission: High Risk Care Management Discharge Plan Reason for Hospitalization: Acute hypoxic respiratory failure Discharge Plan: Melodie is discharged home with new [facility] services via private vehicle with family. She will follow up with community providers and her discharge plan of care as instructed. Patient/Family Education Needs: Review discharge instructions, limitations, medications and plan to follow up with community providers. Discuss ask me three. Services Needed at Discharge: Home Health Care Services (New [facility] RN/PT) [place] Health Related Social Needs: No Data to Display
== END 2023-09-14 14:42 | disposition home health service (06) | DRG 193 ==
LOC: ER 21:45 → MS 21:46
PROVIDERS: Nurse Practitioner Acute Care; Registered Nurse Emergency; Admitting Provider Internal Medicine; Emergency Provider Physician Assistant; PCP Physician Assistant; Visit Provider Internal Medicine
DX: J10.1 Influenza due to other identified influenza virus with other respiratory manifestations (principal); J96.01 Acute respiratory failure with hypoxia; C34.91 Malignant neoplasm of unspecified part of right bronchus or lung; J44.0 Chronic obstructive pulmonary disease with (acute) lower respiratory infection; J44.1 Chronic obstructive pulmonary disease with (acute) exacerbation; E87.1 Hypo-osmolality and hyponatremia; J15.9 Unspecified bacterial pneumonia; I10 Essential (primary) hypertension; R11.2 Nausea with vomiting, unspecified; R19.7 Diarrhea, unspecified; R07.89 Other chest pain; Z66 Do not resuscitate; K21.9 Gastro-esophageal reflux disease without esophagitis; I44.7 Left bundle-branch block, unspecified; Z87.891 Personal history of nicotine dependence; F41.9 Anxiety disorder, unspecified; F32.A Depression, unspecified; M47.816 Spondylosis without myelopathy or radiculopathy, lumbar region; Z79.899 Other long term (current) drug therapy; Z90.2 Acquired absence of lung [part of]; F10.20 Alcohol dependence, uncomplicated
CPT/HCPCS: 00123; 36415; 71275; 80048; 80053; 82805; 84145; 87040; 87493; 87505; 87637; 94640; 96361; 96365; 96367; 96368; 96375; 97110; 97162; 97530; 99291; J1650; 71045; 74019; 80320; 81003; 81015; 83605; 83735; 83880; 85025; 85379; 94664; 94667; 94668; 94760; 99222; 99231; 99239; J0131; J0696; J0780; J2060; J2405; J2919; J3490; J7512; J7620

== ENCOUNTER 2023-09-17 15:30 | Outpatient (CLI) | payer OTHER, SELFPAY ==
--- NOTE | 2023-09-17 13:15 | DI.RAD_ITS ---
Exam(s) XR HIP LT COMPLETE AP PELVIS EXAM: XR HIP LT COMPLETE AP PELVIS CLINICAL HISTORY: LEFT HIP PAIN. TECHNIQUE: 2D digital imaging was performed. Two views. COMPARISON: No exams were available for comparison FINDINGS: BONES: No acute fracture is present. No bony destructive lesion is seen. JOINTS: No dislocation present. There is obliteration of the left hip joint space. There is promine nt periarticular spurring and sclerosis. There is some flattening of the femoral head. There is als o some remodeling of the superior acetabulum. The right hip shows mild degenerative changes. SOFT TISSUE: Normal. IMPRESSION: End-stage degenerative changes of the left hip. DATA REPOSITORY: RADIATION DOSE DELIVERED:
== END 2023-09-17 15:31 | disposition home or self-care (01) ==
LOC: DIORS 15:32
PROVIDERS: PCP Physician Assistant; Referring Provider Physician Assistant; Visit Provider Student in an Organized Health Care Education/Training Program
DX: M16.12 Unilateral primary osteoarthritis, left hip
CPT/HCPCS: 99215; 73502

== ENCOUNTER → 2023-10-21 04:38 | Outpatient (CLI) | payer OTHER, SELFPAY ==
--- NOTE | 2023-10-21 | DI.CT_ITS ---
Exam(s) CT CHEST W EXAM: CT CHEST W CLINICAL HISTORY: C34.90,C79.51,Stage 4 lung CA, mets to bone,Assess Treatment response. TECHNIQUE: Multi planar reconstructions were performed. CONTRAST MATERIAL: Omnipaque 350; 75 cc COMPARISON: CT CT CHEST W from 01/13/[address] CHEST W from 04/06/[address] CHEST W from 07/21/[address] CHEST PE CTA from 09/12/2023 FINDINGS: CHEST: LUNGS: Again noted is decreased right hemithoracic volume from prior right lobectomy. The previously described patchy infiltrates in the right lower lobe have resolved. A small nodular density in the right mid lung measuring approximately 5 x 3 mm appears unchanged from the above to CT scans. In the opposite-left lung there is a 3 millimeter nodular density in the left lower lobe (series 2/im age 23) which is unchanged from 07/21/2023 and 04/06/2023 and 01/13/2023. There are no new left lung nodules evident. No pleural effusions on either side. MEDIASTINUM: No new hilar nor mediastinal adenopathy. Visualized thyroid unremarkable. CARDIAC: Heart size is normal. There is no pericardial effusion.Caliber of the thoracic aorta is wit hin normal limits. VISUALIZED UPPER ABDOMEN:There are no significant adrenal masses. OSSEOUS: No significant osseous lesions.No fractures. IMPRESSION: 1. There has been improvement in the right lower lobe patchy infiltrates which were evident on the mo st recent CT scan of 09/13/2023. Other bilateral stable findings as above. No new nodules in either lung field and no pleural effusions nor new intrathoracic adenopathy. RADIATION DOSE DELIVERED: 792.94mGy.cm Total DLP DATA REPOSITORY: All CT scans at this facility are submitted to the National Radiology Data Registry (NRDR) Dose Index Registry (DIR) with the [employer] (A[employer]). RADIATION OPTIMIZATION: All CT scans at this facility use at least one of these dose optimization te chniques: automated exposure control; mA and/or kV adjustment per patient size (includes targeted exa ms where dose is matched to clinical indication); or iterative reconstruction.
[2023-10-21 12:47] LABS: Abs Immature Grans 0.01 10^3/uL (0.0-0.06); Absolute Basophil Count 0.05 10^3/uL (0.0-0.2); Absolute Eosinophil Count 0.19 10^3/uL (0.0-0.7); Absolute Lymphocyte Count 2.04 10^3/uL (1.2-3.4); Absolute Monocyte Count 0.46 10^3/uL (0.1-0.8); Absolute Neutrophil Count 3.89 10^3/uL (1.2-6.7); Basophils % 0.8 %; Eosinophils % 2.9 %; HCT 35.7 % (36.0-46.0); HGB 11.7 g/dL (11.2-15.7); Immature Grans % 0.2 %; Lymphocytes % 30.7 %; MCH 30.1 pg (27.0-33.0); MCHC 32.8 % (32.0-36.0); MCV 92 fL (80-95); MPV 10.6 fL (8.0-11.0); Monocytes % 6.9 %; Neutrophils % 58.5 %; Platelet Count 278 10^3/uL (130-400); RBC 3.89 10^6/uL (3.93-5.22); RDW 14.3 % (11.7-14.6); RDW-SD 48.2 fL; WBC 6.64 10^3/uL (4.4-10.8)
[2023-10-21 13:42] LABS: ALT 27 U/L (14-59); AST 19 U/L (15-37); Albumin 3.9 g/dL (3.4-5.0); Alkaline Phosphatase 65 U/L (46-116); BUN 20 mg/dL (7-18); Bilirubin, Total 0.7 mg/dL (0.2-1.0); CREATININE 1.3 mg/dL (0.55-1.02); Chloride 101 mmol/L (98-107); Estimated GFR 46.21 (mL/min/1.73m2); Glucose 95 mg/dL (74-106); Potassium 3.5 mmol/L (3.5-5.1); Sodium 137 mmol/L (136-145); Total Protein 7.2 g/dL (6.4-8.2)
[2023-10-21] MEDS: Omnipaque 350 MG/ML 100 ML BTL IJ (14:02)
[2023-10-21] MEDS: Normal Saline - Diluent 50 ML VIAL IJ (14:03)
== END ==
PROVIDERS: PCP Physician Assistant; Visit Provider Nurse Practitioner Family
DX: C34.91 Malignant neoplasm of unspecified part of right bronchus or lung (principal); C79.51 Secondary malignant neoplasm of bone
CPT/HCPCS: 80053; 71260; 85025; J3490

== ENCOUNTER 2024-02-10 02:15 | Outpatient (CLI) | payer OTHER, SELFPAY ==
--- NOTE | 2024-02-10 | DI.CT_ITS ---
Exam(s) CT CHEST W EXAM: CT CHEST W CLINICAL HISTORY: C34.90,C79.51 Lung CA Mets to bone TECHNIQUE: Imaging Protocol: Axial computed tomography images with coronal and sagittal reformatted images were created and reviewed CONTRAST MATERIAL: Intravenous: Omnipaque 350Contrast volume:70 mL. COMPARISON: CT CT CHEST W from 10/21/2023 FINDINGS: Tracheobronchial tree: Patent where visualized. Pulmonary parenchyma: There is persistent mild nodularity along the right major fissure in the right hemithorax. The patient is status post right lobectomy. No new pulmonary infiltrates are seen. The left lower lobe pulmonary nodule is unchanged. No new pulmonary nodules or infiltrates are present. Mediastinum and Abida: No dominant adenopathy or fluid collection. The esophagus is unremarkable. Thyroid gland: Unremarkable. Pleura: No effusion or pneumothorax. Heart: The heart is not dilated. No coronary artery calcifications are seen. No pericardial effusion. Aorta: Thoracic aorta non-dilated. No evidence of dissection. Pulmonary arteries: Due to the timing of the bolus, the pulmonary arteries are insufficiently opacifi ed for evaluation of pulmonary emboli. Upper abdomen: Unremarkable. Lymph nodes: Within normal limits. Bones: Old rib fractures. Age-appropriate degenerative changes are seen in the spine. Stable appear ance of the bones. Soft tissues: Unremarkable. IMPRESSION: Stable CT scan of the chest since 10/21/2023. RADIATION DOSE DELIVERED: 350.31mGy.cm Total DLP DATA REPOSITORY: All CT scans at this facility are submitted to the National Radiology Data Registry (NRDR) Dose Index Registry (DIR) with the [employer] (ACR). RADIATION OPTIMIZATION: All CT scans at this facility use at least one of these dose optimization te chniques: automated exposure control; mA and/or kV adjustment per patient size (includes targeted exa ms where dose is matched to clinical indication); or iterative reconstruction.
[2024-02-10 12:40] LABS: Abs Immature Grans 0.01 10^3/uL (0.0-0.06); Absolute Basophil Count 0.04 10^3/uL (0.0-0.2); Absolute Eosinophil Count 0.19 10^3/uL (0.0-0.7); Absolute Monocyte Count 0.43 10^3/uL (0.1-0.8); Absolute Neutrophil Count 3.75 10^3/uL (1.2-6.7); Basophils % 0.7 %; Eosinophils % 3.2 %; HCT 32.6 % (36.0-46.0); HGB 10.9 g/dL (11.2-15.7); Immature Grans % 0.2 %; Lymphocytes % 26.6 %; MCH 31.2 pg (27.0-33.0); MCHC 33.4 % (32.0-36.0); MCV 93 fL (80-95); MPV 9.7 fL (8.0-11.0); Monocytes % 7.1 %; Neutrophils % 62.2 %; Platelet Count 241 10^3/uL (130-400); RBC 3.49 10^6/uL (3.93-5.22); RDW 14.8 % (11.7-14.6); RDW-SD 50.6 fL; WBC 6.02 10^3/uL (4.4-10.8)
[2024-02-10 12:54] LABS: ALT 32 U/L (14-59); AST 24 U/L (15-37); Alkaline Phosphatase 58 U/L (46-116); Anion Gap 7.6 mmol/L (3-11); BUN 22 mg/dL (7-18); Bilirubin, Total 0.58 mg/dL (0.2-1.0); CO2 29.4 mmol/L (21.0-32.0); CREATININE 1.3 mg/dL (0.55-1.02); Calcium 9.3 mg/dL (8.5-10.1); Chloride 102 mmol/L (98-107); Estimated GFR 46.21 (mL/min/1.73m2); Glucose 102 mg/dL (74-106); Potassium 3.7 mmol/L (3.5-5.1); Sodium 139 mmol/L (136-145); Total Protein 7.1 g/dL (6.4-8.2)
[2024-02-10] MEDS: Omnipaque 350 MG/ML 100 ML BTL IJ (14:25)
[2024-02-10] MEDS: Normal Saline - Diluent 50 ML VIAL IJ (14:27)
== END 2024-02-10 02:35 ==
PROVIDERS: PCP Physician Assistant; Visit Provider Internal Medicine Hematology & Oncology
DX: C34.91 Malignant neoplasm of unspecified part of right bronchus or lung (principal)
CPT/HCPCS: 80053; 71260; 85025; J3490

== ENCOUNTER 2024-03-03 16:31 | Emergency (ER) | payer OTHER, SELFPAY ==
[2024-03-03] VITALS (17 sets, daily range): BP systolic 132–135; BP diastolic 84–97; PULSE 66–84; RESP 12–21; TEMP 36.6–37.1; O2SAT 93–99
--- NOTE | 2024-03-03 16:30 | RT.EKG_ITS ---
APPROVED REPORT Exam: Resting ECG Reason for Exam: Bradycardia? Patient Location: E HR:78 bpm ECG Measurements Heart Rate 78 AXIS ND 70 P 0 QRSd 106 QRS 45 QT 385 T 42 QTc 439 Conclusion Sinus rhythm...normal P axis, V-rate 60- 99 Ventricular premature complex...V complex w/ short R-R interval
[2024-03-03 17:44] LABS: Abs Immature Grans 0.01 10^3/uL (0.0-0.06); Absolute Basophil Count 0.04 10^3/uL (0.0-0.2); Absolute Eosinophil Count 0.23 10^3/uL (0.0-0.7); Absolute Lymphocyte Count 1.96 10^3/uL (1.2-3.4); Absolute Monocyte Count 0.55 10^3/uL (0.1-0.8); Absolute Neutrophil Count 2.55 10^3/uL (1.2-6.7); Basophils % 0.7 %; Eosinophils % 4.3 %; HCT 32.4 % (36.0-46.0); HGB 10.9 g/dL (11.2-15.7); Immature Grans % 0.2 %; Lymphocytes % 36.7 %; MCH 31.4 pg (27.0-33.0); MCHC 33.6 % (32.0-36.0); MCV 93 fL (80-95); MPV 9.8 fL (8.0-11.0); Monocytes % 10.3 %; Neutrophils % 47.8 %; Platelet Count 268 10^3/uL (130-400); RBC 3.47 10^6/uL (3.93-5.22); RDW 14.2 % (11.7-14.6); RDW-SD 48.2 fL; WBC 5.34 10^3/uL (4.4-10.8)
[2024-03-03] MEDS: ACETAMINOPHEN 1,000 MG/100 ML BTL 400 MG IVPB (17:46)
[2024-03-03] MEDS: Prochlorperazine 10 MG/2 ML VIAL 5 MG IVP ×2 (17:49→19:01)
[2024-03-03 18:01] LABS: ALT 25 U/L (14-59); AST 21 U/L (15-37); Albumin 3.9 g/dL (3.4-5.0); Alkaline Phosphatase 57 U/L (46-116); Anion Gap 8.6 mmol/L (3-11); BUN 18 mg/dL (7-18); Bilirubin, Total 0.64 mg/dL (0.2-1.0); CO2 27.4 mmol/L (21.0-32.0); CREATININE 1.4 mg/dL (0.55-1.02); Calcium 9.5 mg/dL (8.5-10.1); Chloride 102 mmol/L (98-107); Estimated GFR 42.27 (mL/min/1.73m2); Glucose 95 mg/dL (74-106); Potassium 3.5 mmol/L (3.5-5.1); Sodium 138 mmol/L (136-145); Total Protein 7.1 g/dL (6.4-8.2)
--- NOTE | 2024-03-03 18:09 | DI.RAD_ITS ---
Exam(s) XR CHEST 2V PA LATERAL EXAM: XR CHEST 2V PA LATERAL CLINICAL HISTORY: shortness of breath TECHNIQUE: 2D digital imaging was performed of the chest. Two images were obtained. PA and lateral views were obtained. COMPARISON: CR XR CHEST 2V PA LATERAL from 09/08/2023 CR,XR XR PORTABLE CHEST AP from 09/12/2023 FINDINGS: MEDIASTINUM: Normal. HEART: Normal. PULMONARY VASCULATURE: Normal. LUNGS: There is stable scarring in the right lung base. No focal consolidating infiltrates are seen. PLEURAL SPACE: No pleural effusion or pneumothorax. BONE:Within normal limits for the patient's age. There are surgical clips seen in the right hilum. Old healed rib fracture deformities are present on the right. OTHER FINDINGS:Normal. IMPRESSION: No acute pulmonary findings. DATA REPOSITORY: RADIATION DOSE DELIVERED:
--- NOTE | 2024-03-03 18:09 | DI.CT_ITS ---
Exam(s) CT HEAD WO EXAM: CT HEAD WO CLINICAL HISTORY: headache. TECHNIQUE: Imaging Protocol: Axial computed tomography images with coronal and sagittal reformatted images were created and reviewed COMPARISON: CT CT HEAD WO from 09/19/2022 FINDINGS: Ventricles and Extra axial spaces: Normal in size and morphology for the patient's age. Hemorrhage: None. Cerebral parenchyma: There is no evidence of an acute territorial infarct. No mass effect is identif ied. Midline shift: None. Brainstem/Cerebellum: Normal. Calvarium: Normal. Visualized Paranasal sinuses/Mastoids: Clear. Soft Tissues: Unremarkable. IMPRESSION: No acute intracranial process. RADIATION DOSE DELIVERED: 891.78mGy.cm Total DLP DATA REPOSITORY: All CT scans at this facility are submitted to the National Radiology Data Registry (NRDR) Dose Index Registry (DIR) with the [employer] (ACR). RADIATION OPTIMIZATION: All CT scans at this facility use at least one of these dose optimization te chniques: automated exposure control; mA and/or kV adjustment per patient size (includes targeted exa ms where dose is matched to clinical indication); or iterative reconstruction.
--- NOTE | 2024-03-03 18:13 | DI.VRAD_ITS ---
PROCEDURE INFORMATION: Exam: CT Head Without Contrast Exam date and time: 03/03/2024 5:58 PM Age: 63 years old Clinical indication: Other: Headache TECHNIQUE: Imaging protocol: Computed tomography of the head without contrast. COMPARISON: MR BRAIN WO/W 10/31/2022 3:25 PM FINDINGS: Brain: Moderate volume loss No hemorrhage.Mild white matter disease No mass effect. Cerebral ventricles: No ventriculomegaly. Paranasal sinuses: Visualized sinuses are unremarkable. No fluid levels. Mastoid air cells: Visualized mastoid air cells are well aerated. Bones: Unremarkable. No acute fracture. Soft tissues: Unremarkable. IMPRESSION: No acute intracranial abnormality. Dictated and Authenticated by: Hector Fraga MD. Ordering:BRANDEE Hedrick MD
--- NOTE | 2024-03-03 18:14 | DI.VRAD_ITS ---
PROCEDURE INFORMATION: Exam: XR Chest Exam date and time: 03/03/2024 6:00 PM Age: 63 years old Clinical indication: Shortness of breath TECHNIQUE: Imaging protocol: Radiologic exam of the chest. Views: 2 views. COMPARISON: CT CHEST W 02/10/2024 2:23 PM FINDINGS: Lungs: Unremarkable. No consolidation. Pleural spaces: Unremarkable. No pleural effusion. No pneumothorax. Heart/Mediastinum: Grossly stable. Bones/joints: Unremarkable. IMPRESSION: No acute findings. Dictated and Authenticated by: Hector Fraga MD. Ordering:BRANDEE Hedrick MD
[2024-03-03 18:22] LABS: COVID-19 PCR Negative (Negative); Influenza A PCR Negative (Negative); Influenza B PCR Negative (Negative); RSV PCR Negative (Negative)
[2024-03-03 18:27] LABS: Source NASOPHARYNX
[2024-03-03 18:36] LABS: ESR 8 mm/hr (0-30)
[2024-03-03 18:46] LABS: Troponin I 7 ng/L (<or=51)
[2024-03-03 18:59] LABS: Troponin I 8 ng/L (<or=51)
[2024-03-03] MEDS: Dexamethasone 10 MG/ML VIAL IVP (19:00)
--- NOTE | 2024-03-03 19:10 | W.ED.GENAD ---
Discharge Plan Disposition Patient Disposition: Home Condition: Stable Discharge Details Clinical Impression: Headache, Acute sore throat Primary Care Provider: Mikal Hollins ED Provider: Floridalma Mckeon Home Meds and New Rx's Prescriptions: New prochlorperazine maleate [Compazine] 10 mg tablet 10 mg PO Q6H PRNQty: 14 0RF Continued lidocain-me.lyxqrah-pege-eyjkd [1st Medx-Patch With Lidocaine] 1 applic topical DAILY Rx Instructions: for hip and or spine aspirin [Adult Aspirin Regimen] 81 mg tablet,delayed release (DR/EC) 81 mg PO 2XD dexlansoprazole 60 mg capsule,biphase delayed releas 60 mg PO DAILY budesonide-formoterol [Breyna] 1 puff inhalation PRN PRN carboxymethylcellulose sodium [Refresh Plus] 0.5 % dropperette 1 drp ophthalmic (eye) QID PRN (Reason: dry eye(s)) Qty: 30 4RF gabapentin 400 mg capsule 400 mg PO BID sennosides [Senna Laxative] 8.6 mg tablet 8.6 mg PO BID PRN (Reason: constipation) Qty: 60 3RF torsemide 20 mg tablet 20 mg PO DAILY losartan 100 mg tablet 100 mg PO DAILY albuterol sulfate 2.5 mg /3 mL (0.083 %) solution for nebulization 2.5 mg inhalation Q6H potassium chloride [Klor-Con 10] 10 mEq tablet extended release 20 meq PO BID loperamide [Imodium A-D] 2 mg capsule 2 mg PO QID PRN (Reason: loose stool) Qty: 60 3RF Rx Instructions: For chemo related diarrhea. simvastatin 40 mg tablet 40 mg PO DAILY Tagrisso 80 mg tablet 80 mg PO DAILY nitroglycerin [Nitrostat] 0.4 MG tablet, sublingual 0.4 mg Sublingual DIRECTED PRN Patient Comments: never uses albuterol sulfate 8.5 GM HFA aerosol inhaler 2 puff Inhalation Q4H PRN PRNQty: 1 0RF multivitamin [Multiple Vitamins] 1 TAB tablet 1 tab PO DAILY Qty: 180 0RF magnesium L-lactate [Magtab] 84 mg tablet extended release 84 mg PO QID Patient Comments: TAKE 1 TABLET BY MOUTH FOUR TIMES DAILY lorazepam 1 MG tablet 1 mg PO TID PRN Discharge Instructions Instructions: Headache, Adult ED, Sore Throat, Adult ED Additional Instructions: Take Tylenol as needed for sore throat and headache, the steroid that you received through the IV will last for approximately 3 days, the Compazine can work for headache and nausea At least eight 8 ounce glasses of water daily Recheck in 48 hours with persistent or worsening symptoms and return earlier should you have new or worsening complaints Referrals: Mikal Hollins [Primary Care Provider] - 2 days HPI General Date/Time Provider Initiated Documentation: 03/03/24 16:42. HPI Narrative: This 63-year-old female comes in with a headache and sore throat for the past 3 days. She states that her heart rate feels low when she lays supine. Denies any chest pain or significant shortness of breath. Has had a cough. Denies known sick contacts. Intermittent nausea without vomiting. Denies any diarrhea or abdominal pain. Related Data Home Medications ?Medication ?Instructions ?Recorded ?Confirmed nitroglycerin 0.4 mg sublingual 0.4 mg sublingual DIRECTED PRN 10/05/12 03/03/24 tablet (Nitrostat) albuterol sulfate 90 mcg/actuation 2 puff inhalation Q4H PRN PRN ##1 09/21/14 03/03/24 aerosol inhaler multivitamin (Multiple Vitamins 1 tab PO DAILY #180 tabs 03/08/16 03/03/24 tablet) lorazepam 1 mg tablet 1 mg PO TID PRN 04/03/17 03/03/24 albuterol sulfate 2.5 mg/3 mL 2.5 mg inhalation Q6H 04/19/20 03/03/24 (0.083 %) solution for nebulization gabapentin 400 mg capsule 400 mg PO BID 11/09/20 03/03/24 potassium chloride 10 mEq 20 meq PO BID 01/11/21 03/03/24 tablet,extended release (Klor-Con) sennosides 8.6 mg tablet (Senna 8.6 mg PO BID PRN constipation #60 05/09/22 03/03/24 Laxative) tabs loperamide 2 mg capsule (Imodium 2 mg PO QID PRN loose stool #60 06/12/22 03/03/24 A-D) caps aspirin 81 mg tablet,delayed 81 mg PO 2XD 07/11/22 03/03/24 release (Adult Aspirin Regimen) lidocain-me.cyqgxvb-vews-gnmhz 1 applic topical DAILY 07/11/22 03/03/24 dexlansoprazole 60 mg 60 mg PO DAILY 09/12/22 03/03/24 capsule,biphase delayed release losartan 100 mg tablet 100 mg PO DAILY 12/01/22 03/03/24 torsemide 20 mg tablet 20 mg PO DAILY 12/01/22 03/03/24 osimertinib 80 mg tablet (Tagrisso) 80 mg PO DAILY 07/01/23 03/03/24 simvastatin 40 mg tablet 40 mg PO DAILY 07/01/23 03/03/24 magnesium L-lactate 84 mg 84 mg PO QID 09/13/23 03/03/24 tablet,extended release (Magtab) budesonide-formoterol 1 puff inhalation PRN PRN 02/12/24 03/03/24 carboxymethylcellulose sodium 0.5 1 drp ophthalmic (eye) QID PRN dry 02/12/24 03/03/24 % eye drops in a dropperette eye(s) #30 ea (Refresh Plus) prochlorperazine maleate 10 mg 10 mg PO Q6H PRN #14 tabs 03/03/24 tablet (Compazine) Previous Rx's ?Medication ?Instructions ?Recorded albuterol sulfate 90 mcg/actuation 2 puff inhalation Q4H PRN PRN ##1 09/21/14 aerosol inhaler multivitamin (Multiple Vitamins 1 tab PO DAILY #180 tabs 03/08/16 tablet) sennosides 8.6 mg tablet (Senna 8.6 mg PO BID PRN constipation #60 05/09/22 Laxative) tabs loperamide 2 mg capsule (Imodium 2 mg PO QID PRN loose stool #60 06/12/22 A-D) caps carboxymethylcellulose sodium 0.5 1 drp ophthalmic (eye) QID PRN dry 02/12/24 % eye drops in a dropperette eye(s) #30 ea (Refresh Plus) prochlorperazine maleate 10 mg 10 mg PO Q6H PRN #14 tabs 03/03/24 tablet (Compazine) Allergies Allergy/AdvReac Type Severity Reaction Status Date / Time hydrocodone Allergy Severe Anaphylaxis Verified 03/03/24 16:37 atorvastatin Allergy Intermediate Other (See Verified 03/03/24 16:37 Comment) fentanyl Allergy Intermediate SOB Verified 03/03/24 16:37 Sulfa (Sulfonamide Allergy Mild rash, Verified 03/03/24 16:37 Antibiotics) itching, nausea codeine Allergy Unknown Other (See Verified 03/03/24 16:37 Comment) morphine AdvReac Intermediate Body Verified 03/03/24 16:37 burning ondansetron AdvReac Intermediate Other (See Verified 03/03/24 16:37 Comment) diphenhydramine HCl (From AdvReac Mild palpitation Verified 03/03/24 16:37 Benadryl) s Penicillins AdvReac Mild palpitation Verified 03/03/24 16:37 s tramadol AdvReac Mild SOB/vomitin Verified 03/03/24 16:37 g dander Allergy Intermediate Other (See Uncoded 03/03/24 16:37 Comment) General Stated Complaint: GenMedical LISS: 3 Exam Narrative Exam Narrative: 63-year-old female presenting in no acute distress alert and oriented, pupils equal round reactive to light and accommodation, lungs clear to auscultation, cardiac rate rhythm regular no meningismus, oropharynx patent, uvula midline, no obvious erythema to soft palate, lungs clear to auscultation, cardiac rate rhythm regular, no calf swelling or tenderness, distal pulses intact Course Vital Signs Vital signs: Vital Signs Temperature 36.6 C 03/03/24 16:33 Pulse 84 03/03/24 16:33 Respiratory Rate 18 03/03/24 16:33 Blood Pressure 135/97 H 03/03/24 16:33 Pulse Oximetry 96 03/03/24 16:33 Temperature 36.6 C 03/03/24 16:36 Temperature Source Oral 03/03/24 16:36 Pulse 84 03/03/24 16:36 Respiratory Rate 17 03/03/24 16:59 Respiratory Effort Normal 03/03/24 16:59 Respiratory Depth Normal 03/03/24 16:59 Respiratory Pattern Normal 03/03/24 16:59 Blood Pressure 135/97 H 03/03/24 16:36 Blood Pressure Position Sitting 03/03/24 16:36 Pulse Oximetry 96 03/03/24 16:36 Oxygen Delivery Method Room Air 03/03/24 16:36 Oxygen Flow Rate 0 03/03/24 16:36 Lab/Test Results Lab/Test Results: 03/03/24 17:15 Tonsil - Not Specified Group A Streptococcus Culture - Pending Laboratory Tests Range/Units 03/03/24 03/03/24 03/03/24 17:08 17:15 17:34 WBC (4.4-10.8) 10^3/uL 5.34 RBC (3.93-5.22) 10^6/uL 3.47 L Hgb (11.2-15.7) g/dL 10.9 L Hct (36.0-46.0) % 32.4 L MCV (80-95) fL 93 MCH (27.0-33.0) pg 31.4 MCHC (32.0-36.0) % 33.6 RDW (11.7-14.6) % 14.2 Plt Count (130-400) 10^3/uL 268 MPV (8.0-11.0) fL 9.8 Immature Gran % % 0.2 Neutrophils % % 47.8 Lymphocytes % % 36.7 Monocytes % % 10.3 Eosinophils % % 4.3 Basophils % % 0.7 Nucleated RBC % (0.0-0.3) % 0.0 Absolute Neutrophils (1.2-6.7) 10^3/uL 2.55 Absolute Lymphocytes (1.2-3.4) 10^3/uL 1.96 Absolute Monocytes (0.1-0.8) 10^3/uL 0.55 Absolute Eosinophils (0.0-0.7) 10^3/uL 0.23 Absolute Basophils (0.0-0.2) 10^3/uL 0.04 ESR (0-30) mm/hr 8 Sodium Cancelled 138 Potassium Cancelled 3.5 Chloride Cancelled 102 Carbon Dioxide Cancelled 27.4 Anion Gap Cancelled 8.6 BUN Cancelled 18 Creatinine Cancelled 1.4 H Est GFR (CKD-EPI 2020) Cancelled 42.27 Glucose Cancelled 95 Calcium Cancelled 9.5 Total Bilirubin Cancelled 0.64 AST Cancelled 21 ALT Cancelled 25 Alkaline Phosphatase Cancelled 57 Troponin I (<or=51) ng/L 7 Total Protein Cancelled 7.1 Albumin Cancelled 3.9 COVID-19 Source NASOPHARYNX SARS-CoV-2 (PCR) (Negative) Negative Influenza Type A (PCR) (Negative) Negative Influenza Type B (PCR) (Negative) Negative RSV (PCR) (Negative) Negative Range/Units 03/03/24 18:24 WBC (4.4-10.8) 10^3/uL RBC (3.93-5.22) 10^6/uL Hgb (11.2-15.7) g/dL Hct (36.0-46.0) % MCV (80-95) fL MCH (27.0-33.0) pg MCHC (32.0-36.0) % RDW (11.7-14.6) % Plt Count (130-400) 10^3/uL MPV (8.0-11.0) fL Immature Gran % % Neutrophils % % Lymphocytes % % Monocytes % % Eosinophils % % Basophils % % Nucleated RBC % (0.0-0.3) % Absolute Neutrophils (1.2-6.7) 10^3/uL Absolute Lymphocytes (1.2-3.4) 10^3/uL Absolute Monocytes (0.1-0.8) 10^3/uL Absolute Eosinophils (0.0-0.7) 10^3/uL Absolute Basophils (0.0-0.2) 10^3/uL ESR (0-30) mm/hr Sodium Potassium Chloride Carbon Dioxide Anion Gap BUN Creatinine Est GFR (CKD-EPI 2020) Glucose Calcium Total Bilirubin AST ALT Alkaline Phosphatase Troponin I (<or=51) ng/L 8 Total Protein Albumin COVID-19 Source SARS-CoV-2 (PCR) (Negative) Influenza Type A (PCR) (Negative) Influenza Type B (PCR) (Negative) RSV (PCR) (Negative) POC Strep Test-LIGIA(Rapid) Start: 03/03/24 17:06 Freq: .Rapid Strep Test Status: Active Protocol: Document 03/03/24 17:42 (Rec: 03/03/24 17:42 [id number]) Strep test-LIGIA(Rapid)-POC POC-Strep test-LIGIA (Rapid) Negative POC-Strep test-LIGIA (Rapid) Negative Medical Decision Making 63-year-old female presenting in no acute distress, suspect viral etiology of patient's complaints, diagnostic labs are reassuring, chronic kidney disease, 1.4 but the remainder of patient's labs are all at her baseline. Patient denies any urinary symptoms, she has no significant chest discomfort and 2 negative troponins with a vague sensation which is reassuring, chest x-ray does not show evidence of pneumonia per radiology interpretation my review. Patient is feeling marked improvement in headache after Compazine and Decadron. Will give Compazine for home and patient will continue supportive care, return precautions reviewed and patient expressed understanding discharged home in stable condition with stable vitals Quality:SDOH Health Related Social Needs: No Data to Display PFSH All Active Problems (Updated 03/03/24 @ 19:14 by KENISHA Blake) Acute sore throat (Acute) Headache (Acute) No blood products (Acute) congregation beliefs Osteoarthritis of left hip (Acute) Nausea vomiting and diarrhea (Acute) Acute hypoxic respiratory failure (Acute) Influenza A (Acute) Viral illness (Acute) Hypertension (Chronic) Atypical chest pain (Acute) Acute hyponatremia (Acute) Hypomagnesemia (Acute) DJD (degenerative joint disease) (Chronic) Palliative care patient (Acute) DNI (do not intubate) (Acute) DNR (do not resuscitate) (Acute) POLST (Physician Orders for Life-Sustaining Treatment) (Acute) COLST completed 04/20/2020, DNR/DNI. Cancer related pain (Acute) Medical History (Updated 03/03/24 @ 19:14 by KENISHA Blake) Alcoholism HLD (hyperlipidemia) Suicide attempt Renal insufficiency GERD (gastroesophageal reflux disease) Tobacco abuse Carotid atherosclerosis Chest pressure LBBB (left bundle branch block) Pedal edema Abnormal nuclear stress test Anxiety Ankle fracture History of depression Degenerative joint disease (DJD) of lumbar spine Surgical History History of appendectomy Social History Smoking/Tobacco Use Status: Former Tobacco Use Smoking risk assessment performed?: Yes Alcohol Intake: current Alcohol Intake frequency: a few times a week Alcohol type: wine Drug use: Never Substance use type: does not use Housing: apartment Do you feel safe at home: Yes Do you feel safe in your relationship?: Yes PAWSS Have you Been Recently Intoxicated or Drunk Within the Last 30 days?: No Have you Ever Experienced Previous Episodes of Alcohol Withdrawal?: No Have you ever Experienced Withdrawal Seizures?: No Have you ever Experienced Delirium Tremens(DT)s?: No Have you ever undergone Alcohol Rehabilitation Treatment (i.e, inpt ot outpatient treatment programs)?: No Have you ever Experienced Blackouts?: No Have you ever Combined Alcohol with other Downers within the last 90 days?: No Have you ever Combined Alcohol with any other Substance of Abuse during the last 90 days?: No Positive Blood Alcohol level on Presentation? [PCS.BAL]: No Evidence of Increased Autonomic Activity (i.e. HR>120, tremor, sweating, agitation, nausea)?: No Result: 0
== END 2024-03-03 19:35 | disposition home or self-care (01) ==
PROVIDERS: Emergency Provider Physician Assistant; PCP Physician Assistant
DX: R51.9 Headache, unspecified (principal); J02.9 Acute pharyngitis, unspecified; I10 Essential (primary) hypertension; E78.5 Hyperlipidemia, unspecified; R00.1 Bradycardia, unspecified; Z79.82 Long term (current) use of aspirin; Z87.891 Personal history of nicotine dependence
CPT/HCPCS: 80053; 85652; 87637; 87880; 93005; 96365; 96375; 96376; 99285; 70450; 71046; 84484; 85025; 87081; 93010; 99284; J0131; J0780; J1100

== ENCOUNTER 2024-03-15 11:38 | Emergency (ER) | payer OTHER, SELFPAY ==
[2024-03-15 11:39] VITALS: BP 120/77; PULSE 75; RESP 16; TEMP 36.4; O2SAT 98
--- NOTE | 2024-03-15 11:47 | ED.GENADUL_ITS ---
Discharge Plan Disposition Patient Disposition: Home Condition: Stable Discharge Details Clinical Impression: Pharyngitis Primary Care Provider: Mikal Hollins ED Provider: Andrew Rivas Home Meds and New Rx's Prescriptions: New clindamycin HCl 150 mg capsule 450 mg PO TID 10 Days Qty: 90 0RF Continued lidocain-me.lymbnyx-bcgf-pnpio [1st Medx-Patch With Lidocaine] 1 applic topical DAILY Rx Instructions: for hip and or spine aspirin [Adult Aspirin Regimen] 81 mg tablet,delayed release (DR/EC) 81 mg PO 2XD dexlansoprazole 60 mg capsule,biphase delayed releas 60 mg PO DAILY budesonide-formoterol [Breyna] 1 puff inhalation PRN PRN carboxymethylcellulose sodium [Refresh Plus] 0.5 % dropperette 1 drp ophthalmic (eye) QID PRN (Reason: dry eye(s)) Qty: 30 4RF gabapentin 400 mg capsule 400 mg PO BID sennosides [Senna Laxative] 8.6 mg tablet 8.6 mg PO BID PRN (Reason: constipation) Qty: 60 3RF torsemide 20 mg tablet 20 mg PO DAILY losartan 100 mg tablet 100 mg PO DAILY albuterol sulfate 2.5 mg /3 mL (0.083 %) solution for nebulization 2.5 mg inhalation Q6H potassium chloride [Klor-Con 10] 10 mEq tablet extended release 20 meq PO BID loperamide [Imodium A-D] 2 mg capsule 2 mg PO QID PRN (Reason: loose stool) Qty: 60 3RF Rx Instructions: For chemo related diarrhea. simvastatin 40 mg tablet 40 mg PO DAILY Tagrisso 80 mg tablet 80 mg PO DAILY nitroglycerin [Nitrostat] 0.4 MG tablet, sublingual 0.4 mg Sublingual DIRECTED PRN Patient Comments: never uses albuterol sulfate 8.5 GM HFA aerosol inhaler 2 puff Inhalation Q4H PRN PRNQty: 1 0RF multivitamin [Multiple Vitamins] 1 TAB tablet 1 tab PO DAILY Qty: 180 0RF magnesium L-lactate [Magtab] 84 mg tablet extended release 84 mg PO QID Patient Comments: TAKE 1 TABLET BY MOUTH FOUR TIMES DAILY prochlorperazine maleate [Compazine] 10 mg tablet 10 mg PO Q6H PRNQty: 14 0RF lorazepam 1 MG tablet 1 mg PO TID PRN Discharge Instructions Instructions: Clindamycin (Systemic), Sore Throat, Adult ED Additional Instructions: You were seen in the emergency department for your continued sore throat after being seen on March 03 and empirically diagnosed with a viral sore throat. I have prescribed you the antibiotic clindamycin, I checked with pharmacy there is no interaction with your chemotherapy medication and this antibiotic. Your vitals are completely stable and you are in no respiratory distress, please monitor your condition closely, return to the ED for any difficulty swallowing that is worsening, vocal changes, inability to open or close your jaw, worsening fevers despite treatment. Please call your primary care provider for any failure to improve but no worsening to schedule an outpatient CT of your neck. Referrals: Mikal Hollins [Primary Care Provider] - Discharge Data Discharge Date/Time-TO BE ENTERED AT DEPARTURE: 03/15/24 13:29 HPI General Date/Time Provider Initiated Documentation: 03/15/24 11:44 . HPI Narrative: 64 year-old female presents to ED today by POV/ambulating with a chief complaint of sore throat, ongoing since 03/03/24, seen and diagnosed here with viral pharyngitis- endorses ear pain, denies cough, and feels her glands are swollen in the neck. Quality described as sore throat, able to tolerate PO intake, no radiation to dysphagia, trismus, vocal changes, high fevers, shortness of breath, chest pain, weight loss. Severity is described as moderate. Palliating factors include tea with honey, salt water gargles without relief. Provoking factors include nothing specific. Events leading up to the incident/Associated Symptoms: Patient is a on chemotherapy for bone and lung cancer. Patient not anticoagulated. Related Data Home Medications ?Medication ?Instructions ?Recorded ?Confirmed nitroglycerin 0.4 mg sublingual 0.4 mg sublingual DIRECTED PRN 10/05/12 03/15/24 tablet (Nitrostat) albuterol sulfate 90 mcg/actuation 2 puff inhalation Q4H PRN PRN ##1 09/21/14 03/15/24 aerosol inhaler multivitamin (Multiple Vitamins 1 tab PO DAILY #180 tabs 03/08/16 03/15/24 tablet) lorazepam 1 mg tablet 1 mg PO TID PRN 04/03/17 03/15/24 albuterol sulfate 2.5 mg/3 mL 2.5 mg inhalation Q6H 04/19/20 03/15/24 (0.083 %) solution for nebulization gabapentin 400 mg capsule 400 mg PO BID 11/09/20 03/15/24 potassium chloride 10 mEq 20 meq PO BID 01/11/21 03/15/24 tablet,extended release (Klor-Con) sennosides 8.6 mg tablet (Senna 8.6 mg PO BID PRN constipation #60 05/09/22 03/15/24 Laxative) tabs loperamide 2 mg capsule (Imodium 2 mg PO QID PRN loose stool #60 06/12/22 03/15/24 A-D) caps aspirin 81 mg tablet,delayed 81 mg PO 2XD 07/11/22 03/15/24 release (Adult Aspirin Regimen) lidocain-me.hhmcqgz-mzaz-bmzzi 1 applic topical DAILY 07/11/22 03/15/24 dexlansoprazole 60 mg 60 mg PO DAILY 09/12/22 03/15/24 capsule,biphase delayed release losartan 100 mg tablet 100 mg PO DAILY 12/01/22 03/15/24 torsemide 20 mg tablet 20 mg PO DAILY 12/01/22 03/15/24 osimertinib 80 mg tablet (Tagrisso) 80 mg PO DAILY 07/01/23 03/15/24 simvastatin 40 mg tablet 40 mg PO DAILY 07/01/23 03/15/24 magnesium L-lactate 84 mg 84 mg PO QID 09/13/23 03/15/24 tablet,extended release (Magtab) budesonide-formoterol 1 puff inhalation PRN PRN 02/12/24 03/15/24 carboxymethylcellulose sodium 0.5 1 drp ophthalmic (eye) QID PRN dry 02/12/24 03/15/24 % eye drops in a dropperette eye(s) #30 ea (Refresh Plus) prochlorperazine maleate 10 mg 10 mg PO Q6H PRN #14 tabs 03/03/24 03/15/24 tablet (Compazine) clindamycin HCl 150 mg capsule 450 mg (3 x 150 mg) PO TID 03/15/24 pharyngitis 10 days #90 caps Previous Rx's ?Medication ?Instructions ?Recorded albuterol sulfate 90 mcg/actuation 2 puff inhalation Q4H PRN PRN ##1 09/21/14 aerosol inhaler multivitamin (Multiple Vitamins 1 tab PO DAILY #180 tabs 03/08/16 tablet) sennosides 8.6 mg tablet (Senna 8.6 mg PO BID PRN constipation #60 05/09/22 Laxative) tabs loperamide 2 mg capsule (Imodium 2 mg PO QID PRN loose stool #60 06/12/22 A-D) caps carboxymethylcellulose sodium 0.5 1 drp ophthalmic (eye) QID PRN dry 02/12/24 % eye drops in a dropperette eye(s) #30 ea (Refresh Plus) prochlorperazine maleate 10 mg 10 mg PO Q6H PRN #14 tabs 03/03/24 tablet (Compazine) clindamycin HCl 150 mg capsule 450 mg (3 x 150 mg) PO TID 03/15/24 pharyngitis 10 days #90 caps Allergies Allergy/AdvReac Type Severity Reaction Status Date / Time hydrocodone Allergy Severe Anaphylaxis Verified 03/15/24 11:43 atorvastatin Allergy Intermediate Other (See Verified 03/15/24 11:43 Comment) fentanyl Allergy Intermediate SOB Verified 03/15/24 11:43 Sulfa (Sulfonamide Allergy Mild rash, Verified 03/15/24 11:43 Antibiotics) itching, nausea codeine Allergy Unknown Other (See Verified 03/15/24 11:43 Comment) morphine AdvReac Intermediate Body Verified 03/15/24 11:43 burning ondansetron AdvReac Intermediate Other (See Verified 03/15/24 11:43 Comment) diphenhydramine HCl (From AdvReac Mild palpitation Verified 03/15/24 11:43 Benadryl) s Penicillins AdvReac Mild palpitation Verified 03/15/24 11:43 s tramadol AdvReac Mild SOB/vomitin Verified 03/15/24 11:43 g dander Allergy Intermediate Other (See Uncoded 03/15/24 11:43 Comment) General Stated Complaint: GenMedical LISS: 3 Review of Systems All systems reviewed & are unremarkable except as noted in HPI and below Exam Narrative Exam Narrative: GENERAL APPEARANCE: Well-nourished, non-toxic, awake and alert, atraumatic, no acute distress. SKIN: Warm, pink, dry, intact, without rashes/lesions/ulcerations. HEAD: Normocephalic, atraumatic, normal hair distribution for gender/age. EYES: Normal conjunctiva, no exudates on lids/lashes. ENT: Nares patent, no circumoral cyanosis, no facial swelling NECK: Supple, trachea midline, painless cervical ROM. LUNGS/CHEST: Lungs CTA bilaterally, non-labored respirations, normal A/P katie meter, symmetrical expansion, no chest wall deformity HEART (CV/PV): Regular rate and rhythm without murmur, no peripheral edema, no JVD. ABDOMEN: Soft, non-distended, no guarding. MSK: Normal ROM, no swelling/deformity to bilateral UEs or LEs, moving all extremities without weakness, no cyanosis, spine midline without tenderness, normal curvature. NEURO: Mental Status AAOx4 - alert to person, place, time, events No facial droop, no forehead involvement. Motor: No focal weakness - strength 5/5 in bilateral UEs and LEs, proximal and distal, symmetric. Sensory: sensation intact to light touch globally. Gait normal: patient ambulated without ataxia into ED room. PSYCH: euthymic, cooperative, pleasant, appropriate speech Course Vital Signs Vital signs: Vital Signs Temperature 36.4 C 03/15/24 11:39 Pulse 75 03/15/24 11:39 Respiratory Rate 16 03/15/24 11:39 Blood Pressure 120/77 03/15/24 11:39 Pulse Oximetry 98 03/15/24 11:39 Temperature 36.4 C 03/15/24 11:39 Temperature Source Oral 03/15/24 11:39 Pulse 75 03/15/24 11:39 Respiratory Rate 16 03/15/24 11:39 Blood Pressure 120/77 03/15/24 11:39 Blood Pressure Position Sitting 03/15/24 11:39 Pulse Oximetry 98 03/15/24 11:39 Oxygen Delivery Method Room Air 03/15/24 11:39 Oxygen Flow Rate 0 03/15/24 11:39 Pain Level 8 03/15/24 11:39 Medical Decision Making This dictation utilizes [id number] dictation software and may contain unedited grammatical errors. 64 year-old female presents to ED today by POV/ambulating with a chief complaint of sore throat, ongoing since 03/03/24, seen and diagnosed here with viral pharyngitis- endorses ear pain, denies cough, and feels her glands are swollen in the neck. Quality described as sore throat, able to tolerate PO intake, no radiation to dysphagia, trismus, vocal changes, high fevers, shortness of breath, chest pain, weight loss. Severity is described as moderate. Palliating factors include tea with honey, salt water gargles without relief. Provoking factors include nothing specific. Events leading up to the incident/Associated Symptoms: Patient is a on chemotherapy for bone and lung cancer. Patients' medical history: History of alcoholism, renal insufficiency, left bundle branch block, hypertension, atypical chest pain, lung and bone cancer, DNR/DNI. Family and social history: Noncontributory. Pertinent exam findings / vital signs include no major cervical lymphadenopathy, uvula midline, no lazo erythema to posterior orpharynx, no exudate, tolerating PO intake, no vocal changes, no trismus. Differential / pathologies of concern include pharyngitis, mass, esophagitis. Diagnostic studies of: -none- I discussed options for CT neck vs trial of ABX with the patient- they would prefer trial of antibiotics prior to significant workup- but will pursue CT neck outpatient or return for any failure to improve. Interventions of: -Rx for Augmentin. ED Course/Assessment/Plan: 64-year-old female presents with continued sore throat after being diagnosed with viral pharyngitis weeks ago, we discussed her cancer history and possibility of spread of this but she is having no systemic constitutional symptoms at this time, she endorses sore throat and some ear pain, I think it is reasonable to start her on Augmentin for failure to improve from a viral pharyngitis but I did stress that if she is not improving that she likely needs to return to the ED or proceed outpatient CT of her neck, she has no signs of airway compromise or trismus or dysphagia at this time, the patient was comfortable with this disposition and understood and engaged in shared decision making about depth of workup at today's visit and will return for failure to improve on Augmentin. Findings not consistent with trismus, deep space infection, sepsis, airway compromise, inability to tolerate p.o. intake. Disposition of Pharyngitis. Patient verbalized understanding of the plan and return to ED criteria and engaged in shared decision making. Medical Records Medical records reviewed: Yes I reviewed the patient's medical records. Quality:SDOH Health Related Social Needs: No Data to Display PFSH All Active Problems (Updated 03/15/24 @ 13:11 by KENISHA Shipley) Pharyngitis (Acute) Acute sore throat (Acute) Headache (Acute) No blood products (Acute) baptist beliefs Osteoarthritis of left hip (Acute) Nausea vomiting and diarrhea (Acute) Acute hypoxic respiratory failure (Acute) Influenza A (Acute) Viral illness (Acute) Hypertension (Chronic) Atypical chest pain (Acute) Acute hyponatremia (Acute) Hypomagnesemia (Acute) DJD (degenerative joint disease) (Chronic) Palliative care patient (Acute) DNI (do not intubate) (Acute) DNR (do not resuscitate) (Acute) POLST (Physician Orders for Life-Sustaining Treatment) (Acute) COLST completed 04/20/2020, DNR/DNI. Cancer related pain (Acute) Medical History (Updated 03/15/24 @ 13:11 by KENISHA Shipley) Alcoholism HLD (hyperlipidemia) Suicide attempt Renal insufficiency GERD (gastroesophageal reflux disease) Tobacco abuse Carotid atherosclerosis Chest pressure LBBB (left bundle branch block) Pedal edema Abnormal nuclear stress test Anxiety Ankle fracture History of depression Degenerative joint disease (DJD) of lumbar spine Surgical History History of appendectomy Social History Smoking/Tobacco Use Status: Former Tobacco Use Smoking risk assessment performed?: Yes Alcohol Intake: current Alcohol Intake frequency: a few times a week Alcohol type: wine Drug use: Never Substance use type: does not use Housing: apartment Do you feel safe at home: Yes Do you feel safe in your relationship?: Yes
[2024-03-15 12:33] LABS: Abs Immature Grans 0.03 10^3/uL (0.0-0.06); Absolute Basophil Count 0.04 10^3/uL (0.0-0.2); Absolute Eosinophil Count 0.25 10^3/uL (0.0-0.7); Absolute Lymphocyte Count 1.59 10^3/uL (1.2-3.4); Absolute Monocyte Count 0.56 10^3/uL (0.1-0.8); Absolute Neutrophil Count 4.27 10^3/uL (1.2-6.7); Basophils % 0.6 %; Eosinophils % 3.7 %; HCT 34.7 % (36.0-46.0); HGB 11.6 g/dL (11.2-15.7); Immature Grans % 0.4 %; Lymphocytes % 23.6 %; MCHC 33.4 % (32.0-36.0); MCV 93 fL (80-95); MPV 10.7 fL (8.0-11.0); Monocytes % 8.3 %; Neutrophils % 63.4 %; Platelet Count 294 10^3/uL (130-400); RBC 3.74 10^6/uL (3.93-5.22); RDW 13.6 % (11.7-14.6); RDW-SD 46.5 fL; WBC 6.74 10^3/uL (4.4-10.8)
[2024-03-15 12:58] LABS: ALT 24 U/L (14-59); AST 21 U/L (15-37); Albumin 4.2 g/dL (3.4-5.0); Alkaline Phosphatase 68 U/L (46-116); Anion Gap 12.8 mmol/L (3-11); BUN 29 mg/dL (7-18); Bilirubin, Total 0.67 mg/dL (0.2-1.0); CO2 25.2 mmol/L (21.0-32.0); CREATININE 1.7 mg/dL (0.55-1.02); Calcium 9.5 mg/dL (8.5-10.1); Chloride 102 mmol/L (98-107); Estimated GFR 33.28 (mL/min/1.73m2); Glucose 95 mg/dL (74-106); Potassium 3.7 mmol/L (3.5-5.1); Sodium 140 mmol/L (136-145); TSH (W/Ref FT4) 1.54 uIU/mL (0.36-3.74); Total Protein 7.6 g/dL (6.4-8.2)
[2024-03-15 13:21] VITALS: BP 118/66; PULSE 71; RESP 16; TEMP 36.3; O2SAT 97
[2024-03-15 13:28] VITALS: BP 132/85; PULSE 64; RESP 16; TEMP 36.4; O2SAT 99
== END 2024-03-15 13:29 | disposition home or self-care (01) ==
PROVIDERS: Emergency Provider Physician Assistant; PCP Physician Assistant
DX: J02.9 Acute pharyngitis, unspecified (principal); R51.9 Headache, unspecified; C34.90 Malignant neoplasm of unspecified part of unspecified bronchus or lung; C79.51 Secondary malignant neoplasm of bone; E78.5 Hyperlipidemia, unspecified; I10 Essential (primary) hypertension; Z92.21 Personal history of antineoplastic chemotherapy; Z79.82 Long term (current) use of aspirin; Z87.891 Personal history of nicotine dependence
CPT/HCPCS: 36415; 80053; 99283; 84443; 85025

== ENCOUNTER 2024-04-18 08:14 | Outpatient (CLI) | payer OTHER, SELFPAY ==
--- NOTE | 2024-04-18 08:00 | RT.EKG_ITS ---
APPROVED REPORT Exam: Resting ECG Reason for Exam: HTN Patient Location: O HR:68 bpm ECG Measurements Heart Rate 68 AXIS AR 130 P -14 QRSd 107 QRS -14 QT 396 T 23 QTc 422 Conclusion Sinus rhythm...normal P axis, V-rate 50- 99 Normal Electrocardiogram
== END 2024-04-18 08:15 | disposition home or self-care (01) ==
LOC: DI.CARD 08:15
PROVIDERS: PCP Physician Assistant; Visit Provider Internal Medicine Cardiovascular Disease
DX: I44.7 Left bundle-branch block, unspecified (principal); R94.39 Abnormal result of other cardiovascular function study
CPT/HCPCS: 93010

== ENCOUNTER → 2024-04-18 13:29 | Outpatient (BNVA) | payer OTHER, SELFPAY | PROVIDERS: PCP Physician Assistant; Referring Provider Physician Assistant; Visit Provider Internal Medicine Cardiovascular Disease | DX: M16.12 Unilateral primary osteoarthritis, left hip (principal); I44.7 Left bundle-branch block, unspecified; R94.39 Abnormal result of other cardiovascular function study | CPT/HCPCS: 93005; 99213 ==

== ENCOUNTER 2024-05-03 01:13 | Outpatient (CLI) | payer OTHER, SELFPAY ==
[2024-05-03 13:46] LABS: Abs Immature Grans 0.02 10^3/uL (0.0-0.06); Absolute Basophil Count 0.05 10^3/uL (0.0-0.2); Absolute Lymphocyte Count 2.11 10^3/uL (1.2-3.4); Absolute Neutrophil Count 3.43 10^3/uL (1.2-6.7); Basophils % 0.8 %; Eosinophils % 3.2 %; HCT 33.1 % (36.0-46.0); HGB 11.1 g/dL (11.2-15.7); Immature Grans % 0.3 %; MCH 30.3 pg (27.0-33.0); MCHC 33.5 % (32.0-36.0); MCV 90 fL (80-95); MPV 9.6 fL (8.0-11.0); Monocytes % 6.4 %; Neutrophils % 55.3 %; Platelet Count 275 10^3/uL (130-400); RBC 3.66 10^6/uL (3.93-5.22); RDW 13.5 % (11.7-14.6); RDW-SD 44.9 fL; WBC 6.21 10^3/uL (4.4-10.8)
[2024-05-03 14:04] LABS: ALT 34 U/L (14-59); AST 32 U/L (15-37); Albumin 4.1 g/dL (3.4-5.0); Alkaline Phosphatase 64 U/L (46-116); Anion Gap 11.3 mmol/L (3-11); BUN 28 mg/dL (7-18); Bilirubin, Total 0.71 mg/dL (0.2-1.0); CO2 27.7 mmol/L (21.0-32.0); CREATININE 1.4 mg/dL (0.55-1.02); Calcium 9.1 mg/dL (8.5-10.1); Chloride 101 mmol/L (98-107); Estimated GFR 42.01 (mL/min/1.73m2); Glucose 97 mg/dL (74-106); Potassium 3.7 mmol/L (3.5-5.1); Sodium 140 mmol/L (136-145); Total Protein 7.2 g/dL (6.4-8.2)
[2024-05-03] MEDS: Normal Saline - Diluent 50 ML VIAL IJ (14:18)
[2024-05-03] MEDS: Omnipaque 350 MG/ML 50 ML BTL 70 ML IJ (14:19)
--- NOTE | 2024-05-03 14:30 | DI.CT_ITS ---
Exam(s) CT CHEST W EXAM: CT CHEST W CLINICAL HISTORY: Stage IV Lung CA, mets to bone, C34.90, C79.51 TECHNIQUE: Imaging Protocol: Axial computed tomography images with coronal and sagittal reformatted images were created and reviewed. Computer aided detection (CAD) was utilized. CONTRAST MATERIAL: Intravenous: Omnipaque 350Contrast volume:70 mL. COMPARISON: CT CT CHEST W from 02/10/2024 FINDINGS: Tracheobronchial tree: Patent where visualized. No evidence of bronchiectasis. Pulmonary parenchyma: Postsurgical changes of a right upper lobectomy. There is stable pulmonary nod ules. No new pulmonary nodules are present. No consolidations are seen. Stable scarring is seen in the right hemithorax. Mediastinum and Abida: No dominant adenopathy or fluid collection. The esophagus is unremarkable. The re is unchanged right word shift of the mediastinum due to the prior lobectomy. Thyroid gland: Unremarkable. Pleura: No effusion or pneumothorax. Heart: The heart is not dilated. Mild coronary artery calcification is present. No pericardial effus ion. Aorta: Thoracic aorta non-dilated. Mild atherosclerotic calcification is present. Pulmonary arteries: Due to the timing of the bolus, pulmonary artery opacification is suboptimal for evaluation of pulmonary emboli. Upper abdomen: Unremarkable. Lymph nodes: Within normal limits. Bones: Within normal limits for the patient's age. Stable appearance of the bones compared to the pr ior examination. Soft tissues: Unremarkable. IMPRESSION: Stable appearance of the chest compared to the prior examination. No evidence of progression of dise ase. RADIATION DOSE DELIVERED: 228.39mGy.cm Total DLP DATA REPOSITORY: All CT scans at this facility are submitted to the National Radiology Data Registry (NRDR) Dose Index Registry (DIR) with the [employer] (ACR). RADIATION OPTIMIZATION: All CT scans at this facility use at least one of these dose optimization te chniques: automated exposure control; mA and/or kV adjustment per patient size (includes targeted exa ms where dose is matched to clinical indication); or iterative reconstruction.
== END 2024-05-03 01:33 ==
LOC: DI 01:13
PROVIDERS: PCP Physician Assistant; Visit Provider Nurse Practitioner Family
DX: C79.51 Secondary malignant neoplasm of bone (principal); C34.91 Malignant neoplasm of unspecified part of right bronchus or lung
CPT/HCPCS: 80053; 71260; 85025; Q9967

== ENCOUNTER 2024-06-03 19:26 | Outpatient (REF) | payer MEDICARE, OTHER, SELFPAY ==
[2024-06-03 19:06] LABS: HCT 30.3 % (36.0-46.0); MCH 31.2 pg (27.0-33.0); MCV 94 fL (80-95); MPV 11.1 fL (8.0-11.0); Platelet Count 322 10^3/uL (130-400); RBC 3.21 10^6/uL (3.93-5.22); RDW 17.3 % (11.7-14.6); RDW-SD 58.9 fL
[2024-06-03 19:12] LABS: Anion Gap 11.2 mmol/L (3-11); BUN 11 mg/dL (7-18); CO2 24.8 mmol/L (21.0-32.0); CREATININE 1.2 mg/dL (0.55-1.02); Calcium 9.3 mg/dL (8.5-10.1); Chloride 106 mmol/L (98-107); Estimated GFR 50.55 (mL/min/1.73m2); Glucose 116 mg/dL (74-106); Potassium 4.2 mmol/L (3.5-5.1); Sodium 142 mmol/L (136-145)
[2024-06-03 19:18] LABS: Iron 61 ug/dL (50-170); Total Iron Binding Capacity 294 ug/dL (250-450); Transferrin Sat 21 % (15-50)
== END 2024-06-03 19:27 | disposition home or self-care (01) ==
LOC: NCHCN 19:26
PROVIDERS: PCP Physician Assistant; Visit Provider Physician Assistant
DX: D64.9 Anemia, unspecified (principal)
CPT/HCPCS: 80048; 85027; 83540; 83550

== ENCOUNTER 2024-06-17 00:42 | Outpatient (CLI) | payer MEDICARE, OTHER, SELFPAY ==
--- NOTE | 2024-06-17 13:28 | DI.RAD_ITS ---
Exam(s) XR HIP LT COMPLETE AP PELVIS EXAM: XR HIP LT COMPLETE AP PELVIS INDICATION: S/P TOTAL LEFT HIP ARTHROPLASTY Z96.642 W/ AUGMENTATION, DR BRANDT. COMPARISON: CR XR HIP LT COMPLETE AP PELVIS from 09/17/2023 TECHNIQUE: 2D digital imaging was performed. Three views. FINDINGS: A total hip prosthesis is noted which shows satisfactory alignment. An additional prosthetic compone nt is noted above the acetabular component. No abnormal bony lucencies. IMPRESSION: DATA REPOSITORY: RADIATION DOSE DELIVERED:
== END 2024-06-17 01:02 ==
PROVIDERS: PCP Physician Assistant; Visit Provider Physician Assistant
DX: Z96.642 Presence of left artificial hip joint (principal); Z47.1 Aftercare following joint replacement surgery
CPT/HCPCS: 73502

== ENCOUNTER 2024-09-07 01:10 | Outpatient (CLI) | payer MEDICARE, OTHER, SELFPAY ==
--- NOTE | 2024-09-07 | DI.CT_ITS ---
Exam(s) CT CHEST W EXAM: CT CHEST W CLINICAL HISTORY: NSCLC, stage IV, on treatment, C34.90; metastatic to bone, C79.51 TECHNIQUE: Imaging Protocol: Axial computed tomography images with coronal and sagittal reformatted images were created and reviewed. Computer aided detection (CAD) was utilized. CONTRAST MATERIAL: Intravenous: Omnipaque 350Contrast volume:70 mL. COMPARISON: CT CT CHEST W from 05/03/2024 FINDINGS: Tracheobronchial tree: Patent where visualized. No evidence of bronchiectasis. Pulmonary parenchyma: No consolidation or dominant measurable mass. There are no new pulmonary nodule s. There again seen postsurgical changes of a right upper lobectomy. Mediastinum and Abida: No dominant adenopathy or fluid collection. The esophagus is unremarkable. Thyroid gland: Unremarkable. Pleura: No effusion or pneumothorax. Heart: The heart is not dilated. Mild coronary artery calcification. No pericardial effusion. Aorta: Thoracic aorta non-dilated. No evidence of a dissection. Minimal atherosclerotic calcificatio n is present. Pulmonary arteries: No pulmonary emboli are identified. Upper abdomen: Unremarkable. Lymph nodes: Within normal limits. Bones: Within normal limits for the patient's age. Soft tissues: Unremarkable. IMPRESSION: Stable appearance of the chest. No significant change compared to the examination from 05/03/2024. N o evidence of progression of disease. RADIATION DOSE DELIVERED: 388.77mGy.cm Total DLP DATA REPOSITORY: All CT scans at this facility are submitted to the National Radiology Data Registry (NRDR) Dose Index Registry (DIR) with the [employer] (ACR). RADIATION OPTIMIZATION: All CT scans at this facility use at least one of these dose optimization te chniques: automated exposure control; mA and/or kV adjustment per patient size (includes targeted exa ms where dose is matched to clinical indication); or iterative reconstruction.
[2024-09-07 13:55] LABS: Abs Immature Grans 0.02 10^3/uL (0.0-0.06); Absolute Basophil Count 0.06 10^3/uL (0.0-0.2); Absolute Eosinophil Count 0.38 10^3/uL (0.0-0.7); Absolute Lymphocyte Count 2.11 10^3/uL (1.2-3.4); Absolute Monocyte Count 0.46 10^3/uL (0.1-0.8); Absolute Neutrophil Count 4.13 10^3/uL (1.2-6.7); Basophils % 0.8 %; Eosinophils % 5.3 %; HCT 37.7 % (36.0-46.0); HGB 12.6 g/dL (11.2-15.7); Immature Grans % 0.3 %; Lymphocytes % 29.5 %; MCH 30.4 pg (27.0-33.0); MCHC 33.4 % (32.0-36.0); MCV 91 fL (80-95); Monocytes % 6.4 %; Neutrophils % 57.7 %; Platelet Count 272 10^3/uL (130-400); RBC 4.14 10^6/uL (3.93-5.22); RDW 13.5 % (11.7-14.6); RDW-SD 44.9 fL; WBC 7.16 10^3/uL (4.4-10.8)
[2024-09-07 14:17] LABS: ALT 25 U/L (14-59); AST 19 U/L (15-37); Albumin 4.3 g/dL (3.4-5.0); Alkaline Phosphatase 74 U/L (46-116); Anion Gap 9.9 mmol/L (3-11); BUN 23 mg/dL (7-18); Bilirubin, Total 0.7 mg/dL (0.2-1.0); CO2 29.1 mmol/L (21.0-32.0); CREATININE 1.5 mg/dL (0.55-1.02); Calcium 9.6 mg/dL (8.5-10.1); Chloride 99 mmol/L (98-107); Estimated GFR 38.67 (mL/min/1.73m2); Glucose 102 mg/dL (74-106); Potassium 3.2 mmol/L (3.5-5.1); Sodium 138 mmol/L (136-145); Total Protein 7.5 g/dL (6.4-8.2)
[2024-09-07] MEDS: Normal Saline - Diluent 50 ML VIAL IJ (14:51)
[2024-09-07] MEDS: Omnipaque 350 MG/ML 100 ML BTL 70 ML IJ (14:51)
== END 2024-09-07 01:30 ==
PROVIDERS: PCP Physician Assistant; Visit Provider Nurse Practitioner Family
DX: C34.91 Malignant neoplasm of unspecified part of right bronchus or lung (principal); C79.51 Secondary malignant neoplasm of bone
CPT/HCPCS: 80053; 71260; 85025; J3490

== ENCOUNTER 2024-09-12 01:04 | Outpatient (CLI) | payer MEDICARE, OTHER, SELFPAY ==
--- NOTE | 2024-09-12 | DI.CT_ITS ---
Exam(s) CT NECK W EXAM: CT NECK W INDICATION: LUNG CANCER METASTATIC TO BONE, C34.90, C79.51. COMPARISON: CT CT NECK W from 09/04/2021 TECHNIQUE: FINDINGS: VISUALIZED PARANASAL SINUSES: Unremarkable. NASOPHARYNX: Unremarkable ORODENTAL: Unremarkable. OROPHARYNX: There are bilateral calcified tonsilliths, more prominent on the right side where the rig ht palatine tonsil is slightly enlarged. HYPOPHARYNX: Unremarkable. Valleculae and epiglottis and aryepiglottic folds appear normal. VOCAL CORDS: Unremarkable. No masses evident. Subglottic airway appears unremarkable. THYROID GLAND: Unremarkable. Normal size and no obvious nodules. SALIVARY GLANDS: Unremarkable. No significant findings in the parotid and submandibular glands. LYMPH NODES: There is no adenopathy evident in the neck and supraclavicular regions. OTHER: Small nodular infiltrate noted in the right upper lobe. OSSEOUS: There is reversal of the normal cervical curvature and multilevel chronic degenerative disc disease involving all disc spaces at and below C3-4 level. There is multilevel facet arthropathy but no facet joint malalignment. There are no lytic nor blastic lesions seen in the cervical vertebrae nor in the skull base-basiocciput/clivus. IMPRESSION: 1. Asymmetrically enlarged right tonsil in the oropharynx level which contains 2 calcified tonsillit hs. No other soft tissue findings in the neck. 2. Multilevel chronic degenerative changes throughout the cervical spine with reversal of the normal curvature but no evidence of lytic nor blastic osseous lesions in the cervical vertebrae. RADIATION DOSE DELIVERED: 362.6mGy.cm Total DLP DATA REPOSITORY: All CT scans at this facility are submitted to the National Radiology Data Registry (NRDR) Dose Index Registry (DIR) with the [employer] (ACR). RADIATION OPTIMIZATION: All CT scans at this facility use at least one of these dose optimization te chniques: automated exposure control; mA and/or kV adjustment per patient size (includes targeted exa ms where dose is matched to clinical indication); or iterative reconstruction.
[2024-09-12 10:52] LABS: CREATININE 1.1 mg/dL (0.55-1.02); Estimated GFR 56.11 (mL/min/1.73m2)
[2024-09-12] MEDS: Normal Saline - Diluent 50 ML VIAL IJ (11:17)
[2024-09-12] MEDS: Omnipaque 350 MG/ML 100 ML BTL IJ (11:17)
== END 2024-09-12 01:24 ==
LOC: DI 01:04
PROVIDERS: Nurse Practitioner Family; PCP Physician Assistant; Visit Provider Internal Medicine Hematology & Oncology
DX: C34.90 Malignant neoplasm of unspecified part of unspecified bronchus or lung (principal); C79.51 Secondary malignant neoplasm of bone
CPT/HCPCS: 70491; 82565; J3490

== ENCOUNTER 2024-10-11 02:03 | Outpatient (CLI) | payer MEDICARE, OTHER, SELFPAY ==
--- NOTE | 2024-10-11 13:45 | DI.MRI_ITS ---
Exam(s) MR LUMBAR SPINE WO/W EXAM: MR LUMBAR SPINE WO/W CLINICAL HISTORY: LUNG CA METASTATIC TO BONE,C34.90,C79.51,INCREASED LOW BACK PAIN. TECHNIQUE: Multiplanar multisequence MRI of the Lumbar spine was performed. COMPARISON: MR MRI - LUMBAR SPINE WO CONTRAST from 08/09/2012 CR XR HIP LT COMPLETE AP PELVIS from 06/17/2024 FINDINGS: Conus medullaris is at normal level. There is no evidence of conus mass nor subjacent clumping of in trathecal nerve roots to suggest arachnoiditis. The distal thecal sac appears unremarkable.There is no evidence of Tarlov intrasacral cysts nor other significant findings within the sacral canal Bones:There are no fractures nor ominous osseous lesions in the lumbar vertebral bodies and visualize d sacrum. No abnormal intraosseous enhancement evident. With respect to the individual levels... T11-T12: This levels covered only on the sagittal images. There is broad annular bulging at this lev el. Central canal dimensions are lower normal. No prominent foraminal stenosis. T12-L1: Unremarkable L1-2: Preserved disc height. Posteriorly there is annular bulging. No prominent disc herniation. C entral canal dimensions are lower normal. Mild facet hypertrophy. Mild bilateral foraminal stenosis due to short AP dimensions of the pedicles. L2-3: Significant disc space narrowing, slightly more on the right than left side of the disc space. There is no prominent disc herniation. There is mild central canal stenosis due to short AP dimensi ons of the pedicles. Mild degenerative changes in the facet joints. No significant foraminal stenos is. L3-4: Chronic disc space narrowing. Posteriorly there is moderate central canal stenosis due to broa d annular bulging, short AP dimensions of the pedicles and some for bilateral facet arthrosis and mil d ligamentum flavum hypertrophy. There is significant foraminal stenosis on the left side at this le josie. No significant foraminal stenosis on the right side at this level. L4-5: This level exhibits chronic advanced disc space narrowing and lateral left osteophytes. Radiology Ct Technologist iorly there is relatively symmetrical annular bulging. There is mild-moderate moderate central canal stenosis due to the annular bulging and short AP dimensions the pedicles and facet arthropathy. The re is moderate left-sided foraminal stenosis at this level. Minimal if any right-sided foraminal zac nosis. L5-S1: This level exhibits chronic advanced disc space narrowing and posterior bony ridging. Posteri crystal there is broad annular bulging. There is moderate central spinal canal stenosis due to the david lar bulging and short AP dimensions of the pedicles and facet joint degenerative changes. There is b ilateral foraminal stenosis, more prominent on the right side. Soft tissues: paraspinal soft tissues appear unremarkable.No evidence of paraspinal mass. There are no enhancing soft tissue masses evident. No abnormal intraosseous enhancement. IMPRESSION: 1. Multilevel chronic degenerative disc disease changes as described individually above. There is mu ltilevel annular bulging without at 2 dominant disc herniation. However, there is multilevel mild-mo derate canal stenosis as described above and there is multilevel asymmetric foraminal stenosis as barb cribed per individual level above. 2. No obvious metastatic disease in the lumbosacral spinal column. 3. DATA REPOSITORY:
[2024-10-11] MEDS: Gadoterate meglumine 20 ML SYRINGE IVP (14:23)
--- NOTE | 2024-10-11 14:40 | DI.MRI_ITS ---
Exam(s) MR PELVIS WO/W EXAM: MR PELVIS WO/W CLINICAL HISTORY: LUNG CA METASTATIC TO BONE,C79.51,C34.90,INCREASED BACK PAIN,SCIATICA COMPARISON: DX XR PELVIS AND HIP 2 VIEWS LEFT from 08/08/2024 MR MR LUMBAR SPINE WO/W from 10/11/2024 FINDINGS: OSSEOUS: There is a left hip prosthesis resulting in significant local artifact. There is no fractur e or contusion pattern. No evidence of avascular necrosis. There is no bone marrow edema evident. No obvious lytic bone lesions noted. SI joints is sepsis pubis appear intact/unremarkable. Caliber of the iliac arteries is normal. There is no lymphadenopathy around the aortic bifurcation n or along the iliac chains. There is no inguinal adenopathy. Musculotendinous structures: There is a thin band of fluid signal in the peripheral aspect of the ri ght iliac fossa interposed between the iliacus villous ileal abscess OS and the right pelvic iliac leonela ne. This does not exhibit enhancement following contrast injection. GI: No evidence of bowel obstruction in the pelvis. No evidence of abscess. REPRODUCTIVE: Uterus anteverted, exhibiting normal size. There appears to be a subtle fibroid on the right side of the fundus. Endometrial thickness is upper normal. There are no abnormal adnexal masses. URINARY BLADDER: Relatively thickened urinary bladder wall possibly related to chronic cystitis. IMPRESSION: No evidence of metastatic disease in the pelvis. No significant osseous lesions evident in the pelvis. Left hip prosthesis noted DATA REPOSITORY:
== END 2024-10-11 02:23 ==
LOC: DI 02:03
PROVIDERS: PCP Physician Assistant; Visit Provider Internal Medicine Hematology & Oncology
DX: C34.31 Malignant neoplasm of lower lobe, right bronchus or lung (principal); C79.51 Secondary malignant neoplasm of bone; M51.371 Other intervertebral disc degeneration, lumbosacral region with lower extremity pain only
CPT/HCPCS: 72158; 72197

== ENCOUNTER 2024-12-30 01:06 | Outpatient (CLI) | payer MEDICARE, OTHER, SELFPAY ==
[2024-12-30 12:19] LABS: Abs Immature Grans 0.01 10^3/uL (0.0-0.06); HCT 36.8 % (36.0-46.0); HGB 12.3 g/dL (11.2-15.7); Immature Grans % 0.1 %; MCH 30.9 pg (27.0-33.0); MCHC 33.4 % (32.0-36.0); MCV 93 fL (80-95); MPV 10.1 fL (8.0-11.0); Platelet Count 264 10^3/uL (130-400); RBC 3.98 10^6/uL (3.93-5.22); RDW 12.6 % (11.7-14.6); RDW-SD 43.0 fL; WBC 6.72 10^3/uL (4.4-10.8)
[2024-12-30 12:53] LABS: ALT 30 U/L (14-59); AST 26 U/L (15-37); Albumin 4.1 g/dL (3.4-5.0); Alkaline Phosphatase 66 U/L (46-116); Anion Gap 10.1 mmol/L (3-11); BUN 23 mg/dL (7-18); Bilirubin, Total 0.5 mg/dL (0.2-1.0); CO2 28.9 mmol/L (21.0-32.0); Calcium 9.6 mg/dL (8.5-10.1); Chloride 101 mmol/L (98-107); Estimated GFR 45.92 (mL/min/1.73m2); Glucose 93 mg/dL (74-106); Potassium 3.4 mmol/L (3.5-5.1); Sodium 140 mmol/L (136-145); Total Protein 7.2 g/dL (6.4-8.2)
[2024-12-30] MEDS: Omnipaque 350 MG/ML 100 ML BTL 70 ML IJ (13:02)
[2024-12-30] MEDS: Normal Saline - Diluent 50 ML VIAL IJ (13:06)
--- NOTE | 2024-12-30 13:10 | DI.CT_ITS ---
Exam(s) CT CHEST W EXAM: CT CHEST W CLINICAL HISTORY: LUNG CANCER METASTATIC TO BONE, C34.90 C79.51. TECHNIQUE: Multi planar reconstructions were performed. CONTRAST MATERIAL: Omnipaque 350; 75 cc COMPARISON: CT CT CHEST W from 05/03/[address] CHEST W from 09/07/2024 FINDINGS: CHEST: LUNGS: Again noted is decreased right hemithoracic volume related to prior right upper lobectomy. 8 millimeter nodular density in the right upper lobe is unchanged from CT scans of 05/03/2024 and 09/07/2024. There are no new significant focal right lung findings and no pleural effusion. In the opposite-left lung there is again noted compensatory [place] over inflation. Small 3 millimeter nodule in the left upper lobe is unchanged as is a 4 millimeter small nodular infiltrate anteriorly in the left upper lobe, also unchanged from CT scan of May 2024. There are no new left lung nodules. No pleural effusions. PULMONARY ARTERIES: No intraluminal filling defects to suggest the presence of pulmonary emboli. MEDIASTINUM: There is no hilar nor mediastinal adenopathy. There is no subcarinal adenopathy. No supraclavicular adenopathy. No axillary adenopathy. CARDIAC: Heart size upper normal. No pericardial effusion.The diameter of the ascending thoracic aorta is upper normal. VISUALIZED UPPER ABDOMEN:There are no significant adrenal masses. No ascites evident. No splenomegaly. OSSEOUS: Postsurgical changes in right rib cage. No acute fractures. No significant osseous lesions in the field of view of this chest study no compression fractures evident.. IMPRESSION: 1. Findings as above but unchanged from prior CT scans of May 2024 and August 2024. 2. No evidence of new metastatic lung nodules, infiltrates, pleural effusions, nor new intrathoracic adenopathy. 3. No evidence of pulmonary emboli. RADIATION DOSE DELIVERED: 247.5mGy.cm Total DLP DATA REPOSITORY: All CT scans at this facility are submitted to the National Radiology Data Registry (NRDR) Dose Index Registry (DIR) with the [employer] ([employer]). RADIATION OPTIMIZATION: All CT scans at this facility use at least one of these dose optimization techniques: automated exposure control; mA and/or kV adjustment per patient size (includes targeted exams where dose is matched to clinical indication); or iterative reconstruction.
== END 2024-12-30 01:26 ==
LOC: DI 01:07
PROVIDERS: PCP Physician Assistant; Visit Provider Internal Medicine Hematology & Oncology
DX: C34.91 Malignant neoplasm of unspecified part of right bronchus or lung (principal); C79.51 Secondary malignant neoplasm of bone
CPT/HCPCS: 80053; 71260; 85025; J3490

== ENCOUNTER → 2025-05-04 00:17 | Outpatient (CLI) | payer MEDICARE, OTHER, SELFPAY ==
--- NOTE | 2025-05-04 | DI.CT_ITS ---
Exam(s) CT CHEST W EXAM: CT CHEST W CLINICAL HISTORY: LUNG CANCER METS TO BONE C34.90 C79.51 STAGE IV NSCLC ASSESS TREATMENT. TECHNIQUE: Multi planar reconstructions were performed. CONTRAST MATERIAL: Omnipaque 350; 75 cc COMPARISON: CT CT CHEST W from 12/30/2024 FINDINGS: CHEST: LUNGS: Again noted is decreased right hemithoracic volume from prior right upper lobectomy. The previously described 8 mm nodular density in the right upper lobe remains unchanged from CT scans of August 2024 and December 2024. There are no new focal right lung lesions nor pleural effusion.. Left lung compensatory over inflation is again noted. There are no new left lung nodules evident. The previously described 2 small left lung nodules measuring 3 and 4 millimeters remain unchanged and there are no new focal nodules. No pleural effusions. MEDIASTINUM: No new hilar nor mediastinal adenopathy. Partially visualized thyroid unremarkable. CARDIAC: Heart size is normal. There is no pericardial effusion.Caliber of the thoracic aorta is within normal limits. VISUALIZED UPPER ABDOMEN:There are no significant adrenal masses. OSSEOUS: Postsurgical changes right rib cage. No new fractures nor lytic osseous lesions.. IMPRESSION: 1. Findings remain unchanged from prior CT scan of December 2024. 2. No evidence of new metastatic lung nodules nor pleural effusions nor new intrathoracic adenopathy. RADIATION DOSE DELIVERED: 438.82mGy.cm Total DLP DATA REPOSITORY: All CT scans at this facility are submitted to the National Radiology Data Registry (NRDR) Dose Index Registry (DIR) with the [employer] ([employer]). RADIATION OPTIMIZATION: All CT scans at this facility use at least one of these dose optimization techniques: automated exposure control; mA and/or kV adjustment per patient size (includes targeted exams where dose is matched to clinical indication); or iterative reconstruction.
[2025-05-04 13:24] LABS: Abs Immature Grans 0.01 10^3/uL (0.0-0.06); HCT 37.3 % (36.0-46.0); HGB 12.0 g/dL (11.2-15.7); Immature Grans % 0.2 %; MCH 29.8 pg (27.0-33.0); MCHC 32.2 % (32.0-36.0); MCV 93 fL (80-95); MPV 11.0 fL (8.0-11.0); Platelet Count 248 10^3/uL (130-400); RBC 4.03 10^6/uL (3.93-5.22); RDW 13.5 % (11.7-14.6); RDW-SD 46.6 fL; WBC 6.63 10^3/uL (4.4-10.8)
[2025-05-04 13:35] LABS: ALT 22 U/L (10-49); AST 28 U/L (<34); Albumin 4.5 g/dL (3.2-5.0); Alkaline Phosphatase 62 U/L (46-116); Anion Gap 10.3 mmol/L (3-11); BUN 22 mg/dL (9-23); Bilirubin, Total 0.50 mg/dL (0.2-1.2); CO2 27.7 mmol/L (20.0-31.0); Calcium 9.2 mg/dL (8.3-10.6); Chloride 103 mmol/L (98-107); Glucose 89 mg/dL (74-106); Potassium 3.9 mmol/L (3.5-5.1); Sodium 141 mmol/L (136-145); Total Protein 7.2 g/dL (5.7-8.2)
[2025-05-04] MEDS: Normal Saline - Diluent 50 ML VIAL IJ (14:00)
[2025-05-04] MEDS: Omnipaque 350 MG/ML 100 ML BTL IJ (14:00)
== END ==
LOC: DI 00:18
PROVIDERS: PCP Physician Assistant; Visit Provider Nurse Practitioner Family
DX: C34.90 Malignant neoplasm of unspecified part of unspecified bronchus or lung (principal); C79.51 Secondary malignant neoplasm of bone
CPT/HCPCS: 80053; 71260; 85025; J3490